=== PATIENT | male | born 1930 | race Caucasian/White ===

== ENCOUNTER 2016-08-13 11:28 | Inpatient (IN) | payer OTHER ==
[~2016-08-13] VITALS: Ht 177.8 cm; Wt 94.7 kg
[~2016-08-13 11:28] MED LIST: ALL300 PO; AMLO-114 PO; ASPEC81 PO; CIPR-255 PO; LEVO88TA3 PO
--- NOTE | 2016-08-13 12:55 | DIAGNOSTIC IMAGING REPORT ---
CHEST ONE VIEW PORTABLE CLINICAL HISTORY: sob COUGH COMPARISON STUDY: 10/04/2013 FINDINGS: The heart is mildly enlarged. Since the prior study, the patient has developed bilateral interstitial opacities with a lower lung zone predominance. [Likely diagnostic considerations include multifocal pneumonia versus interstitial edema.. Clinical and radiographic follow-up is recommended. Impression: Interval development of bilateral interstitial opacities with a lower lung zone predominance. Likely diagnostic considerations include multifocal pneumonia versus failure with interstitial edema. Clinical and radiographic follow-up is recommended Electronically signed by: Bony Wright M.D. 08/13/2016 12:53 PM Dictated Date/Time: 08/13/2016 12:50 PM
[2016-08-13 12:59] LABS: BASO % 0.3 %; BASO ABS # 0.03 K/uL (0-0.2); COMPLETE YES; EOS % 2.3 %; HEMATOCRIT 32.8 % (42-52); IG% 0.2 %; LYMPH % 7.2 %; LYMPH ABS # 0.63 K/uL (1.2-3.4); MEAN CELL VOLUME 94.5 fL (80-100); MEAN CORPUSCULAR HEMOGLOBIN 31.1 pg (25-34); MEAN CORPUSCULAR HGB CONC 32.9 g/dl (32-36); MEAN PLATELET VOLUME 9.3 fL (7.4-10.4); MONO % 8.4 %; NEUT % 81.6 %; PLATELET COUNT 176 K/uL (130-400); RED BLOOD COUNT 3.47 M/uL (4.7-6.1); WHITE BLOOD COUNT 8.79 K/uL (4.8-10.8)
[2016-08-13] MEDS ORDERED: NTRGSL/4 UT (13:05)
[2016-08-13] MEDS ORDERED: PRLSR20 PO (13:05)
[2016-08-13] MEDS ORDERED: CLOP1TAB15 PO (13:05)
[2016-08-13] MEDS ORDERED: ATOR-24 PO (13:05)
[2016-08-13] MEDS ORDERED: AMOX500C3 PO (13:05)
[2016-08-13 13:10] LABS: INR 1.1 (0.9-1.1); PARTIAL THROMBOPLASTIN RATIO 1.2; PROTHROMBIN TIME (PATIENT) 11.3 SECONDS (9.0-12.0)
[2016-08-13 13:22] LABS: BUN/CREATININE RATIO 15.8 (10-20); CALCIUM 8.4 mg/dl (8.5-10.1); CREATININE 1.9 mg/dl (0.60-1.40); POTASSIUM 4.3 mmol/L (3.5-5.1)
[2016-08-13 13:58] LABS: ALB/GLOB RATIO 0.7 (0.9-2); CKMB/CK RATIO 1.7 (0-3.0)
[2016-08-13] MEDS ORDERED: LEVAQUIN 500MG / 100ML D5W IV ONE (14:00)
--- NOTE | 2016-08-13 14:30 | EMERGENCY ROOM VISIT NOTE ---
History Report prepared by Laurel: Frankie Cash Under the Supervision of: Dr. Elroy Navarro D.O. First contact with patient: 11:42 Chief Complaint: SHORTNESS OF BREATH Stated Complaint: SOB, COUGH History of Present Illness The patient is an 86 year old male who presents to the Emergency Room with complaints of worsening shortness of breath that started 2 weeks ago after having an aortic valve replacement in [place]. He says that he had a stent put in. The patient states that 3 days ago, he was grocery shopping and he noticed that he could hardly breathe. He says that he has just been sitting down and watching television ever since. The patient notes that his breathing difficulties are worsened on exertion. He adds that he has had a terrible cough since the day after the surgery. He does not wear oxygen at home, and he had an oxygen saturation of 82% on room air on arrival. The patient denies any abdominal pain or new leg swelling. Source of History: patient Onset: 2 weeks ago Position: other (global - sob) Symptom Intensity: 82% on arrival on room air Timing: worsening Modifying Factors (Worsening): exertion Associated Symptoms: + cough, No abdominal pain Note: Associated symptoms: Denies new leg swelling. Review of Systems See HPI for pertinent positives & negatives. A total of 10 systems reviewed and were otherwise negative. Past Medical & Surgical Medical Problems: (1) Aortic Valve Disorder (2) Chronic Kidney Disease, Stage Iii (Moderate) (3) Esophageal Reflux (4) Hydronephrosis (5) Hypothyroidism Nos Family History Family history omitted secondary to patient's advanced age. Social History Smoking Status: Former Smoker Alcohol Use: none Drug Use: none Marital Status: Housing Status: lives with significant other Occupation Status: retired Current/Historical Medications Scheduled Amlodipine (Norvasc), 2.5 MG PO QAM Amoxicillin (Amoxil), 500 MG PO DIRECTED Aspirin Enteric Coated (Ecotrin Or Generic *), 81 MG PO DAILY Atorvastatin (Lipitor), 40 MG PO DAILY Clopidogrel (Plavix), 75 MG PO DAILY Levothyroxine Sodium (Levothyroxine Sodium), 88 MCG PO DAILY Nitroglycerin (Nitrostat), 0.4 MG UT PRN Omeprazole (Prilosec), 20 MG PO DAILY Scheduled PRN Allopurinol (Allopurinol), 300 MG PO DAILY PRN for gout Allergies Coded Allergies: No Known Allergies (Verified , 08/13/16) Physical Exam Vital Signs Date Time Temp Pulse Resp B/P Pulse Ox O2 Delivery O2 Flow Rate FiO2 08/13/16 13:57 68 18 124/56 95 Nasal Cannula 2.0 08/13/16 13:10 69 22 113/60 97 Nasal Cannula 3.0 08/13/16 12:06 74 08/13/16 11:48 94 Nasal Cannula 3.0 08/13/16 11:42 93 Nasal Cannula 3.0 08/13/16 11:30 37.3 92 24 108/59 82 Room Air Physical Exam CONSTITUTIONAL/VITAL SIGNS: Reviewed / noted above. GENERAL: Non-toxic in appearance. INTEGUMENTARY: Warm, dry, and [place]. HEAD: Normocephalic. EYES: without scleral icterus or trauma. ENT/OROPHARYNX: clear and moist. LYMPHADENOPATHY/NECK: Is supple without lymphadenopathy or meningismus. RESPIRATORY: Crackles in bilateral bases. CARDIOVASCULAR: Regular rate and rhythm. Systolic ejection murmur. GI/ABDOMEN: Soft and nontender. No organomegaly or pulsatile mass. No rebound or guarding. Normal bowel sounds. EXTREMITIES: Warm and well perfused. BACK: No CVA tenderness. NEUROLOGICAL: Intact without focal deficits. PSYCHIATRIC: normal affect. MUSCULOSKELETAL: Normally developed with good muscle tone. Medical Decision & Procedures ER Provider Diagnostic Interpretation: X ray results and stated below per my interpretation and radiology interpretation. CHEST ONE VIEW PORTABLE CLINICAL HISTORY: sob COUGH COMPARISON STUDY: 10/04/2013 FINDINGS: The heart is mildly enlarged. Since the prior study, the patient has developed bilateral interstitial opacities with a lower lung zone predominance. [Likely diagnostic considerations include multifocal pneumonia versus interstitial edema.. Clinical and radiographic follow-up is recommended. Impression: Interval development of bilateral interstitial opacities with a lower lung zone predominance. Likely diagnostic considerations include multifocal pneumonia versus failure with interstitial edema. Clinical and radiographic follow-up is recommended Electronically signed by: Bony Wright M.D. 08/13/2016 12:53 PM Dictated Date/Time: 08/13/2016 12:50 PM Laboratory Results 08/13/16 12:40 Red Blood Count 3.47, Mean Corpuscular Volume 94.5, Mean Corpuscular Hemoglobin 31.1, Mean Corpuscular Hemoglobin Concent 32.9, Mean Platelet Volume 9.3, Neutrophils (%) (Auto) 81.6, Lymphocytes (%) (Auto) 7.2, Monocytes (%) (Auto) 8.4, Eosinophils (%) (Auto) 2.3, Basophils (%) (Auto) 0.3, Neutrophils # (Auto) 7.17, Lymphocytes # (Auto) 0.63, Monocytes # (Auto) 0.74, Eosinophils # (Auto) 0.20, Basophils # (Auto) 0.03 08/13/16 12:40 Test 08/13/16 12:40 White Blood Count 8.79 K/uL (4.8-10.8) Red Blood Count 3.47 M/uL (4.7-6.1) Hemoglobin 10.8 g/dL (14.0-18.0) Hematocrit 32.8 % (42-52) Mean Corpuscular Volume 94.5 fL (80-100) Mean Corpuscular Hemoglobin 31.1 pg (25-34) Mean Corpuscular Hemoglobin Concent 32.9 g/dl (32-36) Platelet Count 176 K/uL (130-400) Mean Platelet Volume 9.3 fL (7.4-10.4) Neutrophils (%) (Auto) 81.6 % Lymphocytes (%) (Auto) 7.2 % Monocytes (%) (Auto) 8.4 % Eosinophils (%) (Auto) 2.3 % Basophils (%) (Auto) 0.3 % Neutrophils # (Auto) 7.17 K/uL (1.4-6.5) Lymphocytes # (Auto) 0.63 K/uL (1.2-3.4) Monocytes # (Auto) 0.74 K/uL (0.11-0.59) Eosinophils # (Auto) 0.20 K/uL (0-0.5) Basophils # (Auto) 0.03 K/uL (0-0.2) RDW Standard Deviation 51.3 fL (36.4-46.3) RDW Coefficient of Variation 15.0 % (11.5-14.5) Immature Granulocyte % (Auto) 0.2 % Immature Granulocyte # (Auto) 0.02 K/uL (0.00-0.02) Prothrombin Time 11.3 SECONDS (9.0-12.0) Prothromb Time International Ratio 1.1 (0.9-1.1) Activated Partial Thromboplast Time 31.7 SECONDS (21.0-31.0) Partial Thromboplastin Ratio 1.2 Anion Gap 8.0 mmol/L (3-11) Est Creatinine Clear Calc Drug Dose 31.7 ml/min Estimated GFR () 35.9 Estimated GFR (Non- 31.0 BUN/Creatinine Ratio 15.8 (10-20) Calcium Level 8.4 mg/dl (8.5-10.1) Total Bilirubin 1.0 mg/dl (0.2-1) Aspartate Amino Transf (AST/SGOT) 17 U/L (15-37) Alanine Aminotransferase (ALT/SGPT) 11 U/L (12-78) Alkaline Phosphatase 102 U/L (45-117) Total Creatine Kinase 104 U/L (39-308) Creatine Kinase MB 1.8 ng/ml (0.5-3.6) Creatine Kinase MB Ratio 1.7 (0-3.0) Troponin I 0.079 ng/ml (0-0.045) Pro-B-Type Natriuretic Peptide 1108 pg/ml (0-1800) Total Protein 7.1 gm/dl (6.4-8.2) Albumin 2.9 gm/dl (3.4-5.0) Globulin 4.2 gm/dl (2.5-4.0) Albumin/Globulin Ratio 0.7 (0.9-2) Laboratory results as stated above per my review. Medications Administered Medications (Trade) Dose Ordered Sig/Shakira Route Start Time Stop Time Status Last Admin Dose Admin Levofloxacin (Levaquin / D5W) 500 mg NOW ONCE IV 08/13/16 14:00 08/13/16 14:01 DC 08/13/16 14:20 500 MG ECG Indication: SOB/dyspnea Rate (beats per minute): 78 Rhythm: normal sinus Findings: no ectopy, other (bifascicular block, no acute injury) ED Course 1153: Previous medical records were reviewed. The patient was evaluated in room C8. A complete history and physical examination was performed. 1400: Ordered Levaquin / D5W 500 mg IV. 1414: I discussed the patient with Dr. Arturo Bhatti career representative - she will evaluate the patient for further treatment. 1418: On reevaluation, the patient is resting comfortably. I discussed the results and findings with him. He verbalized agreement of the treatment plan. The patient will be evaluated for further management and care. Medical Decision the differential was considered includes acute myocardial infarction, acute coronary syndrome, myocarditis, pericarditis, pericardial effusions /tamponade, esophageal perforation, pulmonary embolism, pneumonia, pneumothorax, cardiomyopathy, congestive heart, anemia , COPD/asthma exacerbation. This is an 86-year-old male who presents to the ED with a chief complaint of shortness of breath, cough and hypoxia. The patient had aortic valve replacement 2 weeks ago. He developed a cough shortly thereafter. The patient' s chest x-ray is suggestive of bilateral pneumonia. The BUN is 30 and creatinine is 1.9. Troponin slightly elevated. EKG shows a normal sinus rhythm with a bifascicular block. The patient was started on IV Levaquin. He was provided oxygen and his oxygen saturations. He was seen by the hospitalist for further inpatient evaluation and care. Medication Reconciliation: I attest that I have personally reviewed the patient' s current medication list. Consults Time Called: 1410 Consulting Physician: Dr. Arturo Bhatti career representative Returned Call: 1417 I discussed the patient with Dr. Arturo Bhatti career representative - she will evaluate the patient for further treatment. Impression Primary Impression: PNA (pneumonia) Additional Impressions: Hypoxia Elevated troponin Renal insufficiency Scribe Attestation The scribe's documentation has been prepared under my direction and personally reviewed by me in its entirety. I confirm that the note above accurately reflects all work, treatment, procedures, and medical decision making performed by me. Departure Information Dispostion Being Evaluated By Hospitalist Referrals Dylan Do D.O. (PCP) Patient Instructions My [facility] Problem Qualifiers
[2016-08-13] MEDS ORDERED: ACETAMINOPHEN 325 MG TAB PO PRN (15:00)
[2016-08-13] MEDS ORDERED: NITROGLYCERIN 0.4 MG SL PER TAB CHARGE SL PRN (15:00)
[2016-08-13] MEDS ORDERED: ONDANSETRON INJ 2 MG/ML 2 ML VIAL IV PRN (15:00)
[2016-08-13] MEDS ORDERED: LEVOFLOXACIN CONSULT ACTIVE SCH (15:16)
--- NOTE | 2016-08-13 16:23 | History and Physical ---
History & Physical Date & Time of Service: August 13, 2016 ~ 14:45 Chief Complaint: Shortness of Breath, Cough Primary Care Physician: Gurmeet Glez D.O. History of Present Illness Source: family 86 year old male who presents to the ER with shortness of breath and cough. Patient recently underwent TAVR on 07/19/16 for severe aortic stenosis at [facility]. Patient reports progressive shortness of breath since that time. He reports a dry non productive cough. He reports severe coughing spells at times. He reports chills but denies rigors and has not taken his temperature. He reports his lower extremity edema is much improved since the surgery. He reports occasional chest pain with severe coughing spells. He reports feeling generally fatigued since his surgery. No lightheadedness, dizziness, diaphoresis, or syncope. He has some nausea with severe coughing spells. Denies abdominal pain, vomiting, or diarrhea. He chronically self caths. Denies any changes in his urine. In the ER, patient was hypoxic on room air at 82%. This improved with oxygen 2L via NC. CXR is showing bibasilar pneumonia vs. CHF. Troponin is mildly elevated at .079. EKG does not show any acute ST changes. Remainder of his labs are unremarkable. He was given a dose of IV Levaquin. Past Medical/Surgical History Medical Problems: (1) AAA (abdominal aortic aneurysm) Permanent Comment: 4.6cm Status: Chronic (2) CAD (coronary artery disease) Permanent Comment: 06/2016 - FLORIN to LAD x 2 Status: Chronic (3) CKD (chronic kidney disease), stage III Status: Chronic (4) GERD (gastroesophageal reflux disease) Status: Chronic (5) Gout Status: Chronic (6) HTN (hypertension) Status: Chronic (7) Hypothyroidism Status: Chronic (8) Neurogenic bladder Status: Chronic Surgical Problems: (1) Hx of total knee arthroplasty Status: Chronic (2) S/P TAVR (transcatheter aortic valve replacement) Permanent Comment: 07/29/16 Status: Chronic (3) S/P TURP Status: Chronic Family History non contributory due to patient's advanced age Social History Smoking Status: Former Smoker Alcohol Use: none Marital Status: Housing status: lives alone Immunizations History of Influenza Vaccine: Yes Influenza Vaccine Date: Nov 28, 2015 History of Tetanus Vaccine?: Yes Tetanus Immunization Date: May 03, 1999 History of Pneumococcal: Yes Pneumococcal Date: Nov 28, 2015 Multi-Drug Resistant Organisms History of MDRO: No Allergies Coded Allergies: No Known Allergies (Verified , 08/13/16) Home Medications Scheduled Allopurinol (Allopurinol), 300 MG PO DAILY Amlodipine (Norvasc), 2.5 MG PO QAM Amoxicillin (Amoxil), 500 MG PO DIRECTED Aspirin Enteric Coated (Ecotrin Or Generic *), 81 MG PO DAILY Atorvastatin (Lipitor), 40 MG PO DAILY Clopidogrel (Plavix), 75 MG PO DAILY Levothyroxine Sodium (Levothyroxine Sodium), 88 MCG PO DAILY Nitroglycerin (Nitrostat), 0.4 MG UT PRN Omeprazole (Prilosec), 20 MG PO DAILY Review of Systems ROS per HPI, all other systems reviewed and negative Physical Exam Vital Signs Date Time Temp Pulse Resp B/P Pulse Ox O2 Delivery O2 Flow Rate FiO2 08/13/16 15:18 68 20 121/57 95 Nasal Cannula 2.0 08/13/16 13:57 68 18 124/56 95 Nasal Cannula 2.0 08/13/16 13:10 69 22 113/60 97 Nasal Cannula 3.0 08/13/16 12:06 74 08/13/16 11:48 94 Nasal Cannula 3.0 08/13/16 11:42 93 Nasal Cannula 3.0 08/13/16 11:30 37.3 92 24 108/59 82 Room Air General Appearance: no apparent distress Head: normocephalic Eyes: normal inspection ENT: hearing grossly normal Neck: supple, no JVD Respiratory/Chest: no respiratory distress, + rales (BL mid lung soliman to bases ) Cardiovascular: regular rate, rhythm, + pertinent finding (+2 edema BLLE) Abdomen/GI: normal bowel sounds, non tender, soft Extremities/Musculoskelatal: normal inspection, no calf tenderness Neurologic/Psych: no motor/sensory deficits, alert, normal mood/affect, oriented x 3 Skin: normal color, warm/dry Diagnostics Laboratory Results Results Past 24 Hours Test 08/13/16 12:40 Range/Units White Blood Count 8.79 4.8-10.8 K/uL Red Blood Count 3.47 4.7-6.1 M/uL Hemoglobin 10.8 14.0-18.0 g/dL Hematocrit 32.8 42-52 % Mean Corpuscular Volume 94.5 80-100 fL Mean Corpuscular Hemoglobin 31.1 25-34 pg Mean Corpuscular Hemoglobin Concent 32.9 32-36 g/dl Platelet Count 176 130-400 K/uL Mean Platelet Volume 9.3 7.4-10.4 fL Neutrophils (%) (Auto) 81.6 % Lymphocytes (%) (Auto) 7.2 % Monocytes (%) (Auto) 8.4 % Eosinophils (%) (Auto) 2.3 % Basophils (%) (Auto) 0.3 % Neutrophils # (Auto) 7.17 1.4-6.5 K/uL Lymphocytes # (Auto) 0.63 1.2-3.4 K/uL Monocytes # (Auto) 0.74 0.11-0.59 K/uL Eosinophils # (Auto) 0.20 0-0.5 K/uL Basophils # (Auto) 0.03 0-0.2 K/uL RDW Standard Deviation 51.3 36.4-46.3 fL RDW Coefficient of Variation 15.0 11.5-14.5 % Immature Granulocyte % (Auto) 0.2 % Immature Granulocyte # (Auto) 0.02 0.00-0.02 K/uL Prothrombin Time 11.3 9.0-12.0 SECONDS Prothromb Time International Ratio 1.1 0.9-1.1 Activated Partial Thromboplast Time 31.7 21.0-31.0 SECONDS Partial Thromboplastin Ratio 1.2 Sodium Level 144 136-145 mmol/L Potassium Level 4.3 3.5-5.1 mmol/L Chloride Level 112 98-107 mmol/L Carbon Dioxide Level 24 21-32 mmol/L Anion Gap 8.0 3-11 mmol/L Blood Urea Nitrogen 30 7-18 mg/dl Creatinine 1.90 0.60-1.40 mg/dl Est Creatinine Clear Calc Drug Dose 31.7 ml/min Estimated GFR () 35.9 Estimated GFR (Non- 31.0 BUN/Creatinine Ratio 15.8 10-20 Random Glucose 108 70-99 mg/dl Calcium Level 8.4 8.5-10.1 mg/dl Total Bilirubin 1.0 0.2-1 mg/dl Aspartate Amino Transf (AST/SGOT) 17 15-37 U/L Alanine Aminotransferase (ALT/SGPT) 11 12-78 U/L Alkaline Phosphatase 102 45-117 U/L Total Creatine Kinase 104 39-308 U/L Creatine Kinase MB 1.8 0.5-3.6 ng/ml Creatine Kinase MB Ratio 1.7 0-3.0 Troponin I 0.079 0-0.045 ng/ml Pro-B-Type Natriuretic Peptide 1108 0-1800 pg/ml Total Protein 7.1 6.4-8.2 gm/dl Albumin 2.9 3.4-5.0 gm/dl Globulin 4.2 2.5-4.0 gm/dl Albumin/Globulin Ratio 0.7 0.9-2 Microbiology Results 08/13/16 Blood Culture, Received Pending 08/13/16 Blood Culture, Received Pending Diagnostic Radiology CXR Impression: Interval development of bilateral interstitial opacities with a lower lung zone predominance. Likely diagnostic considerations include multifocal pneumonia versus failure with interstitial edema. Clinical and radiographic follow-up is recommended Impression Assessment and Plan ACUTE HYPOXIC RESPIRATORY FAILURE, LIKELY DUE TO HCAP - admit to tele - patient presenting with worsening shortness of breath and cough since TAVR on 07/29 - in the ER, patient was hypoxic on room air at 82%, this improved with oxygen 2L via NC - CXR showing bibasilar PNA vs. CHF - note normal proBNP and improving lower extremity edema; but also patient is afebrile, no leukocytosis - no signs of sepsis - s/p Levaquin in the ED; will continue with and check MRSA nasal swab, add Vanco if positive - blood and sputum cultures - nebs and flutter valve ordered to help mobilize secretions - may need 2-step O2 eval before discharge ELEVATED TROPONIN, HX CAD, RECENT TAVR - hx FLORIN x 2 to LAD 06/2016 - no reports of chest pain, EKG unchanged - likely due to hypoxia, acute illness, recent TAVR - continue ASA, Plavix, and statin - will check resting echo due to recent TAVR - cardio consult, input appreciated HTN - BP controlled, continue amlodipine CKD STAGE III - baseline creat runs in the high 1's - creat noted to be 1.9 today - continue to monitor, avoid nephrotoxic agents when able HYPOTHYROIDISM - continue levothyroxine NEUROGENIC BLADDER - will place [place] while hospitalized DVT PROPHYLAXIS - SQ Heparin CODE STATUS - Patient is a full code as per my discussion with him. DISPO - In my clinical judgment this beneficiary meets acute admission criteria, established by [facility], that includes being hospitalized through two midnights. ATTENDING NOTE : record reviewed pt interviewed and examined care co ordinated with Milagros GILES please see her documentation for detail pt history briefly 86 yo M with recent TVAR at [facility] , [place] , presented with SOB , hypoxia Cxray shows bilateral pneumonia P/E: GEN ; no sign of distress HEENT: sclera non icteric LUNGS: CTA ABDOMEN: soft, non tender EXT; no lower ext edema HYPOXIA /SOB /BILATERAL PNEUMONIA: Cxray shows bilateral pneumonia will be started empiric Abx ordered for blood culture /sputum culture VALVULAR HEART DISEASE : s/p recent TAVR at [place] pt does not appear to be vol overloaded monitor vol status Cardiology eval requested Please see Milagros GILES documentation for further discussion of other issues Lilliam Morris MD Level of Care Telemetry Resuscitation Status FULL RESUSCITATION VTE Prophylaxis VTE Risk Assessment Done? Y/N: Yes Risk Level: Moderate Given or contraindicated: Unfractionated heparin SQ Additional Copies To Dylan Do D.OGurmeet Fisher D.O.
[2016-08-13 16:55] VITALS: BP 121/57; PULSE 70; TEMP 37.3; O2SAT 95; Ht 177.8 cm; Wt 94.7 kg
[2016-08-13] MEDS ORDERED: ALBUT/IPRATROP 3MG/0.5MG NEB 3 ML VIAL INH PRN (18:30)
--- NOTE | 2016-08-13 19:00 | CARDIOLOGY CONSULTATION ---
DATE OF CONSULTATION: 08/13/2016 [facility] REASON FOR CONSULTATION: Shortness of breath. HISTORY OF PRESENT ILLNESS: This is an 86-year-old male patient who usually follows with Dr. Glez through our cardiology clinic. He has a history of coronary artery disease and aortic stenosis. In June of this year, he received drug-eluting stents within the LAD. He then went on to have in July a TAVR at [facility]. The patient states that at first he felt much improved, but over the past several days he has been having increased shortness of breath. He went to the supermarket and could barely walk around before coming winded. He has had a dry nonproductive cough. He states he just felt like he had bronchitis and decided to come in. His chest x-ray shows increased markings bilaterally in both lung soliman that may suggest pulmonary edema from congestive heart failure versus possible pneumonia. The patient has been started on antibiotics. Currently, he feels improved. ALLERGIES: No known medical allergies. PAST MEDICAL HISTORY: Per the history of chief complaint, the patient had recent drug-eluting stents placed in his LAD as well as TVAR. He also has a history of abdominal aortic aneurysm. No prior history of diabetes or strokes. SOCIAL HISTORY: He is a nonsmoker. FAMILY MEDICAL HISTORY: Noncontributory. REVIEW OF SYSTEMS: A 10-point review of systems is negative except for the history of chief complaint. PHYSICAL EXAMINATION: VITAL SIGNS: Blood pressure 120/60, pulse is regular at 70. GENERAL: He is afebrile. HEENT: Normocephalic. Pupils are equal and reactive to light. Extraocular muscles are intact bilaterally. NECK: The neck veins are flat. Carotids have good upstrokes bilaterally without bruits. Thyroid is nonpalpable. RESPIRATORY: Breath sounds equal bilaterally and clear to auscultation. There are no rales, rhonchi or wheezing. CARDIOVASCULAR: Heart has a regular rhythm. There are no cardiac murmurs. No S3 GASTROINTESTINAL: Abdomen is soft, nontender without organomegaly. EXTREMITIES: Free of edema, digit clubbing, or cyanosis. NEUROLOGIC: Grossly intact. SKIN: Warm to touch. LYMPH NODES: Negative to palpation. LABORATORY DATA: WBC count is 8.8, hemoglobin is 10.8, potassium is 4.3, creatinine is 1.9. IMPRESSION: 1. Shortness of breath and a nonproductive cough, possible congestive heart failure versus pneumonia. 2. Recent drug-eluting stents and a transcatheter aortic valve replacement. RECOMMENDATIONS: I agree with starting the patient on antibiotics. I am not certain as to whether he has got diuresis which may have occurred in the Emergency Department. Clinically, he does not appear to me to be in congestive heart failure. His pro-natriuretic peptide is 1100. In addition, he has no white blood cell count elevation and no evidence of fevers. Clinically, he is doing better and I would continue him on oxygen and Levaquin which was started. He has an echocardiogram pending, which we will review.
[2016-08-13 19:46] VITALS: BP 105/54; PULSE 66; TEMP 36.9; O2SAT 92
[2016-08-13] MEDS: HEPARIN SOD 5000 UNIT/0.5 ML CARP SQ SCH (20:04)
[2016-08-13] MEDS: ALBUT/IPRATROP 3MG/0.5MG NEB 3 ML VIAL INH SCH (20:18)
[2016-08-13 20:24] VITALS: PULSE 72; O2SAT 93
[2016-08-14] VITALS (17 sets, daily range): BP systolic 104–129; BP diastolic 54–71; PULSE 70–94; TEMP 36.7–37.1; O2SAT 84–97
[2016-08-14] MEDS: LEVOTHYROXINE 88 MCG TAB PO SCH (05:12)
[2016-08-14 07:27] LABS: HEMATOCRIT 30.6 % (42-52); MEAN CELL VOLUME 93.9 fL (80-100); MEAN CORPUSCULAR HEMOGLOBIN 30.4 pg (25-34); MEAN CORPUSCULAR HGB CONC 32.4 g/dl (32-36); MEAN PLATELET VOLUME 8.9 fL (7.4-10.4); PLATELET COUNT 148 K/uL (130-400); RED BLOOD COUNT 3.26 M/uL (4.7-6.1); WHITE BLOOD COUNT 9.57 K/uL (4.8-10.8)
[2016-08-14] MEDS: ALBUT/IPRATROP 3MG/0.5MG NEB 3 ML VIAL INH SCH ×4 (07:50→19:24)
[2016-08-14 07:53] LABS: CALCIUM 8.7 mg/dl (8.5-10.1)
[2016-08-14 07:54] LABS: BUN/CREATININE RATIO 15.4 (10-20); CREATININE 2.1 mg/dl (0.60-1.40); POTASSIUM 4.5 mmol/L (3.5-5.1)
[2016-08-14] MEDS: ALLOPURINOL 300 MG TAB PO SCH (08:44)
[2016-08-14] MEDS: HEPARIN SOD 5000 UNIT/0.5 ML CARP SQ SCH (08:44)
[2016-08-14] MEDS: PANTOprazole SOD 40 MG TAB PO SCH (08:45)
[2016-08-14] MEDS: ATORVASTATIN 40 MG TAB PO SCH (08:45)
[2016-08-14] MEDS: AMLODIPINE BESYLATE 5 MG TAB PO SCH (08:45)
[2016-08-14] MEDS ORDERED: ASPIRIN 81 MG ECTAB PO SCH (09:00)
[2016-08-14] MEDS ORDERED: CLOPIDOGREL BISULFATE 75 MG TAB PO SCH (09:00)
--- NOTE | 2016-08-14 09:20 | Cardiology Follow-Up ---
Subjective General Date of Service: August 14, 2016. Chief Complaint: follow-up shortness of breath Pt evaluation today including: conversation w/ patient, physical exam History of Present Illness The patient is a 86 year old male seen in cardiology consultation with initial consultation having been performed yesterday 08/13/[address] Bardales. The patient is well known to the undersigned as having followed him as an outpatient for the last several years for progressive calcific aortic valve stenosis and he had recently undergone a technically complex pertains coronary intervention of the mid LAD with drug-eluting stents placed on 06/20/2016 and then return to [facility] for transcatheter aortic valve replacement which was performed on 07/29/16. He tolerated the procedure well. He has a baseline history of conduction system disease with a long first degree AV block and right bundle branch block, but his heart rate remained stable post procedure. He been discharged and was seen by the undersigned in follow-up last week at which time he reported feeling well with the exception of just having low energy. In the meantime, he notes progressive worsening shortness of breath. He also notes a cough that is worse at night that is been present since he was discharged from the transcatheter aortic valve procedure. He typically has difficulty voiding and uses a self urinary catheterization technique at least 2 times per day to void. He is not on a daily diuretic and he has a history of stage III chronic kidney disease with recent creatinine levels in the 1.7-2 range as an outpatient. He notes that the tipping point was when he went to the grocery store and realized he could not ambulate to get his grocery shopping perform sufficiently and he subsequently presented to the emergency department. He is since received a dose of Levaquin for possible underlying pneumonia. Chest x-ray reveals bilateral interstitial edema. His BNP level is mildly elevated. Allergies Coded Allergies: No Known Allergies (Verified , 08/13/16) Social History Smoking Status: Former Smoker Hx Tobacco Use In Past Year?: No Hx Alcohol Use - Type And Amou: Yes (beer - 1 bottle per week) Hx Substance Use - Type And Am: No Physical Exam Vital Signs Last Vital Signs Documentation Date Time Temp Pulse Resp B/P Pulse Ox O2 Delivery O2 Flow Rate FiO2 08/14/16 08:07 36.7 94 20 105/60 92 Nasal Cannula 2.0 Physical Exam Constitutional: Level of Distress: NAD Neck: trachea midline Lungs: Auscultation: no wheezing, pertinent finding (decreased breath sounds at the bases bilaterally) Cardiovascular: Heart Auscultation: RRR, I/ LORI Extremities: no edema Neurologic: Gait & Station: pertinent finding (No focal neurologic deficits) Assessment and Plan Assessment and Plan Impression: 86-year-old male 1. Shortness of breath, diastolic congestive heart failure decompensation versus hospital associated pneumonia 2. Mild troponin elevation, more consistent with heart failure decompensation with an acute coronary syndrome. EKG reveals unchanged chronic right bundle branch block without acute repolarization abnormalities 3. Acute kidney injury on chronic CKD 4. History of urinary outflow obstruction for which she performs urinary self- catheterization at baseline Plan: A Crowder catheter as already and placed which I think is a good idea to help monitor his intake and output. He denies any fevers or chills but does note a cough. He is not on an ACEI/ ARB. Even though his creatinine is a little bit above baseline, I recommend proceeding with a cautious dose of furosemide 20 mg by mouth times one dose. Agree with empiric Levaquin at present. We need to limit IV fluid intake with antibiotics , so even though pt is at risk for having healthcare associated pneumonia with his recent hospital stays I think monotherapy with Levaquin sounds reasonable at present. Pharmacy has been counseled to adjust this for his kidney function. Regarding his shortness of breath I'm also concerned that he could have occult DVT/pulmonary embolism. He has had recent stasis with being in bed for hospital stays, and had femoral artery and femoral vein access bilaterally and therefore given the mechanical nature of his procedure he is at risk for lower extremity venous thrombosis embolism. I'm going to request a lower extremity venous Doppler. His renal function precludes the use of CT with contrast. Also given his chest x-ray findings which are abnormal baseline I'm not sure that a ventilation perfusion scan would help at present so will start with a lower extremity venous duplex as an alternative cause of him having increasing shortness of breath. Will updated TTecho. The LVEF and valve indices were stable on recent echo prior to DC from [facility] post TAVR. Consuelo Glez DO Laboratory Results Last 24 Hours Test 08/13/16 12:40 08/13/16 18:00 08/13/16 18:05 08/14/16 00:00 White Blood Count 8.79 K/uL Red Blood Count 3.47 M/uL Hemoglobin 10.8 g/dL Hematocrit 32.8 % Mean Corpuscular Volume 94.5 fL Mean Corpuscular Hemoglobin 31.1 pg Mean Corpuscular Hemoglobin Concent 32.9 g/dl Platelet Count 176 K/uL Mean Platelet Volume 9.3 fL Neutrophils (%) (Auto) 81.6 % Lymphocytes (%) (Auto) 7.2 % Monocytes (%) (Auto) 8.4 % Eosinophils (%) (Auto) 2.3 % Basophils (%) (Auto) 0.3 % Neutrophils # (Auto) 7.17 K/uL Lymphocytes # (Auto) 0.63 K/uL Monocytes # (Auto) 0.74 K/uL Eosinophils # (Auto) 0.20 K/uL Basophils # (Auto) 0.03 K/uL RDW Standard Deviation 51.3 fL RDW Coefficient of Variation 15.0 % Immature Granulocyte % (Auto) 0.2 % Immature Granulocyte # (Auto) 0.02 K/uL Prothrombin Time 11.3 SECONDS Prothromb Time International Ratio 1.1 Activated Partial Thromboplast Time 31.7 SECONDS Partial Thromboplastin Ratio 1.2 Sodium Level 144 mmol/L Potassium Level 4.3 mmol/L Chloride Level 112 mmol/L Carbon Dioxide Level 24 mmol/L Anion Gap 8.0 mmol/L Blood Urea Nitrogen 30 mg/dl Creatinine 1.90 mg/dl Est Creatinine Clear Calc Drug Dose 31.7 ml/min Estimated GFR () 35.9 Estimated GFR (Non- 31.0 BUN/Creatinine Ratio 15.8 Random Glucose 108 mg/dl Calcium Level 8.4 mg/dl Total Bilirubin 1.0 mg/dl Aspartate Amino Transf (AST/SGOT) 17 U/L Alanine Aminotransferase (ALT/SGPT) 11 U/L Alkaline Phosphatase 102 U/L Total Creatine Kinase 104 U/L Creatine Kinase MB 1.8 ng/ml 1.3 ng/ml Creatine Kinase MB Ratio 1.7 Troponin I 0.079 ng/ml 0.075 ng/ml Pro-B-Type Natriuretic Peptide 1108 pg/ml Total Protein 7.1 gm/dl Albumin 2.9 gm/dl Globulin 4.2 gm/dl Albumin/Globulin Ratio 0.7 Test 08/14/16 00:24 08/14/16 07:06 Creatine Kinase MB 1.8 ng/ml Troponin I 0.073 ng/ml White Blood Count 9.57 K/uL Red Blood Count 3.26 M/uL Hemoglobin 9.9 g/dL Hematocrit 30.6 % Mean Corpuscular Volume 93.9 fL Mean Corpuscular Hemoglobin 30.4 pg Mean Corpuscular Hemoglobin Concent 32.4 g/dl RDW Standard Deviation 50.8 fL RDW Coefficient of Variation 14.9 % Platelet Count 148 K/uL Mean Platelet Volume 8.9 fL Sodium Level 142 mmol/L Potassium Level 4.5 mmol/L Chloride Level 110 mmol/L Carbon Dioxide Level 22 mmol/L Anion Gap 10.0 mmol/L Blood Urea Nitrogen 32 mg/dl Creatinine 2.10 mg/dl Est Creatinine Clear Calc Drug Dose 28.5 ml/min Estimated GFR () 31.8 Estimated GFR (Non- 27.5 BUN/Creatinine Ratio 15.4 Random Glucose 116 mg/dl Calcium Level 8.7 mg/dl
[2016-08-14] MEDS ORDERED: FUROSEMIDE INJ 20 MG in SYRINGE 0 ML IV SCH (09:45)
--- NOTE | 2016-08-14 10:10 | DIAGNOSTIC IMAGING REPORT ---
BILATERAL LOWER EXTREMITY VENOUS DOPPLER CLINICAL HISTORY: Shortness of breath. Evaluate for deep venous thrombus. COMPARISON STUDY: Left lower extremity venous Doppler October 19, 2007 and right lower extremity venous Doppler May 19, 2007. TECHNIQUE: Sonography of the deep venous system of the bilateral lower extremities was performed. Compression and augmentation were evaluated. FINDINGS: The bilateral common femoral, superficial femoral and popliteal veins were compressible. Augmentation was normal. Flow was shown within the deep calf vessels. IMPRESSION: No evidence of deep venous thrombus within the bilateral lower extremities. Electronically signed by: El Miguel M.D. 08/14/2016 10:09 AM Dictated Date/Time: 08/14/2016 10:06 AM
[2016-08-14] MEDS ORDERED: LEVOFLOXACIN 250MG / D5W IV SCH (14:00)
--- NOTE | 2016-08-14 15:41 | DIAGNOSTIC IMAGING REPORT ---
CT OF THE ABDOMEN AND PELVIS WITHOUT CONTRAST, STONE PROTOCOL CLINICAL HISTORY: Gross hematuria. COMPARISON STUDY: Renal ultrasound August 09, 2015. TECHNIQUE: Helical axial images of the abdomen and pelvis were obtained without IV or oral contrast according to renal stone protocol. FINDINGS: Visualized portions of the lower chest demonstrate a prosthetic aortic valve. There is a small right pleural effusion which may be loculated. A trace left pleural effusion is noted. Lung bases are difficult to assess due to respiratory motion but there is suggestion of groundglass opacities with subpleural reticulation and possible traction bronchiectasis. No pneumatosis, free air or portal venous gas is present. No renal, ureteral or bladder calculi are present. There is a Crowder balloon within the bladder which is collapsed. This accentuates bladder wall thickening. Prostate is moderately enlarged. A 7.8 cm lesion within the midpole of the right kidney was shown to represent a cyst on prior ultrasound. There is also a suspected 3.1 cm cyst within the upper pole of the left kidney. There is marked bilateral renal atrophy. There is no hydronephrosis. Evaluation of the abdomen and pelvis is suboptimal on this unenhanced exam. The liver, spleen, adrenal glands and pancreas are unremarkable. There are gallstones within the gallbladder. There is colonic diverticulosis without evidence for acute diverticulitis. A fat containing right inguinal hernia is noted. A small portion of the bladder slightly extends into the defect. A 4.6 cm fluid collection overlying the fascia the lateral right thigh is noted. This is nonspecific. No suspicious osseous lesions are present. There is no evidence for a bowel obstruction. There is no lymphadenopathy. Note is made of an 4.5 x 3.6 cm infrarenal abdominal aortic aneurysm. 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 There is mild aneurysmal dilatation of the right internal iliac and left common iliac arteries. IMPRESSION: 1. No urinary calculi or hydronephrosis. Marked bilateral renal atrophy with suspected bilateral renal cysts which are suboptimally assessed on this unenhanced exam. 2. Moderate enlargement of the prostate. Crowder balloon within the bladder which is collapsed making evaluation of the bladder difficult. Apparent bladder wall thickening is accentuated by collapse. 3. Right inguinal hernia. Slight protrusion of the right aspect of the bladder dome into the hernia. 4. 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 No rupture. 5. Cholelithiasis. 6. Trace bilateral pleural effusions. 7. Nonspecific 4.6 cm fluid collection overlying the fascia the lateral right thigh. Electronically signed by: lE Miguel M.D. 08/14/2016 3:40 PM Dictated Date/Time: 08/14/2016 3:29 PM
[2016-08-14] MEDS ORDERED: ASPIRIN 81 MG ECTAB PO STA (16:13)
[2016-08-14] MEDS ORDERED: CLOPIDOGREL BISULFATE 75 MG TAB PO ONE (16:15)
--- NOTE | 2016-08-14 16:15 | Cardiology Progress Note ---
Cardiology Progress Note Date of Service August 14, 2016. Cardiology Progress Note CT of the A / P noted. Patient has a recently placed drug eluting stent to the LAD as well as recent transcatheter aortic valve replacement. In the absence of a hemorrhage emergency, recommend that his aspirin and clopidogrel are not held. I have therefore reorder them. I spoke to his nurse on the telephone and asked for them to be administered. Consuelo Glez, DO
--- NOTE | 2016-08-14 17:01 | ECHOCARDIOGRAM REPORT ---
*NOTICE TO RECEIVING DEMOCRAT AGENCY This information is strictly Confidential and protected under [place] law. [place] law prohibits you from making any further disclosure of this information unless further disclosure is expressly permitted by the written consent of the person to whom it pertains or is authorized by law. A general authorization for the release of medical or other information is not sufficient for this purpose. Hospital accepts no responsibility if the information is made available to any other person, INCLUDING THE PATIENT. Interpretation Summary * Name: NETTE MOLINA Study Date: 08/14/2016 01:59 PM BP: 129/71 mmHg * Patient Location: C.2T\S\S241\S\2 HR: 70 * : 1930 (M/d/yyyy) Gender: Male Height: 70 in * Age: 86 yrs Ethnicity: CA Weight: 208 lb * Ordering Physician: Milagros Madrid * Performed By: Chaya Marie * * Reason For Study: RECENT TAVR, SOB * BSA: 2.1 m2 * -- Conclusions -- * S/P TAVR * There is no significant aortic regurgitation. * The prosthetic aortic valve appears to open well. * There is moderate concentric left ventricular hypertrophy. * Ejection Fraction = 65-70%. * The right ventricle is normal size. * The right ventricular systolic function is normal. Procedure Details * A complete two-dimensional transthoracic echocardiogram was performed (2D, M-mode, Doppler and color flow Doppler). * A contrast injection of Definity was performed to improve assessment of LV function. * Contrast was injected into an intravenous site in the left arm. * One vial of Definity ultrasound contrast was diluted in normal saline to a total volume of 10 ml. A total of '3' ml of solution was administered during imaging. * Lot # [id number] of Definity utilized for procedure. * Expiration date 09/01. * The attending nurse who injected the contrast agent was ANA LUISA PETERS RN. Left Ventricle * The left ventricle is normal in size. * There is moderate concentric left ventricular hypertrophy. * Ejection Fraction = 65-70%. Right Ventricle * The right ventricle is normal size. * The right ventricular systolic function is normal. Atria * The left atrium is not well visualized. * Right atrium not well visualized. Mitral Valve * There is moderate mitral annular calcification. * There is no mitral valve stenosis. * Significant mitral regurgitation is absent. Tricuspid Valve * The tricuspid valve is not well visualized. * Significant tricuspid regurgitation is absent. Aortic Valve * S/P TAVR * There is no significant aortic regurgitation. * The prosthetic aortic valve appears to open well. Pulmonic Valve * The pulmonic valve is not well visualized. Pericardium/Pleural * There is no pericardial effusion. MMode 2D Measurements and Calculations IVSd 1.5 cm IVSs 2.2 cm LVIDd 5.8 cm LVIDs 3.6 cm LVPWd 1.1 cm LVPWs 2.0 cm IVS/LVPW 1.3 FS 37.5 % EDV(Teich) 165.2 ml ESV(Teich) 54.9 ml EF(Teich) 66.8 % EDV(cubed) 193.1 ml ESV(cubed) 47.2 ml EF(cubed) 75.6 % % IVS thick 49.6 % % LVPW thick 75.5 % LV mass(C)d 334.4 grams LV mass(C)dI 157.6 grams/m\S\2 LV mass(C)s 362.3 grams LV mass(C)sI 170.7 grams/m\S\2 SV(Teich) 110.3 ml SI(Teich) 52.0 ml/m\S\2 SV(cubed) 145.9 ml SI(cubed) 68.7 ml/m\S\2 asc Aorta Diam 3.0 cm LVOT diam 1.9 cm LVOT area 2.7 cm\S\2 LVAd ap4 45.8 cm\S\2 LVLd ap4 9.9 cm EDV(MOD-sp4) 174.2 ml EDV(sp4-el) 179.8 ml LVAs ap4 24.0 cm\S\2 LVLs ap4 8.8 cm ESV(MOD-sp4) 59.4 ml ESV(sp4-el) 55.8 ml EF(MOD-sp4) 65.9 % EF(sp4-el) 69.0 % LVAd ap2 39.0 cm\S\2 LVLd ap2 9.3 cm EDV(MOD-sp2) 132.6 ml EDV(sp2-el) 139.1 ml LVAs ap2 20.6 cm\S\2 LVLs ap2 7.8 cm ESV(MOD-sp2) 45.5 ml ESV(sp2-el) 46.6 ml EF(MOD-sp2) 65.7 % EF(sp2-el) 66.5 % LVLd %diff -70 % EDV(MOD-bp) 150.6 ml LVLs %diff -13.20 % ESV(MOD-bp) 53.6 ml EF(MOD-bp) 64.4 % SV(MOD-sp4) 114.8 ml SI(MOD-sp4) 54.1 ml/m\S\2 SV(MOD-sp2) 87.0 ml SI(MOD-sp2) 41.0 ml/m\S\2 SV(MOD-bp) 97.0 ml SI(MOD-bp) 45.7 ml/m\S\2 SV(sp4-el) 124.0 ml SI(sp4-el) 58.4 ml/m\S\2 SV(sp2-el) 92.5 ml SI(sp2-el) 43.6 ml/m\S\2 Doppler Measurements and Calculations MV E max asha 111.1 cm/sec MV A max asha 123.3 cm/sec MV E/A 0.90 MV dec time 0.32 sec Ao V2 max 245.9 cm/sec Ao max PG 24.2 mmHg Ao max PG (full) 16.4 mmHg PERI(V,A) 1.5 cm\S\2 PERI(V,D) 1.5 cm\S\2 LV V1 max PG 7.8 mmHg LV V1 max 139.6 cm/sec MR max asha 449.5 cm/sec MR max PG 80.9 mmHg PA V2 max 101.4 cm/sec PA max PG 4.1 mmHg TR max asha 271.8 cm/sec
--- NOTE | 2016-08-14 22:26 | Progress Note ---
Internal Med Progress Note Date of Service: August 14, 2016. Provider Documentation: SUBJECTIVE: still having cough , markedly Dyspneic on exertion developed gross hematuria earlier , Crowder draining barksdale coloured urine no fever or chills OBJECTIVE: Vital Signs-as noted below Exam: General-elderly male , appears to be tired and weak Eyes-sclera non icteric ENT-NAD Lungs-diminished, + rales at base Heart-regular S1/S2 Abdomen-soft, non tender , trace bilateral lower ext edema Extremities-no rash or deformity Neuro-AAO x3, no focal deficit Lab data as noted below. ASSESSMENT & PLAN: ACUTE HYPOXIC RESPIRATORY FAILURE, LIKELY DUE TO HCAP - patient presenting with worsening shortness of breath and cough since TAVR on 07/29 - was hypoxic on room air at 82%, this improved with oxygen 2L via NC - CXR showing bibasilar PNA vs. CHF - no signs of sepsis - pt is continued with Levaquin - blood and sputum cultures -not on Home 02 , requiring supplemental 02 in patient -will continue to optimize respiratory status -2 step pulse oximetry prior to discharge ELEVATED TROPONIN, HX CAD, RECENT TAVR - hx FLORIN x 2 to LAD 06/2016 - no reports of chest pain, EKG unchanged - likely due to hypoxia, acute illness, recent TAVR - continue ASA, Plavix, and statin - ordered for ECHO -ordered for low dose Lasix for concern for pulmonary congestion - appreciate Cardiology eval HEMATURIA: developed gross hematuria this AM sub Q heparin /aspirin /Plavix ordered to be on hold urology consulted pt follows with Dr Worley HTN - BP controlled, continue amlodipine CKD STAGE III - baseline creat runs in the high 1's - creat noted to be 1.9 today - continue to monitor PRP while getting Lasix HYPOTHYROIDISM - continue levothyroxine NEUROGENIC BLADDER - hx of BPH with chronic urinary retention -does self cath twice daily at home -Crowder placed -developed gross hematuria DVT PROPHYLAXIS - SCD /TEds Subq heparin on hold for hematuria DISPOSITION Lives at home /alone ,was independent in his ADL's needs PT/OT eval prior to discharge Social service consulted for discharge planning Medicine follow up with Dr Do Vital Signs: Date Time Temp Pulse Resp B/P (MAP) Pulse Ox O2 Delivery O2 Flow Rate FiO2 08/15/16 08:09 36.4 86 18 123/76 (92) 96 2.0 08/15/16 08:00 96 Nasal Cannula 2.0 08/15/16 07:29 73 18 94 Nasal Cannula 4.0 08/15/16 04:14 37.0 85 20 105/54 (71) 92 Nasal Cannula 3.0 08/15/16 04:00 Nasal Cannula 2.0 08/14/16 23:59 Nasal Cannula 2.0 08/14/16 23:25 36.8 84 18 122/63 (82) 91 Nasal Cannula 2.0 08/14/16 20:00 93 Nasal Cannula 2.0 08/14/16 19:51 37.0 92 22 113/61 (78) 93 Nasal Cannula 2.0 08/14/16 19:24 86 18 85 Room Air 08/14/16 16:00 90 Room Air 08/14/16 15:47 36.7 90 20 118/65 (82) 90 Room Air 08/14/16 15:21 82 94 08/14/16 15:08 72 18 93 Room Air 08/14/16 12:00 96 Nasal Cannula 2.0 08/14/16 11:31 36.8 83 20 104/54 (71) 90 Room Air 08/14/16 11:18 77 18 97 Room Air Lab Results: Results Past 24 Hours Test 08/15/16 06:58 Range/Units White Blood Count 7.23 4.8-10.8 K/uL Red Blood Count 3.13 4.7-6.1 M/uL Hemoglobin 9.6 14.0-18.0 g/dL Hematocrit 29.4 42-52 % Mean Corpuscular Volume 93.9 80-100 fL Mean Corpuscular Hemoglobin 30.7 25-34 pg Mean Corpuscular Hemoglobin Concent 32.7 32-36 g/dl RDW Standard Deviation 51.1 36.4-46.3 fL RDW Coefficient of Variation 15.2 11.5-14.5 % Platelet Count 155 130-400 K/uL Mean Platelet Volume 9.2 7.4-10.4 fL Sodium Level 143 136-145 mmol/L Potassium Level 4.1 3.5-5.1 mmol/L Chloride Level 110 98-107 mmol/L Carbon Dioxide Level 25 21-32 mmol/L Anion Gap 8.0 3-11 mmol/L Blood Urea Nitrogen 30 7-18 mg/dl Creatinine 1.90 0.60-1.40 mg/dl Est Creatinine Clear Calc Drug Dose 31.3 ml/min Estimated GFR () 35.9 Estimated GFR (Non- 31.0 BUN/Creatinine Ratio 15.8 10-20 Random Glucose 119 70-99 mg/dl Calcium Level 8.3 8.5-10.1 mg/dl Microbiology Results 08/15/16 Blood Culture, Deacon Batch Pending 08/15/16 Blood Culture, Deacon Batch Pending 08/14/16 Urine Culture, Received Pending
[2016-08-15] VITALS (12 sets, daily range): BP systolic 97–133; BP diastolic 54–76; PULSE 72–95; TEMP 36.4–37; O2SAT 92–96
[2016-08-15] MEDS ORDERED: VANCOMYCIN INJ 0 MG in SODIUM CHLORIDE 0.9% 250ML 250 ML IV STA (01:03)
[2016-08-15] MEDS ORDERED: VANCOMYCIN CONSULT ACTIVE PRN (01:15)
[2016-08-15] MEDS ORDERED: VANCOMYCIN INJ 1,900 MG in SODIUM CHLORIDE 0.9% 500ML 500 ML IV SCH (01:30)
[2016-08-15] MEDS: LEVOTHYROXINE 88 MCG TAB PO SCH (05:48)
[2016-08-15 07:22] LABS: HEMATOCRIT 29.4 % (42-52); MEAN CELL VOLUME 93.9 fL (80-100); MEAN CORPUSCULAR HEMOGLOBIN 30.7 pg (25-34); MEAN CORPUSCULAR HGB CONC 32.7 g/dl (32-36); MEAN PLATELET VOLUME 9.2 fL (7.4-10.4); PLATELET COUNT 155 K/uL (130-400); RED BLOOD COUNT 3.13 M/uL (4.7-6.1); WHITE BLOOD COUNT 7.23 K/uL (4.8-10.8)
[2016-08-15] MEDS: ALBUT/IPRATROP 3MG/0.5MG NEB 3 ML VIAL INH SCH ×4 (07:29→19:44)
[2016-08-15 07:56] LABS: BUN/CREATININE RATIO 15.8 (10-20); CALCIUM 8.3 mg/dl (8.5-10.1); CREATININE 1.9 mg/dl (0.60-1.40); POTASSIUM 4.1 mmol/L (3.5-5.1)
[2016-08-15] MEDS: ASPIRIN 81 MG ECTAB PO SCH (07:57)
[2016-08-15] MEDS: ATORVASTATIN 40 MG TAB PO SCH (07:57)
[2016-08-15] MEDS: AMLODIPINE BESYLATE 5 MG TAB PO SCH (07:57)
[2016-08-15] MEDS: CLOPIDOGREL BISULFATE 75 MG TAB PO SCH (07:57)
[2016-08-15] MEDS: ALLOPURINOL 300 MG TAB PO SCH (07:58)
--- NOTE | 2016-08-15 08:16 | Clinical Documentation Query ---
CLINICAL DOCUMENTATION QUERY Query #1/3 86 year old male who presents to the Emergency Room with complaints of worsening shortness of breath. HCAP is states as as culprit. Unfortunately HCAP only indexes to simple pneumonia unless likely type of pneumonia is specified that the antibiotics are aimed at treating. In your clinical opinion is this patient being managed for: ( ) Suspected Staphylococcal or Gram negative pneumonia in setting of HCAP treated with IV Vancomycin & Levofloxacin. ( ) Other explanation of clinical findings (Please Explain) ( ) Unable to determine (Please Define) ( ) Need to Discuss (x ) Not Agree The medical record reflects the following clinical findings, treatment, and risk factors. Clinical Indicators: CXR showed bilateral interstitial opacities of lower lungs. Hypoxia 82%. Treatment: IV Vancomycin, IV Levofloxacin Risk Factors: Age & Recent healthcare facility stays ([facility] on 07/29/16). Query #2/3 Cardiology consult states, "Shortness of breath, diastolic congestive heart failure decompensation versus hospital associated pneumonia. Mild troponin elevation, more consistent with heart failure decompensation with an acute coronary syndrome." Acute coronary syndrome despite the intentions of many physicians will not capture the diagnosis of an Acute OH. In coding language, "ACS" is considered an acute but unspecified form of ischemic heart disease and likely does not capture the SOI or ROM intended by the physician. In your clinical opinion is this patient being managed for: (x ) Type II OH (NSTEMI) in setting of hypoxia associated with pneumonia and CHF. ( ) Other explanation of clinical findings (Please Explain) ( ) Unable to determine (Please Define) ( ) Need to Discuss ( ) Not Agree The medical record reflects the following clinical findings, treatment, and risk factors. Clinical Indicators: +Troponin's (0.079, 0.075, 0.073, ) Hypoxia 82%. CHF and pneumonia. Treatment: Cardiology consult, ASA, Plavix, Heparin SQ Risk Factors: Age & CAD Myocardial Infarction: Type 1, 2, 3, 4, or 5? Type 1: spontaneous OH related to ischemia d/t a primary coronary event (plaque erosion, dissection) Type 2: OH related to ischemia associated with increased O2 demand or decreased supply Type 3: sudden unexpected cardiac Type 4: associated with PCI/Stents Type 4a: OH d/t PCI Type 4b: OH d/t stent thrombosis Type 5: OH associated with CABG Reference: Khoa K, Deborah JS, Elvi VILLEGAS (December 2006). "[place] definition of myocardial infarction". Eur. Heart J. 28 20): 2525-38. doi:10.1093/eurheartj/jay660. PMID [id number]. http://eurheartj.oxfordjournals.org/content/.full Query #3/3 CHF is stated as diagnosis by cardiology without specificity. The medical record documentation is now expected to include definitive and explicit description of the patient's heart failure; vague terms such as "heart failure," ventricular dysfunction," and "CHF" may not fully capture the physician's intended level of severity. In your clinical opinion is this patient being managed for: ( ) Acute preserved EF/diastolic heart failure ( ) Other explanation of clinical findings (Please Explain) ( ) Unable to determine (Please Define) ( ) Need to Discuss ( ) Not Agree The medical record reflects the following clinical findings, treatment, and risk factors. Clinical Indicators: Crackles by lung exam. CHF per cardiology. Echo showing EF 65-70%, normal biventricular systolic function, moderate left ventricular hypertrophy, and no significant aortic regurgitation. >2L UO after lasix. Neg 2L I/O. Treatment: IV Lasix, Cardiology consult, Echo, I/O's, daily weights. Risk Factors: Age, CAD, CKD Please clarify and document your clinical opinion in the progress notes and discharge summary. Terms such as "probable", "suspected", "likely", "questionable", "possible", or "still to be ruled out" are acceptable. IF IN AGREEMENT, YOU MUST DOCUMENT ABOVE DIAGNOSTIC STATEMENT IN DAILY PROGRESS NOTES AND DISCHARGE SUMMARY. This document is not part of the patient's record. Thank You, Eran Esquivel, ARABELLA [phone]
--- NOTE | 2016-08-15 08:20 | Clinical Documentation Query ---
CLINICAL DOCUMENTATION QUERY Query #1/2 CHF is stated as diagnosis by cardiology without specificity. The medical record documentation is now expected to include definitive and explicit description of the patient's heart failure; vague terms such as "heart failure," ventricular dysfunction," and "CHF" may not fully capture the physician's intended level of severity. In your clinical opinion is this patient being managed for: ( ) Acute preserved EF/diastolic heart failure ( ) Other explanation of clinical findings (Please Explain) ( x ) Unable to determine (Please Define) ( ) Need to Discuss ( ) Not Agree The medical record reflects the following clinical findings, treatment, and risk factors. Clinical Indicators: Crackles by lung exam. CHF per cardiology. Echo showing EF 65-70%, normal biventricular systolic function, moderate left ventricular hypertrophy, and no significant aortic regurgitation. >2L UO after lasix. Neg 2L I/O. Treatment: IV Lasix, Cardiology consult, Echo, I/O's, daily weights. Risk Factors: Age, CAD, CKD Query #2/2 Cardiology consult states, "Shortness of breath, diastolic congestive heart failure decompensation versus hospital associated pneumonia. Mild troponin elevation, more consistent with heart failure decompensation with an acute coronary syndrome." Acute coronary syndrome despite the intentions of many physicians will not capture the diagnosis of an Acute PA. In coding language, "ACS" is considered an acute but unspecified form of ischemic heart disease and likely does not capture the SOI or ROM intended by the physician. In your clinical opinion is this patient being managed for: ( ) Type II PA (NSTEMI) in setting of hypoxia associated with pneumonia and CHF. ( ) Other explanation of clinical findings (Please Explain) ( ) Unable to determine (Please Define) ( ) Need to Discuss ( ) Not Agree The medical record reflects the following clinical findings, treatment, and risk factors. Clinical Indicators: +Troponin's (0.079, 0.075, 0.073, ) Hypoxia 82%. CHF and pneumonia. Treatment: Cardiology consult, ASA, Plavix, Heparin SQ Risk Factors: Age & CAD Please clarify and document your clinical opinion in the progress notes and discharge summary. Terms such as "probable", "suspected", "likely", "questionable", "possible", or "still to be ruled out" are acceptable. IF IN AGREEMENT, YOU MUST DOCUMENT ABOVE DIAGNOSTIC STATEMENT IN DAILY PROGRESS NOTES AND DISCHARGE SUMMARY. This document is not part of the patient's record. Myocardial Infarction: Type 1, 2, 3, 4, or 5? Type 1: spontaneous PA related to ischemia d/t a primary coronary event (plaque erosion, dissection) Type 2: PA related to ischemia associated with increased O2 demand or decreased supply Type 3: sudden unexpected cardiac Type 4: associated with PCI/Stents Type 4a: PA d/t PCI Type 4b: PA d/t stent thrombosis Type 5: PA associated with CABG Reference: Khoa K, Deborah JS, Elvi VILLEGAS (December 2006). "[place] definition of myocardial infarction". Eur. Heart J. 28 (20): 2525-38. doi:10.1093/eurheartj/zxh799. PMID [id number]. http://eurheartj.oxfordjournals.org/content/.full Thank You, Eran Esquivel RN [phone]
--- NOTE | 2016-08-15 08:27 | Urology Consultation ---
History General Date of Service: Aug 15, 2016. Chief Complaint: gross hematuria Primary Care Physician: Gurmeet Glez D.O. Pt seen a urologist before?: Yes (Dr. Worley ) If yes, why?: BPH and incomplete bladder emptying History of Present Illness 86 yo male admitted for respiratory failure. consulted for gross hematuria after briseno placement. The pt has a hx of BPH with incomplete bladder emptying for which he sees Dr. Worley. Previously doing CIC BID prior to admission. Was to see Dr. Worley in the office yesterday for regular f/u prior to admission. The pt denies any dysuria or hematuria prior to admission. Briseno currently in place draining clear, yellow urine. Anticoagulation has been held. Blood culture preliminarily growing gram positive cocci. UC&S and cytology pending. Non-contrast CT from yesterday was negative for stones and hydro. Bilateral renal atrophy and cysts noted. Non-contrast CT performed d/t Cr of 2.1 yesterday. Slightly improved to 1.9 this morning. H&H this morning of 9.6 and 29.4 noted. Imaging Imaging: CT Laboratory Last 24 Hours Test 08/15/16 06:58 White Blood Count 7.23 K/uL Red Blood Count 3.13 M/uL Hemoglobin 9.6 g/dL Hematocrit 29.4 % Mean Corpuscular Volume 93.9 fL Mean Corpuscular Hemoglobin 30.7 pg Mean Corpuscular Hemoglobin Concent 32.7 g/dl RDW Standard Deviation 51.1 fL RDW Coefficient of Variation 15.2 % Platelet Count 155 K/uL Mean Platelet Volume 9.2 fL Sodium Level 143 mmol/L Potassium Level 4.1 mmol/L Chloride Level 110 mmol/L Carbon Dioxide Level 25 mmol/L Anion Gap 8.0 mmol/L Blood Urea Nitrogen 30 mg/dl Creatinine 1.90 mg/dl Est Creatinine Clear Calc Drug Dose 31.3 ml/min Estimated GFR () 35.9 Estimated GFR (Non- 31.0 BUN/Creatinine Ratio 15.8 Random Glucose 119 mg/dl Calcium Level 8.3 mg/dl Past History BPH (with incomplete bladder emptying), coronary artery disease, GERD, gout, hypertension, hypothyroidism, other (AAA, CKD stage III) Past Surgical History: TKR, other (TURP, transcatheter aortic valve replacement ) Family History non-contributory d/t pt's advanced age Social History Hx Tobacco Use In Past Year?: No Smoking: other (former smoker) Alcohol: never Marital status: Housing status: lives alone Occupation status: retired Immunizations History of Influenza Vaccine: Yes Influenza Vaccine Date: Nov 28, 2015 History of Tetanus Vaccine?: Yes Tetanus Immunization Date: May 03, 1999 History of Pneumococcal: Yes Pneumococcal Date: Nov 28, 2015 History of MDRO No Allergies Coded Allergies: No Known Allergies (Verified , 08/13/16) Medications Home Medications: Home Meds and Scripts Medications Dose Route/Sig Max Daily Dose Days Date Category Dose Instructions Prilosec (Omeprazole) 20 Mg Capcr 20 Mg PO DAILY 08/13/16 Reported Nitrostat (Nitroglycerin) 0.4 Mg Tab 0.4 Mg UT PRN 08/13/16 Reported Plavix (Clopidogrel Bisulfate) 75 Mg Tab 75 Mg PO DAILY 08/13/16 Reported Lipitor (Atorvastatin Calcium) 40 Mg Tab 40 Mg PO DAILY 08/13/16 Reported Amoxil (Amoxicillin) 500 Mg Cap 500 Mg PO DIRECTED 08/13/16 Reported TAKES PRIOR TO DENTAL WORK Levothyroxine Sodium 88 Mcg Tab 88 Mcg PO DAILY 02/04/14 Reported Allopurinol 300 Mg Tab 300 Mg PO DAILY 02/04/14 Reported Norvasc (Amlodipine Besylate) 10 Mg Tab 2.5 Mg PO QAM 30 10/10/10 Rx Ecotrin Or Generic * (Aspirin) 81 Mg Ectab 81 Mg PO DAILY 11/22/07 Reported Inpatient Medications: Current Inpatient Medications Medications (Trade) Dose Ordered Sig/Shakira Route Start Time Stop Time Status Last Admin Dose Admin Heparin Sodium (Porcine) (Heparin Sq 5000 Unit/0.5ml) 5,000 unit Q12 SQ 08/13/16 21:00 09/12/16 20:59 Future Hold 08/13/16 20:04 5,000 UNIT Acetaminophen (Tylenol Tab) 650 mg Q4H PRN PO 08/13/16 15:00 09/12/16 14:59 Nitroglycerin (Nitrostat Tab) 0.4 mg UD PRN SL 08/13/16 15:00 09/12/16 14:59 Levofloxacin (Consult) 1 ea UD N/A 08/13/16 15:16 09/12/16 15:15 Allopurinol (Zyloprim Tab) 300 mg DAILY PO 08/14/16 09:00 09/13/16 08:59 08/15/16 07:58 300 MG Amlodipine Besylate (Norvasc Tab) 2.5 mg QAM PO 08/14/16 09:00 09/13/16 08:59 08/15/16 07:57 2.5 MG Atorvastatin Calcium (Lipitor Tab) 40 mg DAILY PO 08/14/16 09:00 09/13/16 08:59 08/15/16 07:57 40 MG Levothyroxine Sodium (Synthroid Tab) 88 mcg DAILYBB PO 08/14/16 06:00 09/13/16 05:59 08/15/16 05:48 88 MCG Pantoprazole Sodium (Protonix Tab) 40 mg DAILY PO 08/14/16 09:00 09/13/16 08:59 08/14/16 08:45 40 MG Albuterol/ Ipratropium (Duoneb) 3 ml QIDR INH 08/13/16 20:00 09/12/16 19:59 08/15/16 07:29 3 ML Albuterol/ Ipratropium (Duoneb) 3 ml Q2R PRN INH 08/13/16 18:30 09/12/16 18:29 Levofloxacin 750 mg/Prmx 150 ml @ 100 mls/hr Q48H IV 08/15/16 14:00 08/19/16 23:59 Aspirin (Ecotrin Tab) 81 mg QAM PO 08/15/16 09:00 09/14/16 08:59 08/15/16 07:57 81 MG Clopidogrel Bisulfate (plAVix TAB) 75 mg QAM PO 08/15/16 09:00 09/14/16 08:59 08/15/16 07:57 75 MG Vancomycin HCl (Consult) 1 ea UD PRN N/A 08/15/16 01:15 09/14/16 01:14 Vancomycin HCl 1900 mg/Sodium Chloride 538 ml @ 200 mls/hr TODAY@0130 IV 08/15/16 01:30 08/29/16 01:29 08/15/16 02:15 200 MLS/HR Review of Systems Review of Systems Constitutional: No fever, No chills Eyes: No double vision Neurological: No dizzy Endocrine: No excessive thirst Gastrointestinal: No abdominal pain, No nausea, No vomiting Cardiovascular: No chest pain Respiratory: No shortness of breath Skin: No rash Musculoskeletal: + arthritis Male : No blood in urine Physical Exam Vital Signs: Vital Signs Past 12 Hours Date Time Temp Pulse Resp B/P (MAP) Pulse Ox O2 Delivery O2 Flow Rate FiO2 08/15/16 08:09 36.4 86 18 123/76 (92) 96 2.0 08/15/16 07:29 73 18 94 Nasal Cannula 4.0 08/15/16 04:14 37.0 85 20 105/54 (71) 92 Nasal Cannula 3.0 08/15/16 04:00 Nasal Cannula 2.0 08/14/16 23:59 Nasal Cannula 2.0 08/14/16 23:25 36.8 84 18 122/63 (82) 91 Nasal Cannula 2.0 Physical Exam: General Appearance: no apparent distress Eyes: bilateral eyes normal inspection ENT: hearing grossly normal Neck: no JVD Respiratory/Chest: no respiratory distress, no accessory muscle use Cardiovascular: no JVD Extremities: normal inspection Neurologic/Psychiatric: alert, normal mood/affect, oriented x 3 Skin: normal color Assessment & Plan Assessment & Plan A/P: BPH, incomplete bladder emptying, gross hematuria AFVSS. Hematuria improved. Remain off anticoagulation at least another day to ensure hematuria does not return. Continue to monitor H&H. Resume CIC BID prior to discharge home. UC&S pending. Blood culture preliminarily positive. Tx based on sensitivity. Will reschedule pt for f/u with Dr. Worley. Recommend outpatient cysto at that time d/t gross hematuria. Thanks for the consult. Will continue to follow along with primary service at this time.
[2016-08-15] MEDS: PANTOprazole SOD 40 MG TAB PO SCH (09:11)
--- NOTE | 2016-08-15 09:58 | Cardiology Follow-Up ---
Subjective General Date of Service: Aug 15, 2016. Chief Complaint: follow up shortness of breath Pt evaluation today including: conversation w/ patient, physical exam History of Present Illness The patient is a 86 year old male seen in follow up. Patient perhaps feels marginally better than yesterday but still SOB and has non productive cough. Had 2.1 L of urine output yesterday with furosemide 20 mg IV. Briseno catheter with clear yellow urine at present. ASA and clopidogrel resume yesterday, 08/14. LE venous duplex was negative for DVT. Allergies Coded Allergies: No Known Allergies (Verified , 08/13/16) Social History Smoking Status: Former Smoker Hx Tobacco Use In Past Year?: No Hx Alcohol Use - Type And Amou: Yes (beer - 1 bottle per week) Hx Substance Use - Type And Am: No Physical Exam Vital Signs Last Vital Signs Documentation Date Time Temp Pulse Resp B/P (MAP) Pulse Ox O2 Delivery O2 Flow Rate FiO2 08/15/16 08:09 36.4 86 18 123/76 (92) 96 2.0 08/15/16 08:00 Nasal Cannula Physical Exam Constitutional: Level of Distress: NAD Neck: trachea midline Lungs: Auscultation: no wheezing, pertinent finding (decreased breath sounds at the bases bilaterally) Cardiovascular: Heart Auscultation: RRR, I/ LORI Extremities: no edema Neurologic: Gait & Station: pertinent finding (No focal neurologic deficits) Assessment and Plan Assessment and Plan Impression: 86-year-old male 1. Shortness of breath, diastolic congestive heart failure decompensation versus hospital associated pneumonia 2. Mild troponin elevation, more consistent with heart failure decompensation with an acute coronary syndrome. EKG reveals unchanged chronic right bundle branch block without acute repolarization abnormalities 3. Acute kidney injury on chronic CKD 4. History of urinary outflow obstruction for which she performs urinary self- catheterization at baseline 5. Gross hematuria, perhaps form traumatic briseno , improved Plan: Echo 08/14 was stable with normal LVEF and normal prosthetic valve surgery. Creatinine improved after furosemide 20 mg x 1 on 08/14/16. Will increase dose to 40 mg IV x 1 today and reassess tomorrow. Continue ASA and clopidogrel due to recent FLORIN to [facility] and [facility]. Add back SQ heparin for DVT prophylaxis -very high risk. Consuelo Glez DO Laboratory Results Last 24 Hours Test 08/15/16 06:58 White Blood Count 7.23 K/uL Red Blood Count 3.13 M/uL Hemoglobin 9.6 g/dL Hematocrit 29.4 % Mean Corpuscular Volume 93.9 fL Mean Corpuscular Hemoglobin 30.7 pg Mean Corpuscular Hemoglobin Concent 32.7 g/dl RDW Standard Deviation 51.1 fL RDW Coefficient of Variation 15.2 % Platelet Count 155 K/uL Mean Platelet Volume 9.2 fL Sodium Level 143 mmol/L Potassium Level 4.1 mmol/L Chloride Level 110 mmol/L Carbon Dioxide Level 25 mmol/L Anion Gap 8.0 mmol/L Blood Urea Nitrogen 30 mg/dl Creatinine 1.90 mg/dl Est Creatinine Clear Calc Drug Dose 31.3 ml/min Estimated GFR () 35.9 Estimated GFR (Non- 31.0 BUN/Creatinine Ratio 15.8 Random Glucose 119 mg/dl Calcium Level 8.3 mg/dl
[2016-08-15] MEDS ORDERED: HEPARIN SOD 5000 UNIT/0.5 ML CARP SQ ONE (10:00)
--- NOTE | 2016-08-15 10:13 | Pharmacy Progress Note ---
Pharmacy Abx Initial Consult Date of Service Aug 15, 2016. Pharmacy Dosing Scope Date of Consult: 08/15/16 Consultation requested by: Dr. Overton Pharmacy is consulted to initiate vancomycin IV dosing therapy, order appropriate labs and adjust drug dose/frequency. Pharmacy has already been consulted on Levaquin for HAP. Subjective The patient is a 86 year old male admitted on August 13, 2016 at 15:02 for HAP, now with one of two positive blood cultures. Objective Height (Feet): 5 Height (Inches): 10.00 Weight (Kilograms): 92.600 Vital Signs (Past 12Hrs) Vital Signs Past 12 Hours Date Time Temp Pulse Resp B/P (MAP) Pulse Ox O2 Delivery O2 Flow Rate FiO2 08/15/16 08:09 36.4 86 18 123/76 (92) 96 2.0 08/15/16 08:00 96 Nasal Cannula 2.0 08/15/16 07:29 73 18 94 Nasal Cannula 4.0 08/15/16 04:14 37.0 85 20 105/54 (71) 92 Nasal Cannula 3.0 08/15/16 04:00 Nasal Cannula 2.0 08/14/16 23:59 Nasal Cannula 2.0 08/14/16 23:25 36.8 84 18 122/63 (82) 91 Nasal Cannula 2.0 Lab Results (24Hrs) Test 08/15/16 06:58 White Blood Count 7.23 K/uL (4.8-10.8) Red Blood Count 3.13 M/uL (4.7-6.1) Hemoglobin 9.6 g/dL (14.0-18.0) Hematocrit 29.4 % (42-52) Mean Corpuscular Volume 93.9 fL (80-100) Mean Corpuscular Hemoglobin 30.7 pg (25-34) Mean Corpuscular Hemoglobin Concent 32.7 g/dl (32-36) RDW Standard Deviation 51.1 fL (36.4-46.3) RDW Coefficient of Variation 15.2 % (11.5-14.5) Platelet Count 155 K/uL (130-400) Mean Platelet Volume 9.2 fL (7.4-10.4) Sodium Level 143 mmol/L (136-145) Potassium Level 4.1 mmol/L (3.5-5.1) Chloride Level 110 mmol/L (98-107) Carbon Dioxide Level 25 mmol/L (21-32) Anion Gap 8.0 mmol/L (3-11) Blood Urea Nitrogen 30 mg/dl (7-18) Creatinine 1.90 mg/dl (0.60-1.40) Est Creatinine Clear Calc Drug Dose 31.3 ml/min Estimated GFR () 35.9 Estimated GFR (Non- 31.0 BUN/Creatinine Ratio 15.8 (10-20) Random Glucose 119 mg/dl (70-99) Calcium Level 8.3 mg/dl (8.5-10.1) Micro Results Date/Time Source Procedure Growth Status 08/13/16 12:40 Blood Blood Culture - Preliminary Gram Positive Cocci Resulted 08/13/16 12:15 Blood Blood Culture - Preliminary NO GROWTH TO DATE. Resulted 08/13/16 16:50 Nasal MRSA DNA Surveillance Screen - Final Specimen Negative for MRSA by DNA Probe Complete 08/14/16 13:15 Urine,Catheterized Urine Culture Pending Received Risk Factors for Resistance * Hospitalization for 48 hours or more within the past 90 days Assessment & Plan Assessment 86 year old male with HAP and now 1 of 2 blood cultures w/ GPC. SCr elevated but is back at baseline so okay to start maintenance dose of vancomycin Will plan to follow and recommend discontinuation of vanc if positive blood culture is a contaminant Plan Vancomycin IV * Loading dose: 1900 mg (20 mg/kg) was given overnight * Maintenance dose: 1400 mg IV (15 mg/kg) every 30 hours - will start 24 hours after loading dose as this was not a full load * Goal trough level for bacteremia : 15 to 20 mcg/mL * Trough level ordered for 08/17/16 prior to the 0800 dose * Note: this will NOT be at steady state but need to get a level early w/ q30h dosing to determine if we are getting to goal trough Levaquin IV * Continue 750 mg q48h for HAP and CrCl between 20-49 Pharmacy will continue to follow and will adjust dose/frequency as necessary. Thank you.
[2016-08-15] MEDS ORDERED: FUROSEMIDE INJ 40 MG in SYRINGE 0 ML IV ONE (10:15)
--- NOTE | 2016-08-15 10:41 | Progress Note ---
Internal Med Progress Note Date of Service: Aug 15, 2016. Provider Documentation: SUBJECTIVE: still remains markedly dyspneic, SOB with minimum activity has non productive cough no fever Hematuria has resolved Crowder draining clear urine OBJECTIVE: Vital Signs-as noted below Exam: General-elderly male , appears to be tired and weak Eyes-sclera non icteric ENT-NAD Lungs-diminished, + rales at base Heart-regular S1/S2 Abdomen-soft, non tender , trace bilateral lower ext edema Extremities-no rash or deformity Neuro-AAO x3, no focal deficit Lab data as noted below. ASSESSMENT & PLAN: ACUTE HYPOXIC RESPIRATORY FAILURE, LIKELY DUE TO HCAP - patient presenting with worsening shortness of breath and cough since TAVR on 07/29 - was hypoxic on room air at 82%, this improved with oxygen 2L via NC - CXR showing bibasilar PNA vs. CHF given 20 mg IV Lasix yesterday by cardiology , with adequate diuresis ordered for 40 mg IV Lasix X1 dose today - no signs of sepsis - pt is continued with Levaquin -Lower ext Doppler negative for DVT -CTA of chest could not be done due to ZENA on CKD stage 3 -not on Home 02 , requiring supplemental 02 in patient -will continue to optimize respiratory status -2 step pulse oximetry prior to discharge GRAM POSITIVE BACTEREMIA : 03/18 blood culture + staph aureus -possible contamination started on IV Vancomycin repeat Blood culture ordered ECHO showed normal function of bioprosthetic AVR ID eval requested Cardiology updated may need MICHELLE if repeat blood cultures continues to grow staph species ELEVATED TROPONIN, HX CAD, RECENT TAVR - hx FLORIN x 2 to LAD 06/2016 - no reports of chest pain, EKG unchanged - likely due to hypoxia, acute illness, recent TAVR - ASA, Plavix, resumed as pt had recent FLORIN and TVAR - ECHO : Echo 08/14 was stable with normal LVEF and normal prosthetic valve surgery. -ordered for low dose Lasix for concern for pulmonary congestion - appreciate Cardiology eval HEMATURIA: resolved has chronic Crowder for hx of BPH , incomplete evacuation of urine at home dose self cath twice daily urology consulted -appreciate input CT Abdomen /pelvis -shows no obvious pathology Aspirin /Plavix resumed pt follows with Dr Worley will need out pt Cystoscopy in clinic HTN - BP controlled, continue amlodipine ZENA on CKD STAGE III - baseline creat runs in the high 1's - creat elevated due diuresis with Lasix - continue to monitor PRP while getting Lasix HYPOTHYROIDISM - continue levothyroxine DVT PROPHYLAXIS -high risk for DVT Subq heparin resumed DISPOSITION Lives at home /alone ,was independent in his ADL's needs PT/OT eval prior to discharge Social service consulted for discharge planning Medicine follow up with Dr Do Vital Signs: Date Time Temp Pulse Resp B/P (MAP) Pulse Ox O2 Delivery O2 Flow Rate FiO2 08/15/16 08:09 36.4 86 18 123/76 (92) 96 2.0 08/15/16 08:00 96 Nasal Cannula 2.0 08/15/16 07:29 73 18 94 Nasal Cannula 4.0 08/15/16 04:14 37.0 85 20 105/54 (71) 92 Nasal Cannula 3.0 08/15/16 04:00 Nasal Cannula 2.0 08/14/16 23:59 Nasal Cannula 2.0 08/14/16 23:25 36.8 84 18 122/63 (82) 91 Nasal Cannula 2.0 08/14/16 20:00 93 Nasal Cannula 2.0 08/14/16 19:51 37.0 92 22 113/61 (78) 93 Nasal Cannula 2.0 08/14/16 19:24 86 18 85 Room Air 08/14/16 16:00 90 Room Air 08/14/16 15:47 36.7 90 20 118/65 (82) 90 Room Air 08/14/16 15:21 82 94 08/14/16 15:08 72 18 93 Room Air 08/14/16 12:00 96 Nasal Cannula 2.0 08/14/16 11:31 36.8 83 20 104/54 (71) 90 Room Air 08/14/16 11:18 77 18 97 Room Air Lab Results: Results Past 24 Hours Test 08/15/16 06:58 Range/Units White Blood Count 7.23 4.8-10.8 K/uL Red Blood Count 3.13 4.7-6.1 M/uL Hemoglobin 9.6 14.0-18.0 g/dL Hematocrit 29.4 42-52 % Mean Corpuscular Volume 93.9 80-100 fL Mean Corpuscular Hemoglobin 30.7 25-34 pg Mean Corpuscular Hemoglobin Concent 32.7 32-36 g/dl RDW Standard Deviation 51.1 36.4-46.3 fL RDW Coefficient of Variation 15.2 11.5-14.5 % Platelet Count 155 130-400 K/uL Mean Platelet Volume 9.2 7.4-10.4 fL Sodium Level 143 136-145 mmol/L Potassium Level 4.1 3.5-5.1 mmol/L Chloride Level 110 98-107 mmol/L Carbon Dioxide Level 25 21-32 mmol/L Anion Gap 8.0 3-11 mmol/L Blood Urea Nitrogen 30 7-18 mg/dl Creatinine 1.90 0.60-1.40 mg/dl Est Creatinine Clear Calc Drug Dose 31.3 ml/min Estimated GFR () 35.9 Estimated GFR (Non- 31.0 BUN/Creatinine Ratio 15.8 10-20 Random Glucose 119 70-99 mg/dl Calcium Level 8.3 8.5-10.1 mg/dl Microbiology Results 08/15/16 Blood Culture, Deacon Batch Pending 08/15/16 Blood Culture, Deacon Batch Pending 08/14/16 Urine Culture, Received Pending
[2016-08-15] MEDS ORDERED: LEVOFLOXACIN 750MG / D5W IV SCH (14:00)
--- NOTE | 2016-08-15 15:37 | Progress Note ---
Progress Note Date of Service Aug 15, 2016. Progress Note ID Consult Dictated #[id number] A/P: 1. Positive blood culture - ignition expert 03/20 bottles 2. PNA -would continue levaquin 5 days total -Follow repeat bloodcultures, suspect ignition expert is contaminant but with recent TAVR will continue vanco pending additional blood cultures -Echo negative -Will follow, thank you
--- NOTE | 2016-08-15 15:48 | INFECT. DISEASE CONSULTATION ---
DATE OF CONSULTATION: 08/15/2016 REQUESTING PHYSICIAN: Dr. Morris. HISTORY OF PRESENT ILLNESS: This is an 86-year-old gentleman who was admitted from home after he had an episode of shortness of breath. He recently underwent aortic valve replacement on July 29 at [facility]. He states he tolerated the procedure well and was discharged to home after a brief hospital stay. He was doing well at home and decided to go to the grocery store over the weekend. He states he had acute onset shortness of breath and returned home. Over the next 1-2 days, he had worsening of respiratory distress and a dry cough. For this reason, he was admitted to the hospital. Chest x-ray in the Emergency Room showed pneumonia versus edema. He was started on broad spectrum antibiotics. He is currently on vancomycin and Levaquin. He has been afebrile since being admitted to the hospital. His white blood cell count has been within normal limits. He did have blood cultures obtained as part of his initial workup in 1 bottle is growing gram positive cocci. Final identification is pending. Repeat blood cultures were obtained today and are pending. He did not have a urinalysis; however, urine culture is negative. He did have an echocardiogram done on the 14 of August and this was negative for vegetation. Currently, he states he is feeling mildly better. He has fatigue and persists with a nonproductive cough, although he feels this has improved. He denies any chest pain or shortness of breath associated with this. He does admit to poor p.o. intake; however, he denies any nausea, vomiting, diarrhea or abdominal pain. He does have a Crowder catheter in place but previously had no urinary complaints. He currently denies any chest pain with deep inspirations. He is tolerating the antibiotics well. All remaining review of systems is negative. PAST MEDICAL HISTORY: Significant for abdominal aortic aneurysm, coronary artery disease, kidney disease, GERD, gout, hypertension, hypothyroidism, and neurogenic bladder. PAST SURGICAL HISTORY: He has bilateral knee replacements over 22 years ago, recent transcatheter aortic valve replacement in July and history of TURP. FAMILY HISTORY: Noncontributory. SOCIAL HISTORY: Significant for history of tobacco use. He has no alcohol or drug use. ALLERGIES: He has no known drug allergies. CURRENT MEDICATIONS: Include Protonix, vancomycin, subQ heparin, Levaquin, aspirin, Plavix, allopurinol, Lipitor, Synthroid, DuoNebs, and Tylenol. PHYSICAL EXAMINATION: VITAL SIGNS: He is afebrile and has been since admission, pulse 79, respiratory rate is 16, blood pressure 133/62, oxygen saturation is 94-96% on 2 liters nasal cannula. GENERAL: He is awake, alert and oriented on my exam, he is in no acute distress. HEENT: Mucous membranes are moist. HEART: Regular. LUNGS: Clear with decreased breath sounds at the bases bilaterally. ABDOMEN: Soft, nontender, nondistended. There is no edema. SKIN: Without rash. Crowder catheter is in place. LABORATORY STUDIES: CBC today reveals a white blood cell count of 7.2, hemoglobin 9.6, platelets are 155. Chemistry panel reveals a sodium of 143, potassium 4.1, chloride 110, bicarbonate 25, BUN 30, creatinine 1.9, glucose 119. Again, initial blood cultures from the are growing coagulase negative staph in 1 bottle and repeat blood cultures from today are pending. Urine culture is negative. IMAGING DATA: CT of the abdomen and pelvis was done on the and shows aneurysms as well as Crowder catheter and renal atrophy. There were trace bilateral effusions. ASSESSMENT AND PLAN: 1. Pneumonia. 2. Positive blood culture, suspect contaminant. At this time, I would continue him on empiric antibiotics, especially with his recent aortic valve replacement to ensure that the coagulase negative staph was contaminant. His blood cultures from today are pending. He can complete a 5-day course of high dose Levaquin for suspected pneumonia. We will follow along with you. Thank you for this consultation.
[2016-08-15] MEDS: HEPARIN SOD 5000 UNIT/0.5 ML CARP SQ SCH (20:27)
[2016-08-16] VITALS (11 sets, daily range): BP systolic 107–126; BP diastolic 58–68; PULSE 71–90; TEMP 36.6–36.8; O2SAT 89–99
[2016-08-16] MEDS: VANCOMYCIN INJ 1,400 MG in SODIUM CHLORIDE 0.9% 500ML 500 ML IV SCH (02:21)
--- NOTE | 2016-08-16 05:28 | Clinical Documentation Query ---
CLINICAL DOCUMENTATION QUERY CHF is stated as diagnosis by cardiology without specificity. The medical record documentation is now expected to include definitive and explicit description of the patient's heart failure; vague terms such as "heart failure," ventricular dysfunction," and "CHF" may not fully capture the physician's intended level of severity. In your clinical opinion is this patient being managed for: ( x) Acute preserved EF/diastolic heart failure ( ) Other explanation of clinical findings (Please Explain) ( ) Unable to determine (Please Define) ( ) Need to Discuss ( ) Not Agree The medical record reflects the following clinical findings, treatment, and risk factors. Clinical Indicators: Crackles by lung exam. CHF per cardiology. Echo showing EF 65-70%, normal biventricular systolic function, moderate left ventricular hypertrophy, and no significant aortic regurgitation. >2L UO after lasix. Neg 2L I/O. Treatment: IV Lasix, Cardiology consult, Echo, I/O's, daily weights. Risk Factors: Age, CAD, CKD Please clarify and document your clinical opinion in the progress notes and discharge summary. Terms such as "probable", "suspected", "likely", "questionable", "possible", or "still to be ruled out" are acceptable. IF IN AGREEMENT, YOU MUST DOCUMENT ABOVE DIAGNOSTIC STATEMENT IN DAILY PROGRESS NOTES AND DISCHARGE SUMMARY. This document is not part of the patient's record. Thank You, Eran Esquivel, RN [phone]
[2016-08-16] MEDS: LEVOTHYROXINE 88 MCG TAB PO SCH (06:21)
[2016-08-16 07:34] LABS: HEMATOCRIT 31.7 % (42-52); MEAN CELL VOLUME 94.1 fL (80-100); MEAN CORPUSCULAR HEMOGLOBIN 29.7 pg (25-34); MEAN CORPUSCULAR HGB CONC 31.5 g/dl (32-36); MEAN PLATELET VOLUME 9.2 fL (7.4-10.4); PLATELET COUNT 172 K/uL (130-400); RED BLOOD COUNT 3.37 M/uL (4.7-6.1); WHITE BLOOD COUNT 7.08 K/uL (4.8-10.8)
[2016-08-16] MEDS: ASPIRIN 81 MG ECTAB PO SCH (07:53)
[2016-08-16] MEDS: CLOPIDOGREL BISULFATE 75 MG TAB PO SCH (07:53)
[2016-08-16] MEDS: ATORVASTATIN 40 MG TAB PO SCH (07:54)
[2016-08-16] MEDS: PANTOprazole SOD 40 MG TAB PO SCH (07:54)
[2016-08-16] MEDS: ALLOPURINOL 300 MG TAB PO SCH (07:55)
[2016-08-16] MEDS: HEPARIN SOD 5000 UNIT/0.5 ML CARP SQ SCH ×2 (07:56→20:37)
[2016-08-16 08:02] LABS: CALCIUM 8.4 mg/dl (8.5-10.1); CREATININE 2.2 mg/dl (0.60-1.40); POTASSIUM 4.3 mmol/L (3.5-5.1)
[2016-08-16] MEDS: ALBUT/IPRATROP 3MG/0.5MG NEB 3 ML VIAL INH SCH ×4 (08:03→19:02)
--- NOTE | 2016-08-16 09:05 | Cardiology Follow-Up ---
Subjective General Date of Service: Aug 16, 2016. Chief Complaint: follow up shortness of breath Pt evaluation today including: conversation w/ patient, conversation w/ family , physical exam History of Present Illness The patient is a 86 year old male seen in follow up. Patient still with fatigue and shortness of breath. Remains afebrile. Notes continued cough. I/O summary reveals negative fluid balance of -2 L on 08/14/16 with 20 mg IV furosemide, and -1 L on 08/15 with 40 mg IV furosemide, creatinine has increased to 2.2 mg/dL today, 08/16. 12 blood cultures positive for coag neg staph, perhaps contaminant. ID input noted an appreciated. Allergies Coded Allergies: No Known Allergies (Verified , 08/13/16) Social History Smoking Status: Former Smoker Hx Tobacco Use In Past Year?: No Hx Alcohol Use - Type And Amou: Yes (beer - 1 bottle per week) Hx Substance Use - Type And Am: No Physical Exam Vital Signs Last Vital Signs Documentation Date Time Temp Pulse Resp B/P (MAP) Pulse Ox O2 Delivery O2 Flow Rate FiO2 08/16/16 08:00 Nasal Cannula 2.0 08/16/16 07:41 36.7 85 19 126/63 (84) 91 Physical Exam Constitutional: Level of Distress: NAD Neck: trachea midline Lungs: Auscultation: no wheezing, pertinent finding (decreased breath sounds at the bases bilaterally) Cardiovascular: Heart Auscultation: RRR, I/ LORI Extremities: no edema Neurologic: Gait & Station: pertinent finding (No focal neurologic deficits) Assessment and Plan Assessment and Plan Impression: 86-year-old male 1. Shortness of breath, diastolic congestive heart failure decompensation plus hospital associated pneumonia 2. Mild troponin elevation, more consistent with heart failure decompensation with an acute coronary syndrome. EKG reveals unchanged chronic right bundle branch block without acute repolarization abnormalities 3. Acute kidney injury on chronic CKD 4. History of urinary outflow obstruction for which she performs urinary self- catheterization at baseline 5. Gross hematuria, perhaps form traumatic Crowder , improved Plan: Continue ASA and clopidogrel due to recent FLORIN to LAD and TAVR. Add back SQ heparin for DVT prophylaxis -very high risk. Holding furosemide today, 08/16. Continue antibiotics and supplemental O2. Plan for repeat CXR am 08/17. Will ask pharmacy if we can transition levofloxacin dose to PO, to save on IVF input. Consuelo Glez, Laboratory Results Last 24 Hours Test 08/16/16 06:55 White Blood Count 7.08 K/uL Red Blood Count 3.37 M/uL Hemoglobin 10.0 g/dL Hematocrit 31.7 % Mean Corpuscular Volume 94.1 fL Mean Corpuscular Hemoglobin 29.7 pg Mean Corpuscular Hemoglobin Concent 31.5 g/dl RDW Standard Deviation 51.3 fL RDW Coefficient of Variation 15.0 % Platelet Count 172 K/uL Mean Platelet Volume 9.2 fL Sodium Level 144 mmol/L Potassium Level 4.3 mmol/L Chloride Level 111 mmol/L Carbon Dioxide Level 25 mmol/L Anion Gap 8.0 mmol/L Blood Urea Nitrogen 31 mg/dl Creatinine 2.20 mg/dl Est Creatinine Clear Calc Drug Dose 26.9 ml/min Estimated GFR () 30.1 Estimated GFR (Non- 26.0 BUN/Creatinine Ratio 14.0 Random Glucose 120 mg/dl Calcium Level 8.4 mg/dl
--- NOTE | 2016-08-16 09:21 | Progress Note ---
Subjective Date of Service: Aug 16, 2016. Subjective Pt evaluation today including: conversation w/ patient, conversation w/ family , chart review, lab review Voiding: briseno catheter in place No further hematuria while off oral anticoagulants. Received sq heparin yesterday. AFVSS. Hgb and Hct have improved. Creatinine has increased some 1.9 to 2.2 On IV antibx for previous positive blood culture. Current blood cultures are pending. Urine culture showed no growth. Review of Systems Constitutional: No fever, No chills Respiratory: No cough, No shortness of breath Abdomen: No pain, No nausea, No vomiting Male : + see HPI Heme: No abnormal bleeding/bruising Objective Vital Signs Date Time Temp Pulse Resp B/P (MAP) Pulse Ox O2 Delivery O2 Flow Rate FiO2 08/16/16 08:00 Nasal Cannula 2.0 08/16/16 07:41 36.7 85 19 126/63 (84) 91 Nasal Cannula 3.0 08/16/16 07:13 74 16 89 Room Air 08/16/16 04:28 36.8 71 18 115/66 (82) 91 Nasal Cannula 3.0 08/16/16 04:00 Nasal Cannula 2.0 08/16/16 00:02 36.8 83 18 112/63 (79) 91 Nasal Cannula 08/16/16 00:00 Nasal Cannula 2.0 08/15/16 20:00 Nasal Cannula 2.0 08/15/16 19:44 89 16 92 Nasal Cannula 2.0 08/15/16 19:43 36.5 95 18 107/58 (74) 93 Nasal Cannula 2.0 08/15/16 16:00 94 Nasal Cannula 08/15/16 15:42 37.0 89 20 97/59 (72) 94 Nasal Cannula 2.0 08/15/16 15:21 79 16 95 Nasal Cannula 2.0 08/15/16 12:00 95 Nasal Cannula 2.0 08/15/16 11:58 36.6 72 18 133/62 (85) 95 08/15/16 11:18 74 16 94 Nasal Cannula 2.0 Physical Exam General Appearance: WD/WN, no apparent distress ENT: hearing grossly normal Respiratory/Chest: no respiratory distress, no accessory muscle use Neurologic/Psychiatric: alert, normal mood/affect, oriented x 3 Skin: normal color, warm/dry Laboratory Results Last 24 Hours Test 08/16/16 06:55 White Blood Count 7.08 K/uL Red Blood Count 3.37 M/uL Hemoglobin 10.0 g/dL Hematocrit 31.7 % Mean Corpuscular Volume 94.1 fL Mean Corpuscular Hemoglobin 29.7 pg Mean Corpuscular Hemoglobin Concent 31.5 g/dl RDW Standard Deviation 51.3 fL RDW Coefficient of Variation 15.0 % Platelet Count 172 K/uL Mean Platelet Volume 9.2 fL Sodium Level 144 mmol/L Potassium Level 4.3 mmol/L Chloride Level 111 mmol/L Carbon Dioxide Level 25 mmol/L Anion Gap 8.0 mmol/L Blood Urea Nitrogen 31 mg/dl Creatinine 2.20 mg/dl Est Creatinine Clear Calc Drug Dose 26.9 ml/min Estimated GFR () 30.1 Estimated GFR (Non- 26.0 BUN/Creatinine Ratio 14.0 Random Glucose 120 mg/dl Calcium Level 8.4 mg/dl Assessment and Plan Gross Hematuria No further blood in urine for 2 days. Received heparin sq today. Hemodynamically stable. Creatinine elevated. Urine culture showed no growth. Resume CIC BID prior to discharge home. Will reschedule pt for f/u with Dr. Worley. Recommend outpatient cysto at that time d/t gross hematuria.
--- NOTE | 2016-08-16 12:34 | Progress Note ---
Subjective Date of Service: Aug 16, 2016. Subjective pt oob to chair, receiving breathing treatment, tolerating abx. day 3 levaquin. repeat blood cultures pending, echo negative, wbc nml, afebrile. Objective Vital Signs Date Time Temp Pulse Resp B/P (MAP) Pulse Ox O2 Delivery O2 Flow Rate FiO2 08/16/16 12:00 Nasal Cannula 2.0 08/16/16 11:48 36.7 90 18 118/65 (82) 99 Nasal Cannula 2.0 08/16/16 11:23 74 16 96 Nasal Cannula 2.0 08/16/16 08:00 Nasal Cannula 2.0 08/16/16 07:41 36.7 85 19 126/63 (84) 91 Nasal Cannula 3.0 08/16/16 07:13 74 16 89 Room Air 08/16/16 04:28 36.8 71 18 115/66 (82) 91 Nasal Cannula 3.0 08/16/16 04:00 Nasal Cannula 2.0 08/16/16 00:02 36.8 83 18 112/63 (79) 91 Nasal Cannula 08/16/16 00:00 Nasal Cannula 2.0 08/15/16 20:00 Nasal Cannula 2.0 08/15/16 19:44 89 16 92 Nasal Cannula 2.0 08/15/16 19:43 36.5 95 18 107/58 (74) 93 Nasal Cannula 2.0 08/15/16 16:00 94 Nasal Cannula 08/15/16 15:42 37.0 89 20 97/59 (72) 94 Nasal Cannula 2.0 08/15/16 15:21 79 16 95 Nasal Cannula 2.0 Physical Exam General Appearance: WD/WN, no apparent distress Respiratory/Chest: no respiratory distress Neurologic/Psychiatric: alert Skin: normal color Laboratory Results Item Value Date Time Blood Culture - Preliminary Resulted 08/13/16 1240 Blood Coag Neg Staph Not Lugdunensis Blood Culture - Preliminary Resulted 08/13/16 1215 Blood NO GROWTH TO DATE. Last 24 Hours Test 08/16/16 06:55 White Blood Count 7.08 K/uL Red Blood Count 3.37 M/uL Hemoglobin 10.0 g/dL Hematocrit 31.7 % Mean Corpuscular Volume 94.1 fL Mean Corpuscular Hemoglobin 29.7 pg Mean Corpuscular Hemoglobin Concent 31.5 g/dl RDW Standard Deviation 51.3 fL RDW Coefficient of Variation 15.0 % Platelet Count 172 K/uL Mean Platelet Volume 9.2 fL Sodium Level 144 mmol/L Potassium Level 4.3 mmol/L Chloride Level 111 mmol/L Carbon Dioxide Level 25 mmol/L Anion Gap 8.0 mmol/L Blood Urea Nitrogen 31 mg/dl Creatinine 2.20 mg/dl Est Creatinine Clear Calc Drug Dose 26.9 ml/min Estimated GFR () 30.1 Estimated GFR (Non- 26.0 BUN/Creatinine Ratio 14.0 Random Glucose 120 mg/dl Calcium Level 8.4 mg/dl Assessment and Plan (1) Positive blood culture Assessment & Plan: suspect pick up driver in initial blood culture is contaminant, repeats are pending. If negative, would give 7 days total vanco with recent TAVR. If repeats + for pick up driver as well will need longer course and likely batsheva, follow results (2) PNA (pneumonia) Assessment & Plan: reg 05/19 jag
[2016-08-17] VITALS (11 sets, daily range): BP systolic 104–133; BP diastolic 57–65; PULSE 69–104; TEMP 36.5–37.2; O2SAT 87–95
--- NOTE | 2016-08-17 00:29 | Progress Note ---
Internal Med Progress Note Date of Service: Aug LATE ENTRY PT SEEN APPROX 11 AM . Provider Documentation: SUBJECTIVE: feels better today SOB has improved some , less dyspneic minimum cough no fever or chills OBJECTIVE: Vital Signs-as noted below Exam: General-elderly male , appears to be tired and weak Eyes-sclera non icteric ENT-NAD Lungs-diminished, + rales at base Heart-regular S1/S2 Abdomen-soft, non tender , trace bilateral lower ext edema Extremities-no rash or deformity Neuro-AAO x3, no focal deficit Lab data as noted below. ASSESSMENT & PLAN: ACUTE HYPOXIC RESPIRATORY FAILURE, LIKELY DUE TO HCAP - patient presenting with worsening shortness of breath and cough since TAVR on 07/29 - was hypoxic on room air at 82%, this improved with oxygen 2L via NC - CXR showing bibasilar PNA vs. CHF given IV Lasix by cardiology , with adequate diuresis no Lasix ordered today , vol status remains stable - no signs of sepsis - pt is continued with Levaquin 3/5 days of tx -Lower ext Doppler negative for DVT -CTA of chest could not be done due to ZENA on CKD stage 3 -not on Home 02 , requiring supplemental 02 in patient -will continue to optimize respiratory status -2 step pulse oximetry prior to discharge GRAM POSITIVE BACTEREMIA : 03/18 blood culture + staph aureus -possible contamination started on IV Vancomycin repeat Blood culture ordered ECHO showed normal function of bioprosthetic AVR ID eval requested -appreciate input given new prosthetic valve recommend at least 7 days of IV Vancomycin ELEVATED TROPONIN, HX CAD, RECENT TAVR no evidence of acute AK - hx FLORIN x 2 to LAD 06/2016 - no reports of chest pain, EKG unchanged - likely due to hypoxia, acute illness, recent TAVR - ASA, Plavix, resumed as pt had recent FLORIN and TVAR - ECHO : Echo 08/14 was stable with normal LVEF and normal prosthetic valve surgery. -ordered for low dose Lasix for concern for pulmonary congestion - appreciate Cardiology eval HEMATURIA: resolved has chronic Crowder for hx of BPH , incomplete evacuation of urine at home dose self cath twice daily urology consulted -appreciate input CT Abdomen /pelvis -shows no obvious pathology Aspirin /Plavix resumed pt follows with Dr Worley will need out pt Cystoscopy in clinic HTN - BP controlled, continue amlodipine ZENA on CKD STAGE III - baseline creat runs in the high 1's - creat elevated due diuresis with Lasix - continue to monitor PRP while getting Lasix HYPOTHYROIDISM - continue levothyroxine DVT PROPHYLAXIS -high risk for DVT Subq heparin resumed DISPOSITION Lives at home /alone ,was independent in his ADL's needs PT/OT eval prior to discharge Social service consulted for discharge planning Medicine follow up with Dr Do Vital Signs: Date Time Temp Pulse Resp B/P (MAP) Pulse Ox O2 Delivery O2 Flow Rate FiO2 08/16/16 23:24 36.6 79 18 115/68 (84) 93 Nasal Cannula 2.0 08/16/16 19:28 36.7 80 18 116/58 (77) 92 Nasal Cannula 2.0 08/16/16 19:03 74 16 92 Nasal Cannula 2.0 08/16/16 16:00 Nasal Cannula 2.0 08/16/16 15:42 36.8 88 19 107/58 (74) 92 Nasal Cannula 2.0 08/16/16 15:25 74 16 96 Nasal Cannula 2.0 08/16/16 12:00 Nasal Cannula 2.0 08/16/16 11:48 36.7 90 18 118/65 (82) 99 Nasal Cannula 2.0 08/16/16 11:23 74 16 96 Nasal Cannula 2.0 08/16/16 08:00 Nasal Cannula 2.0 08/16/16 07:41 36.7 85 19 126/63 (84) 91 Nasal Cannula 3.0 08/16/16 07:13 74 16 89 Room Air 08/16/16 04:28 36.8 71 18 115/66 (82) 91 Nasal Cannula 3.0 08/16/16 04:00 Nasal Cannula 2.0 Lab Results: Results Past 24 Hours Test 08/16/16 06:55 Range/Units White Blood Count 7.08 4.8-10.8 K/uL Red Blood Count 3.37 4.7-6.1 M/uL Hemoglobin 10.0 14.0-18.0 g/dL Hematocrit 31.7 42-52 % Mean Corpuscular Volume 94.1 80-100 fL Mean Corpuscular Hemoglobin 29.7 25-34 pg Mean Corpuscular Hemoglobin Concent 31.5 32-36 g/dl RDW Standard Deviation 51.3 36.4-46.3 fL RDW Coefficient of Variation 15.0 11.5-14.5 % Platelet Count 172 130-400 K/uL Mean Platelet Volume 9.2 7.4-10.4 fL Sodium Level 144 136-145 mmol/L Potassium Level 4.3 3.5-5.1 mmol/L Chloride Level 111 98-107 mmol/L Carbon Dioxide Level 25 21-32 mmol/L Anion Gap 8.0 3-11 mmol/L Blood Urea Nitrogen 31 7-18 mg/dl Creatinine 2.20 0.60-1.40 mg/dl Est Creatinine Clear Calc Drug Dose 26.9 ml/min Estimated GFR () 30.1 Estimated GFR (Non- 26.0 BUN/Creatinine Ratio 14.0 10-20 Random Glucose 120 70-99 mg/dl Calcium Level 8.4 8.5-10.1 mg/dl
[2016-08-17] MEDS: LEVOTHYROXINE 88 MCG TAB PO SCH (06:48)
[2016-08-17] MEDS: ALBUT/IPRATROP 3MG/0.5MG NEB 3 ML VIAL INH SCH ×4 (07:04→18:53)
[2016-08-17] MEDS ORDERED: VANCOMYCIN TROUGH ONE (07:30)
[2016-08-17 07:51] LABS: HEMATOCRIT 31.6 % (42-52); MEAN CELL VOLUME 93.8 fL (80-100); MEAN CORPUSCULAR HEMOGLOBIN 30.3 pg (25-34); MEAN CORPUSCULAR HGB CONC 32.3 g/dl (32-36); MEAN PLATELET VOLUME 8.7 fL (7.4-10.4); PLATELET COUNT 162 K/uL (130-400); RED BLOOD COUNT 3.37 M/uL (4.7-6.1); WHITE BLOOD COUNT 7.73 K/uL (4.8-10.8)
[2016-08-17] MEDS: VANCOMYCIN INJ 1,400 MG in SODIUM CHLORIDE 0.9% 500ML 500 ML IV SCH (08:00)
[2016-08-17 08:49] LABS: CREATININE 1.9 mg/dl (0.60-1.40)
[2016-08-17 08:50] LABS: BUN/CREATININE RATIO 14.9 (10-20); CALCIUM 8.6 mg/dl (8.5-10.1); POTASSIUM 4.1 mmol/L (3.5-5.1)
[2016-08-17] MEDS: ALLOPURINOL 300 MG TAB PO SCH (09:00)
[2016-08-17] MEDS: ASPIRIN 81 MG ECTAB PO SCH (09:00)
[2016-08-17] MEDS: CLOPIDOGREL BISULFATE 75 MG TAB PO SCH (09:00)
[2016-08-17] MEDS: PANTOprazole SOD 40 MG TAB PO SCH (09:00)
--- NOTE | 2016-08-17 09:29 | DIAGNOSTIC IMAGING REPORT ---
CHEST 2 VIEWS ROUTINE HISTORY: Short of breath. COMPARISON: Chest 08/13/2016. FINDINGS: The heart remains top normal in size. No pneumothorax. Diffuse interstitial thickening and small bilateral pleural fusions persist. Patchy bilateral airspace opacities also remain unchanged. IMPRESSION: No change in the interstitial thickening, patchy airspace opacities, small bilateral pleural effusions. This favors pulmonary edema. However, an atypical pneumonitis could also have a similar appearance. Electronically signed by: Cristóbal Sam M.D. 08/17/2016 9:28 AM Dictated Date/Time: 08/17/2016 9:27 AM
[2016-08-17] MEDS: ATORVASTATIN 40 MG TAB PO SCH (09:45)
--- NOTE | 2016-08-17 10:12 | Progress Note ---
Progress Note Date of Service Aug 17, 2016. Progress Note Cont to struggle with SOB/dyspnea - on NC O2 at present - reports he had some hematuria overnight, but no issues with catheter drainage NAD AAOx3 NC O2 with mild, visible SOB abd soft urine pink A/P: Hematuria - after catheter placement (difficult placement per patient). - normally caths (CIC) BiD - indwelling catheter now - resp status seems to be most pressing issue - consider cath d/c prior to d/c home - f/u with Meir after d/c
--- NOTE | 2016-08-17 11:02 | Cardiology Follow-Up ---
Subjective General Date of Service: Aug 17, 2016. Chief Complaint: follow up shortness of breath Pt evaluation today including: conversation w/ patient, conversation w/ family , physical exam, conversation w/ executive search consultant History of Present Illness The patient is a 86 year old male seen in cardiology follow-up. Patient notes no interval improvement. He had a dry cough that kept him up all night last night and he looks tired and washed out. Telemetry reveals stable sinus rhythm at 86 bpm. Allergies Coded Allergies: No Known Allergies (Verified , 08/13/16) Social History Smoking Status: Former Smoker Hx Tobacco Use In Past Year?: No Hx Alcohol Use - Type And Amou: Yes (beer - 1 bottle per week) Hx Substance Use - Type And Am: No Physical Exam Vital Signs Last Vital Signs Documentation Date Time Temp Pulse Resp B/P (MAP) Pulse Ox O2 Delivery O2 Flow Rate FiO2 08/17/16 08:04 37.2 98 20 111/60 (77) 92 Room Air 5.0 Physical Exam Constitutional: Level of Distress: NAD Neck: trachea midline Lungs: Auscultation: no wheezing, pertinent finding (decreased breath sounds at the bases bilaterally) Cardiovascular: Heart Auscultation: RRR, I/ LORI Extremities: no edema Neurologic: Gait & Station: pertinent finding (No focal neurologic deficits) Assessment and Plan Assessment and Plan Impression: 86-year-old male 1. Shortness of breath, diastolic congestive heart failure decompensation with suspected superimposed pneumonia hospital associated pneumonia 2. Mild troponin elevation, more consistent with heart failure decompensation with an acute coronary syndrome. EKG reveals unchanged chronic right bundle branch block without acute repolarization abnormalities 3. Acute kidney injury on chronic CKD 4. History of urinary outflow obstruction for which she performs urinary self- catheterization at baseline 5. Gross hematuria, perhaps form traumatic Crowder , improved Plan: Continue ASA and clopidogrel due to recent FLORIN to LAD and TAVR. Add back SQ heparin for DVT prophylaxis -very high risk. Furosemide held 08/16/16 08/17/16. Continue antibiotics and supplemental O2. Repeat chest x-ray 08/17/16 suggestive of pulmonary edema or atypical pneumonitis. I'm concerned the patient has underlying pneumonitis picture as there was no subjective improvement in his shortness of breath, cough with diuretic therapy and his fluid balance was down 3 L after 2 doses. There is been no significant interval improvement in his chest x-ray per my impression today. I'm going to hold off on diuretic therapy today and ask pulmonary to see the patient for further input. Extremities venous duplex was negative earlier this admission. Consuelo Glez DO Laboratory Results Last 24 Hours Test 08/17/16 07:42 08/17/16 10:30 08/17/16 10:52 White Blood Count 7.73 K/uL Red Blood Count 3.37 M/uL Hemoglobin 10.2 g/dL Hematocrit 31.6 % Mean Corpuscular Volume 93.8 fL Mean Corpuscular Hemoglobin 30.3 pg Mean Corpuscular Hemoglobin Concent 32.3 g/dl RDW Standard Deviation 51.3 fL RDW Coefficient of Variation 15.0 % Platelet Count 162 K/uL Mean Platelet Volume 8.7 fL Sodium Level 144 mmol/L Potassium Level 4.1 mmol/L Chloride Level 111 mmol/L Carbon Dioxide Level 23 mmol/L Anion Gap 10.0 mmol/L Blood Urea Nitrogen 28 mg/dl Creatinine 1.90 mg/dl Est Creatinine Clear Calc Drug Dose 31.4 ml/min Estimated GFR () 35.9 Estimated GFR (Non- 31.0 BUN/Creatinine Ratio 14.9 Random Glucose 136 mg/dl Calcium Level 8.6 mg/dl Vancomycin Level Trough 14.2 mcg/ml
--- NOTE | 2016-08-17 11:17 | Pulmonary Consultation ---
History General Date of Service: Aug 17, 2016. Stated Complaint: Shortness Of Breath HPI The patient is a 86 year old male who presents to [facility] with complaints of Shortness Of Breath. The patient's primary care provider is Gurmeet Glez D.O.. He has a history of coronary artery disease and aortic stenosis. In June of this year, he received drug-eluting stents within the LAD. He then went on to have in July a TAVR at [facility]. The patient states that at first he felt much improved, but over the past several days he has been having increased shortness of breath. He went to the supermarket and could barely walk around before coming winded. He has had a dry nonproductive cough. He states he just felt like he had bronchitis and decided to come in. Historian: patient Review of Systems Constitutional: reports: fever, malaise Eyes: denies: no symptoms, as stated in HPI, eye pain, tearing, itching, redness, discharge, double vision, visual changes, blurred vision, photophobia, other ENT: denies: no symptoms, as stated in HPI, ear pain, ear discharge, loss of hearing, tinnitus, nasal pain, nasal congestion, rhinorrhea, epistaxis, sore throat, stridor, throat swelling, mouth pain, mouth swelling, dental pain, gum swelling, other Cardiovascular: denies: no symptoms, as stated in HPI, chest pain, chest pressure, chest tightness, diaphoresis, edema, intermittent claudication, orthopnea, palpitations, syncope, other Respiratory: reports: cough, shortness of breath, LYNN Gastrointestinal: denies: no symptoms, as stated in HPI, abdominal pain, constipation, diarrhea, nausea, vomiting, hematemesis, hematochezia, hemorrhoids , anorexia, appetite changes, stool changes, flatulence, belching, food intolerance, jaundice, other Genitourinary - Male: denies: no symptoms, as stated in HPI, dysuria, hematuria , hesitancy, impotence, itching, penile discharge, rash, urinary frequency, urinary incontinence, urinary retention, urinary urgency, other Musculoskeletal: denies: no symptoms, as stated in HPI, arthralgias, neck pain , back pain, joint pain, joint swelling, deformity, myalgias, muscle spasms, other Integumentary: denies: no symptoms, as stated in HPI, rash, redness, warmth, itching, dryness, lesions, lumps, change in color, change in hair/nails, other Neurologic: denies: no symptoms, as stated in HPI, headache, dizziness, general weakness, focal weakness, numbness, tingling, paresthesia, pre-existing deficit, tremors, tics, vertigo, seizure, lethargy, memory loss, other Psychiatric: denies: no symptoms, as stated in HPI, anxiety, depression, suicidal ideation, homicidal ideation, visual hallucinations, auditory hallucinations, mood changes, alcohol abuse, drug abuse, other Endocrine: denies: no symptoms, as stated in HPI, cold intolerance, heat intolerance, hair changes, goiter, polydipsia, polyuria, skin changes, other Hematologic / Lymphatic: denies: no symptoms, as stated in HPI, abnormal clotting, adenopathy, anemia, easy bleeding, easy bruising, gums bleeding, petechiae, other Allergic / Immunologic: denies: no symptoms, as stated in HPI, eczema, environmental allergies, frequent infections, hives, multiple food allergies, seasonal allergies, pet sensitivities, poor healing, prolonged convalescence, other All Other Symptoms All Other Systems: Reviewed and Negative Past Medical History Past Medical History: BPH (with incomplete bladder emptying), coronary artery disease, GERD, gout, hypertension, hypothyroidism, other (AAA, CKD stage III) Past Surgical History: TKR, other (TURP, transcatheter aortic valve replacement ) Social History Hx Tobacco Use In Past Year?: No Smoking Status: Former Smoker Alcohol: never Marital status: Housing status: lives alone Occupational Status: retired Immunizations History of Influenza Vaccine: Yes Influenza Vaccine Date: Nov 28, 2015 History of Tetanus Vaccine?: Yes Tetanus Immunization Date: May 03, 1999 History of Pneumococcal: Yes Pneumococcal Date: Nov 28, 2015 History of MDRO History of MDRO: No Allergies Coded Allergies: No Known Allergies (Verified , 08/13/16) Current Medications Reported Home Medications Medications Dose Route/Sig Max Daily Dose Days Date Category Dose Instructions Prilosec (Omeprazole) 20 Mg Capcr 20 Mg PO DAILY 08/13/16 Reported Nitrostat (Nitroglycerin) 0.4 Mg Tab 0.4 Mg UT PRN 08/13/16 Reported Plavix (Clopidogrel Bisulfate) 75 Mg Tab 75 Mg PO DAILY 08/13/16 Reported Lipitor (Atorvastatin Calcium) 40 Mg Tab 40 Mg PO DAILY 08/13/16 Reported Amoxil (Amoxicillin) 500 Mg Cap 500 Mg PO DIRECTED 08/13/16 Reported TAKES PRIOR TO DENTAL WORK Levothyroxine Sodium 88 Mcg Tab 88 Mcg PO DAILY 02/04/14 Reported Allopurinol 300 Mg Tab 300 Mg PO DAILY 02/04/14 Reported Norvasc (Amlodipine Besylate) 10 Mg Tab 2.5 Mg PO QAM 30 10/10/10 Rx Ecotrin Or Generic * (Aspirin) 81 Mg Ectab 81 Mg PO DAILY 11/22/07 Reported Physical Physical Exam Vital Signs: Date Time Temp Pulse Resp B/P (MAP) Pulse Ox O2 Delivery O2 Flow Rate FiO2 08/17/16 08:04 37.2 98 20 111/60 (77) 92 Room Air 5.0 08/17/16 08:00 Nasal Cannula 5.0 08/17/16 07:04 74 16 93 Nasal Cannula 4.0 08/17/16 04:12 92 Nasal Cannula 4.0 08/17/16 04:07 36.5 79 18 133/65 (87) 87 Nasal Cannula 2.0 08/17/16 04:07 Nasal Cannula 4.0 08/17/16 00:00 Nasal Cannula 2.0 08/16/16 23:24 36.6 79 18 115/68 (84) 93 Nasal Cannula 2.0 08/16/16 19:28 36.7 80 18 116/58 (77) 92 Nasal Cannula 2.0 08/16/16 19:03 74 16 92 Nasal Cannula 2.0 08/16/16 16:00 Nasal Cannula 2.0 08/16/16 15:42 36.8 88 19 107/58 (74) 92 Nasal Cannula 2.0 08/16/16 15:25 74 16 96 Nasal Cannula 2.0 08/16/16 12:00 Nasal Cannula 2.0 08/16/16 11:48 36.7 90 18 118/65 (82) 99 Nasal Cannula 2.0 08/16/16 11:23 74 16 96 Nasal Cannula 2.0 thin built Head: NORMOCEPHALIC, ATRAUMATIC Eyes: PERRLA, NO DISCHARGE ENT: NORMAL EAR EXAM, NORMAL NASAL EXAM, NORMAL MOUTH EXAM, NORMAL THROAT EXAM , NORMAL DENTAL EXAM, NORMAL SINUS EXAM Neck: NORMAL RANGE OF MOTION, NO TENDERNESS, TRACHEA MIDLINE, NO STRIDOR Respiratory: BREATH SOUNDS NORMAL, CLEAR TO AUSCULTATION Cardiovasular: REGULAR RATE/RHYTHM, NORMAL S1S2, NO M/G/R, NO MURMUR, NO GALLOP , NO RUB, NO JVD Abdomen: NON TENDER, NORMAL BOWEL SOUNDS, NO REBOUND, NO MASSES, NO GUARDING, NO ORGANOMEGALY Back: NORMAL INSPECTION Upper Extremities: NO EDEMA, NO DEFORMITY, NORMAL ROM Lower Extremities: NO EDEMA, NO DEFORMITY Neuro: ALERT, ORIENTED x 3, NORMAL MOTOR EXAM, NORMAL SENSATION Diagnostics Labs Results Past 24 Hours Test 08/17/16 07:42 08/17/16 10:30 08/17/16 10:52 Range/Units White Blood Count 7.73 4.8-10.8 K/uL Red Blood Count 3.37 4.7-6.1 M/uL Hemoglobin 10.2 14.0-18.0 g/dL Hematocrit 31.6 42-52 % Mean Corpuscular Volume 93.8 80-100 fL Mean Corpuscular Hemoglobin 30.3 25-34 pg Mean Corpuscular Hemoglobin Concent 32.3 32-36 g/dl RDW Standard Deviation 51.3 36.4-46.3 fL RDW Coefficient of Variation 15.0 11.5-14.5 % Platelet Count 162 130-400 K/uL Mean Platelet Volume 8.7 7.4-10.4 fL Sodium Level 144 136-145 mmol/L Potassium Level 4.1 3.5-5.1 mmol/L Chloride Level 111 98-107 mmol/L Carbon Dioxide Level 23 21-32 mmol/L Anion Gap 10.0 3-11 mmol/L Blood Urea Nitrogen 28 7-18 mg/dl Creatinine 1.90 0.60-1.40 mg/dl Est Creatinine Clear Calc Drug Dose 31.4 ml/min Estimated GFR () 35.9 Estimated GFR (Non- 31.0 BUN/Creatinine Ratio 14.9 10-20 Random Glucose 136 70-99 mg/dl Calcium Level 8.6 8.5-10.1 mg/dl Vancomycin Level Trough 14.2 SEE COMMENT mcg/ml Impression Assessment and Plan (1) Hypoxemia requiring supplemental oxygen reviewed cxr : appears that he has some chronic interstitial changes could have had some interstitial fibrosis with superadded infection? causing the significant hypoxemia 2) abnormal CXR ? BOOP : cough with increasing shortness of breath continue present abx obtain ct chest w/o contrast to look at the lung parenchyma for chronic changes start empiric steroids for cough/boop No invasive procedures at this time with recent valve surgery
[2016-08-17] MEDS: LEVOFLOXACIN 750 MG TAB PO SCH (11:19)
--- NOTE | 2016-08-17 12:05 | DIAGNOSTIC IMAGING REPORT ---
CHEST CT WITHOUT CONTRAST CT DOSE: 854.22 mGy.cm HISTORY: interstitial lung disease? TECHNIQUE: Multiaxial CT images of the chest were performed without contrast. COMPARISON: Chest 08/17/2016. FINDINGS: Central airways are patent. Mild diffuse traction bronchiectasis. No pneumothorax. Small bilateral pleural effusions. Aortic valve stent is noted. The heart is normal in size. No pericardial effusion. Normal caliber thoracic aorta. A few punctate calcifications within the liver and spleen. Normal adrenal glands. Subcentimeter mediastinal lymph nodes do not meet CT criteria for pathologic involvement. Near diffuse interstitial thickening most pronounced within the periphery and lung bases. Scattered small patchy areas of consolidation seen within the right upper lobe posteriorly and the bilateral lower lobes, right greater than left. Scattered patchy groundglass airspace opacities within the bilateral upper lobes, left greater than right. There may be mild honeycombing at the periphery of the lung bases. Calcified granuloma within the left lung base. IMPRESSION: Diffuse interstitial thickening demonstrating a peripheral and basilar predominance with mild honeycombing at the lung bases and mild traction bronchiectasis. This favors pulmonary fibrosis. There are also scattered patchy airspace opacities seen within the lungs most pronounced within the lower lobes as described above. Some of this could be related to the suspected chronic interstitial lung disease. However, a superimposed pneumonia could also have a similar appearance. One month chest CT follow up is recommended to ensure stability/resolution. Electronically signed by: Cristóbal Sam M.D. 08/17/2016 12:04 PM Dictated Date/Time: 08/17/2016 11:58 AM
[2016-08-17] MEDS: METHYLPREDNISOLONE IV 50 MG in SYRINGE 0 ML IV SCH ×2 (12:16→23:30)
--- NOTE | 2016-08-17 12:49 | Progress Note ---
Internal Med Progress Note Date of Service: Aug 17, 2016. Provider Documentation: SUBJECTIVE: pt found sitting on chair , more tired today mentions of ongoing SOB requiring 6 L 02 via nasal canula CXray today shows bilateral patchy infiltrate OBJECTIVE: Vital Signs-as noted below Exam: General-elderly male , appears to be tired and weak Eyes-sclera non icteric ENT-NAD Lungs-diminished, + rales at base Heart-regular S1/S2 Abdomen-soft, non tender , trace bilateral lower ext edema Extremities-no rash or deformity Neuro-AAO x3, no focal deficit Lab data as noted below. ASSESSMENT & PLAN: ACUTE HYPOXIC RESPIRATORY FAILURE -due to interstitial lung disease ? CT chest ordered by pulmonology : Diffuse interstitial thickening demonstrating a peripheral and basilar predominance with mild honeycombing at the lung bases and mild traction bronchiectasis. This favors pulmonary fibrosis - patient presented with worsening shortness of breath and cough since TAVR on 07/29 persistent hypoxia - requiring 6 L 02 ( was not not home 02 ) -appreciate input from Pulmonology -started on empiric IV steroid, -monitor in Tele to assess improvement of respiratory status - on Levaquin 4 /5 days of tx for pneumonia -Lower ext Doppler negative for DVT -2 step pulse oximetry prior to discharge GRAM POSITIVE BACTEREMIA : 03/18 blood culture + staph aureus -possible contamination started on IV Vancomycin repeat Blood culture ordered ECHO showed normal function of bioprosthetic AVR ID eval requested -appreciate input given new prosthetic valve recommend at least 7 days of IV Vancomycin ELEVATED TROPONIN, HX CAD, RECENT TAVR no evidence of acute ND - hx FLORIN x 2 to LAD 06/2016 - no reports of chest pain, EKG unchanged - likely due to hypoxia, acute illness, recent TAVR - ASA, Plavix, resumed as pt had recent FLORIN and TVAR - ECHO : Echo 08/14 was stable with normal LVEF and normal prosthetic valve surgery. -ordered for low dose Lasix for concern for pulmonary congestion - appreciate Cardiology eval HEMATURIA: resolved has chronic Crowder for hx of BPH , incomplete evacuation of urine at home dose self cath twice daily urology consulted -appreciate input CT Abdomen /pelvis -shows no obvious pathology Aspirin /Plavix resumed pt follows with Dr Worley will need out pt Cystoscopy in clinic HTN - BP controlled, continue amlodipine ZENA on CKD STAGE III - baseline creat runs in the high 1's - creat elevated due diuresis with Lasix - continue to monitor PRP while getting Lasix HYPOTHYROIDISM - continue levothyroxine DVT PROPHYLAXIS -high risk for DVT Subq heparin resumed DISPOSITION Lives at home /alone ,was independent in his ADL's needs PT/OT eval prior to discharge Social service consulted for discharge planning Medicine follow up with Dr Do Vital Signs: Date Time Temp Pulse Resp B/P (MAP) Pulse Ox O2 Delivery O2 Flow Rate FiO2 08/17/16 12:00 Nasal Cannula 6.0 08/17/16 11:17 69 16 90 Nasal Cannula 6.0 08/17/16 11:13 37.0 87 20 106/60 (75) 90 Nasal Cannula 6.0 08/17/16 08:04 37.2 98 20 111/60 (77) 92 Room Air 5.0 08/17/16 08:00 Nasal Cannula 5.0 08/17/16 07:04 74 16 93 Nasal Cannula 4.0 08/17/16 04:12 92 Nasal Cannula 4.0 08/17/16 04:07 36.5 79 18 133/65 (87) 87 Nasal Cannula 2.0 08/17/16 04:07 Nasal Cannula 4.0 08/17/16 00:00 Nasal Cannula 2.0 08/16/16 23:24 36.6 79 18 115/68 (84) 93 Nasal Cannula 2.0 08/16/16 19:28 36.7 80 18 116/58 (77) 92 Nasal Cannula 2.0 08/16/16 19:03 74 16 92 Nasal Cannula 2.0 08/16/16 16:00 Nasal Cannula 2.0 08/16/16 15:42 36.8 88 19 107/58 (74) 92 Nasal Cannula 2.0 08/16/16 15:25 74 16 96 Nasal Cannula 2.0 Lab Results: Results Past 24 Hours Test 08/17/16 07:42 08/17/16 10:30 08/17/16 10:52 Range/Units White Blood Count 7.73 4.8-10.8 K/uL Red Blood Count 3.37 4.7-6.1 M/uL Hemoglobin 10.2 14.0-18.0 g/dL Hematocrit 31.6 42-52 % Mean Corpuscular Volume 93.8 80-100 fL Mean Corpuscular Hemoglobin 30.3 25-34 pg Mean Corpuscular Hemoglobin Concent 32.3 32-36 g/dl RDW Standard Deviation 51.3 36.4-46.3 fL RDW Coefficient of Variation 15.0 11.5-14.5 % Platelet Count 162 130-400 K/uL Mean Platelet Volume 8.7 7.4-10.4 fL Sodium Level 144 136-145 mmol/L Potassium Level 4.1 3.5-5.1 mmol/L Chloride Level 111 98-107 mmol/L Carbon Dioxide Level 23 21-32 mmol/L Anion Gap 10.0 3-11 mmol/L Blood Urea Nitrogen 28 7-18 mg/dl Creatinine 1.90 0.60-1.40 mg/dl Est Creatinine Clear Calc Drug Dose 31.4 ml/min Estimated GFR () 35.9 Estimated GFR (Non- 31.0 BUN/Creatinine Ratio 14.9 10-20 Random Glucose 136 70-99 mg/dl Calcium Level 8.6 8.5-10.1 mg/dl Vancomycin Level Trough 14.2 SEE COMMENT mcg/ml Procalcitonin 0.18 0-0.5 ng/ml
--- NOTE | 2016-08-17 15:35 | Pharmacy Progress Note ---
Pharmacy Abx Dose Progress Nt Date of Service Aug 17, 2016. Pharmacy Dosing Scope The patient is currently receiving the following antimicrobial agents per Pharmacy consult: Vancomycin 1,400 mg IV every 30 hours Objective Height (Feet): 5 Height (Inches): 10.00 Weight (Kilograms): 92.800 Vital Signs (Past 12Hrs) Vital Signs Past 12 Hours Date Time Temp Pulse Resp B/P (MAP) Pulse Ox O2 Delivery O2 Flow Rate FiO2 08/17/16 15:05 83 16 94 Nasal Cannula 6.0 08/17/16 12:00 Nasal Cannula 6.0 08/17/16 11:17 69 16 90 Nasal Cannula 6.0 08/17/16 11:13 37.0 87 20 106/60 (75) 90 Nasal Cannula 6.0 08/17/16 08:04 37.2 98 20 111/60 (77) 92 Room Air 5.0 08/17/16 08:00 Nasal Cannula 5.0 08/17/16 07:04 74 16 93 Nasal Cannula 4.0 08/17/16 04:12 92 Nasal Cannula 4.0 08/17/16 04:07 36.5 79 18 133/65 (87) 87 Nasal Cannula 2.0 08/17/16 04:07 Nasal Cannula 4.0 Lab Results (24Hrs) Test 08/17/16 07:42 08/17/16 10:30 08/17/16 12:40 White Blood Count 7.73 K/uL (4.8-10.8) Red Blood Count 3.37 M/uL (4.7-6.1) Hemoglobin 10.2 g/dL (14.0-18.0) Hematocrit 31.6 % (42-52) Mean Corpuscular Volume 93.8 fL (80-100) Mean Corpuscular Hemoglobin 30.3 pg (25-34) Mean Corpuscular Hemoglobin Concent 32.3 g/dl (32-36) RDW Standard Deviation 51.3 fL (36.4-46.3) RDW Coefficient of Variation 15.0 % (11.5-14.5) Platelet Count 162 K/uL (130-400) Mean Platelet Volume 8.7 fL (7.4-10.4) Sodium Level 144 mmol/L (136-145) Potassium Level 4.1 mmol/L (3.5-5.1) Chloride Level 111 mmol/L (98-107) Carbon Dioxide Level 23 mmol/L (21-32) Anion Gap 10.0 mmol/L (3-11) Blood Urea Nitrogen 28 mg/dl (7-18) Creatinine 1.90 mg/dl (0.60-1.40) Est Creatinine Clear Calc Drug Dose 31.4 ml/min Estimated GFR () 35.9 Estimated GFR (Non- 31.0 BUN/Creatinine Ratio 14.9 (10-20) Random Glucose 136 mg/dl (70-99) Calcium Level 8.6 mg/dl (8.5-10.1) Vancomycin Level Trough 14.2 mcg/ml (SEE COMMENT) Procalcitonin 0.18 ng/ml (0-0.5) Erythrocyte Sedimentation Rate 63 mm/hr (0-14) Micro Results Date/Time Source Procedure Growth Status 08/15/16 10:40 Blood Blood Culture - Preliminary NO GROWTH TO DATE. Resulted 08/15/16 10:30 Blood Blood Culture - Preliminary NO GROWTH TO DATE. Resulted 08/13/16 12:40 Blood Blood Culture - Preliminary Coag Neg Staph Not Lugdunensis Resulted 08/13/16 12:15 Blood Blood Culture - Preliminary NO GROWTH TO DATE. Resulted 08/13/16 16:50 Nasal MRSA DNA Surveillance Screen - Final Specimen Negative for MRSA by DNA Probe Complete 08/14/16 13:15 Urine,Catheterized Urine Culture - Final NO GROWTH - LESS THAN 1,000 COLONIES/ML Complete Risk Factors for Resistance * Hospitalization for 48 hours or more within the past 90 days * Current hospitalization > 5 days Assessment & Plan Assessment 86 year old male receiving Vancomycin for treatment of HAP Day # 5/7 of antimicrobial therapy Plan Vancomycin IV * Trough level of 14.2 mcg/mL is near-therapeutic. Level likely to accumulate secondary to advanced age, renal impairment, and BMI. * Continue dose of Vancomycin 1,400 mg IV every 30 hours * Goal trough level for HAP : 15 to 20 mcg/mL * No further levels ordered as vanco will d/c after 7 days of therapy. Per ID, pt will only need 7 days of vanco as repeat blood cultures on 08/15/16 were negative. Pharmacy will continue to follow and will adjust dose/frequency as necessary. Thank you.
[2016-08-17] MEDS: HEPARIN SOD 5000 UNIT/0.5 ML CARP SQ SCH (20:52)
[2016-08-18] VITALS (11 sets, daily range): BP systolic 109–130; BP diastolic 51–67; PULSE 69–93; TEMP 36.4–36.6; O2SAT 86–98
[2016-08-18] MEDS: LEVOTHYROXINE 88 MCG TAB PO SCH (05:55)
[2016-08-18] MEDS: ALBUT/IPRATROP 3MG/0.5MG NEB 3 ML VIAL INH SCH ×4 (07:00→19:18)
[2016-08-18 07:31] LABS: HEMATOCRIT 30.2 % (42-52); MEAN CELL VOLUME 94.4 fL (80-100); MEAN CORPUSCULAR HEMOGLOBIN 30.6 pg (25-34); MEAN CORPUSCULAR HGB CONC 32.5 g/dl (32-36); MEAN PLATELET VOLUME 9.5 fL (7.4-10.4); PLATELET COUNT 187 K/uL (130-400); WHITE BLOOD COUNT 6.47 K/uL (4.8-10.8)
[2016-08-18] MEDS: ASPIRIN 81 MG ECTAB PO SCH (08:01)
[2016-08-18] MEDS: ALLOPURINOL 300 MG TAB PO SCH (08:01)
[2016-08-18] MEDS: HEPARIN SOD 5000 UNIT/0.5 ML CARP SQ SCH ×2 (08:02→21:11)
[2016-08-18] MEDS: ATORVASTATIN 40 MG TAB PO SCH (08:02)
[2016-08-18] MEDS: CLOPIDOGREL BISULFATE 75 MG TAB PO SCH (08:02)
[2016-08-18] MEDS: PANTOprazole SOD 40 MG TAB PO SCH (08:02)
[2016-08-18 08:06] LABS: BUN/CREATININE RATIO 16.3 (10-20); CALCIUM 8.7 mg/dl (8.5-10.1); CREATININE 2.1 mg/dl (0.60-1.40); POTASSIUM 4.8 mmol/L (3.5-5.1)
--- NOTE | 2016-08-18 09:37 | Progress Note ---
Progress Note Date of Service Aug 18, 2016. Progress Note Clear urine overnight resp status slightly improved NAD NC O2 in place briseno in place with clear urine A/P: Hematuria after cath placement+/- UTI on arrival - urine now clear - d/c briseno prior to d/c home (patient performs home CIC BiD) - f/u as outpt
--- NOTE | 2016-08-18 12:00 | Pulmonology Progress Note ---
Pulmonary Progress Note Date of Service Aug 18, 2016. Attending Subjective sitting up in chair appears comfortable denies any cough Objective thin built HEENT: normal Heart: s1,s2 Lungs: clear abd: soft ext: no edema SKILLED NURSING CASE MANAGER : AAOX4 no focal deficit Assessment & Plan (1) Pulmonary fibrosis Assessment & Plan: reviewed ct chest no evidence of ground glassing, no evidence suggestive for BOOP d/c steroids abx as per ID Pulmonary fibrosis due to chronic acid reflux? vs due to UIP ( Patient vehemently denies acid reflux) (2) Hypoxemia requiring supplemental oxygen assess for home o2 requirement prior to d/c might benefit from outpatient pulmonary rehab Data Medications: Current Inpatient Medications Medications (Trade) Dose Ordered Sig/Shakira Route Start Time Stop Time Status Last Admin Dose Admin Acetaminophen (Tylenol Tab) 650 mg Q4H PRN PO 08/13/16 15:00 09/12/16 14:59 Nitroglycerin (Nitrostat Tab) 0.4 mg UD PRN SL 08/13/16 15:00 09/12/16 14:59 Levofloxacin (Consult) 1 ea UD N/A 08/13/16 15:16 09/12/16 15:15 Allopurinol (Zyloprim Tab) 300 mg DAILY PO 08/14/16 09:00 09/13/16 08:59 08/18/16 08:01 300 MG Atorvastatin Calcium (Lipitor Tab) 40 mg DAILY PO 08/14/16 09:00 09/13/16 08:59 08/18/16 08:02 40 MG Levothyroxine Sodium (Synthroid Tab) 88 mcg DAILYBB PO 08/14/16 06:00 09/13/16 05:59 08/18/16 05:55 88 MCG Albuterol/ Ipratropium (Duoneb) 3 ml QIDR INH 08/13/16 20:00 09/12/16 19:59 08/18/16 11:23 3 ML Albuterol/ Ipratropium (Duoneb) 3 ml Q2R PRN INH 08/13/16 18:30 09/12/16 18:29 Aspirin (Ecotrin Tab) 81 mg QAM PO 08/15/16 09:00 09/14/16 08:59 08/18/16 08:01 81 MG Clopidogrel Bisulfate (plAVix TAB) 75 mg QAM PO 08/15/16 09:00 09/14/16 08:59 08/18/16 08:02 75 MG Vancomycin HCl (Consult) 1 ea UD PRN N/A 08/15/16 01:15 08/19/16 23:59 Heparin Sodium (Porcine) (Heparin Sq 5000 Unit/0.5ml) 5,000 unit Q12 SQ 08/15/16 21:00 09/14/16 20:59 08/18/16 08:02 5,000 UNIT Pantoprazole Sodium (Protonix Tab) 40 mg DAILY PO 08/16/16 09:00 09/15/16 08:59 08/18/16 08:02 40 MG Vancomycin HCl 1400 mg/Sodium Chloride 528 ml @ 200 mls/hr Q30H IV 08/16/16 02:00 08/19/16 23:59 08/17/16 08:00 200 MLS/HR Levofloxacin (Levaquin Tab) 750 mg Q2D@1100 PO 08/17/16 11:00 08/19/16 23:59 08/17/16 11:19 750 MG Methylprednisolone Sodium Succinate 50 mg/Syringe 0.8 ml @ 1.5 mls/min Q12H IV 08/17/16 12:00 09/16/16 11:59 08/17/16 23:30 1.5 MLS/MIN Vital Signs: Date Time Temp Pulse Resp B/P (MAP) Pulse Ox O2 Delivery O2 Flow Rate FiO2 08/18/16 11:23 69 16 96 Nasal Cannula 6.0 08/18/16 08:00 Nasal Cannula 6.0 08/18/16 07:20 69 16 90 Nasal Cannula 6.0 08/18/16 07:15 36.4 77 24 118/51 (73) 90 Nasal Cannula 6.0 08/18/16 06:55 86 Nasal Cannula 4.5 08/18/16 04:00 Nasal Cannula 4.5 08/18/16 02:39 36.6 80 23 114/54 (74) 98 Nasal Cannula 5.0 08/17/16 23:18 36.6 83 20 104/57 (73) 95 Nasal Cannula 5.0 Humidified Air 08/17/16 20:02 Nasal Cannula 4.5 08/17/16 19:31 36.8 104 23 109/60 (76) 92 Nasal Cannula 5.0 08/17/16 18:53 83 16 93 Nasal Cannula 4.5 08/17/16 16:00 Nasal Cannula 6.0 08/17/16 15:25 36.9 91 20 107/62 (77) 93 Nasal Cannula 5.0 08/17/16 15:05 83 16 94 Nasal Cannula 6.0 08/17/16 12:00 Nasal Cannula 6.0 Laboratory Results: Last 24 Hours Test 08/17/16 12:40 08/18/16 06:22 Erythrocyte Sedimentation Rate 63 mm/hr White Blood Count 6.47 K/uL Red Blood Count 3.20 M/uL Hemoglobin 9.8 g/dL Hematocrit 30.2 % Mean Corpuscular Volume 94.4 fL Mean Corpuscular Hemoglobin 30.6 pg Mean Corpuscular Hemoglobin Concent 32.5 g/dl RDW Standard Deviation 51.2 fL RDW Coefficient of Variation 14.9 % Platelet Count 187 K/uL Mean Platelet Volume 9.5 fL Sodium Level 143 mmol/L Potassium Level 4.8 mmol/L Chloride Level 111 mmol/L Carbon Dioxide Level 23 mmol/L Anion Gap 9.0 mmol/L Blood Urea Nitrogen 34 mg/dl Creatinine 2.10 mg/dl Est Creatinine Clear Calc Drug Dose 28.4 ml/min Estimated GFR () 31.8 Estimated GFR (Non- 27.5 BUN/Creatinine Ratio 16.3 Random Glucose 164 mg/dl Calcium Level 8.7 mg/dl
[2016-08-18] MEDS: VANCOMYCIN INJ 1,400 MG in SODIUM CHLORIDE 0.9% 500ML 500 ML IV SCH (13:25)
--- NOTE | 2016-08-18 14:29 | Cardiology Follow-Up ---
Subjective General Date of Service: Aug 18, 2016. Chief Complaint: follow up shortness of breath Pt evaluation today including: conversation w/ patient, conversation w/ family , physical exam History of Present Illness The patient is a 86 year old male seen in follow-up. He feels marginally improved today although his cough is still present. Allergies Coded Allergies: No Known Allergies (Verified , 08/13/16) Social History Smoking Status: Former Smoker Hx Tobacco Use In Past Year?: No Hx Alcohol Use - Type And Amou: Yes (beer - 1 bottle per week) Hx Substance Use - Type And Am: No Physical Exam Vital Signs Last Vital Signs Documentation Date Time Temp Pulse Resp B/P (MAP) Pulse Ox O2 Delivery O2 Flow Rate FiO2 08/18/16 12:10 36.5 79 20 113/64 (80) 97 08/18/16 12:00 Nasal Cannula 6.0 Physical Exam Constitutional: Level of Distress: NAD Neck: trachea midline Lungs: Auscultation: no wheezing, pertinent finding (decreased breath sounds at the bases bilaterally) Cardiovascular: Heart Auscultation: RRR, I/ LORI Extremities: no edema Neurologic: Gait & Station: pertinent finding (No focal neurologic deficits) Assessment and Plan Assessment and Plan Impression: 86-year-old male 1. Shortness of breath, minimal improvement with treatment for diastolic heart failure, CT now shows pulmonary fibrosis which would explain his chest x-ray findings. 2. Mild troponin elevation, more consistent with heart failure decompensation with an acute coronary syndrome. EKG reveals unchanged chronic right bundle branch block without acute repolarization abnormalities 3. Acute kidney injury on chronic CKD 4. History of urinary outflow obstruction for which she performs urinary self- catheterization at baseline 5. Gross hematuria, perhaps form traumatic Crowder , improved Plan: Continue ASA and clopidogrel due to recent FLORIN to LAD and TAVR. Add back SQ heparin for DVT prophylaxis -very high risk. Furosemide held 08/16/16 08/17/16, 08/18/16. Consuelo Glez DO Laboratory Results Last 24 Hours Test 08/18/16 06:22 White Blood Count 6.47 K/uL Red Blood Count 3.20 M/uL Hemoglobin 9.8 g/dL Hematocrit 30.2 % Mean Corpuscular Volume 94.4 fL Mean Corpuscular Hemoglobin 30.6 pg Mean Corpuscular Hemoglobin Concent 32.5 g/dl RDW Standard Deviation 51.2 fL RDW Coefficient of Variation 14.9 % Platelet Count 187 K/uL Mean Platelet Volume 9.5 fL Sodium Level 143 mmol/L Potassium Level 4.8 mmol/L Chloride Level 111 mmol/L Carbon Dioxide Level 23 mmol/L Anion Gap 9.0 mmol/L Blood Urea Nitrogen 34 mg/dl Creatinine 2.10 mg/dl Est Creatinine Clear Calc Drug Dose 28.4 ml/min Estimated GFR () 31.8 Estimated GFR (Non- 27.5 BUN/Creatinine Ratio 16.3 Random Glucose 164 mg/dl Calcium Level 8.7 mg/dl
--- NOTE | 2016-08-18 20:25 | Progress Note ---
Internal Med Progress Note Date of Service: Aug 18, 2016. Provider Documentation: SUBJECTIVE: feels a bit better today been up on the chair most part of the day getting SOB with minimum exertion has non productive cough no episode of hematuria OBJECTIVE: Vital Signs-as noted below Exam: General-elderly male , appears to be tired and weak Eyes-sclera non icteric ENT-NAD Lungs-diminished, + rales at base Heart-regular S1/S2 Abdomen-soft, non tender , trace bilateral lower ext edema Extremities-no rash or deformity Neuro-AAO x3, no focal deficit Lab data as noted below. ASSESSMENT & PLAN: ACUTE HYPOXIC RESPIRATORY FAILURE -possible due to interstitial lung disease ? CT chest ordered by pulmonology : Diffuse interstitial thickening demonstrating a peripheral and basilar predominance with mild honeycombing at the lung bases and mild traction bronchiectasis. This favors pulmonary fibrosis - patient presented with worsening shortness of breath and cough since TAVR on 07/29 persistent hypoxia - requiring 6 L 02 ( was not not home 02 ) -appreciate input from Pulmonology cont on empiric IV steroid, -monitor in Tele to assess improvement of respiratory status - on Levaquin days of tx for pneumonia will D/c Abx after completion of course -Lower ext Doppler negative for DVT -2 step pulse oximetry prior to discharge GRAM POSITIVE BACTEREMIA : 03/18 blood culture + staph aureus -possible contamination started on IV Vancomycin repeat Blood culture ordered ECHO showed normal function of bioprosthetic AVR ID eval requested -appreciate input given new prosthetic valve recommend at least 7 days of IV Vancomycin ELEVATED TROPONIN, HX CAD, RECENT TAVR no evidence of acute RI - hx FLORIN x 2 to LAD 06/2016 - no reports of chest pain, EKG unchanged - likely due to hypoxia, acute illness, recent TAVR - ASA, Plavix, resumed as pt had recent FLORIN and TVAR - ECHO : Echo 08/14 was stable with normal LVEF and normal prosthetic valve surgery. Lasix has been on hold -concern for intravascular vol depletion - appreciate Cardiology eval HEMATURIA: resolved has chronic Crowder for hx of BPH , incomplete evacuation of urine at home dose self cath twice daily urology consulted -appreciate input CT Abdomen /pelvis -shows no obvious pathology Aspirin /Plavix resumed pt follows with Dr Worley will need out pt Cystoscopy in clinic HTN - BP controlled, continue amlodipine ZENA on CKD STAGE III - baseline creat runs in the high 1's - creat elevated due diuresis with Lasix - continue to monitor PRP while getting Lasix HYPOTHYROIDISM - continue levothyroxine DVT PROPHYLAXIS -high risk for DVT Subq heparin resumed DISPOSITION Lives at home /alone ,was independent in his ADL's will need 2 step 02 , pt is highly likely to go home with high requirement of 02 ( 4-6 L via NC ) PT/OT eval prior to discharge Social service consulted for discharge planning Medicine follow up with Dr Do Vital Signs: Date Time Temp Pulse Resp B/P (MAP) Pulse Ox O2 Delivery O2 Flow Rate FiO2 08/18/16 19:18 78 16 93 Nasal Cannula 4.0 08/18/16 19:12 36.6 82 18 130/67 (88) 95 Nasal Cannula 4.0 08/18/16 16:00 Nasal Cannula 6.0 08/18/16 15:35 36.5 93 20 124/64 (84) 94 Nasal Cannula 5.0 08/18/16 15:10 90 16 95 Nasal Cannula 5.0 08/18/16 12:10 36.5 79 20 113/64 (80) 97 08/18/16 12:00 Nasal Cannula 6.0 08/18/16 11:23 69 16 96 Nasal Cannula 6.0 08/18/16 08:00 Nasal Cannula 6.0 08/18/16 07:20 69 16 90 Nasal Cannula 6.0 08/18/16 07:15 36.4 77 24 118/51 (73) 90 Nasal Cannula 6.0 08/18/16 06:55 86 Nasal Cannula 4.5 08/18/16 04:00 Nasal Cannula 4.5 08/18/16 02:39 36.6 80 23 114/54 (74) 98 Nasal Cannula 5.0 08/17/16 23:18 36.6 83 20 104/57 (73) 95 Nasal Cannula 5.0 Humidified Air Lab Results: Results Past 24 Hours Test 08/18/16 06:22 Range/Units White Blood Count 6.47 4.8-10.8 K/uL Red Blood Count 3.20 4.7-6.1 M/uL Hemoglobin 9.8 14.0-18.0 g/dL Hematocrit 30.2 42-52 % Mean Corpuscular Volume 94.4 80-100 fL Mean Corpuscular Hemoglobin 30.6 25-34 pg Mean Corpuscular Hemoglobin Concent 32.5 32-36 g/dl RDW Standard Deviation 51.2 36.4-46.3 fL RDW Coefficient of Variation 14.9 11.5-14.5 % Platelet Count 187 130-400 K/uL Mean Platelet Volume 9.5 7.4-10.4 fL Sodium Level 143 136-145 mmol/L Potassium Level 4.8 3.5-5.1 mmol/L Chloride Level 111 98-107 mmol/L Carbon Dioxide Level 23 21-32 mmol/L Anion Gap 9.0 3-11 mmol/L Blood Urea Nitrogen 34 7-18 mg/dl Creatinine 2.10 0.60-1.40 mg/dl Est Creatinine Clear Calc Drug Dose 28.4 ml/min Estimated GFR () 31.8 Estimated GFR (Non- 27.5 BUN/Creatinine Ratio 16.3 10-20 Random Glucose 164 70-99 mg/dl Calcium Level 8.7 8.5-10.1 mg/dl
[2016-08-19] VITALS (14 sets, daily range): BP systolic 98–113; BP diastolic 51–64; PULSE 74–101; TEMP 36.4–36.7; O2SAT 75–95
[2016-08-19] MEDS: LEVOTHYROXINE 88 MCG TAB PO SCH (06:00)
[2016-08-19] MEDS: ALBUT/IPRATROP 3MG/0.5MG NEB 3 ML VIAL INH SCH ×4 (07:20→19:35)
[2016-08-19] MEDS: ASPIRIN 81 MG ECTAB PO SCH (07:53)
[2016-08-19] MEDS: CLOPIDOGREL BISULFATE 75 MG TAB PO SCH (07:53)
[2016-08-19] MEDS: ALLOPURINOL 300 MG TAB PO SCH (07:53)
[2016-08-19] MEDS: ATORVASTATIN 40 MG TAB PO SCH (07:53)
[2016-08-19] MEDS: PANTOprazole SOD 40 MG TAB PO SCH (07:53)
[2016-08-19] MEDS: HEPARIN SOD 5000 UNIT/0.5 ML CARP SQ SCH ×2 (07:55→20:29)
--- NOTE | 2016-08-19 10:52 | Progress Note ---
Subjective Date of Service: Aug 19, 2016. Subjective pt not in room, repeat blood cultures remain negative. no fevers. no events. remains on abx. ct chest with pulm fibrosis, pulm following. wbc nml. Objective Vital Signs Date Time Temp Pulse Resp B/P (MAP) Pulse Ox O2 Delivery O2 Flow Rate FiO2 08/19/16 08:00 Nasal Cannula 4.0 08/19/16 07:46 91 Nasal Cannula 4.0 08/19/16 07:23 36.5 74 20 110/64 (79) 87 4.0 08/19/16 07:20 87 16 89 Nasal Cannula 4.0 08/19/16 04:00 Nasal Cannula 4.0 08/19/16 02:34 36.4 74 22 113/58 (76) 94 Nasal Cannula 4.0 08/19/16 00:00 Nasal Cannula 4.0 08/18/16 23:01 36.5 87 20 109/65 (80) 91 Nasal Cannula 4.0 Humidified Oxygen 08/18/16 20:00 Nasal Cannula 4.0 08/18/16 19:18 78 16 93 Nasal Cannula 4.0 08/18/16 19:12 36.6 82 18 130/67 (88) 95 Nasal Cannula 4.0 08/18/16 16:00 Nasal Cannula 6.0 08/18/16 15:35 36.5 93 20 124/64 (84) 94 Nasal Cannula 5.0 08/18/16 15:10 90 16 95 Nasal Cannula 5.0 08/18/16 12:10 36.5 79 20 113/64 (80) 97 08/18/16 12:00 Nasal Cannula 6.0 08/18/16 11:23 69 16 96 Nasal Cannula 6.0 Laboratory Results Item Value Date Time Blood Culture - Preliminary Resulted 08/15/16 1040 Blood NO GROWTH TO DATE. Blood Culture - Preliminary Resulted 08/15/16 1030 Blood NO GROWTH TO DATE. Blood Culture - Final Complete 08/13/16 1240 Blood Coag Neg Staph Not Lugdunensis Assessment and Plan (1) Positive blood culture Assessment & Plan: suspect contaminant in one bottle. has been on vanco. repeat cultures negative, echo negative. would stop (2) PNA (pneumonia) Assessment & Plan: complete 5 days levaquin, then stop. no new ID recs at this time.
[2016-08-19] MEDS: LEVOFLOXACIN 750 MG TAB PO SCH (11:06)
--- NOTE | 2016-08-19 13:34 | Cardiology Follow-Up ---
Subjective General Date of Service: Aug 19, 2016. Chief Complaint: follow up shortness of breath Pt evaluation today including: conversation w/ patient, conversation w/ family , physical exam History of Present Illness The patient is a 86 year old male seen in follow-up. Patient is frustrated. He walked a minimal distance with the assistance of physical therapy today and despite supplemental oxygen his pulse oximetry decline to 75%. Allergies Coded Allergies: No Known Allergies (Verified , 08/13/16) Social History Smoking Status: Former Smoker Hx Tobacco Use In Past Year?: No Hx Alcohol Use - Type And Amou: Yes (beer - 1 bottle per week) Hx Substance Use - Type And Am: No Physical Exam Vital Signs Last Vital Signs Documentation Date Time Temp Pulse Resp B/P (MAP) Pulse Ox O2 Delivery O2 Flow Rate FiO2 08/19/16 12:00 Nasal Cannula 4.0 08/19/16 11:32 36.7 83 20 98/51 (67) 95 Physical Exam Constitutional: Level of Distress: NAD Neck: trachea midline Lungs: Auscultation: no wheezing, pertinent finding (decreased breath sounds at the bases bilaterally) Cardiovascular: Heart Auscultation: RRR, I/ LORI Extremities: no edema Neurologic: Gait & Station: pertinent finding (No focal neurologic deficits) Assessment and Plan Assessment and Plan Impression: 86-year-old male 1. Shortness of breath, minimal improvement with treatment for diastolic heart failure, CT now shows pulmonary fibrosis which would explain his chest x-ray findings. 2. Mild troponin elevation, more consistent with heart failure decompensation with an acute coronary syndrome. EKG reveals unchanged chronic right bundle branch block without acute repolarization abnormalities 3. Acute kidney injury on chronic CKD 4. History of urinary outflow obstruction for which she performs urinary self- catheterization at baseline 5. Gross hematuria, perhaps form traumatic Crowder , improved Plan: Continue ASA and clopidogrel due to recent FLORIN to LAD and TAVR. Add back SQ heparin for DVT prophylaxis -very high risk. Continue to hold diuretic therapy. Consuelo Glez DO
[2016-08-19] MEDS ORDERED: VANCOMYCIN TROUGH ONE (19:30)
--- NOTE | 2016-08-19 21:38 | Progress Note ---
Internal Med Progress Note Date of Service: Aug 19, 2016. Provider Documentation: SUBJECTIVE: remain SOB /hypoxic requiring 6 L 02 via nasal canula OBJECTIVE: Vital Signs-as noted below Exam: General-elderly male , appears to be tired and weak Eyes-sclera non icteric ENT-NAD Lungs-diminished, + rales at base Heart-regular S1/S2 Abdomen-soft, non tender , trace bilateral lower ext edema Extremities-no rash or deformity Neuro-AAO x3, no focal deficit Lab data as noted below. ASSESSMENT & PLAN: ACUTE HYPOXIC RESPIRATORY FAILURE -possible due to interstitial lung disease ? CT chest ordered by pulmonology : Diffuse interstitial thickening demonstrating a peripheral and basilar predominance with mild honeycombing at the lung bases and mild traction bronchiectasis. This favors pulmonary fibrosis - patient presented with worsening shortness of breath and cough since TAVR on 07/29 persistent hypoxia - requiring 6 L 02 ( was not not home 02 ) -appreciate input from Pulmonology cont on empiric IV steroid, -monitor in Tele to assess improvement of respiratory status - on Levaquin days of tx for pneumonia will D/c Abx after completion of course -Lower ext Doppler negative for DVT -2 step pulse oximetry prior to discharge GRAM POSITIVE BACTEREMIA : 03/18 blood culture + staph aureus -possible contamination started on IV Vancomycin repeat Blood culture ordered ECHO showed normal function of bioprosthetic AVR ID eval requested -appreciate input given new prosthetic valve recommend at least 7 days of IV Vancomycin ELEVATED TROPONIN, HX CAD, RECENT TAVR no evidence of acute AR - hx FLORIN x 2 to LAD 06/2016 - no reports of chest pain, EKG unchanged - likely due to hypoxia, acute illness, recent TAVR - ASA, Plavix, resumed as pt had recent FLORIN and TVAR - ECHO : Echo 08/14 was stable with normal LVEF and normal prosthetic valve surgery. Lasix has been on hold -concern for intravascular vol depletion - appreciate Cardiology eval HEMATURIA: resolved has chronic Crowder for hx of BPH , incomplete evacuation of urine at home dose self cath twice daily urology consulted -appreciate input CT Abdomen /pelvis -shows no obvious pathology Aspirin /Plavix resumed pt follows with Dr Worley will need out pt Cystoscopy in clinic HTN - BP controlled, continue amlodipine ZENA on CKD STAGE III - baseline creat runs in the high 1's - creat elevated due diuresis with Lasix - continue to monitor PRP while getting Lasix HYPOTHYROIDISM - continue levothyroxine DVT PROPHYLAXIS -high risk for DVT Subq heparin resumed DISPOSITION Lives at home /alone ,was independent in his ADL's will need 2 step 02 , pt is highly likely to go home with high requirement of 02 ( 4-6 L via NC ) PT/OT eval prior to discharge Social service consulted for discharge planning Medicine follow up with Dr Do Vital Signs: Date Time Temp Pulse Resp B/P (MAP) Pulse Ox O2 Delivery O2 Flow Rate FiO2 08/20/16 20:00 Nasal Cannula 3.0 08/20/16 19:40 36.5 83 18 110/55 (73) 92 Nasal Cannula 3.0 08/20/16 19:31 81 20 94 Nasal Cannula 4.0 08/20/16 16:00 Nasal Cannula 6.0 08/20/16 15:17 36.8 89 20 101/60 (74) 97 4.0 08/20/16 14:24 80 20 94 Nasal Cannula 4.0 08/20/16 12:00 Nasal Cannula 6.0 08/20/16 11:32 36.6 87 18 101/56 (71) 98 4.0 08/20/16 11:10 76 20 91 Nasal Cannula 4.0 08/20/16 10:00 103 76 08/20/16 08:00 Nasal Cannula 6.0 08/20/16 07:24 36.5 82 18 107/66 (80) 90 6.0 08/20/16 07:00 80 22 82 Nasal Cannula 4.0 08/20/16 04:33 36.5 81 18 107/59 (75) 97 Nasal Cannula 08/20/16 04:00 94 Nasal Cannula 4.0 08/19/16 23:59 94 Nasal Cannula 4.0 08/19/16 23:46 36.7 85 18 112/63 (79) 93 Nasal Cannula
[2016-08-20] VITALS (12 sets, daily range): BP systolic 101–111; BP diastolic 55–66; PULSE 76–103; TEMP 36.5–36.8; O2SAT 76–98
[2016-08-20] MEDS: LEVOTHYROXINE 88 MCG TAB PO SCH (05:24)
[2016-08-20] MEDS: ALBUT/IPRATROP 3MG/0.5MG NEB 3 ML VIAL INH SCH ×4 (07:01→19:31)
[2016-08-20] MEDS: ALLOPURINOL 300 MG TAB PO SCH (07:57)
[2016-08-20] MEDS: ASPIRIN 81 MG ECTAB PO SCH (07:57)
[2016-08-20] MEDS: ATORVASTATIN 40 MG TAB PO SCH (07:57)
[2016-08-20] MEDS: PANTOprazole SOD 40 MG TAB PO SCH (07:57)
[2016-08-20] MEDS: CLOPIDOGREL BISULFATE 75 MG TAB PO SCH (07:57)
[2016-08-20] MEDS: HEPARIN SOD 5000 UNIT/0.5 ML CARP SQ SCH ×2 (07:59→20:18)
--- NOTE | 2016-08-20 18:33 | Cardiology Follow-Up ---
Subjective General Date of Service: Aug 20, 2016. Chief Complaint: follow up shortness of breath Pt evaluation today including: conversation w/ patient, conversation w/ family , physical exam History of Present Illness The patient is a 86 year old male seen in follow-up. Still with markedly hypoxia, exertional shortness of breath with minimal exertion. Telemetry reveals stable sinus rhythm. His oxygen requirement is now 6 L. Allergies Coded Allergies: No Known Allergies (Verified , 08/13/16) Social History Smoking Status: Former Smoker Hx Tobacco Use In Past Year?: No Hx Alcohol Use - Type And Amou: Yes (beer - 1 bottle per week) Hx Substance Use - Type And Am: No Physical Exam Vital Signs Last Vital Signs Documentation Date Time Temp Pulse Resp B/P (MAP) Pulse Ox O2 Delivery O2 Flow Rate FiO2 08/20/16 16:00 Nasal Cannula 6.0 08/20/16 15:17 36.8 89 20 101/60 (74) 97 Physical Exam Constitutional: Level of Distress: NAD Neck: trachea midline Lungs: Auscultation: no wheezing, pertinent finding (decreased breath sounds at the bases bilaterally) Cardiovascular: Heart Auscultation: RRR, I/ LORI Extremities: no edema Neurologic: Gait & Station: pertinent finding (No focal neurologic deficits) Assessment and Plan Assessment and Plan Impression: 86-year-old male 1. Shortness of breath, minimal improvement with treatment for diastolic heart failure, CT now shows pulmonary fibrosis which would explain his chest x-ray findings. 2. Mild troponin elevation, more consistent with heart failure decompensation with an acute coronary syndrome. EKG reveals unchanged chronic right bundle branch block without acute repolarization abnormalities 3. Acute kidney injury on chronic CKD Plan: Think still do not seem to had up that the patient's respiratory status is markedly worse than it was before his recent LAD intervention and transcatheter aortic valve replacement. Images from his transthoracic echocardiogram performed 08/14/16 were reviewed independently today. The left ventricular systolic function was hyperdynamic. The Doppler evaluation for perivalvular leak around the aortic valve prosthesis was somewhat suboptimal, and therefore recommend repeating another transthoracic echocardiogram study tomorrow with special attention to assessment for aortic regurgitation/aortic stenosis If the transthoracic echocardiogram is insufficient, will consider proceeding with high risk transesophageal echocardiogram with anesthesia support given his hypoxia to definitively evaluate the valve. Even if he has baseline pulmonary fibrosis, and does not explain why he has had such a dramatic decline since undergoing transcatheter aortic valve replacement as he seemed to be much better compensated overall terms of his exercise capacity back then. Consuelo Glez, DO
--- NOTE | 2016-08-20 22:38 | Progress Note ---
Internal Med Progress Note Date of Service: Aug 20, 2016. Provider Documentation: SUBJECTIVE: remains hypoxic with 6L 02 at rest ( was not on home 02 prior this Admission ) desaturates with minimum exertion very frustrated with his current illness believes all his problem started after having Aortic valve replacement felt fine before that OBJECTIVE: Vital Signs-as noted below Exam: General-elderly male , appears to be tired and weak m on 6 L 02 Eyes-sclera non icteric ENT-NAD Lungs-diminished, + rales at base Heart-regular S1/S2 Abdomen-soft, non tender , trace bilateral lower ext edema Extremities-no rash or deformity Neuro-AAO x3, no focal deficit Lab data as noted below. ASSESSMENT & PLAN: ACUTE HYPOXIC RESPIRATORY FAILURE not sure of the etiology developed acute deconditioning of respiratory status , no improvement with empiric tx of Pneumonia /diuresis for possible CHF Neb tx due to interstitial lung disease ? -no prior DX CT chest with out contrast : Diffuse interstitial thickening demonstrating a peripheral and basilar predominance with mild honeycombing at the lung bases and mild traction bronchiectasis. This favors pulmonary fibrosis - patient presented with worsening shortness of breath and cough since TAVR on 07/29 persistent hypoxia - requiring 6 L 02 ( was not not home 02 ) Pulmonology consulted - completed Levaquin days of tx for pneumonia will D/c Abx after completion of course -Lower ext Doppler negative for DVT D/w Cardiology -repeat ECHO will be done tomorrow to assess any possible leak around aortic valve causing CHF any evidence of valve malfunction or with worsening of respiratory status pt should be transferred to [place] for further care GRAM POSITIVE BACTEREMIA : 03/18 blood culture + staph aureus -possible contamination started on IV Vancomycin repeat Blood culture ordered ECHO showed normal function of bioprosthetic AVR ID eval requested -appreciate input given new prosthetic valve recommend at least 7 days of IV Vancomycin ELEVATED TROPONIN, HX CAD, RECENT TAVR no evidence of acute [place] - hx FLORIN x 2 to LAD 06/2016 - no reports of chest pain, EKG unchanged - likely due to hypoxia, acute illness, recent TAVR - ASA, Plavix, resumed as pt had recent FLORIN and TVAR - ECHO : Echo 08/14 was stable with normal LVEF and normal prosthetic valve surgery. Lasix has been on hold -concern for intravascular vol depletion - appreciate Cardiology eval HEMATURIA: resolved has chronic Crowder for hx of BPH , incomplete evacuation of urine at home dose self cath twice daily urology consulted -appreciate input CT Abdomen /pelvis -shows no obvious pathology Aspirin /Plavix resumed pt follows with Dr Worley will need out pt Cystoscopy in clinic HTN - BP controlled, continue amlodipine ZENA on CKD STAGE III - baseline creat runs in the high 1's - creat elevated due diuresis with Lasix - continue to monitor PRP while getting Lasix HYPOTHYROIDISM - continue levothyroxine DVT PROPHYLAXIS -high risk for DVT Subq heparin resumed DISPOSITION to be determined pt has been having concerning symptom of ongoing respiratory failure cont to monitor in Tele Low threshold to transfer to [place] for further care will follow with Cardiology recommendation Vital Signs: Date Time Temp Pulse Resp B/P (MAP) Pulse Ox O2 Delivery O2 Flow Rate FiO2 08/20/16 20:00 Nasal Cannula 3.0 08/20/16 19:40 36.5 83 18 110/55 (73) 92 Nasal Cannula 3.0 08/20/16 19:31 81 20 94 Nasal Cannula 4.0 08/20/16 16:00 Nasal Cannula 6.0 08/20/16 15:17 36.8 89 20 101/60 (74) 97 4.0 08/20/16 14:24 80 20 94 Nasal Cannula 4.0 08/20/16 12:00 Nasal Cannula 6.0 08/20/16 11:32 36.6 87 18 101/56 (71) 98 4.0 08/20/16 11:10 76 20 91 Nasal Cannula 4.0 08/20/16 10:00 103 76 08/20/16 08:00 Nasal Cannula 6.0 08/20/16 07:24 36.5 82 18 107/66 (80) 90 6.0 08/20/16 07:00 80 22 82 Nasal Cannula 4.0 08/20/16 04:33 36.5 81 18 107/59 (75) 97 Nasal Cannula 08/20/16 04:00 94 Nasal Cannula 4.0 08/19/16 23:59 94 Nasal Cannula 4.0 08/19/16 23:46 36.7 85 18 112/63 (79) 93 Nasal Cannula
[2016-08-21] VITALS (8 sets, daily range): BP systolic 99–145; BP diastolic 37–87; PULSE 74–85; TEMP 36.4–36.9; O2SAT 91–94
[2016-08-21] MEDS: LEVOTHYROXINE 88 MCG TAB PO SCH (05:09)
[2016-08-21 06:35] LABS: HEMATOCRIT 28.2 % (42-52); MEAN CELL VOLUME 93.1 fL (80-100); MEAN CORPUSCULAR HGB CONC 33.3 g/dl (32-36); MEAN PLATELET VOLUME 9.7 fL (7.4-10.4); PLATELET COUNT 197 K/uL (130-400); RED BLOOD COUNT 3.03 M/uL (4.7-6.1); WHITE BLOOD COUNT 8.52 K/uL (4.8-10.8)
[2016-08-21 07:08] LABS: BUN/CREATININE RATIO 24.4 (10-20); CALCIUM 8.2 mg/dl (8.5-10.1); POTASSIUM 4.6 mmol/L (3.5-5.1)
[2016-08-21 07:14] LABS: ALB/GLOB RATIO 0.5 (0.9-2)
[2016-08-21] MEDS: ALBUT/IPRATROP 3MG/0.5MG NEB 3 ML VIAL INH SCH ×2 (07:17→11:08)
--- NOTE | 2016-08-21 07:29 | DIAGNOSTIC IMAGING REPORT ---
CHEST ONE VIEW PORTABLE CLINICAL HISTORY: Shortness breath COMPARISON STUDY: 08/17/2016 FINDINGS: The cardiac and mediastinal contours remain stable. There are bilateral interstitial opacities, similar to the prior study given the differences in technique. There is blunting of the lateral costophrenic angles. There is no conventional radiographic evidence of pathologic adenopathy.[ IMPRESSION: Small bilateral pleural effusions and bilateral interstitial pulmonary opacities, similar to the preceding study. Electronically signed by: Bony Wright M.D. 08/21/2016 7:28 AM Dictated Date/Time: 08/21/2016 7:26 AM
[2016-08-21] MEDS ORDERED: FUROSEMIDE INJ 20 MG in SYRINGE 0 ML IV SCH ×2 (07:30→12:15)
[2016-08-21] MEDS ORDERED: FUROSEMIDE 40 MG/4 ML VIAL ONE (11:56)
[2016-08-21] MEDS: CLOPIDOGREL BISULFATE 75 MG TAB PO SCH (11:58)
[2016-08-21] MEDS: ALLOPURINOL 300 MG TAB PO SCH (11:58)
[2016-08-21] MEDS: ATORVASTATIN 40 MG TAB PO SCH (11:58)
[2016-08-21] MEDS: PANTOprazole SOD 40 MG TAB PO SCH (11:58)
[2016-08-21] MEDS: ASPIRIN 81 MG ECTAB PO SCH (11:58)
--- NOTE | 2016-08-21 12:19 | Progress Note ---
Medicine Progress Note Date & Time of Visit: Aug 21, 2016 at 12:03. Subjective seen resting in bed appears comfortable on 5 liters O2 via nasal cannula states breathing is about the same still has dry cough denies chest pain, palpitations, dizziness no other symptoms Objective Last 8 Hrs Date Time Temp Pulse Resp B/P (MAP) Pulse Ox O2 Delivery O2 Flow Rate FiO2 08/21/16 11:08 74 18 91 Nasal Cannula 5.0 08/21/16 08:00 Nasal Cannula 6.0 08/21/16 07:59 36.6 76 18 115/58 (77) 94 Nasal Cannula 3.0 08/21/16 07:15 76 18 94 Nasal Cannula 3.0 08/21/16 06:05 Nasal Cannula 08/21/16 05:05 92 Nasal Cannula 6.0 Physical Exam: General- oriented x 3, not in distress, speaks in sentences with no effort Head- atraumatic Eyes- EOMI, anicteric ENT- oropharynx clear Neck- supple, mild JVD Lungs- diminished breath sounds bilaterally, no rales/wheezes Heart- regular rhythm; no murmur, normal rate Abdomen- normal bowel sounds, soft, nontender Extremities- mild pretibial edema, no calf tenderness; peripheral pulses intact Neuro- alert, oriented x 3; no gross focal deficits Skin- warm & dry Laboratory Results: Last 24 Hours Test 08/21/16 06:12 White Blood Count 8.52 K/uL Red Blood Count 3.03 M/uL Hemoglobin 9.4 g/dL Hematocrit 28.2 % Mean Corpuscular Volume 93.1 fL Mean Corpuscular Hemoglobin 31.0 pg Mean Corpuscular Hemoglobin Concent 33.3 g/dl RDW Standard Deviation 51.1 fL RDW Coefficient of Variation 15.0 % Platelet Count 197 K/uL Mean Platelet Volume 9.7 fL Sodium Level 145 mmol/L Potassium Level 4.6 mmol/L Chloride Level 113 mmol/L Carbon Dioxide Level 23 mmol/L Anion Gap 9.0 mmol/L Blood Urea Nitrogen 49 mg/dl Creatinine 2.00 mg/dl Est Creatinine Clear Calc Drug Dose 30.1 ml/min Estimated GFR () 33.8 Estimated GFR (Non- 29.1 BUN/Creatinine Ratio 24.4 Random Glucose 122 mg/dl Calcium Level 8.2 mg/dl Total Bilirubin 0.6 mg/dl Aspartate Amino Transf (AST/SGOT) 18 U/L Alanine Aminotransferase (ALT/SGPT) 19 U/L Alkaline Phosphatase 96 U/L Pro-B-Type Natriuretic Peptide 1324 pg/ml Total Protein 6.3 gm/dl Albumin 2.2 gm/dl Globulin 4.1 gm/dl Albumin/Globulin Ratio 0.5 Assessment & Plan 86 year old male with history of CAD, recent TAVR, Hypertension, presenting with shortness of breath. ACUTE HYPOXIC RESPIRATORY FAILURE -CT chest with out contrast : Diffuse interstitial thickening demonstrating a peripheral and basilar predominance with mild honeycombing at the lung bases and mild traction bronchiectasis. This favors pulmonary fibrosis - possible Pneumonia has received 5 days of levaquin and 6 days of Vancomycin - possible Underlying Interstitial Lung Disease started on Prednisone 40mg po 08/20/16 evaluated by Pulmonary - possible component of Volume Overload Echo 08/14/16: -- Conclusions -- * S/P TAVR * There is no significant aortic regurgitation. * The prosthetic aortic valve appears to open well. * There is moderate concentric left ventricular hypertrophy. * Ejection Fraction = 65-70%. * The right ventricle is normal size. * The right ventricular systolic function is normal. has been given intermittent Lasix IV today, Lasix 20mg IV ordered - not much improvement since admission remains on 5 liter via NC - discussed with Dr. Glez- Fryer Operator recommend transfer to [facility] GRAM POSITIVE BACTEREMIA- COAG NEG STAPH NOT LUGDUNENSIS 08/13/16 blood cultures: 1 out of 2 positive for above 08/15/16 repeat blood cultures: negative -- evaluated by ID received 6 days of IV Vanco given recent TAVR antibiotics discontinued - ECHO showed normal function of bioprosthetic AVR ELEVATED TROPONIN, HISTORY OF CAD, RECENT TAVR - no evidence of acute [place] - hx FLORIN x 2 to LAD 06/2016 - no reports of chest pain, EKG unchanged - likely due to hypoxia, acute illness, recent TAVR - ASA, Plavix, resumed as pt had recent FLORIN and TVAR - ECHO : Echo 08/14 was stable with normal LVEF and normal prosthetic valve surgery. HEMATURIA: resolved has chronic Crowder for hx of BPH , incomplete evacuation of urine at home dose self cath twice daily urology consulted CT Abdomen /pelvis -shows no obvious pathology Aspirin /Plavix resumed pt follows with Dr Worley for Urology will need out pt Cystoscopy in clinic HTN - BP stable - off Amlodipine ACUTE RENAL FAILURE on CKD STAGE III - baseline creat runs in the high 1's - creat elevated due diuresis with Lasix - continue to monitor PRP while getting Lasix - crea 1.9-2.0 HYPOTHYROIDISM - continue levothyroxine DVT PROPHYLAXIS -high risk for DVT Subq heparin q12h DISPOSITION possible transfer to [facility] today Current Inpatient Medications: Current Inpatient Medications Medications (Trade) Dose Ordered Sig/Shakira Route Start Time Stop Time Status Last Admin Dose Admin Acetaminophen (Tylenol Tab) 650 mg Q4H PRN PO 08/13/16 15:00 09/12/16 14:59 Nitroglycerin (Nitrostat Tab) 0.4 mg UD PRN SL 08/13/16 15:00 09/12/16 14:59 Allopurinol (Zyloprim Tab) 300 mg DAILY PO 08/14/16 09:00 09/13/16 08:59 08/21/16 11:58 300 MG Atorvastatin Calcium (Lipitor Tab) 40 mg DAILY PO 08/14/16 09:00 09/13/16 08:59 08/21/16 11:58 40 MG Levothyroxine Sodium (Synthroid Tab) 88 mcg DAILYBB PO 08/14/16 06:00 09/13/16 05:59 08/21/16 05:09 88 MCG Albuterol/ Ipratropium (Duoneb) 3 ml QIDR INH 08/13/16 20:00 09/12/16 19:59 08/21/16 11:08 3 ML Albuterol/ Ipratropium (Duoneb) 3 ml Q2R PRN INH 08/13/16 18:30 09/12/16 18:29 Aspirin (Ecotrin Tab) 81 mg QAM PO 08/15/16 09:00 09/14/16 08:59 08/21/16 11:58 81 MG Clopidogrel Bisulfate (plAVix TAB) 75 mg QAM PO 08/15/16 09:00 09/14/16 08:59 08/21/16 11:58 75 MG Heparin Sodium (Porcine) (Heparin Sq 5000 Unit/0.5ml) 5,000 unit Q12 SQ 08/15/16 21:00 09/14/16 20:59 08/20/16 20:18 5,000 UNIT Pantoprazole Sodium (Protonix Tab) 40 mg DAILY PO 08/16/16 09:00 09/15/16 08:59 08/21/16 11:58 40 MG Prednisone (PredniSONE TAB) 40 mg DAILY PO 08/20/16 09:00 09/19/16 08:59 08/21/16 11:58 40 MG Furosemide 20 mg/ Syringe 2 ml @ 4 mls/min ONE IV 08/21/16 12:15 09/20/16 12:14 UNV
--- NOTE | 2016-08-21 12:32 | Cardiology Follow-Up ---
Subjective General Date of Service: Aug 21, 2016. Chief Complaint: follow up shortness of breath Pt evaluation today including: conversation w/ patient, physical exam History of Present Illness The patient is a 86 year old male seen in follow up. Patient still hypoxic and required 6 L of supplemental oxygen. Allergies Coded Allergies: No Known Allergies (Verified , 08/13/16) Social History Smoking Status: Former Smoker Hx Tobacco Use In Past Year?: No Hx Alcohol Use - Type And Amou: Yes (beer - 1 bottle per week) Hx Substance Use - Type And Am: No Physical Exam Vital Signs Last Vital Signs Documentation Date Time Temp Pulse Resp B/P (MAP) Pulse Ox O2 Delivery O2 Flow Rate FiO2 08/21/16 11:08 74 18 91 Nasal Cannula 5.0 08/21/16 07:59 36.6 115/58 (77) Physical Exam Constitutional: Level of Distress: NAD Neck: trachea midline Lungs: Auscultation: no wheezing, pertinent finding (decreased breath sounds at the bases bilaterally) Cardiovascular: Heart Auscultation: RRR, I/ LORI Extremities: no edema Neurologic: Gait & Station: pertinent finding (No focal neurologic deficits) Assessment and Plan Assessment and Plan Repeat TTecho : Normal biventricular systolic function. No pulm HTN. Intact interatrial septum without R to L shunt with agitated saline. TAVR CoreValve without or significant AR. Mild MR. CXR 08/21: bilateral interstitial edema with small pleural effusions Last Resulted 08/21/16 06:12 Last Resulted 08/21/16 06:12 Impression: 86-year-old male who presented to the ED on 08/13 with progressive dysnea with exertion 15 days post TAVR, marked shortness of breath with minimal exertion. Although had initial vigorous urine output with Crowder catheter and a dose of 20 mg and then 40 mg of IV furosemide on 08/14 and again on 08/16/16 with urine output of 2.5 L each of those states he did not have significant clinical improvement in his BUN to creatinine ratio had increased, sodium remained elevated, clinically, he appeared intravascularly depleted despite being hypoxic , and having additional edema on chest x-ray. Lower extremity venous duplex was negative for DVT on 08/14/16. Patient has had echocardiogram 2 this admission on 08/14 and again today 08/21/16 with summary as noted above. 1. Shortness of breath, minimal improvement with treatment for diastolic heart failure, CT suggestive of pulmonary Fibrosis. 2. Mild troponin elevation, more consistent with heart failure decompensation with an acute coronary syndrome. EKG reveals unchanged chronic right bundle branch block without acute repolarization abnormalities 3. Acute kidney injury on chronic CKD Plan: I reviewed prior progress notes. It is noted that leading up to his transcatheter aortic valve replacement the patient did not have any previous daily diuretic requirement. He notes a markedly decrease in his activity tolerance since the transcatheter aortic valve procedure. He was treated empirically for pneumonia this admission and finished a course of levofloxacin dose adjusted per his renal insufficiency. There is percussive tone and level has been negative. The BNP has been only minimally elevated at 1300 per mL which is very low given his age and significant changes on his chest x-ray. Even if he has baseline pulmonary fibrosis was not previously appreciated on the radiographic studies leading up to his recent invasive cardiac procedures, this does not explain why he has had such a dramatic decline since undergoing transcatheter aortic valve replacement as he seemed to be much better compensated overall terms of his exercise capacity back then. At present, I'm going to order a dose of IV furosemide 20 mg. I discussed options with the patient including consideration toward transferring him to [facility] where he can be assessed by the interventional cardiology team who had performed his transcatheter aortic valve replacement and consider invasive right heart catheterization and goal-directed diuretic therapy depending upon hemodynamic findings. Concerns of the chest x-ray are either cardiac or noncardiac pulmonary edema, and I think that definitive invasive hemodynamics would be helpful in determining this for this patient and to guide therapy. Patient was agreeable. I have made a telephone call to the transfer center and will await a call back. Case was discussed with Dr. Alicia Glez, DO Laboratory Results Last 24 Hours Test 08/21/16 06:12 White Blood Count 8.52 K/uL Red Blood Count 3.03 M/uL Hemoglobin 9.4 g/dL Hematocrit 28.2 % Mean Corpuscular Volume 93.1 fL Mean Corpuscular Hemoglobin 31.0 pg Mean Corpuscular Hemoglobin Concent 33.3 g/dl RDW Standard Deviation 51.1 fL RDW Coefficient of Variation 15.0 % Platelet Count 197 K/uL Mean Platelet Volume 9.7 fL Sodium Level 145 mmol/L Potassium Level 4.6 mmol/L Chloride Level 113 mmol/L Carbon Dioxide Level 23 mmol/L Anion Gap 9.0 mmol/L Blood Urea Nitrogen 49 mg/dl Creatinine 2.00 mg/dl Est Creatinine Clear Calc Drug Dose 30.1 ml/min Estimated GFR () 33.8 Estimated GFR (Non- 29.1 BUN/Creatinine Ratio 24.4 Random Glucose 122 mg/dl Calcium Level 8.2 mg/dl Total Bilirubin 0.6 mg/dl Aspartate Amino Transf (AST/SGOT) 18 U/L Alanine Aminotransferase (ALT/SGPT) 19 U/L Alkaline Phosphatase 96 U/L Pro-B-Type Natriuretic Peptide 1324 pg/ml Total Protein 6.3 gm/dl Albumin 2.2 gm/dl Globulin 4.1 gm/dl Albumin/Globulin Ratio 0.5
--- NOTE | 2016-08-21 12:37 | Discharge Instructions ---
Discharge Instructions Date of Service Aug 21, 2016. Admission Reason for Admission: Shortness Of Breath Discharge Discharge Diagnosis / Problem: ACUTE HYPOXIC RESPIRATORY FAILURE Discharge Goals Goal(s): Diagnostic testing, Therapeutic intervention Activity Recommendations Activity Level: Assistance Required Therapies: Physical Therapy, Occupational Therapy . Additional Information Patient informed of condition: Yes Advance Directives: No (UNKNOWN) DNR: No (PATIENT IS FULL CODE) Level of Care: Other ([facility]) Communicable Disease: No Prognosis: Other (GUARDED) Oxygen at (LPM): 4-5 LITERS VIA NASAL CANNULA Crowder Catheter: Yes Instructions / Follow-Up Instructions / Follow-Up PLEASE REFER TO SEPARATE MEDICAL RECONCILIATION SHEET FOR UPDATED INPATIENT MEDICATION LIST. REFER TO ACCOMPANYING DISCHARGE SUMMARY FOR FURTHER DETAILS. Current Hospital Diet Patient's current hospital diet: AHA Diet (Heart Healthy), Low Sodium Diet (2gm Na) Discharge Diet Recommended Diet: AHA Diet (Heart Healthy) Fluid Restriction: 1500 ml (6 cups) Pending Studies Studies pending at discharge: yes List of pending studies: PLEASE REFER TO HOSPITAL DISCHARGE SUMMARY Physician Orders On Transfer Special Precautions: PLEASE REFER TO SEPARATE MEDICAL RECONCILIATION SHEET FOR UPDATED INPATIENT MEDICATION LIST. REFER TO ACCOMPANYING DISCHARGE SUMMARY FOR FURTHER DETAILS. Medical Emergencies . Who to Call and When: Medical Emergencies: If at any time you feel your situation is an emergency, please call 911 immediately. . Non-Emergent Contact Non-Emergency issues call your: Primary Care Provider . Past History Medical & Surgical History: (1) Positive blood culture (2) PNA (pneumonia) (3) Hypoxemia requiring supplemental oxygen (4) Pulmonary fibrosis (5) GERD (gastroesophageal reflux disease) (6) CKD (chronic kidney disease), stage III (7) Neurogenic bladder (8) Gout (9) Hypothyroidism (10) HTN (hypertension) (11) CAD (coronary artery disease) (12) AAA (abdominal aortic aneurysm) (13) S/P TURP (14) S/P TAVR (transcatheter aortic valve replacement) (15) Hx of total knee arthroplasty . "Provider Documentation" section prepared by Shaji Vargas. . Core Measure Problem Core Measures: None
[2016-08-21] MEDS: HEPARIN SOD 5000 UNIT/0.5 ML CARP SQ SCH (12:41)
--- NOTE | 2016-08-21 12:44 | Discharge Summary ---
Discharge Summary Date of Service Aug 21, 2016. Discharge Summary Admission Date: August 13, 2016 at 15:02 Discharge Date: Aug 21, 2016 Discharge Disposition: Acute care facility Principal Diagnosis: ACUTE HYPOXIC RESPIRATORY FAILURE Secondary Diagnoses/Problems: PLEASE REFER TO HOSPITAL COURSE BELOW. Procedures: CHEST CT WITHOUT CONTRAST CT DOSE: 854.22 mGy.cm HISTORY: interstitial lung disease? TECHNIQUE: Multiaxial CT images of the chest were performed without contrast. COMPARISON: Chest 08/17/2016. FINDINGS: Central airways are patent. Mild diffuse traction bronchiectasis. No pneumothorax. Small bilateral pleural effusions. Aortic valve stent is noted. The heart is normal in size. No pericardial effusion. Normal caliber thoracic aorta. A few punctate calcifications within the liver and spleen. Normal adrenal glands. Subcentimeter mediastinal lymph nodes do not meet CT criteria for pathologic involvement. Near diffuse interstitial thickening most pronounced within the periphery and lung bases. Scattered small patchy areas of consolidation seen within the right upper lobe posteriorly and the bilateral lower lobes, right greater than left. Scattered patchy groundglass airspace opacities within the bilateral upper lobes, left greater than right. There may be mild honeycombing at the periphery of the lung bases. Calcified granuloma within the left lung base. IMPRESSION: Diffuse interstitial thickening demonstrating a peripheral and basilar predominance with mild honeycombing at the lung bases and mild traction bronchiectasis. This favors pulmonary fibrosis. There are also scattered patchy airspace opacities seen within the lungs most pronounced within the lower lobes as described above. Some of this could be related to the suspected chronic interstitial lung disease. However, a superimposed pneumonia could also have a similar appearance. One month chest CT follow up is recommended to ensure stability/resolution. Electronically signed by: Cristóbal Sam M.D. 08/17/2016 12:04 PM 2D ECHO: * -- Conclusions -- * S/P TAVR * There is no significant aortic regurgitation. * The prosthetic aortic valve appears to open well. * There is moderate concentric left ventricular hypertrophy. * Ejection Fraction = 65-70%. * The right ventricle is normal size. * The right ventricular systolic function is normal. * CT OF THE ABDOMEN AND PELVIS WITHOUT CONTRAST, STONE PROTOCOL CLINICAL HISTORY: Gross hematuria. COMPARISON STUDY: Renal ultrasound August 09, 2015. TECHNIQUE: Helical axial images of the abdomen and pelvis were obtained without IV or oral contrast according to renal stone protocol. FINDINGS: Visualized portions of the lower chest demonstrate a prosthetic aortic valve. There is a small right pleural effusion which may be loculated. A trace left pleural effusion is noted. Lung bases are difficult to assess due to respiratory motion but there is suggestion of groundglass opacities with subpleural reticulation and possible traction bronchiectasis. No pneumatosis, free air or portal venous gas is present. No renal, ureteral or bladder calculi are present. There is a Crowder balloon within the bladder which is collapsed. This accentuates bladder wall thickening. Prostate is moderately enlarged. A 7.8 cm lesion within the midpole of the right kidney was shown to represent a cyst on prior ultrasound. There is also a suspected 3.1 cm cyst within the upper pole of the left kidney. There is marked bilateral renal atrophy. There is no hydronephrosis. Evaluation of the abdomen and pelvis is suboptimal on this unenhanced exam. The liver, spleen, adrenal glands and pancreas are unremarkable. There are gallstones within the gallbladder. There is colonic diverticulosis without evidence for acute diverticulitis. A fat containing right inguinal hernia is noted. A small portion of the bladder slightly extends into the defect. A 4.6 cm fluid collection overlying the fascia the lateral right thigh is noted. This is nonspecific. No suspicious osseous lesions are present. There is no evidence for a bowel obstruction. There is no lymphadenopathy. Note is made of an 4.5 x 3.6 cm infrarenal abdominal aortic aneurysm. 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 There is mild aneurysmal dilatation of the right internal iliac and left common iliac arteries. IMPRESSION: 1. No urinary calculi or hydronephrosis. Marked bilateral renal atrophy with suspected bilateral renal cysts which are suboptimally assessed on this unenhanced exam. 2. Moderate enlargement of the prostate. Crowder balloon within the bladder which is collapsed making evaluation of the bladder difficult. Apparent bladder wall thickening is accentuated by collapse. 3. Right inguinal hernia. Slight protrusion of the right aspect of the bladder dome into the hernia. 4. 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 No rupture. 5. Cholelithiasis. 6. Trace bilateral pleural effusions. 7. Nonspecific 4.6 cm fluid collection overlying the fascia the lateral right thigh. Electronically signed by: El Miguel M.D. 08/14/2016 3:40 PM BILATERAL LOWER EXTREMITY VENOUS DOPPLER CLINICAL HISTORY: Shortness of breath. Evaluate for deep venous thrombus. COMPARISON STUDY: Left lower extremity venous Doppler October 19, 2007 and right lower extremity venous Doppler May 19, 2007. TECHNIQUE: Sonography of the deep venous system of the bilateral lower extremities was performed. Compression and augmentation were evaluated. FINDINGS: The bilateral common femoral, superficial femoral and popliteal veins were compressible. Augmentation was normal. Flow was shown within the deep calf vessels. IMPRESSION: No evidence of deep venous thrombus within the bilateral lower extremities. Electronically signed by: El Miguel M.D. 08/14/2016 10:09 AM Consultations: CARDIOLOGY, PULMONARY, INFECTIOUS DISEASE Pending Studies/Follow-Up: PLEASE REFER TO SEPARATE MEDICAL RECONCILIATION SHEET FOR UPDATED MEDICATION LIST. PLEASE REFER TO HOSPITAL COURSE BELOW. Admission Information HPI (per Admitting provider): 86 year old male who presents to the ER with shortness of breath and cough. Patient recently underwent TAVR on 07/19/16 for severe aortic stenosis at [facility]. Patient reports progressive shortness of breath since that time. He reports a dry non productive cough. He reports severe coughing spells at times. He reports chills but denies rigors and has not taken his temperature. He reports his lower extremity edema is much improved since the surgery. He reports occasional chest pain with severe coughing spells. He reports feeling generally fatigued since his surgery. No lightheadedness, dizziness, diaphoresis, or syncope. He has some nausea with severe coughing spells. Denies abdominal pain, vomiting, or diarrhea. He chronically self caths. Denies any changes in his urine. In the ER, patient was hypoxic on room air at 82%. This improved with oxygen 2L via NC. CXR is showing bibasilar pneumonia vs. CHF. Troponin is mildly elevated at .079. EKG does not show any acute ST changes. Remainder of his labs are unremarkable. He was given a dose of IV Levaquin. Physical Exam (per Admitting): General Appearance: no apparent distress Head: normocephalic Eyes: normal inspection ENT: hearing grossly normal Neck: supple, no JVD Respiratory/Chest: no respiratory distress, + rales (BL mid lung soliman to bases ) Cardiovascular: regular rate, rhythm, + pertinent finding (+2 edema BLLE) Abdomen/GI: normal bowel sounds, non tender, soft Extremities/Musculoskelatal: normal inspection, no calf tenderness Neurologic/Psych: no motor/sensory deficits, alert, normal mood/affect, oriented x 3 Skin: normal color, warm/dry Hospital Course 86 year old male with history of CAD, recent TAVR, Hypertension, presenting with shortness of breath. ACUTE HYPOXIC RESPIRATORY FAILURE, LIKELY MULTIFACTORIAL -CT chest with out contrast : Diffuse interstitial thickening demonstrating a peripheral and basilar predominance with mild honeycombing at the lung bases and mild traction bronchiectasis. This favors pulmonary fibrosis - possible Pneumonia has received 5 days of levaquin and 6 days of Vancomycin - possible Underlying Interstitial Lung Disease started on Prednisone 40mg po 08/20/16 evaluated by Pulmonary - possible component of Volume Overload Echo 08/14/16: -- Conclusions -- * S/P TAVR * There is no significant aortic regurgitation. * The prosthetic aortic valve appears to open well. * There is moderate concentric left ventricular hypertrophy. * Ejection Fraction = 65-70%. * The right ventricle is normal size. * The right ventricular systolic function is normal. has been given intermittent Lasix IV today, Lasix 20mg IV ordered - not much improvement since admission remains on 5 liter via NC - discussed with Dr. Glez- Staff Development Nurse recommend transfer to [facility] for further evaluation and management discussed with patient and son, they are agreeable with transfer to [facility] GRAM POSITIVE BACTEREMIA- COAG NEG STAPH NOT LUGDUNENSIS 08/13/16 blood cultures: 1 out of 2 positive for above 08/15/16 repeat blood cultures: negative -- evaluated by ID received 6 days of IV Vanco given recent TAVR antibiotics discontinued - ECHO showed normal function of bioprosthetic AVR ELEVATED TROPONIN, HISTORY OF CAD, RECENT TAVR - no evidence of acute TN - hx FLORIN x 2 to LAD 06/2016 - no reports of chest pain, EKG unchanged - likely due to hypoxia, acute illness, recent TAVR - ASA, Plavix, resumed as pt had recent FLORIN and TVAR - ECHO : Echo 08/14 was stable with normal LVEF and normal prosthetic valve surgery. HEMATURIA: resolved has chronic Crowder for hx of BPH , incomplete evacuation of urine at home dose self cath twice daily urology consulted CT Abdomen /pelvis -shows no obvious pathology Aspirin /Plavix resumed pt follows with Dr Worley for Urology will need out pt Cystoscopy in clinic HTN - BP stable - off Amlodipine ACUTE RENAL FAILURE on CKD STAGE III - baseline creat runs in the high 1's - creat elevated due diuresis with Lasix - continue to monitor PRP while getting Lasix - crea 1.9-2.0 HYPOTHYROIDISM - continue levothyroxine ABDOMINAL AORTIC ANEURYSM, COMMON ILIAC ARTERY ANEURYSM - seen on CT abdomen/pelvis noted above monitor DVT PROPHYLAXIS -high risk for DVT Subq heparin q12h DISPOSITION transfer to [facility] today for tertiary level of care Total time spent on discharge = 45 minutes This includes examination of the patient, discharge planning, medication reconciliation, and communication with other providers. Discharge Instructions Discharge Instructions Date of Service Aug 21, 2016. Admission Reason for Admission: Shortness Of Breath Discharge Discharge Diagnosis / Problem: ACUTE HYPOXIC RESPIRATORY FAILURE Discharge Goals Goal(s): Diagnostic testing, Therapeutic intervention Activity Recommendations Activity Level: Assistance Required Therapies: Physical Therapy, Occupational Therapy . Additional Information Patient informed of condition: Yes Advance Directives: No (UNKNOWN) DNR: No (PATIENT IS FULL CODE) Level of Care: Other ([facility]) Communicable Disease: No Prognosis: Other (GUARDED) Oxygen at (LPM): 4-5 LITERS VIA NASAL CANNULA Crowder Catheter: Yes Instructions / Follow-Up Instructions / Follow-Up PLEASE REFER TO SEPARATE MEDICAL RECONCILIATION SHEET FOR UPDATED INPATIENT MEDICATION LIST. REFER TO ACCOMPANYING DISCHARGE SUMMARY FOR FURTHER DETAILS. Current Hospital Diet Patient's current hospital diet: AHA Diet (Heart Healthy), Low Sodium Diet (2gm Na) Discharge Diet Recommended Diet: AHA Diet (Heart Healthy) Fluid Restriction: 1500 ml (6 cups) Pending Studies Studies pending at discharge: yes List of pending studies: PLEASE REFER TO HOSPITAL DISCHARGE SUMMARY Physician Orders On Transfer Special Precautions: PLEASE REFER TO SEPARATE MEDICAL RECONCILIATION SHEET FOR UPDATED INPATIENT MEDICATION LIST. REFER TO ACCOMPANYING DISCHARGE SUMMARY FOR FURTHER DETAILS. Medical Emergencies . Who to Call and When: Medical Emergencies: If at any time you feel your situation is an emergency, please call 911 immediately. . Non-Emergent Contact Non-Emergency issues call your: Primary Care Provider . Past History Medical & Surgical History: (1) Positive blood culture (2) PNA (pneumonia) (3) Hypoxemia requiring supplemental oxygen (4) Pulmonary fibrosis (5) GERD (gastroesophageal reflux disease) (6) CKD (chronic kidney disease), stage III (7) Neurogenic bladder (8) Gout (9) Hypothyroidism (10) HTN (hypertension) (11) CAD (coronary artery disease) (12) AAA (abdominal aortic aneurysm) (13) S/P TURP (14) S/P TAVR (transcatheter aortic valve replacement) (15) Hx of total knee arthroplasty . "Provider Documentation" section prepared by Shaji Vargas. . Core Measure Problem Core Measures: None
--- NOTE | 2016-08-21 13:41 | Pulmonology Progress Note ---
Pulmonary Progress Note Date of Service Aug 21, 2016. Attending Dr. Mccann Subjective Patient continues to note intermittent dyspnea at rest but notable dyspnea with exertion. He also notes intermittent coughing/dry after deep inspirations but no pleurisy, fever, chills Objective 86y/o male admitted 08/13/2016 for progressive SOB. His recent medical history includes CAD with a drug-eluting stent placed in his LAD 06/2016 and a TAVR 2016 for sever . He did well s/p interventions but then experienced progressive SOB recently leading to his admission. The patient has been aggressively treated for heart failure with poor response. Dr. Boyle off the pulmonary department saw the patient over the weekend and evaluated the patient for possible ILD with the Ddx: of GAME AUTHOR/BOOP vs. chronic aspiration or possible UIP. She reviewed the CT thorax and felt GAME AUTHOR was not consistent with the patients current findings but chronic aspiration vs. UIP where possible consistent with the CT. Vital signs: SaO2 currently stable on 3-5 L nasal cannula at rest Cardiac: S1-S2 distant heart sounds but able to auscultate for systolic murmur best appreciated right upper senna boarder Respiratory: Inspiratory Velcro rales greatest appreciated the bases along the left hemithorax Abdomen: Positive bowel sounds soft nontender no rebound noted Edema: Minimal edema noted at the dependent regions Pulses: 1+ pedal pulses noted bilaterally, 2+ capillary refill Radiology: CXR (05/19/2007) possible bilateral lower lobe ILD changes CXR (11/22/2007) L>R lower lobe bronchiectatic change/scar CXR (10/08/2010) L>R lower lobe bronchiectatic change/scar CXR (02/04/2014) L>R lower lobe bronchiectatic change/scar CXR (08/13/2016) diffuse interstitial infiltrates with continued L>R lower lobe bronchiectatic change/scar CT ABD (08/14/2016) bilateral bronchiectasis with interstitial changes and LB10 13.6 calcified nodule with bilateral pleural thickening at the basis CXR (08/17/2016) diffuse interstitial infiltrates with continued L>R lower lobe bronchiectatic change/scar Hilar fullness with ricky-bronchial cuffing CT Thorax (08/17/2016) Bilateral bronchiectasis with interstitial changes greatest and the basis 13.6mm calcified LB10 with bilateral pleural thickening at the basis Similar to CT ABD from 07/27/16 Labs: WBC: 9K PLT: 197K H/H: 12/12 BUN/Cr: 49/2.00 ratio:24.5 ALB: 2.2 Procalcitonin: 0.18 Pending: HP work-up Ideas: 1) HP: possible 2) Asbestosis 3) Aspiration 4) Lower lobe fibrosis: asbestosis, NSIP, UIP, chronic aspiration Medications: 1) Prednisone 40mg OD 2) Pantoprazole 40mg QD Assessment & Plan (1) Pulmonary fibrosis (2) Hypoxemia requiring supplemental oxygen 86-year-old male with acute on chronic hypoxemia: #1 hypoxemia: Patient's dyspnea at rest hypoxemia most likely combination from recent cardiac issues decompensation and also associated chronic interstitial lung changes. Patient's radiographic images I was able the first review from 2007 show chronic interstitial changes that appear starting at the base. It is hard to tease out his clinical history as he is having associated cardiac dysfunction at the same time. His radiographic changes which suggest the most likely etiologies: As asbestosis, UIP, and the site peak, or chronic aspiration. It doesn't appear to be acute or subacute in onset ILD such as an AEP, GAME AUTHOR, NSIP, HP, ARDS, RBILD. These would take radiographic, serum studies and possible lung biopsy for definitive evaluation. As this is a more prolonged workup the patient requires more aggressive care at this time I suggest we hold off on his ILD workup at this time. I also suggest we hold on steroids is really not sure what his underlying ILD is and they can increase fluid retention. Once the patient is discharged I would like to see him in clinic for further evaluation of this ILD. I also suggest the patient is initiating rehabilitation as soon as possible. Data Medications: Current Inpatient Medications Medications (Trade) Dose Ordered Sig/Shakira Route Start Time Stop Time Status Last Admin Dose Admin Acetaminophen (Tylenol Tab) 650 mg Q4H PRN PO 08/13/16 15:00 09/12/16 14:59 Nitroglycerin (Nitrostat Tab) 0.4 mg UD PRN SL 08/13/16 15:00 09/12/16 14:59 Allopurinol (Zyloprim Tab) 300 mg DAILY PO 08/14/16 09:00 09/13/16 08:59 08/21/16 11:58 300 MG Atorvastatin Calcium (Lipitor Tab) 40 mg DAILY PO 08/14/16 09:00 09/13/16 08:59 08/21/16 11:58 40 MG Levothyroxine Sodium (Synthroid Tab) 88 mcg DAILYBB PO 08/14/16 06:00 09/13/16 05:59 08/21/16 05:09 88 MCG Albuterol/ Ipratropium (Duoneb) 3 ml QIDR INH 08/13/16 20:00 09/12/16 19:59 08/21/16 11:08 3 ML Albuterol/ Ipratropium (Duoneb) 3 ml Q2R PRN INH 08/13/16 18:30 09/12/16 18:29 Aspirin (Ecotrin Tab) 81 mg QAM PO 08/15/16 09:00 09/14/16 08:59 08/21/16 11:58 81 MG Clopidogrel Bisulfate (plAVix TAB) 75 mg QAM PO 08/15/16 09:00 09/14/16 08:59 08/21/16 11:58 75 MG Heparin Sodium (Porcine) (Heparin Sq 5000 Unit/0.5ml) 5,000 unit Q12 SQ 08/15/16 21:00 09/14/16 20:59 08/21/16 12:41 5,000 UNIT Pantoprazole Sodium (Protonix Tab) 40 mg DAILY PO 08/16/16 09:00 09/15/16 08:59 08/21/16 11:58 40 MG Prednisone (PredniSONE TAB) 40 mg DAILY PO 08/20/16 09:00 09/19/16 08:59 08/21/16 11:58 40 MG Vital Signs: Date Time Temp Pulse Resp B/P (MAP) Pulse Ox O2 Delivery O2 Flow Rate FiO2 08/21/16 12:31 36.4 75 16 131/67 (88) 94 Room Air 08/21/16 12:00 Nasal Cannula 4.0 08/21/16 11:08 74 18 91 Nasal Cannula 5.0 08/21/16 08:00 Nasal Cannula 4.0 08/21/16 07:59 36.6 76 18 115/58 (77) 94 Nasal Cannula 3.0 08/21/16 07:15 76 18 94 Nasal Cannula 3.0 08/21/16 06:05 Nasal Cannula 08/21/16 05:05 92 Nasal Cannula 6.0 08/21/16 04:00 Nasal Cannula 5.0 08/21/16 03:45 36.5 79 18 99/37 (57) 92 Nasal Cannula 5.0 08/21/16 00:01 Nasal Cannula 3.0 08/20/16 23:10 36.6 88 18 111/57 (75) 94 Nasal Cannula 3.0 08/20/16 20:00 Nasal Cannula 3.0 08/20/16 19:40 36.5 83 18 110/55 (73) 92 Nasal Cannula 3.0 08/20/16 19:31 81 20 94 Nasal Cannula 4.0 08/20/16 16:00 Nasal Cannula 6.0 08/20/16 15:17 36.8 89 20 101/60 (74) 97 4.0 08/20/16 14:24 80 20 94 Nasal Cannula 4.0 Laboratory Results: Last 24 Hours Test 08/21/16 06:12 White Blood Count 8.52 K/uL Red Blood Count 3.03 M/uL Hemoglobin 9.4 g/dL Hematocrit 28.2 % Mean Corpuscular Volume 93.1 fL Mean Corpuscular Hemoglobin 31.0 pg Mean Corpuscular Hemoglobin Concent 33.3 g/dl RDW Standard Deviation 51.1 fL RDW Coefficient of Variation 15.0 % Platelet Count 197 K/uL Mean Platelet Volume 9.7 fL Sodium Level 145 mmol/L Potassium Level 4.6 mmol/L Chloride Level 113 mmol/L Carbon Dioxide Level 23 mmol/L Anion Gap 9.0 mmol/L Blood Urea Nitrogen 49 mg/dl Creatinine 2.00 mg/dl Est Creatinine Clear Calc Drug Dose 30.1 ml/min Estimated GFR () 33.8 Estimated GFR (Non- 29.1 BUN/Creatinine Ratio 24.4 Random Glucose 122 mg/dl Calcium Level 8.2 mg/dl Total Bilirubin 0.6 mg/dl Aspartate Amino Transf (AST/SGOT) 18 U/L Alanine Aminotransferase (ALT/SGPT) 19 U/L Alkaline Phosphatase 96 U/L Pro-B-Type Natriuretic Peptide 1324 pg/ml Total Protein 6.3 gm/dl Albumin 2.2 gm/dl Globulin 4.1 gm/dl Albumin/Globulin Ratio 0.5
--- NOTE | 2016-08-21 14:11 | ECHOCARDIOGRAM REPORT ---
*NOTICE TO RECEIVING [facility] This information is strictly Confidential and protected under [place] law. [place] law prohibits you from making any further disclosure of this information unless further disclosure is expressly permitted by the written consent of the person to whom it pertains or is authorized by law. A general authorization for the release of medical or other information is not sufficient for this purpose. Hospital accepts no responsibility if the information is made available to any other person, INCLUDING THE PATIENT. Interpretation Summary * Name: NETTE MOLINA Study Date: 08/21/2016 08:53 AM BP: 115/58 mmHg * Patient Location: C.2T\S\S241\S\2 HR: 76 * : 1930 (M/d/yyyy) Gender: Male Height: 70 in * Age: 86 yrs Ethnicity: [place] Weight: 207 lb * Ordering Physician: Gurmeet Glez * Referring Physician: JUVENCIO * Performed By: Rea Lynn RDCS * * Reason For Study: SOB * BSA: 2.1 m2 * -- Conclusions -- * There is mild concentric left ventricular hypertrophy. * No regional wall motion abnormalities noted. * Ejection Fraction = 60-65%. * The right ventricle is normal in size and function. * The left atrium is moderately dilated. * The patient is status post transcatheter aortic valve replacement with CoreVAlve prosthetic valve. * There is no significant aortic regurgitation. * Aortic stenosis is absent. * There is mild mitral regurgitation. * There is mild tricuspid regurgitation. * Doppler findings do not suggest pulmonary hypertension. * Grade I diastolic dysfunction, (abnormal relaxation pattern). * The interatrial septum is intact with no evidence of a right to left interatrial shunt. Procedure Details * A complete two-dimensional transthoracic echocardiogram was performed (2D, M-mode, Doppler and color flow Doppler). * A saline contrast injection was performed to assess for cardiac shunting. * The injection was performed through an intravenous line in the left arm. * The attending nurse who injected the saline contrast was VASILE DICKINSON RN. * A total of 20 cc of agitated saline was given. Left Ventricle * The left ventricle is normal in size. * There is mild concentric left ventricular hypertrophy. * Ejection Fraction = 60-65%. * Left ventricular systolic function is normal. * The left ventricular wall motion is normal. * No regional wall motion abnormalities noted. Right Ventricle * The right ventricle is normal in size and function. * The right ventricular systolic function is normal as assessed by tricuspid annular plane systolic excursion (TAPSE) (normal >1.5 cm). Atria * The left atrium is moderately dilated. * Right atrial size is normal. * The interatrial septum is intact with no evidence for an atrial septal defect. Mitral Valve * The mitral valve is normal. * There is no mitral valve stenosis. * There is mild mitral regurgitation. Tricuspid Valve * The tricuspid valve is normal. * There is no tricuspid stenosis. * There is mild tricuspid regurgitation. * Doppler findings do not suggest pulmonary hypertension. Aortic Valve * Aortic stenosis is absent. * There is no significant aortic regurgitation. * The patient is status post transcatheter aortic valve replacement with CoreVAlve prosthetic valve. Pulmonic Valve * The pulmonary valve is inadequately visualized, but the Doppler data is adequate for interpretation. * There is no pulmonic valvular stenosis. * Mild pulmonic valvular regurgitation. Great Vessels * The aortic root and proximal ascending aorta are normal sized. Pericardium/Pleural * There is no pericardial effusion. Great Vessels * Normal inferior vena cava diameter and respiratory variation suggests normal central venous pressure. * Normal inferior vena cava size and collapsability with sniff indicates a normal right atrial pressure of 3 mmHg Left Ventricular Diastolic Function * Grade I diastolic dysfunction, (abnormal relaxation pattern). MMode 2D Measurements and Calculations IVSd 1.5 cm IVSs 2.1 cm LVIDd 4.8 cm LVIDs 2.9 cm LVPWd 1.4 cm LVPWs 1.6 cm IVS/LVPW 1.1 FS 39.0 % EDV(Teich) 108.0 ml ESV(Teich) 33.1 ml EF(Teich) 69.4 % EDV(cubed) 111.2 ml ESV(cubed) 25.2 ml EF(cubed) 77.3 % % IVS thick 37.7 % % LVPW thick 17.4 % LV mass(C)d 290.9 grams LV mass(C)dI 137.3 grams/m\S\2 LV mass(C)s 225.2 grams LV mass(C)sI 106.3 grams/m\S\2 SV(Teich) 74.9 ml SI(Teich) 35.4 ml/m\S\2 SV(cubed) 86.0 ml SI(cubed) 40.6 ml/m\S\2 LA dimension 4.6 cm LVAd ap4 42.5 cm\S\2 LVLd ap4 9.5 cm EDV(MOD-sp4) 155.3 ml EDV(sp4-el) 160.6 ml LVAs ap4 22.8 cm\S\2 LVLs ap4 7.2 cm ESV(MOD-sp4) 65.8 ml ESV(sp4-el) 61.0 ml EF(MOD-sp4) 57.6 % EF(sp4-el) 62.0 % LVAd ap2 40.4 cm\S\2 LVLd ap2 9.3 cm EDV(MOD-sp2) 148.5 ml EDV(sp2-el) 149.1 ml LVAs ap2 22.0 cm\S\2 LVLs ap2 7.3 cm ESV(MOD-sp2) 61.9 ml ESV(sp2-el) 56.2 ml EF(MOD-sp2) 58.3 % EF(sp2-el) 62.3 % LVLd %diff -2.63 % EDV(MOD-bp) 154.6 ml LVLs %diff 1.1 % ESV(MOD-bp) 63.8 ml EF(MOD-bp) 58.8 % SV(MOD-sp4) 89.5 ml SI(MOD-sp4) 42.3 ml/m\S\2 SV(MOD-sp2) 86.6 ml SI(MOD-sp2) 40.9 ml/m\S\2 SV(MOD-bp) 90.9 ml SI(MOD-bp) 42.9 ml/m\S\2 SV(sp4-el) 99.6 ml SI(sp4-el) 47.0 ml/m\S\2 SV(sp2-el) 92.8 ml SI(sp2-el) 43.8 ml/m\S\2 Doppler Measurements and Calculations MV E max asha 103.4 cm/sec MV A max asha 119.8 cm/sec MV E/A 0.86 MV dec time 0.26 sec Ao V2 max 226.7 cm/sec Ao max PG 20.6 mmHg Ao max PG (full) 16.5 mmHg Ao V2 mean 149.6 cm/sec Ao mean PG 10.2 mmHg Ao mean PG (full) 7.9 mmHg Ao V2 VTI 46.4 cm AI max asha 333.4 cm/sec AI max PG 44.5 mmHg AI dec slope 139.9 cm/sec\S\2 AI P1/2t 697.8 msec LV V1 max PG 4.1 mmHg LV V1 mean PG 2.2 mmHg LV V1 max 100.6 cm/sec LV V1 mean 70.6 cm/sec LV V1 VTI 22.4 cm TR max asha 253.2 cm/sec
[2016-08-23 18:43] LABS: ASPERGILLUS FUMIGATUS NEGATIVE (NEGATIVE); M. FAENI (S. RECTIVIRGULA) NEGATIVE (NEGATIVE); PIGEON SERUM NEGATIVE (NEGATIVE); SACCHAROMONOSPORA VIRIDIS AB NEGATIVE (NEGATIVE); THERMOACTINOMYCES CANDIDUS NEGATIVE (NEGATIVE); THERMOACTINOMYCES VULGARIS NEGATIVE (NEGATIVE)
[2016-10-06] MEDS ORDERED: PRD20 PO (12:31)
[2016-10-06] MEDS ORDERED: DEXTSYP27 PO (12:31)
== END 2016-08-21 17:45 | disposition short-term general hospital (02) | DRG 193 ==
LOC: ENRESERVDT → ENRESERVTM → C.EDB 11:28 → C.2T 15:02 → EDBEDREQ 15:07
PROVIDERS: ADMIT Hospitalist; ATTEND Internal Medicine
DX: J18.9 Pneumonia, unspecified organism (principal); I50.31 Acute diastolic (congestive) heart failure; J96.01 Acute respiratory failure with hypoxia; I13.0 Hypertensive heart and chronic kidney disease with heart failure and stage 1 through stage 4 chronic kidney disease, or unspecified chronic kidney disease; N17.9 Acute kidney failure, unspecified; R78.81 Bacteremia; B95.7 Other staphylococcus as the cause of diseases classified elsewhere; R31.0 Gross hematuria; N40.1 Benign prostatic hyperplasia with lower urinary tract symptoms; R39.14 Feeling of incomplete bladder emptying; J84.10 Pulmonary fibrosis, unspecified; I71.4 Abdominal aortic aneurysm, without rupture; I72.3 Aneurysm of iliac artery; I25.10 Atherosclerotic heart disease of native coronary artery without angina pectoris; I45.10 Unspecified right bundle-branch block; N31.9 Neuromuscular dysfunction of bladder, unspecified; N18.3 Chronic kidney disease, stage 3 (moderate); E03.9 Hypothyroidism, unspecified; K21.9 Gastro-esophageal reflux disease without esophagitis; Z51.81 Encounter for therapeutic drug level monitoring; Z79.899 Other long term (current) drug therapy; Z79.82 Long term (current) use of aspirin; Z79.02 Long term (current) use of antithrombotics/antiplatelets; Z87.891 Personal history of nicotine dependence; Z95.2 Presence of prosthetic heart valve; Z95.5 Presence of coronary angioplasty implant and graft

== ENCOUNTER 2016-10-01 10:57 | Inpatient (IN) | payer OTHER ==
[~2016-10-01] VITALS: Ht 177.8 cm; Wt 87.5 kg
[~2016-10-01 10:57] MED LIST changes: -AMLO-114 PO; +AMOX500C3 PO; +ATOR-24 PO; -CIPR-255 PO; +CLOP1TAB15 PO; +NTRGSL/4 UT; +PRLSR20 PO
[2016-10-01] MEDS ORDERED: ALBUT/IPRATROP 3MG/0.5MG NEB 3 ML VIAL INH STA (11:26)
[2016-10-01] MEDS ORDERED: ASPI81TA21 PO (11:40)
[2016-10-01] MEDS ORDERED: LEXAPRO PO (11:40)
[2016-10-01 11:56] LABS: VEN BLOOD GAS BASE EXCESS 0.9 mmol/L; VENOUS BLOOD GAS PCO2 50 mmHg (38.0-50.0); VENOUS BLOOD GAS PO2 21 mmHg
[2016-10-01 11:58] LABS: BASO % 0.2 %; BASO ABS # 0.02 K/uL (0-0.2); COMPLETE YES; EOS % 1.2 %; IG% 0.2 %; LYMPH % 7.3 %; LYMPH ABS # 0.63 K/uL (1.2-3.4); MEAN CORPUSCULAR HEMOGLOBIN 30.5 pg (25-34); MEAN CORPUSCULAR HGB CONC 32.8 g/dl (32-36); MEAN PLATELET VOLUME 8.9 fL (7.4-10.4); MONO % 6.9 %; NEUT % 84.2 %; PLATELET COUNT 137 K/uL (130-400); RED BLOOD COUNT 3.44 M/uL (4.7-6.1); VEN BLD GAS O2 SATURATION < 60.0 %
--- NOTE | 2016-10-01 11:58 | DIAGNOSTIC IMAGING REPORT ---
CHEST ONE VIEW PORTABLE CLINICAL HISTORY: CHEST PAIN dyspnea COMPARISON STUDY: 08/21/2016 FINDINGS: Prominent parenchymal markings bilaterally. This appears to represent a component of parenchymal fibrotic change. Diaphragms are smooth. Very slight blunting of the right lateral costophrenic angle. Mild stable cardia megaly. IMPRESSION: Diffuse chronic parenchymal fibrosis similar to the prior exam. Trace pleural fluid right base The above report was generated using voice recognition software. It may contain grammatical, syntax or spelling errors. Electronically signed by: Fabio Soto M.D. 10/01/2016 11:57 AM Dictated Date/Time: 10/01/2016 11:55 AM
[2016-10-01 12:08] LABS: POINT OF CARE TROPONIN I 0.04 ng/ml (0-0.045)
[2016-10-01 12:09] LABS: PROTHROMBIN TIME (PATIENT) 11.1 SECONDS (9.0-12.0)
[2016-10-01 12:21] LABS: CALCIUM 8.8 mg/dl (8.5-10.1); CREATININE 1.7 mg/dl (0.60-1.40); POTASSIUM 4.6 mmol/L (3.5-5.1)
[2016-10-01 12:29] LABS: CKMB/CK RATIO 7.5 (0-3.0)
--- NOTE | 2016-10-01 12:40 | EMERGENCY ROOM VISIT NOTE ---
History Report prepared by Laurel: Hank Ny Under the Supervision of: Dr. Michael Vaughn M.D. First contact with patient: 11:17 Chief Complaint: SHORTNESS OF BREATH Stated Complaint: SOB/SYNCOPE History of Present Illness The patient is a 86 year old male who presents to the Emergency Room with complaints of persistent shortness of breath beginning yesterday. He has a history of a cardiac stent placement and heart valve replacement occurring two months ago. He states that he has been struggling with shortness of breath ever since he had his surgery. The patient has been in and out of rehab for his breathing. He notes that he has been on 2 L of supplemental oxygen at home, but bumped it up to 5 L today. He also complains of chills and cough. The patient notes that he woke up in the middle of the night last night and felt "woozy". He states that just prior to arrival, he had a syncopal episode while getting into his car. He states that he was getting in the car to attend an appointment with his booking officer. The patient denies any fevers, abnormal leg swelling, or black or bloody stool. He denies any recent falls or trauma. He is on Plavix. The patient states that he has been hydrating well. Source of History: patient Onset: Yesterday Quality: other (shortness of breath) Timing: other (persistent) Associated Symptoms: + chills, + cough, No fevers, No melena, No hematochezia Note: The patient denies any abnormal leg swelling. Review of Systems See HPI for pertinent positives & negatives. A total of 10 systems reviewed and were otherwise negative. Past Medical & Surgical Medical Problems: (1) AAA (abdominal aortic aneurysm) (2) CAD (coronary artery disease) (3) CKD (chronic kidney disease), stage III (4) GERD (gastroesophageal reflux disease) (5) Gout (6) HTN (hypertension) (7) Hypothyroidism (8) Hypoxemia requiring supplemental oxygen (9) Neurogenic bladder (10) Pulmonary fibrosis Surgical Problems: (1) Hx of total knee arthroplasty (2) S/P TAVR (transcatheter aortic valve replacement) (3) S/P TURP Old medical records were reviewed. Nurse's notes were reviewed and I agree with. Family History No pertinent family history stated. Social History Smoking Status: Former Smoker Alcohol Use: none Marital Status: Housing Status: lives with significant other Occupation Status: retired Current/Historical Medications Scheduled Allopurinol (Allopurinol), 300 MG PO DAILY Aspirin Enteric Coated (Ecotrin Or Generic), 81 MG PO DAILY Atorvastatin (Lipitor), 40 MG PO DAILY Clopidogrel (Plavix), 75 MG PO DAILY Dextromethorphan-Guaifenesin (Guaifenesin Dm), 5 ML PO TID Escitalopram Oxalate (Lexapro), 10 MG PO DAILY Levothyroxine Sodium (Levothyroxine Sodium), 88 MCG PO DAILY Nitroglycerin (Nitrostat), 0.4 MG UT PRN Omeprazole (Prilosec), 20 MG PO DAILY Allergies Coded Allergies: No Known Allergies (Verified , 08/13/16) Physical Exam Vital Signs Date Time Temp Pulse Resp B/P (MAP) Pulse Ox O2 Delivery O2 Flow Rate FiO2 10/01/16 11:54 97 Nasal Cannula 5.0 10/01/16 11:16 83 10/01/16 11:09 Non-Rebreather 15.0 98 10/01/16 11:09 36.5 94 24 124/97 98 Non-Rebreather 15.0 10/01/16 11:09 98 Non-Rebreather 15.0 Physical Exam General: Chronically ill appearing older male who is resting comfortably with a face-mask of oxygen on. HEENT: Normal cephalic atraumatic. Pupils are equal round and reactive to light. Extraocular movements are intact. Oropharynx is pink with moist mucous membranes. No swelling of the mouth lips or tongue. Neck: Supple with a midline trachea. No meningeal signs or stiffness, no JVD or bruits. No Stridor. Chest: Faint crackles bilaterally. No wheezes or rhonchi. No increased work of breathing. Heart: regular rate and rhythm. Abdomen: Soft nontender, nondistended without rebound guarding or rigidity. Extremities: No cyanosis clubbing. No calf tenderness or assymetry. Trace pedal edema bilaterally. Spine/Back. Non tender to palpation. No CVA tenderness Skin: Good turgor without rashes. Neurologic exam: Cranial nerves two through 12 are intact. Motor and sensation are intact and symmetrical throughout. Medical Decision & Procedures ER Provider Diagnostic Interpretation: X-ray results as stated below per interpretation by me and the radiologist: CHEST ONE VIEW PORTABLE FINDINGS: Prominent parenchymal markings bilaterally. This appears to represent a component of parenchymal fibrotic change. Diaphragms are smooth. Very slight blunting of the right lateral costophrenic angle. Mild stable cardia megaly. IMPRESSION: Diffuse chronic parenchymal fibrosis similar to the prior exam. Trace pleural fluid right base The above report was generated using voice recognition software. It may contain grammatical, syntax or spelling errors. Electronically signed by: Fabio Soto M.D. Laboratory Results Test 10/01/16 11:39 10/01/16 11:49 Immature Granulocyte % (Auto) 0.2 % White Blood Count 8.60 K/uL (4.8-10.8) Red Blood Count 3.44 M/uL (4.7-6.1) Hemoglobin 10.5 g/dL (14.0-18.0) Hematocrit 32.0 % (42-52) Mean Corpuscular Volume 93.0 fL (80-100) Mean Corpuscular Hemoglobin 30.5 pg (25-34) Mean Corpuscular Hemoglobin Concent 32.8 g/dl (32-36) Platelet Count 137 K/uL (130-400) Mean Platelet Volume 8.9 fL (7.4-10.4) Neutrophils (%) (Auto) 84.2 % Lymphocytes (%) (Auto) 7.3 % Monocytes (%) (Auto) 6.9 % Eosinophils (%) (Auto) 1.2 % Basophils (%) (Auto) 0.2 % Neutrophils # (Auto) 7.24 K/uL (1.4-6.5) Lymphocytes # (Auto) 0.63 K/uL (1.2-3.4) Monocytes # (Auto) 0.59 K/uL (0.11-0.59) Eosinophils # (Auto) 0.10 K/uL (0-0.5) Basophils # (Auto) 0.02 K/uL (0-0.2) Immature Granulocyte # (Auto) 0.02 K/uL (0.00-0.02) Prothrombin Time 11.1 SECONDS (9.0-12.0) Prothromb Time International Ratio 1.0 (0.9-1.1) Activated Partial Thromboplast Time 27.2 SECONDS (21.0-31.0) Partial Thromboplastin Ratio 1.0 Venous Blood pH 7.35 (7.36-7.41) Venous Blood Partial Pressure CO2 50 mmHg (38.0-50.0) Venous Blood Partial Pressure O2 21 mmHg Venous Blood HCO3 27 mmol/L Venous Blood Oxygen Saturation < 60.0 % Venous Blood Base Excess 0.9 mmol/L Total Bilirubin 0.8 mg/dl (0.2-1) Direct Bilirubin 0.2 mg/dl (0-0.2) Aspartate Amino Transf (AST/SGOT) 15 U/L (15-37) Alanine Aminotransferase (ALT/SGPT) 12 U/L (12-78) Alkaline Phosphatase 91 U/L (45-117) Total Creatine Kinase 24 U/L (39-308) Creatine Kinase MB 1.8 ng/ml (0.5-3.6) Creatine Kinase MB Ratio 7.5 (0-3.0) Total Protein 6.2 gm/dl (6.4-8.2) Albumin 2.4 gm/dl (3.4-5.0) Lipase 184 U/L (73-393) Bedside Troponin I 0.040 ng/ml (0-0.045) BZ-[id number]-Type Natriuretic Peptide 1297 pg/ml (0-1800) Laboratory studies as stated above per my review. Medications Administered Medications (Trade) Dose Ordered Sig/Shakira Route Start Time Stop Time Status Last Admin Dose Admin Albuterol/ Ipratropium (Duoneb) 3 ml NOW STAT INH 10/01/16 11:26 10/01/16 11:29 DC 10/01/16 11:42 3 ML ECG Indication: SOB/dyspnea Rate (beats per minute): 88 Rhythm: normal sinus Findings: 1st degree AV block, LAFB, LBBB Comparison ECG Date: August 15, 2016 Change: no significant change ED Course 1118: Past medical records reviewed. The patient was evaluated in room B12B, and a complete history and physical examination were performed. 1126: Ordered DuoNeb 3 mL INH. 1225: Upon reevaluation, the patient is resting comfortably. I discussed the results and treatment plan with the patient. He verbalized agreement of the treatment plan. The patient will be evaluated for further management. Medical Decision Differentials include, but are not limited to; CHF, COPD, pulmonary interstitial disease, infection, syncope, arrhythmia, and acute coronary syndrome. Blood pressure Screening: Patient was found to have normal blood pressure on screening and does not require follow-up. Medication Reconciliation: I attest that I have personally reviewed the patient' s current medication list. This patient comes in as described above. He was placed in room B12. He's been having shortness of breath and weakness and general functional decline since he had heart valve surgery a couple months ago. He's been in rehabilitation. He was apparently on his way to see his doctors office today to see some sort of specialist and had a syncopal episode in the car. He feels better at present but has a baseline increasing weakness and shortness of breath. He looks well on exam. He's had no fever or chills. I did a chest x- ray and he has continuing interstitial lung disease but no acute pneumonia. EKG does not suggest acute coronary syndrome or acute arrhythmia. He has no acute electrode or metabolic abnormalities. I talked to the patient and his family at length. I do think he needs to be further worked up and observed in the hospital as he did have a syncopal episode. They're in agreement with the plan and I have consulted the hospitalist. Consults Time Called: 1225 Consulting Physician: Dr. Ofelia Tejada Returned Call: [phone] Discussed the patient's case. The patient will be evaluated for further management. Impression Primary Impression: Syncope Additional Impressions: SOB (shortness of breath) Weakness Scribe Attestation The scribe's documentation has been prepared under my direction and personally reviewed by me in its entirety. I confirm that the note above accurately reflects all work, treatment, procedures, and medical decision making performed by me. Departure Information Dispostion Being Evaluated By Hospitalist Referrals Gurmeet Glez D.O. (PCP) Patient Instructions [facility] Problem Qualifiers
[2016-10-01 13:00] VITALS: O2SAT 97; Ht 177.8 cm; Wt 87.5 kg
[2016-10-01] MEDS ORDERED: IV FLUIDS COMPLETED PRN (13:45)
[2016-10-01] MEDS ORDERED: ACETAMINOPHEN 325 MG TAB PO PRN (14:00)
[2016-10-01] MEDS ORDERED: ONDANSETRON INJ 2 MG/ML 2 ML VIAL IV PRN (14:00)
[2016-10-01] MEDS ORDERED: NITROGLYCERIN 0.4 MG SL PER TAB CHARGE UT SCH (14:15)
[2016-10-01] MEDS ORDERED: DEXTSYP27 PO (14:24)
[2016-10-01] MEDS ORDERED: ESCI1TAB9 PO (14:24)
[2016-10-01] MEDS ORDERED: METHYLPREDNISOLONE IV 40 MG in SYRINGE 0 ML IV STA (14:25)
[2016-10-01] MEDS ORDERED: FUROSEMIDE 40 MG/4 ML VIAL IV STA (14:25)
[2016-10-01 14:30] VITALS: BP 122/64; PULSE 81; TEMP 36.9; O2SAT 94
[2016-10-01] MEDS ORDERED: GUAIFENESIN/DEXTROM SYRUP 100MG/10MG 5ML UDC PO PRN (14:45)
[2016-10-01 15:00] VITALS: BP 110/64; PULSE 79; TEMP 36.7; O2SAT 95
[2016-10-01] MEDS ORDERED: FUROSEMIDE INJ 40 MG in SYRINGE 0 ML IV ONE (15:00)
[2016-10-01 16:00] VITALS: O2SAT 97
[2016-10-01] MEDS: METHYLPREDNISOLONE IV 40 MG in SYRINGE 0 ML IV SCH (16:00)
--- NOTE | 2016-10-01 16:23 | Cardiology Consultation ---
Cardiology Consultation Requesting Physician: Dr. Marie Attending Reverberatory Skimmer: Dr. Dominguez History of Present Illness Patient is a 86 year old male seen in consultation for evaluation of syncope. Patient ambulated to the car today with use of a walker. This is a change as of recent. Patient normally has been mobile with his wheelchair. Upon stepping down into the car he loss consciousness. This was witnessed by one of his children. The family members not present at the bedside. His other son is present at this time. The patient was apparently unconscious for 3 minutes. No CPR was performed. He did not turn blue or pale. Patient continued to breathe throughout the episode, however, he was unarousable. He is brought to the emergency department. Telemetry demonstrates sinus rhythm. Patient complains of exercise intolerance and significant dyspnea on exertion with minimal activity. This is been unchanged for more than 6 weeks. Complex cardiovascular history listed below including recent drug-eluting stent implantation to the left anterior descending artery and transcutaneous aortic valve replacement. Currently resting comfortably. No conversational dyspnea. Denies any recent lightheadedness, dizziness, syncope or near-syncope at rest. Denies palpitations. Past Medical/Surgical History Problem List: Medical Problems: (1) AAA (abdominal aortic aneurysm) (2) CAD (coronary artery disease) (3) CKD (chronic kidney disease), stage III (4) GERD (gastroesophageal reflux disease) (5) Gout (6) HTN (hypertension) (7) Hypothyroidism (8) Hypoxemia requiring supplemental oxygen (9) Neurogenic bladder (10) Pulmonary fibrosis Surgical Problems: (1) Hx of total knee arthroplasty (2) S/P TAVR (transcatheter aortic valve replacement) (3) S/P TURP Family History No premature CAD, or SCD. Noncontributory given patient's advanced age. Social History Smoking Status: Former Smoker Marital Status: Housing Status: lives alone Occupation: retired Review Of Systems General: The patient denies weight change, night sweats, fever, chills. Head: The patient denies headache and prior head trauma. Cardiovascular: The patient denies chest pain or chest discomfort, dyspnea on exertion, palpitations, PND, orthopnea, edema, spontaneous shortness of breath, syncope and near syncope. Pulmonary: The patient denies cough, wheeze, pleurisy, hemoptysis, sputum, and excessive snoring. Gastrointestinal: The patient denies nausea, vomiting, diarrhea, constipation, bloating, hematemesis, hematochezia, and abdominal pain. Skin: The patient denies diaphoresis and rash. Musculoskeletal: The patient denies joint pain, joint swelling, myalgia, back pain, neck pain and prior injuries. Neurological: The patient denies prior stroke and seizures Allergies Coded Allergies: No Known Allergies (Verified , 08/13/16) Medications Reported Home Medications Medications Dose Route/Sig Max Daily Dose Days Date Category Guaifenesin Dm (Dextromethorphan-Guaifenesin) 1 Syp Syp 5 Ml PO TID 10/01/16 Reported Lexapro (Escitalopram Oxalate) 10 Mg Tab 10 Mg PO DAILY 10/01/16 Reported Ecotrin Or Generic (Aspirin) 81 Mg Tab 81 Mg PO DAILY 10/01/16 Reported Prilosec (Omeprazole) 20 Mg Capcr 20 Mg PO DAILY 08/13/16 Reported Nitrostat (Nitroglycerin) 0.4 Mg Tab 0.4 Mg UT PRN 08/13/16 Reported Plavix (Clopidogrel Bisulfate) 75 Mg Tab 75 Mg PO DAILY 08/13/16 Reported Lipitor (Atorvastatin Calcium) 40 Mg Tab 40 Mg PO DAILY 08/13/16 Reported Levothyroxine Sodium 88 Mcg Tab 88 Mcg PO DAILY 02/04/14 Reported Allopurinol 300 Mg Tab 300 Mg PO DAILY 02/04/14 Reported Physical Exam Vital Signs (Last 8hrs): Last 8 Hrs Date Time Temp Pulse Resp B/P (MAP) Pulse Ox O2 Delivery O2 Flow Rate FiO2 10/01/16 15:00 36.7 79 20 110/64 (79) 95 Nasal Cannula 4.0 10/01/16 14:30 36.9 81 24 122/64 (83) 94 Nasal Cannula 4.0 10/01/16 14:17 76 18 114/50 100 10/01/16 13:20 85 18 102/56 95 Nasal Cannula 5.0 10/01/16 13:00 97 Nasal Cannula 5.0 10/01/16 11:54 97 Nasal Cannula 5.0 10/01/16 11:16 83 10/01/16 11:09 Non-Rebreather 15.0 98 10/01/16 11:09 36.5 94 24 124/97 98 Non-Rebreather 15.0 10/01/16 11:09 98 Non-Rebreather 15.0 General Appearance: Alert and Oriented x3. NAD. Chronically ill. Head: Normocephalic Atraumatic. Eyes: PERRLA, EOMI, conjunctiva and sclera clear Neck: Supple. No carotid bruits noted. No JVD. No HJD. Respiratory: B/L crackles in the mid and lower lung soliman. No w/r/r. Cardiovascular: Reg rate and rhythm. S1 and S2 noted. 1/6 systolic ejection murmur. PMI non displace. Abdomen: Normal bowel sounds, soft nontender. no abdominal bruits. Extremities: No edema, no clubbing or cyanosis. distal pulses 2/4 bilaterally. Neuro: No focal deficits. Psychiatric: Normal affect. Data Last 24 Hours Test 10/01/16 11:39 10/01/16 11:49 White Blood Count 8.60 K/uL Red Blood Count 3.44 M/uL Hemoglobin 10.5 g/dL Hematocrit 32.0 % Mean Corpuscular Volume 93.0 fL Mean Corpuscular Hemoglobin 30.5 pg Mean Corpuscular Hemoglobin Concent 32.8 g/dl Platelet Count 137 K/uL Mean Platelet Volume 8.9 fL Neutrophils (%) (Auto) 84.2 % Lymphocytes (%) (Auto) 7.3 % Monocytes (%) (Auto) 6.9 % Eosinophils (%) (Auto) 1.2 % Basophils (%) (Auto) 0.2 % Neutrophils # (Auto) 7.24 K/uL Lymphocytes # (Auto) 0.63 K/uL Monocytes # (Auto) 0.59 K/uL Eosinophils # (Auto) 0.10 K/uL Basophils # (Auto) 0.02 K/uL RDW Standard Deviation 54.7 fL RDW Coefficient of Variation 16.0 % Immature Granulocyte % (Auto) 0.2 % Immature Granulocyte # (Auto) 0.02 K/uL Prothrombin Time 11.1 SECONDS Prothromb Time International Ratio 1.0 Activated Partial Thromboplast Time 27.2 SECONDS Partial Thromboplastin Ratio 1.0 Venous Blood pH 7.35 Venous Blood Partial Pressure CO2 50 mmHg Venous Blood Partial Pressure O2 21 mmHg Venous Blood HCO3 27 mmol/L Venous Blood Oxygen Saturation < 60.0 % Venous Blood Base Excess 0.9 mmol/L Sodium Level 143 mmol/L Potassium Level 4.6 mmol/L Chloride Level 111 mmol/L Carbon Dioxide Level 28 mmol/L Anion Gap 4.0 mmol/L Blood Urea Nitrogen 29 mg/dl Creatinine 1.70 mg/dl Est Creatinine Clear Calc Drug Dose 34.5 ml/min Estimated GFR () 41.1 Estimated GFR (Non- 35.5 BUN/Creatinine Ratio 17.0 Random Glucose 124 mg/dl Calcium Level 8.8 mg/dl Total Bilirubin 0.8 mg/dl Direct Bilirubin 0.2 mg/dl Aspartate Amino Transf (AST/SGOT) 15 U/L Alanine Aminotransferase (ALT/SGPT) 12 U/L Alkaline Phosphatase 91 U/L Total Creatine Kinase 24 U/L Creatine Kinase MB 1.8 ng/ml Creatine Kinase MB Ratio 7.5 Total Protein 6.2 gm/dl Albumin 2.4 gm/dl Lipase 184 U/L Bedside Troponin I 0.040 ng/ml [id number] Natriuretic Peptide 1297 pg/ml Imaging: Bilateral parenchymal fibrosis, cannot exclude mild vascular congestion. EKG: Sinus rhythm with right bundle branch block, left anterior fascicular block Telemetry reviewed: Sinus rhythm and sinus bradycardia. Assessment & Plan Final impression: 1. Complex 86-year-old male presents with syncopal episode. 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 Recent TAVR 07/29/16 -Normal function per recent 2-D transthoracic echo -No significant murmur on physical exam 3. Chronic respiratory insufficiency secondary to pulmonary fibrosis and diastolic heart failure -Patient does not appear overtly volume overloaded on examination 4. Chronic cough 5. 4.6 cm AAA Plan/recommendations: Patient will receive one dose of intravenous Lasix today. Hold repeat dose of diuretics tomorrow pending clinical evaluation as well as review of lab studies. He'll remain on telemetry monitoring at this time. Patient will likely require an outpatient human resources representative to exclude the presence of paroxysmal sustained dysrhythmias or symptomatically bradycardia/heart block. Repeat resting 2-D transthoracic echo pending at this time. Consider pulmonary evaluation regarding chronic parenchymal fibrosis noted on chest x-ray. Further recommendations pending review of testing and clinical course. Thank you for allow me to take part in the care of your patient.
--- NOTE | 2016-10-01 16:32 | History and Physical ---
History & Physical Date & Time of Service: Oct 01, 2016 at 15:47 Chief Complaint: Syncope Primary Care Physician: Dylan Do D.O. 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 Patient reports a week of worsening "dizziness" upon waking in the morning that generally improves within an hour, associated with general feelings of malaise and a dry cough. This morning, around 11am, patient was still feeling lightheaded while ambulating to the car (by walker) when he experienced a syncopal episode. Patient fell into the car seat and did not sustain a head injury. Per family, pt was unconscious for "a few minutes" and then began to mumble incoherently. Denies any previous syncopal episodes and does not recall a prodrome of any kind. Pt admits that while he used to ambulate by walker frequently, he has mainly used a wheelchair since discharge from a 3 week hospital stay in late July/early August of this year that required transfer to [place] for acute hypoxemic respiratory failure. Endorses chills, fatigue, a mild headache and increased feelings of depression at time of admission but denies any cognitive deficits, recent trama, night sweats, seizures, visual changes, sore throat, dyspnea, productive cough, CP, arrhythmias, nausea, vomiting, MSK pain or weakness. Past Medical/Surgical History Medical Problems: (1) AAA (abdominal aortic aneurysm) Permanent Comment: 4.6cm Status: Chronic (2) CAD (coronary artery disease) Permanent Comment: 06/2016 - FLORIN to LAD x 2 Status: Chronic (3) CKD (chronic kidney disease), stage III Status: Chronic (4) GERD (gastroesophageal reflux disease) Status: Chronic (5) Gout Status: Chronic (6) HTN (hypertension) Status: Chronic (7) Hypothyroidism Status: Chronic (8) Hypoxemia requiring supplemental oxygen Status: Chronic (9) Neurogenic bladder Status: Chronic (10) Pulmonary fibrosis Status: Chronic Surgical Problems: (1) Hx of total knee arthroplasty Status: Chronic (2) S/P TAVR (transcatheter aortic valve replacement) Permanent Comment: 07/29/16 Status: Chronic (3) S/P TURP Status: Chronic Family History Abdominal aortic aneurysm (AAA) FATHER Social History Smoking Status: Former Smoker Marital Status: Housing status: lives alone, lives with family Occupational Status: retired Immunizations History of Influenza Vaccine: Yes Influenza Vaccine Date: Nov 28, 2015 History of Tetanus Vaccine?: Yes Tetanus Immunization Date: May 03, 1999 History of Pneumococcal: Yes Pneumococcal Date: Nov 28, 2015 Multi-Drug Resistant Organisms History of MDRO: No Allergies Coded Allergies: No Known Allergies (Verified , 08/13/16) Home Medications Scheduled Allopurinol (Allopurinol), 300 MG PO DAILY Aspirin Enteric Coated (Ecotrin Or Generic), 81 MG PO DAILY Atorvastatin (Lipitor), 40 MG PO DAILY Clopidogrel (Plavix), 75 MG PO DAILY Dextromethorphan-Guaifenesin (Guaifenesin Dm), 5 ML PO TID Escitalopram Oxalate (Lexapro), 10 MG PO DAILY Levothyroxine Sodium (Levothyroxine Sodium), 88 MCG PO DAILY Nitroglycerin (Nitrostat), 0.4 MG UT PRN Omeprazole (Prilosec), 20 MG PO DAILY Review of Systems Ten systems reviewed and negative except as noted in the HPI. Physical Exam Vital Signs Date Time Temp Pulse Resp B/P (MAP) Pulse Ox O2 Delivery O2 Flow Rate FiO2 10/01/16 15:00 36.7 79 20 110/64 (79) 95 Nasal Cannula 4.0 10/01/16 14:30 36.9 81 24 122/64 (83) 94 Nasal Cannula 4.0 10/01/16 14:17 76 18 114/50 100 10/01/16 13:20 85 18 102/56 95 Nasal Cannula 5.0 10/01/16 13:00 97 Nasal Cannula 5.0 10/01/16 11:54 97 Nasal Cannula 5.0 10/01/16 11:16 83 10/01/16 11:09 Non-Rebreather 15.0 98 10/01/16 11:09 36.5 94 24 124/97 98 Non-Rebreather 15.0 10/01/16 11:09 98 Non-Rebreather 15.0 General Appearance: + mild distress (exhibited conversational dyspnea. Chroninically ill appearing.) Head: normocephalic, atraumatic Eyes: normal inspection ENT: normal ENT inspection Neck: supple, no adenopathy, no JVD Respiratory/Chest: chest non-tender, no accessory muscle use, + crackles ( faint bibasilar crackles heard bilaterally. No wheezing.) Cardiovascular: regular rate, rhythm, + systolic murmur (Faint systolic ejection murmur auscultated over LUSB) Abdomen/GI: normal bowel sounds, non tender, soft Genitourinary - Male: + pertinent finding (Patient reports using straight cath PRN) Back: normal inspection Extremities/Musculoskelatal: normal inspection, non-tender, + swelling (Faint pedal edema noted bilaterally.) Neurologic/Psych: cokeman II-XII nml as tested, no motor/sensory deficits, alert, oriented x 3, + depressed affect Skin: normal color, warm/dry, no rash Diagnostics Laboratory Results Results Past 24 Hours Test 10/01/16 11:39 10/01/16 11:49 Range/Units White Blood Count 8.60 4.8-10.8 K/uL Red Blood Count 3.44 4.7-6.1 M/uL Hemoglobin 10.5 14.0-18.0 g/dL Hematocrit 32.0 42-52 % Mean Corpuscular Volume 93.0 80-100 fL Mean Corpuscular Hemoglobin 30.5 25-34 pg Mean Corpuscular Hemoglobin Concent 32.8 32-36 g/dl Platelet Count 137 130-400 K/uL Mean Platelet Volume 8.9 7.4-10.4 fL Neutrophils (%) (Auto) 84.2 % Lymphocytes (%) (Auto) 7.3 % Monocytes (%) (Auto) 6.9 % Eosinophils (%) (Auto) 1.2 % Basophils (%) (Auto) 0.2 % Neutrophils # (Auto) 7.24 1.4-6.5 K/uL Lymphocytes # (Auto) 0.63 1.2-3.4 K/uL Monocytes # (Auto) 0.59 0.11-0.59 K/uL Eosinophils # (Auto) 0.10 0-0.5 K/uL Basophils # (Auto) 0.02 0-0.2 K/uL RDW Standard Deviation 54.7 36.4-46.3 fL RDW Coefficient of Variation 16.0 11.5-14.5 % Immature Granulocyte % (Auto) 0.2 % Immature Granulocyte # (Auto) 0.02 0.00-0.02 K/uL Prothrombin Time 11.1 9.0-12.0 SECONDS Prothromb Time International Ratio 1.0 0.9-1.1 Activated Partial Thromboplast Time 27.2 21.0-31.0 SECONDS Partial Thromboplastin Ratio 1.0 Venous Blood pH 7.35 7.36-7.41 Venous Blood Partial Pressure CO2 50 38.0-50.0 mmHg Venous Blood Partial Pressure O2 21 mmHg Venous Blood HCO3 27 mmol/L Venous Blood Oxygen Saturation < 60.0 % Venous Blood Base Excess 0.9 mmol/L Sodium Level 143 136-145 mmol/L Potassium Level 4.6 3.5-5.1 mmol/L Chloride Level 111 98-107 mmol/L Carbon Dioxide Level 28 21-32 mmol/L Anion Gap 4.0 3-11 mmol/L Blood Urea Nitrogen 29 7-18 mg/dl Creatinine 1.70 0.60-1.40 mg/dl Est Creatinine Clear Calc Drug Dose 34.5 ml/min Estimated GFR () 41.1 Estimated GFR (Non- 35.5 BUN/Creatinine Ratio 17.0 10-20 Random Glucose 124 70-99 mg/dl Calcium Level 8.8 8.5-10.1 mg/dl Total Bilirubin 0.8 0.2-1 mg/dl Direct Bilirubin 0.2 0-0.2 mg/dl Aspartate Amino Transf (AST/SGOT) 15 15-37 U/L Alanine Aminotransferase (ALT/SGPT) 12 12-78 U/L Alkaline Phosphatase 91 45-117 U/L Total Creatine Kinase 24 39-308 U/L Creatine Kinase MB 1.8 0.5-3.6 ng/ml Creatine Kinase MB Ratio 7.5 0-3.0 Total Protein 6.2 6.4-8.2 gm/dl Albumin 2.4 3.4-5.0 gm/dl Lipase 184 73-393 U/L Bedside Troponin I 0.040 0-0.045 ng/ml [id number] Natriuretic Peptide 1297 0-1800 pg/ml Diagnostic Radiology CXR (10/01/16): Diffuse chronic parenchymal fibrosis similar to the prior exam. 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 S/p syncopal episode: -likely due to hypoxic state vs. orthostatic hypotension vs. cardiac function s/ p TAVR placement and stent placement for CAD earlier this year -no indication for a CT head since patient did not sustain any hear injury during fall -consulted pulm and cardio for further recs -ordered orthostatic vitals to be performed -will continue monitoring for arrhythmia but initial ECG showed a sinus rhythm with 1st degree AV block, RBBB and L anterior fascicular block -recheck CBC and BMP in AM Chronic hypoxemic respiratory failure 2/2 ILD: -satting ~high 70s and low 90s on 5L NC in the ED. -started on solumedrol 40mg BID and dosed with 40mg IV Lasix x 1 due to bilateral crackles -CXR shows "diffuse chronic parenchymal fibrosis similar to prior exam. Trace pleural fluid at R base" -per previous pulm notes, ILD has an unknown etiology with ddx including OLIVER FILTER OPERATOR, vs. chronic aspiration vs. possible UIP. A lung biopsy would be necessary definitive diagnosis -pulm consulted for further recs H/o aortic stenosis s/p TAVR in 07/2016: -per patient, felt well after TAVR procedure in July until hospitalization for acute respiratory failure -ordered repeat echo to assess function of valve -cardio consulted for further recs CAD s/p FLROIN x 2 in 06/2016: -continue baby aspirin, statin and plavix Depression: -recently started on SSRI by PCP (09/21/15) due to depressed affect and irritability -has undergone a major shift in quality of life for the worse since previous hospital admission -no SI; continue home meds HTN: stable -has recently stopped home meds and has remained normotensive CKD III: stable -experienced an ZENA during last admission (Cr >2.5) but is back at baseline currently (1.7) -continue monitoring BMP Neurogenic bladder: -s/p TURP procedure -patient to continue straight cathing during admission AAA: -determined on CT abd earlier this year -stable with close PCP follow-up VTE ppx: Heparin Code status: Full Dispo: Telemetry obs. PCP: Dr. Do Consulted for dispo since pt is 86 and lives alone. Agree with above h and p. Briefly 86m presents with syncope. patient was planning to see customer service correspondence clerk today and in the car he passed out for about 5 minutes. no seizure activity noted. no incontinence. No chest pain. patient says since his valve surgery he uis getting progressively sob. not able to walk much. He was in resp failure and was transferred to [place] last month. As per family patient was discharged to rehab from [place] where he did fine but after coming to home again getting progressively sob. Afebrile. Appetite not good. Requiring higher oxygen at home. p/e Ge not in distress Cvs s1 and s2 heard, no murmurs Rs cta b/l mild bibasilar crackles no wheezing Abd benign Animal Killer non focal a/p syncope from hypoxia? hx of TAVR f/u echo monitor in tele orthostatics cardiology consulted Acute on chronic hypoxic resp failure Interstial lung disease aspiration? per pulmonary started on iv steroids pulmonary on board speech evaluation Level of Care Telemetry Advanced Directives Existing Living Will: Yes Existing Power of Firer Marine: Yes Resuscitation Status FULL RESUSCITATION VTE Prophylaxis VTE Risk Assessment Done? Y/N: Yes Risk Level: Moderate Given or contraindicated: Unfractionated heparin SQ Social Service Consult >80 yr.& Lives Alone
--- NOTE | 2016-10-01 20:10 | Pulmonary Consultation ---
History General Date of Service: Oct 01, 2016. Stated Complaint: Syncope HPI The patient is a 86 year old male who presents to [facility] with complaints of Syncope. The patient's primary care provider is Dylan Do D.O.. Reason for consult: Pulmonary fibrosis. Mr. Flores is a 86-year-old male who presented to the ER today status post syncope. He states that he was about to go to a doctor's appointment when he got into the car and passed out. He states prior to the episode he felt kind of lightheaded and dizzy. His episode lasted for several minutes and he was brought to the emergency department for further evaluation. Per his family , there was no seizure-like activity, bowel incontinence or urinary incontinence noted. He maintained pulse and continues to breathe spontaneously. In the ER, his initial vital signs were 36.5C, pulse of 94 respiratory rate of 24 blood pressure 124/97 pulse ox of 98 on nonrebreather mask of 15 L. a venous blood gas was done pH was 7.35, PCO2 is 50, PO2 of 21 bicarbonate 27 and O2 saturation of less than 60%. Patient states that since his recent aortic valve replacement he has had progressive shortness of breath. He says he can only walk about 10-15 feet without feeling dyspneic on exertion without feeling dyspneic on exertion. He had a dry nonproductive cough. He denies any fevers or chills. He usually wears 3 L nasal cannula but was increased to 5 L due to increased dyspnea. Historian: patient Onset: just prior to arrival Review of Systems Constitutional: reports: chills, malaise, weakness Eyes: reports: no symptoms ENT: reports: no symptoms Cardiovascular: reports: edema, syncope, denies: chest pain, chest pressure, chest tightness, diaphoresis, orthopnea, palpitations Respiratory: reports: as stated in HPI, cough, shortness of breath, LYNN, denies : stridor, wheezing, sputum production, cyanosis, PND, hemoptysis Gastrointestinal: reports: no symptoms, anorexia, denies: constipation, diarrhea, nausea, vomiting Genitourinary - Male: reports: urinary retention, other (patient is urinary retention and straight cath twice a day) Musculoskeletal: reports: no symptoms Integumentary: reports: no symptoms Neurologic: reports: dizziness, general weakness Psychiatric: reports: no symptoms Endocrine: no symptoms Hematologic / Lymphatic: no symptoms Allergic / Immunologic: no symptoms All Other Symptoms All Other Systems: Reviewed and Negative Past Medical History Past Medical History: Pulmonary fibrosis Nocturnal hypoxemia on His supplemental oxygen Abdominal aortic aneurysm CAD Chronic kidney disease E stage III GERD Gout Hypertension Hypothyroidism Neurogenic bladder status post TURP Past Medical History: BPH, coronary artery disease, GERD, gout, hypertension, hypothyroidism, other Past Surgical History: Status post bilateral total knee arthroplasties Status post transcatheter aortic valve replacement Status post TURP Past Surgical History: TKR, other Family History Abdominal aortic aneurysm (AAA) FATHER Social History Patient had stopped for many years. He denies any occupational exposures. He is a former cigarettes smoker for about 5 years. Denies any alcohol or illicit drug use. Hx Tobacco Use In Past Year?: No Smoking Status: Former Smoker Alcohol: never Drug Use: none Marital status: Housing status: lives alone, lives with family Occupational Status: retired Immunizations History of Influenza Vaccine: Yes Influenza Vaccine Date: Nov 28, 2015 History of Tetanus Vaccine?: Yes Tetanus Immunization Date: May 03, 1999 History of Pneumococcal: Yes Pneumococcal Date: Nov 28, 2015 History of MDRO History of MDRO: No Allergies Coded Allergies: No Known Allergies (Verified , 08/13/16) Current Medications Reported Home Medications Medications Dose Route/Sig Max Daily Dose Days Date Category Guaifenesin Dm (Dextromethorphan-Guaifenesin) 1 Syp Syp 5 Ml PO TID 10/01/16 Reported Lexapro (Escitalopram Oxalate) 10 Mg Tab 10 Mg PO DAILY 10/01/16 Reported Ecotrin Or Generic (Aspirin) 81 Mg Tab 81 Mg PO DAILY 10/01/16 Reported Prilosec (Omeprazole) 20 Mg Capcr 20 Mg PO DAILY 08/13/16 Reported Nitrostat (Nitroglycerin) 0.4 Mg Tab 0.4 Mg UT PRN 08/13/16 Reported Plavix (Clopidogrel Bisulfate) 75 Mg Tab 75 Mg PO DAILY 08/13/16 Reported Lipitor (Atorvastatin Calcium) 40 Mg Tab 40 Mg PO DAILY 08/13/16 Reported Levothyroxine Sodium 88 Mcg Tab 88 Mcg PO DAILY 02/04/14 Reported Allopurinol 300 Mg Tab 300 Mg PO DAILY 02/04/14 Reported Physical Physical Exam Vital Signs: Date Time Temp Pulse Resp B/P (MAP) Pulse Ox O2 Delivery O2 Flow Rate FiO2 10/01/16 16:00 97 Nasal Cannula 4.0 10/01/16 15:00 36.7 79 20 110/64 (79) 95 Nasal Cannula 4.0 10/01/16 14:30 36.9 81 24 122/64 (83) 94 Nasal Cannula 4.0 10/01/16 14:17 76 18 114/50 100 10/01/16 13:20 85 18 102/56 95 Nasal Cannula 5.0 10/01/16 13:00 97 Nasal Cannula 5.0 10/01/16 11:54 97 Nasal Cannula 5.0 10/01/16 11:16 83 10/01/16 11:09 Non-Rebreather 15.0 98 10/01/16 11:09 36.5 94 24 124/97 98 Non-Rebreather 15.0 10/01/16 11:09 98 Non-Rebreather 15.0 General Appearance: uncomfortable Head: NORMOCEPHALIC, ATRAUMATIC Eyes: PERRLA, NO DISCHARGE, EOMI, SCLERAE NORMAL ENT: NORMAL MOUTH EXAM, NORMAL THROAT EXAM, other (Mallampati 3) Neck: NORMAL RANGE OF MOTION, NO TENDERNESS, TRACHEA MIDLINE, SUPPLE Respiratory: other (good air entry bilaterally until lung bases. Velcro-like crackles heard bilaterally.) Cardiovasular: REGULAR RATE/RHYTHM, NORMAL S1S2, NORMAL PERIPHERAL PULSES Abdomen: NON TENDER, NORMAL BOWEL SOUNDS Upper Extremities: NO EDEMA (no cyanosis, no clubbing) Lower Extremities: NO EDEMA Pulses: dorsalis pedis (R) (2+), dorsalis pedis (L) (2+) Neuro: ALERT, ORIENTED x 3 Psychiatric: NORMAL AFFECT, NO SUICIDAL IDEATION Diagnostics Labs Results Past 24 Hours Test 10/01/16 11:39 10/01/16 11:49 Range/Units White Blood Count 8.60 4.8-10.8 K/uL Red Blood Count 3.44 4.7-6.1 M/uL Hemoglobin 10.5 14.0-18.0 g/dL Hematocrit 32.0 42-52 % Mean Corpuscular Volume 93.0 80-100 fL Mean Corpuscular Hemoglobin 30.5 25-34 pg Mean Corpuscular Hemoglobin Concent 32.8 32-36 g/dl Platelet Count 137 130-400 K/uL Mean Platelet Volume 8.9 7.4-10.4 fL Neutrophils (%) (Auto) 84.2 % Lymphocytes (%) (Auto) 7.3 % Monocytes (%) (Auto) 6.9 % Eosinophils (%) (Auto) 1.2 % Basophils (%) (Auto) 0.2 % Neutrophils # (Auto) 7.24 1.4-6.5 K/uL Lymphocytes # (Auto) 0.63 1.2-3.4 K/uL Monocytes # (Auto) 0.59 0.11-0.59 K/uL Eosinophils # (Auto) 0.10 0-0.5 K/uL Basophils # (Auto) 0.02 0-0.2 K/uL RDW Standard Deviation 54.7 36.4-46.3 fL RDW Coefficient of Variation 16.0 11.5-14.5 % Immature Granulocyte % (Auto) 0.2 % Immature Granulocyte # (Auto) 0.02 0.00-0.02 K/uL Prothrombin Time 11.1 9.0-12.0 SECONDS Prothromb Time International Ratio 1.0 0.9-1.1 Activated Partial Thromboplast Time 27.2 21.0-31.0 SECONDS Partial Thromboplastin Ratio 1.0 Venous Blood pH 7.35 7.36-7.41 Venous Blood Partial Pressure CO2 50 38.0-50.0 mmHg Venous Blood Partial Pressure O2 21 mmHg Venous Blood HCO3 27 mmol/L Venous Blood Oxygen Saturation < 60.0 % Venous Blood Base Excess 0.9 mmol/L Sodium Level 143 136-145 mmol/L Potassium Level 4.6 3.5-5.1 mmol/L Chloride Level 111 98-107 mmol/L Carbon Dioxide Level 28 21-32 mmol/L Anion Gap 4.0 3-11 mmol/L Blood Urea Nitrogen 29 7-18 mg/dl Creatinine 1.70 0.60-1.40 mg/dl Est Creatinine Clear Calc Drug Dose 34.5 ml/min Estimated GFR () 41.1 Estimated GFR (Non- 35.5 BUN/Creatinine Ratio 17.0 10-20 Random Glucose 124 70-99 mg/dl Calcium Level 8.8 8.5-10.1 mg/dl Total Bilirubin 0.8 0.2-1 mg/dl Direct Bilirubin 0.2 0-0.2 mg/dl Aspartate Amino Transf (AST/SGOT) 15 15-37 U/L Alanine Aminotransferase (ALT/SGPT) 12 12-78 U/L Alkaline Phosphatase 91 45-117 U/L Total Creatine Kinase 24 39-308 U/L Creatine Kinase MB 1.8 0.5-3.6 ng/ml Creatine Kinase MB Ratio 7.5 0-3.0 Total Protein 6.2 6.4-8.2 gm/dl Albumin 2.4 3.4-5.0 gm/dl Lipase 184 73-393 U/L Bedside Troponin I 0.040 0-0.045 ng/ml [id number] Natriuretic Peptide 1297 0-1800 pg/ml Diagnostic Radiology Chest x-ray 10/01/2016 FINDINGS: Prominent parenchymal markings bilaterally. This appears to represent a component of parenchymal fibrotic change. Diaphragms are smooth. Very slight blunting of the right lateral costophrenic angle. Mild stable cardia megaly. IMPRESSION: Diffuse chronic parenchymal fibrosis similar to the prior exam. Trace pleural fluid right base (Radiology noted below taken from from Dr. Mccann's note on last admission in August 2016.) Radiology: CXR (05/19/2007) possible bilateral lower lobe ILD changes CXR (11/22/2007) L>R lower lobe bronchiectatic change/scar CXR (10/08/2010) L>R lower lobe bronchiectatic change/scar CXR (02/04/2014) L>R lower lobe bronchiectatic change/scar CXR (08/13/2016) diffuse interstitial infiltrates with continued L>R lower lobe bronchiectatic change/scar CT ABD (08/14/2016) bilateral bronchiectasis with interstitial changes and LB10 13.6 calcified nodule with bilateral pleural thickening at the basis CXR (08/17/2016) diffuse interstitial infiltrates with continued L>R lower lobe bronchiectatic change/scar Hilar fullness with ricky-bronchial cuffing CT Thorax (08/17/2016) Bilateral bronchiectasis with interstitial changes greatest and the basis 13.6mm calcified LB10 with bilateral pleural thickening at the basis Similar to CT ABD from 07/27/16 Impression Assessment and Plan Acute on chronic hypoxic respiratory failure Interstitial lung disease Due the chronicity of his respiratory symptoms his respiratory symptoms are unlikely to be from a pulmonary embolism. He he has had the beginnings of interstitial lung disease on review of previous imaging since 2007. Patient did not have any respiratory symptoms up until his cardiac surgery in July. It appears that his cardiac function has precipitated some of his symptoms. Although his symptoms appear to be subacute , his radiological findings appear to be chronic which is seen in chronic progressive UIP pattern or chronic aspiration pneumonia that results in a fibrotic pattern. A lung biopsy would be needed for definitive diagnosis. I also do recommend a speech and swallow evaluation and video swallow evaluation as patient may be aspirating silently. Corticosteroids may be warranted at this time as patient seems to be having worsening of his symptoms Continue with O2 supplementation to maintain SaO2> 92%. Patient has been afebrile with no leukocytosis. I do not think that this is a pneumonia and anttibiotics are not needed at this time. Upon discharge, he will need full PFTs. I appreciated the consult. Will continue to follow.
[2016-10-01 20:38] VITALS: BP 106/54; PULSE 59; TEMP 36.4; O2SAT 97
[2016-10-01] MEDS: HEPARIN SOD 5000 UNIT/0.5 ML CARP SQ SCH (21:00)
[2016-10-01 23:58] VITALS: BP 111/51; PULSE 67; TEMP 36.6; O2SAT 96
[2016-10-02] VITALS (12 sets, daily range): BP systolic 100–130; BP diastolic 52–72; PULSE 62–81; TEMP 36.4–37; O2SAT 90–99
[2016-10-02] MEDS: METHYLPREDNISOLONE IV 40 MG in SYRINGE 0 ML IV SCH ×2 (04:53→15:47)
[2016-10-02] MEDS: LEVOTHYROXINE 88 MCG TAB PO SCH (06:04)
[2016-10-02] MEDS: HEPARIN SOD 5000 UNIT/0.5 ML CARP SQ SCH ×3 (06:04→21:04)
[2016-10-02 07:15] LABS: HEMATOCRIT 30.4 % (42-52); MEAN CELL VOLUME 93.3 fL (80-100); MEAN CORPUSCULAR HEMOGLOBIN 30.1 pg (25-34); MEAN CORPUSCULAR HGB CONC 32.2 g/dl (32-36); MEAN PLATELET VOLUME 9.7 fL (7.4-10.4); PLATELET COUNT 158 K/uL (130-400); RED BLOOD COUNT 3.26 M/uL (4.7-6.1); WHITE BLOOD COUNT 5.64 K/uL (4.8-10.8)
[2016-10-02 07:36] LABS: BUN/CREATININE RATIO 17.8 (10-20); CALCIUM 8.8 mg/dl (8.5-10.1)
[2016-10-02] MEDS: ASPIRIN 81 MG ECTAB PO SCH (07:42)
[2016-10-02] MEDS: ATORVASTATIN 40 MG TAB PO SCH (07:43)
[2016-10-02] MEDS: PANTOprazole SOD 40 MG TAB PO SCH (07:43)
[2016-10-02] MEDS: CLOPIDOGREL BISULFATE 75 MG TAB PO SCH (07:43)
[2016-10-02] MEDS: ESCITALOPRAM OXALATE 10 MG TAB PO SCH (07:43)
[2016-10-02] MEDS: ALLOPURINOL 300 MG TAB PO SCH (07:43)
--- NOTE | 2016-10-02 10:27 | ECHOCARDIOGRAM REPORT ---
*NOTICE TO RECEIVING DEMOCRAT AGENCY This information is strictly Confidential and protected under [place] law. [place] law prohibits you from making any further disclosure of this information unless further disclosure is expressly permitted by the written consent of the person to whom it pertains or is authorized by law. A general authorization for the release of medical or other information is not sufficient for this purpose. Hospital accepts no responsibility if the information is made available to any other person, INCLUDING THE PATIENT. Interpretation Summary * Name: NETTE MOLINA Study Date: 10/02/2016 06:55 AM BP: 118/63 mmHg * Patient Location: C.2T\S\S238\S\2 HR: 79 * : 1930 (M/d/yyyy) Gender: Male Height: 70 in * Age: 86 yrs Ethnicity: CA Weight: 198 lb * Ordering Physician: Kelly Swanson * Referring Physician: Self, Referred * Performed By: Lor Cotto RCS * * Reason For Study: SYNCOPE * BSA: 2.1 m2 * The study was technically adequate. * Compared to prior study, changes are noted. * -- Conclusions -- * Ejection Fraction = 60-65%. * The patient is status post transcatheter aortic valve replacement with CoreVAlve prosthetic valve. * There is mild paravalvular aortic regurgitation. * There is mild mitral regurgitation. * There is mild tricuspid regurgitation. * The estimated systolic PAP is 44mmHg. Procedure Details * A complete two-dimensional transthoracic echocardiogram was performed (2D, M-mode, Doppler and color flow Doppler). Left Ventricle * The left ventricle is normal in size. * There is moderate concentric left ventricular hypertrophy. * Ejection Fraction = 60-65%. * Left ventricular systolic function is normal. * The left ventricular wall motion is normal. Right Ventricle * The right ventricle is normal size. * The right ventricular systolic function is normal as assessed by tricuspid annular plane systolic excursion (TAPSE) (normal >1.5 cm). Atria * The left atrium is moderately dilated. * Right atrial size is normal. * There is no evidence of atrial septal defect, but resolution does not allow assessment for a patent foramen ovale. Mitral Valve * There is mild mitral annular calcification. * There is no mitral valve stenosis. * There is mild mitral regurgitation. Tricuspid Valve * The tricuspid valve is normal. * There is no tricuspid stenosis. * There is mild tricuspid regurgitation. * The estimated systolic PAP is 44mmHg. Aortic Valve * The patient is status post transcatheter aortic valve replacement with CoreVAlve prosthetic valve. There is mild paravalvular aortic regurgitation. Pulmonic Valve * The pulmonary valve is inadequately visualized, but the Doppler data is adequate for interpretation. * There is no pulmonic valvular stenosis. * Trace pulmonic valvular regurgitation. Great Vessels * The aortic root is normal size. Pericardium/Pleural * There is no pericardial effusion. Great Vessels * Normal inferior vena cava diameter and respiratory variation suggests normal central venous pressure. Left Ventricular Diastolic Function * Diastolic dysfunction, Grade II (pseudonormalization pattern). MMode 2D Measurements and Calculations IVSd 1.5 cm IVSs 1.6 cm LVIDd 5.1 cm LVIDs 4.0 cm LVPWd 1.3 cm LVPWs 1.4 cm IVS/LVPW 1.2 FS 20.5 % EDV(Teich) 121.9 ml ESV(Teich) 71.1 ml EF(Teich) 41.7 % EDV(cubed) 130.0 ml ESV(cubed) 65.3 ml EF(cubed) 49.8 % % IVS thick 1.9 % % LVPW thick 9.4 % LV mass(C)d 295.5 grams LV mass(C)dI 142.2 grams/m\S\2 LV mass(C)s 227.0 grams LV mass(C)sI 109.2 grams/m\S\2 SV(Teich) 50.8 ml SI(Teich) 24.4 ml/m\S\2 SV(cubed) 64.8 ml SI(cubed) 31.2 ml/m\S\2 Ao root diam 3.4 cm Ao root area 9.1 cm\S\2 LA dimension 4.5 cm LA/Ao 1.3 LVOT diam 1.9 cm LVOT area 2.8 cm\S\2 LVAd ap4 40.0 cm\S\2 LVLd ap4 8.6 cm EDV(MOD-sp4) 152.2 ml EDV(sp4-el) 157.9 ml LVAs ap4 26.4 cm\S\2 LVLs ap4 7.3 cm ESV(MOD-sp4) 78.8 ml ESV(sp4-el) 81.8 ml EF(MOD-sp4) 48.2 % EF(sp4-el) 48.2 % LVAd ap2 42.9 cm\S\2 LVLd ap2 9.0 cm EDV(MOD-sp2) 167.6 ml EDV(sp2-el) 172.8 ml LVAs ap2 25.1 cm\S\2 LVLs ap2 6.9 cm ESV(MOD-sp2) 76.0 ml ESV(sp2-el) 77.6 ml EF(MOD-sp2) 54.6 % EF(sp2-el) 55.1 % LVLd %diff 5.1 % EDV(MOD-bp) 161.7 ml LVLs %diff -5.48 % ESV(MOD-bp) 79.1 ml EF(MOD-bp) 51.1 % SV(MOD-sp4) 73.4 ml SI(MOD-sp4) 35.3 ml/m\S\2 SV(MOD-sp2) 91.6 ml SI(MOD-sp2) 44.1 ml/m\S\2 SV(MOD-bp) 82.5 ml SI(MOD-bp) 39.7 ml/m\S\2 SV(sp4-el) 76.2 ml SI(sp4-el) 36.6 ml/m\S\2 SV(sp2-el) 95.3 ml SI(sp2-el) 45.8 ml/m\S\2 Doppler Measurements and Calculations MV E max asha 117.0 cm/sec MV A max asha 104.1 cm/sec MV E/A 1.1 MV P1/2t max asha 137.7 cm/sec MV P1/2t 85.5 msec MVA(P1/2t) 2.6 cm\S\2 MV dec slope 471.6 cm/sec\S\2 MV dec time 0.20 sec Ao V2 max 207.4 cm/sec Ao max PG 17.6 mmHg Ao max PG (full) 10.2 mmHg Ao V2 mean 122.0 cm/sec Ao mean PG 6.8 mmHg Ao mean PG (full) 3.0 mmHg Ao V2 VTI 39.6 cm PERI(I,A) 2.3 cm\S\2 PERI(I,D) 2.3 cm\S\2 PERI(V,A) 1.8 cm\S\2 PERI(V,D) 1.8 cm\S\2 AI max asha 458.4 cm/sec AI max PG 84.1 mmHg AI dec slope 197.3 cm/sec\S\2 AI P1/2t 680.5 msec LV V1 max PG 7.4 mmHg LV V1 mean PG 3.8 mmHg LV V1 max 135.7 cm/sec LV V1 mean 90.5 cm/sec LV V1 VTI 33.1 cm SV(Ao) 360.9 ml SI(Ao) 173.7 ml/m\S\2 SV(LVOT) 91.6 ml SI(LVOT) 44.1 ml/m\S\2 PA V2 max 114.2 cm/sec PA max PG 5.2 mmHg TR max asha 320.8 cm/sec
--- NOTE | 2016-10-02 11:18 | Progress Note ---
Internal Med Progress Note Date of Service: Oct 02, 2016. Provider Documentation: SUBJECTIVE: Patient has generalized weakness, SOB which has been progressively worsening since TAVR in 07/2016. No c/o dizziness, palpitations. C/o cough- dry Did feel SOB, exhausted after going to bathroom /straight cath No chest pain, fever, chills. Tele- no events OBJECTIVE: Vital Signs-as noted below Exam: General-AAOX3, no distress Neck-Supple Lungs-AEBE decreased, no wheezing, rales Heart-S1, S2 normal, no murmur Extremities-No edema Lab data as noted below. 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 SYNCOPE With recent hx of TAVR in July 2016, need to rule out arrhythmias. -Work up- Orthostats negative, CT head - not indicated- no head injury, not on anticoagulants; EKG- RBBB/Left anterior fascicular block, Trop x 1 negative, Tele so far negative, will need holter monitor to rule out arrhythmias, Echo- Ejection Fraction = 60-65%, S/P TAVR, Mild MR, TR, AR. -Appreciate cardiology inputs ACUTE ON CHRONIC HYPOXIC RESPIRATORY FAILURE Patient has no known chronic lung disease, but imaging in past (since 2007) and CXR here shows diffuse chronic parenchymal fibrosis-ILD. Has been on oxygen 2 L since TAVR in July 2016, so likely this precipitated the symptoms. -SOB has been worsening, which likely seems to be secondary to ILD - progressively worsening. Could be UIP vs Chronic aspiration per pulmonary. -Will continue with Steroid taper, Nebs. No indication for antibiotics as no active infection -Received a dose of lasix 40 mg on 10/01/16. -Speech evaluation ordered -Discussed with Pulmonary. Appreciate inputs. HX OF S/P TAVR IN 07/2016 -Per patient, felt well after TAVR procedure in July until hospitalization for acute respiratory failure -Repeat Echo- Ejection Fraction = 60-65%, S/P TAVR, Mild MR, TR, AR. -cardio consulted for further recs CAD s/p FLORIN x 2 in 06/2016: -continue with aspirin, statin and plavix DEPRESSION -recently started on SSRI by PCP (09/21/15) due to depressed affect and irritability -has undergone a major shift in quality of life for the worse since previous hospital admission -no SI; continue home meds HTN: stable -has recently stopped home meds and has remained normotensive CKD III: stable -experienced an ZENA during last admission (Cr >2.5) but is back at baseline currently (1.7) -continue monitoring BMP NEUROGENIC BLADDER -s/p TURP procedure -patient to continue straight cathing during admission AAA: -determined on CT abd earlier this year -stable with close PCP follow-up VTE ppx: Heparin Code status: Full Dispo: Observation PCP: Dr. Do Consulted SW for dispo since pt is 86 and lives alone. Updated son by bedside Vital Signs: Date Time Temp Pulse Resp B/P (MAP) Pulse Ox O2 Delivery O2 Flow Rate FiO2 10/02/16 08:00 Nasal Cannula 4.0 10/02/16 07:30 80 20 130/62 (84) 90 Nasal Cannula 4.0 10/02/16 04:00 97 Nasal Cannula 3.0 98 10/02/16 03:48 36.5 62 18 118/63 (81) 97 Nasal Cannula 4.0 10/02/16 00:00 97 Nasal Cannula 4.0 98 10/01/16 23:58 36.6 67 20 111/51 (71) 96 Nasal Cannula 4.0 10/01/16 20:38 36.4 59 21 106/54 (71) 97 Nasal Cannula 4.0 10/01/16 20:00 Nasal Cannula 4.0 10/01/16 20:00 Nasal Cannula 4.0 10/01/16 16:00 97 Nasal Cannula 4.0 10/01/16 15:00 36.7 79 20 110/64 (79) 95 Nasal Cannula 4.0 10/01/16 14:30 36.9 81 24 122/64 (83) 94 Nasal Cannula 4.0 10/01/16 14:17 76 18 114/50 100 10/01/16 13:20 85 18 102/56 95 Nasal Cannula 5.0 10/01/16 13:00 97 Nasal Cannula 5.0 10/01/16 11:54 97 Nasal Cannula 5.0 10/01/16 11:16 83 10/01/16 11:09 Non-Rebreather 15.0 98 10/01/16 11:09 36.5 94 24 124/97 98 Non-Rebreather 15.0 10/01/16 11:09 98 Non-Rebreather 15.0 Lab Results: Results Past 24 Hours Test 10/01/16 11:39 10/01/16 11:49 10/02/16 06:33 Range/Units White Blood Count 8.60 5.64 4.8-10.8 K/uL Red Blood Count 3.44 3.26 4.7-6.1 M/uL Hemoglobin 10.5 9.8 14.0-18.0 g/dL Hematocrit 32.0 30.4 42-52 % Mean Corpuscular Volume 93.0 93.3 80-100 fL Mean Corpuscular Hemoglobin 30.5 30.1 25-34 pg Mean Corpuscular Hemoglobin Concent 32.8 32.2 32-36 g/dl Platelet Count 137 158 130-400 K/uL Mean Platelet Volume 8.9 9.7 7.4-10.4 fL Neutrophils (%) (Auto) 84.2 % Lymphocytes (%) (Auto) 7.3 % Monocytes (%) (Auto) 6.9 % Eosinophils (%) (Auto) 1.2 % Basophils (%) (Auto) 0.2 % Neutrophils # (Auto) 7.24 1.4-6.5 K/uL Lymphocytes # (Auto) 0.63 1.2-3.4 K/uL Monocytes # (Auto) 0.59 0.11-0.59 K/uL Eosinophils # (Auto) 0.10 0-0.5 K/uL Basophils # (Auto) 0.02 0-0.2 K/uL RDW Standard Deviation 54.7 53.8 36.4-46.3 fL RDW Coefficient of Variation 16.0 15.8 11.5-14.5 % Immature Granulocyte % (Auto) 0.2 % Immature Granulocyte # (Auto) 0.02 0.00-0.02 K/uL Prothrombin Time 11.1 9.0-12.0 SECONDS Prothromb Time International Ratio 1.0 0.9-1.1 Activated Partial Thromboplast Time 27.2 21.0-31.0 SECONDS Partial Thromboplastin Ratio 1.0 Venous Blood pH 7.35 7.36-7.41 Venous Blood Partial Pressure CO2 50 38.0-50.0 mmHg Venous Blood Partial Pressure O2 21 mmHg Venous Blood HCO3 27 mmol/L Venous Blood Oxygen Saturation < 60.0 % Venous Blood Base Excess 0.9 mmol/L Sodium Level 143 141 136-145 mmol/L Potassium Level 4.6 5.0 3.5-5.1 mmol/L Chloride Level 111 108 98-107 mmol/L Carbon Dioxide Level 28 27 21-32 mmol/L Anion Gap 4.0 6.0 3-11 mmol/L Blood Urea Nitrogen 29 36 7-18 mg/dl Creatinine 1.70 2.00 0.60-1.40 mg/dl Est Creatinine Clear Calc Drug Dose 34.5 29.4 ml/min Estimated GFR () 41.1 33.8 Estimated GFR (Non- 35.5 29.1 BUN/Creatinine Ratio 17.0 17.8 10-20 Random Glucose 124 135 70-99 mg/dl Calcium Level 8.8 8.8 8.5-10.1 mg/dl Total Bilirubin 0.8 0.2-1 mg/dl Direct Bilirubin 0.2 0-0.2 mg/dl Aspartate Amino Transf (AST/SGOT) 15 15-37 U/L Alanine Aminotransferase (ALT/SGPT) 12 12-78 U/L Alkaline Phosphatase 91 45-117 U/L Total Creatine Kinase 24 39-308 U/L Creatine Kinase MB 1.8 0.5-3.6 ng/ml Creatine Kinase MB Ratio 7.5 0-3.0 Total Protein 6.2 6.4-8.2 gm/dl Albumin 2.4 3.4-5.0 gm/dl Lipase 184 73-393 U/L Bedside Troponin I 0.040 0-0.045 ng/ml GR-[id number]-T-Type Natriuretic Peptide 1297 0-1800 pg/ml
[2016-10-02] MEDS ORDERED: GUAIFENESIN SUGAR FREE 100 MG/5 ML UDC PO PRN (11:30)
--- NOTE | 2016-10-02 11:38 | Pulmonology Progress Note ---
Pulmonary Progress Note Date of Service Oct 02, 2016. Attending Dr. Crowder Subjective Patient seen and examined this morning. He currently denies any chest discomfort or pain, no shortness of breath, or dyspnea on exertion. Still has intermittent dry cough but says is somewhat decreased. He states that he had episode of presyncope and lightheadedness when he went to the bathroom this morning to straight cath. [place] better after returning to bed and lying down. Objective Afebrile at 36.5, blood pressure 130/62, pulse 80, respiratory rate between 18- 20, pulse 62-80, pulse oximetry ranging between 90-97% on 4 L nasal cannula. General Appearance: Sitting in bed, no acute distress. Head: NORMOCEPHALIC, ATRAUMATIC Eyes: PERRLA, NO DISCHARGE, EOMI, SCLERAE NORMAL ENT: NORMAL MOUTH EXAM, NORMAL THROAT EXAM, other (Mallampati 3) Neck: NORMAL RANGE OF MOTION, NO TENDERNESS, TRACHEA MIDLINE, SUPPLE Respiratory: other (good air entry bilaterally until lung bases. Velcro-like crackles heard bilaterally.) Cardiovasular: REGULAR RATE/RHYTHM, NORMAL S1S2, NORMAL PERIPHERAL PULSES Abdomen: NON TENDER, NORMAL BOWEL SOUNDS Upper Extremities: NO EDEMA (no cyanosis, no clubbing) Lower Extremities: Bilateral lower extremity edema, +2 Pulses: dorsalis pedis (R) (2+), dorsalis pedis (L) (2+) Neuro: ALERT, ORIENTED x 3 Psychiatric: NORMAL AFFECT, NO SUICIDAL IDEATION Medications, Laboratory data and imaging all reviewed. Respiratory medications includeRobitussin-DM 3 times a day when necessary for cough and Solu-Medrol 40 mg every 12 hours . Creatinine has increased from 1.7-2 today. Transthoracic echo from 10/02/2016 * Ejection Fraction = 60-65%. * The patient is status post transcatheter aortic valve replacement with CoreVAlve prosthetic valve. * There is mild paravalvular aortic regurgitation. * There is mild mitral regurgitation. * There is mild tricuspid regurgitation. * The estimated systolic PAP is 44mmHg. Assessment & Plan Acute on chronic hypoxic respiratory failure Interstitial lung disease Grade 2 diastolic dysfunction Elevated pulmonary artery pressure Todays echo shows that patient has grade 2 diastolic dysfunction with a mildly elevated pulmonary artery pressure. His EF is normal however. His elevated pulmonary artery pressure is most likely secondary to both cardiac and pulmonary etiologies. Both of these may be contributing to his respiratory insufficiency on top of the interstitial lung disease. Continue with corticosteroids. Follow-up follow evaluation and video swallow evaluation to rule out aspiration pneumonia Keep O2 saturation above 92% Patient now has worsening kidney function. Consider holding diuretics for now. He will ultimately need a lung biopsy for definitive diagnosis as well as a full PFT as an outpatient. Data Medications: Current Inpatient Medications Medications (Trade) Dose Ordered Sig/Shakira Route Start Time Stop Time Status Last Admin Dose Admin Miscellaneous (Iv Fluids Completed) 1 ea PRN PRN N/A 10/01/16 13:45 10/01/17 13:44 Heparin Sodium (Porcine) (Heparin Sq 5000 Unit/0.5ml) 5,000 unit Q8 SQ 10/01/16 22:00 10/31/16 21:59 10/02/16 06:04 5,000 UNIT Acetaminophen (Tylenol Tab) 650 mg Q4H PRN PO 10/01/16 14:00 10/31/16 13:59 Ondansetron HCl (Zofran Inj) 4 mg Q6H PRN IV 10/01/16 14:00 10/31/16 13:59 Allopurinol (Zyloprim Tab) 300 mg DAILY PO 10/02/16 09:00 11/01/16 08:59 10/02/16 07:43 300 MG Aspirin (Ecotrin Tab) 81 mg DAILY PO 10/02/16 09:00 11/01/16 08:59 10/02/16 07:42 81 MG Atorvastatin Calcium (Lipitor Tab) 40 mg DAILY PO 10/02/16 09:00 11/01/16 08:59 10/02/16 07:43 40 MG Clopidogrel Bisulfate (plAVix TAB) 75 mg DAILY PO 10/02/16 09:00 11/01/16 08:59 10/02/16 07:43 75 MG Escitalopram Oxalate (Lexapro Tab) 10 mg DAILY PO 10/02/16 09:00 11/01/16 08:59 10/02/16 07:43 10 MG Levothyroxine Sodium (Synthroid Tab) 88 mcg DAILYBB PO 10/02/16 06:00 11/01/16 05:59 10/02/16 06:04 88 MCG Nitroglycerin (Nitrostat Tab) 0.4 mg PRN UT 10/01/16 14:15 10/31/16 14:14 Guaifenesin/ Dextromethorphan (Robitussin-Dm Syrup) 5 ml TID PRN PO 10/01/16 14:45 10/31/16 14:44 Pantoprazole Sodium (Protonix Tab) 40 mg QAM PO 10/02/16 09:00 11/01/16 08:59 10/02/16 07:43 40 MG Methylprednisolone Sodium Succinate 40 mg/Syringe 0.64 ml @ 1.5 mls/min Q12H IV 10/01/16 16:00 10/31/16 15:59 10/02/16 04:53 1.5 MLS/MIN Guaifenesin (Robitussin Sugar Free Syrup) 100 mg Q6H PRN PO 10/02/16 11:30 11/01/16 11:29 UNV Albuterol Sulfate (Ventolin 0.5% 2.5MG/0.5ML Neb) 2.5 mg Q6R INH 10/02/16 15:00 11/01/16 14:59 UNV Vital Signs: Date Time Temp Pulse Resp B/P (MAP) Pulse Ox O2 Delivery O2 Flow Rate FiO2 10/02/16 11:18 36.4 73 18 108/62 (77) 94 Nasal Cannula 4.0 10/02/16 08:00 Nasal Cannula 4.0 10/02/16 07:30 80 20 130/62 (84) 90 Nasal Cannula 4.0 10/02/16 04:00 97 Nasal Cannula 3.0 98 10/02/16 03:48 36.5 62 18 118/63 (81) 97 Nasal Cannula 4.0 10/02/16 00:00 97 Nasal Cannula 4.0 98 10/01/16 23:58 36.6 67 20 111/51 (71) 96 Nasal Cannula 4.0 10/01/16 20:38 36.4 59 21 106/54 (71) 97 Nasal Cannula 4.0 10/01/16 20:00 Nasal Cannula 4.0 10/01/16 20:00 Nasal Cannula 4.0 10/01/16 16:00 97 Nasal Cannula 4.0 10/01/16 15:00 36.7 79 20 110/64 (79) 95 Nasal Cannula 4.0 10/01/16 14:30 36.9 81 24 122/64 (83) 94 Nasal Cannula 4.0 10/01/16 14:17 76 18 114/50 100 10/01/16 13:20 85 18 102/56 95 Nasal Cannula 5.0 10/01/16 13:00 97 Nasal Cannula 5.0 10/01/16 11:54 97 Nasal Cannula 5.0 Laboratory Results: Last 24 Hours Test 10/01/16 11:39 10/01/16 11:49 10/02/16 06:33 White Blood Count 8.60 K/uL 5.64 K/uL Red Blood Count 3.44 M/uL 3.26 M/uL Hemoglobin 10.5 g/dL 9.8 g/dL Hematocrit 32.0 % 30.4 % Mean Corpuscular Volume 93.0 fL 93.3 fL Mean Corpuscular Hemoglobin 30.5 pg 30.1 pg Mean Corpuscular Hemoglobin Concent 32.8 g/dl 32.2 g/dl Platelet Count 137 K/uL 158 K/uL Mean Platelet Volume 8.9 fL 9.7 fL Neutrophils (%) (Auto) 84.2 % Lymphocytes (%) (Auto) 7.3 % Monocytes (%) (Auto) 6.9 % Eosinophils (%) (Auto) 1.2 % Basophils (%) (Auto) 0.2 % Neutrophils # (Auto) 7.24 K/uL Lymphocytes # (Auto) 0.63 K/uL Monocytes # (Auto) 0.59 K/uL Eosinophils # (Auto) 0.10 K/uL Basophils # (Auto) 0.02 K/uL RDW Standard Deviation 54.7 fL 53.8 fL RDW Coefficient of Variation 16.0 % 15.8 % Immature Granulocyte % (Auto) 0.2 % Immature Granulocyte # (Auto) 0.02 K/uL Prothrombin Time 11.1 SECONDS Prothromb Time International Ratio 1.0 Activated Partial Thromboplast Time 27.2 SECONDS Partial Thromboplastin Ratio 1.0 Venous Blood pH 7.35 Venous Blood Partial Pressure CO2 50 mmHg Venous Blood Partial Pressure O2 21 mmHg Venous Blood HCO3 27 mmol/L Venous Blood Oxygen Saturation < 60.0 % Venous Blood Base Excess 0.9 mmol/L Sodium Level 143 mmol/L 141 mmol/L Potassium Level 4.6 mmol/L 5.0 mmol/L Chloride Level 111 mmol/L 108 mmol/L Carbon Dioxide Level 28 mmol/L 27 mmol/L Anion Gap 4.0 mmol/L 6.0 mmol/L Blood Urea Nitrogen 29 mg/dl 36 mg/dl Creatinine 1.70 mg/dl 2.00 mg/dl Est Creatinine Clear Calc Drug Dose 34.5 ml/min 29.4 ml/min Estimated GFR () 41.1 33.8 Estimated GFR (Non- 35.5 29.1 BUN/Creatinine Ratio 17.0 17.8 Random Glucose 124 mg/dl 135 mg/dl Calcium Level 8.8 mg/dl 8.8 mg/dl Total Bilirubin 0.8 mg/dl Direct Bilirubin 0.2 mg/dl Aspartate Amino Transf (AST/SGOT) 15 U/L Alanine Aminotransferase (ALT/SGPT) 12 U/L Alkaline Phosphatase 91 U/L Total Creatine Kinase 24 U/L Creatine Kinase MB 1.8 ng/ml Creatine Kinase MB Ratio 7.5 Total Protein 6.2 gm/dl Albumin 2.4 gm/dl Lipase 184 U/L Bedside Troponin I 0.040 ng/ml FQ-Sgb-U-Type Natriuretic Peptide 1297 pg/ml
--- NOTE | 2016-10-02 12:45 | DIAGNOSTIC IMAGING REPORT ---
VIDEO SWALLOW HISTORY: Dysphasia with questionable chronic aspiration and syncope. TECHNIQUE: Video fluoroscopic evaluation of swallowing was performed in the AP and lateral projections by the speech pathology staff. The patient is fed nectar-thick and thin liquid barium, a barium coated wafer, and barium pudding. FLUOROSCOPY TIME: 3.3 minutes. COMPARISON STUDY: None. FINDINGS: Silent aspiration was seen with thin liquids. There is penetration with silent aspiration noted with nectar thick liquids. Esophageal dysmotility noted with pudding consistency. Tertiary contractions of the esophagus are also noted. IMPRESSION: 1. Aspiration noted with both thin and nectar thick liquids. 2. Please see the speech pathologist report for detailed findings and recommendations. Electronically signed by: Robert Bearden M.D. 10/02/2016 12:44 PM Dictated Date/Time: 10/02/2016 12:41 PM
--- NOTE | 2016-10-02 14:11 | Cardiology Follow-Up ---
Subjective General Date of Service: Oct 02, 2016. Pt evaluation today including: conversation w/ patient, conversation w/ family , physical exam, chart review, lab review, conversation w/ weight loss sales consultant, review of inpatient medication list History of Present Illness The patient is a 86 year old male seen in follow-up. No recurrent lightheadedness or dizziness. No sustained dysrhythmias, bradycardia, heart block, or significant pauses on telemetry. 2-D transthoracic echo demonstrates preserved LV systolic function with mild bioprosthetic valve regurgitation. Patient tolerating diet medications. Shortness of breath and dyspnea on exertion unchanged. Offers no complaints at this time. Allergies Coded Allergies: No Known Allergies (Verified , 08/13/16) Social History Smoking Status: Former Smoker Hx Tobacco Use In Past Year?: No Hx Alcohol Use - Type And Amou: Yes (beer - 1 bottle per week) Hx Substance Use - Type And Am: No Problem List Medical Problems: (1) SOB (shortness of breath) Status: Acute (2) Syncope Status: Acute (3) Weakness Status: Acute Review of Systems Respiratory: + shortness of breath, No cough, No sputum, No wheezing, No dyspnea on exertion, No dyspnea at rest, No hemoptysis Cardiac: No chest pain, No orthopnea, No PND, No edema, No claudication, No palpitations Physical Exam Vital Signs Last Vital Signs Documentation Date Time Temp Pulse Resp B/P (MAP) Pulse Ox O2 Delivery O2 Flow Rate FiO2 10/02/16 12:00 Nasal Cannula 4.0 10/02/16 11:18 36.4 73 18 108/62 (77) 94 10/02/16 04:00 98 Physical Exam Constitutional: Level of Distress: NAD, chronically ill Lungs: Auscultation: no wheezing, no rhonchi, dry rales/crackles Cardiovascular: Heart Auscultation: RRR, normal S1, normal S2, I/ LORI Peripheral Pulses: Radial Pulse: normal on the right Abdomen: Bowel Sounds: normal Inspection & Palpation: soft, non-distended, no tenderness, guarding & rebound Extremities: no cyanosis, no edema, no clubbing, no ulcers Neurologic: Cranial Nerves: grossly intact Assessment and Plan Assessment and Plan Final impression: 1. Complex 86-year-old male presents with syncopal episode. -No significant abnormalities on telemetry since admission -Stable resting 2-D transthoracic echo -Chronic bifasicular block 2. Recent TAVR 07/29/16 -Normal function per recent 2-D transthoracic echo -No significant murmur on physical exam 3. Chronic respiratory insufficiency secondary to pulmonary fibrosis and diastolic heart failure -Patient does not appear overtly volume overloaded on examination 4. Chronic cough 5. 4.6 cm AAA Plan/recommendations: I had a long discussion with the patient regarding his syncopal episode. No significant abnormalities on initial cardiac testing. Recommend outpatient 14 day ZIO monitor to exclude symptomatic bradycardia dysrhythmias. I suspect his episode may be related to progressive respiratory insufficiency related to underlying pulmonary fibrosis. Patient received some IV diuretic therapy, however, he is not overtly volume overloaded. Recommend outpatient pulmonary consultation as well. I will make these arrangements through my office. Outpatient follow-up will be scheduled. No further inpatient cardiac testing at this time. Laboratory Results Last 24 Hours Test 10/02/16 06:33 White Blood Count 5.64 K/uL Red Blood Count 3.26 M/uL Hemoglobin 9.8 g/dL Hematocrit 30.4 % Mean Corpuscular Volume 93.3 fL Mean Corpuscular Hemoglobin 30.1 pg Mean Corpuscular Hemoglobin Concent 32.2 g/dl RDW Standard Deviation 53.8 fL RDW Coefficient of Variation 15.8 % Platelet Count 158 K/uL Mean Platelet Volume 9.7 fL Sodium Level 141 mmol/L Potassium Level 5.0 mmol/L Chloride Level 108 mmol/L Carbon Dioxide Level 27 mmol/L Anion Gap 6.0 mmol/L Blood Urea Nitrogen 36 mg/dl Creatinine 2.00 mg/dl Est Creatinine Clear Calc Drug Dose 29.4 ml/min Estimated GFR () 33.8 Estimated GFR (Non- 29.1 BUN/Creatinine Ratio 17.8 Random Glucose 135 mg/dl Calcium Level 8.8 mg/dl
[2016-10-02] MEDS ORDERED: ALBUTEROL 0.5% NEB SOLN 2.5 MG/0.5 ML VIAL INH SCH (15:00)
[2016-10-02] MEDS: ALBUTEROL 0.083% NEBU SOLN 3 ML VIAL INH SCH ×2 (15:27→19:00)
[2016-10-03] VITALS (9 sets, daily range): BP systolic 103–140; BP diastolic 52–84; PULSE 75–97; TEMP 36.5–36.7; O2SAT 93–98
[2016-10-03] MEDS: ALBUTEROL 0.083% NEBU SOLN 3 ML VIAL INH SCH ×4 (01:45→19:31)
[2016-10-03] MEDS: METHYLPREDNISOLONE IV 40 MG in SYRINGE 0 ML IV SCH (04:35)
[2016-10-03] MEDS: LEVOTHYROXINE 88 MCG TAB PO SCH (05:40)
[2016-10-03] MEDS: HEPARIN SOD 5000 UNIT/0.5 ML CARP SQ SCH ×3 (05:41→22:04)
[2016-10-03 06:35] LABS: HEMATOCRIT 28.4 % (42-52); MEAN CELL VOLUME 92.8 fL (80-100); MEAN CORPUSCULAR HEMOGLOBIN 30.7 pg (25-34); MEAN CORPUSCULAR HGB CONC 33.1 g/dl (32-36); MEAN PLATELET VOLUME 9.6 fL (7.4-10.4); PLATELET COUNT 148 K/uL (130-400); RED BLOOD COUNT 3.06 M/uL (4.7-6.1); WHITE BLOOD COUNT 7.71 K/uL (4.8-10.8)
[2016-10-03 07:11] LABS: BUN/CREATININE RATIO 25.1 (10-20); CALCIUM 8.9 mg/dl (8.5-10.1); CREATININE 1.8 mg/dl (0.60-1.40); POTASSIUM 4.4 mmol/L (3.5-5.1)
[2016-10-03] MEDS: ASPIRIN 81 MG ECTAB PO SCH (07:30)
[2016-10-03] MEDS: PANTOprazole SOD 40 MG TAB PO SCH (07:30)
[2016-10-03] MEDS: CLOPIDOGREL BISULFATE 75 MG TAB PO SCH (07:30)
[2016-10-03] MEDS: ALLOPURINOL 300 MG TAB PO SCH (07:30)
[2016-10-03] MEDS: ATORVASTATIN 40 MG TAB PO SCH (07:30)
[2016-10-03] MEDS: ESCITALOPRAM OXALATE 10 MG TAB PO SCH (07:31)
--- NOTE | 2016-10-03 08:04 | Clinical Documentation Query ---
MONICA Harrell : CLINICAL DOCUMENTATION QUERY Clinical documentation includes a diagnosis of: Acute Respiratory Failure. ER provider physical exam documentation: No increased work of breathing H&P provider physical exam documentation:"+ mild distress" and "no accessory muscle use". Due to stringent requirements by our coding department, multiple clinical indicators associated with this diagnosis must be present in order for this to be coded/captured within the medical record. If appropriate, please document 2 or more of the following clinical indicators in daily progress notes and the discharge summary. If you feel the diagnosis of acute respiratory failure was made in error, or do not agree with it, simply discontinue documentation thereof. Acute Respiratory Failure indicators include: * Respirations >28 * Air hunger * Use of accessory muscles of respiration * Inability to speak in full sentences * Cyanosis * Pulse ox <90% RA or <95% on O2 *pH <7.35 or >7.45 * pO2 < 60 mm Hg (or 10mm below COPD patient's baseline) * pCO2 >50mm Hg (or 10mm above COPD patient's baseline) * mechanical ventilation * Increased work of breathing * Tachypnea Thank You, Michael Fierro, RN [phone]
--- NOTE | 2016-10-03 11:46 | Progress Note ---
Internal Med Progress Note Date of Service: Oct 03, 2016. Provider Documentation: SUBJECTIVE: Patient has generalized weakness, SOB which has been progressively worsening since TAVR in 07/2016. No c/o dizziness, palpitations. C/o cough- dry Did feel SOB, exhausted after going to bathroom /straight cath No chest pain, fever, chills. Tele- no events OBJECTIVE: Vital Signs-as noted below Exam: General-AAOX3, no distress Neck-Supple Lungs-AEBE decreased, no wheezing, rales Heart-S1, S2 normal, no murmur Extremities-No edema Lab data as noted below. 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 SYNCOPE With recent hx of TAVR in July 2016, need to rule out arrhythmias. -Work up- Orthostats negative, CT head - not indicated- no head injury, not on anticoagulants; EKG- RBBB/Left anterior fascicular block, Trop x 1 negative, Tele so far negative, will need holter monitor to rule out arrhythmias, Echo- Ejection Fraction = 60-65%, S/P TAVR, Mild MR, TR, AR. -Appreciate cardiology inputs ACUTE ON CHRONIC HYPOXIC RESPIRATORY FAILURE Patient has no known chronic lung disease, but imaging in past (since 2007) and CXR here shows diffuse chronic parenchymal fibrosis-ILD. Has been on oxygen 2 L since TAVR in July 2016, so likely this precipitated the symptoms. -SOB has been worsening, which likely seems to be secondary to ILD - progressively worsening. Could be UIP vs Chronic aspiration per pulmonary. -Will continue with Steroid taper, Nebs. No indication for antibiotics as no active infection -Received a dose of lasix 40 mg on 10/01/16. -Speech evaluation ordered - 1. "SLIPPERY" dental soft diet with thin liquids 2. SMALL/SINGLE Swallows WITH CHIN TUCK - NO STRAWS, NO SEQUENTIAL drinks 3. Aspiration Precautions 4. GERD precautions upright for 20 min after all intake , no intake 20 min before bed, keep head of bed elevated at 40 degrees at all times even for sleep 4. [employer] will continue to follow 1x to provide pt. with written paperwork for chin tuck and safe swallow strategies. -Discussed with Pulmonary. Appreciate inputs. HX OF S/P TAVR IN 07/2016 -Per patient, felt well after TAVR procedure in July until hospitalization for acute respiratory failure -Repeat Echo- Ejection Fraction = 60-65%, S/P TAVR, Mild MR, TR, AR. -cardio consulted for further recs CAD s/p FLORIN x 2 in 06/2016: -continue with aspirin, statin and plavix DEPRESSION -recently started on SSRI by PCP (09/21/15) due to depressed affect and irritability -has undergone a major shift in quality of life for the worse since previous hospital admission -no SI; continue home meds HTN: stable -has recently stopped home meds and has remained normotensive CKD III: stable -experienced an ZENA during last admission (Cr >2.5) but is back at baseline currently (1.7) -continue monitoring BMP NEUROGENIC BLADDER -s/p TURP procedure -patient to continue straight cathing during admission AAA: -determined on CT abd earlier this year -stable with close PCP follow-up VTE ppx: Heparin Code status: Full Dispo: Observation PCP: Dr. Do Consulted SW for dispo since pt is 86 and lives alone. Updated son by bedside Vital Signs: Date Time Temp Pulse Resp B/P (MAP) Pulse Ox O2 Delivery O2 Flow Rate FiO2 10/03/16 08:00 Nasal Cannula 4.0 10/03/16 07:20 89 18 98 Nasal Cannula 3.0 10/03/16 07:20 36.5 89 19 123/68 (86) 95 Nasal Cannula 3.0 10/03/16 04:00 Nasal Cannula 4.0 10/03/16 03:46 36.7 84 18 112/60 (77) 95 Nasal Cannula 4.0 10/03/16 01:45 80 18 97 Nasal Cannula 3.0 10/03/16 00:00 Nasal Cannula 4.0 10/02/16 23:38 36.6 80 18 100/52 (68) 94 Nasal Cannula 4.0 10/02/16 20:00 98 Nasal Cannula 4.0 10/02/16 19:00 75 18 97 Nasal Cannula 3.0 10/02/16 18:46 37.0 76 22 118/72 (87) 99 Nasal Cannula 3.0 10/02/16 16:00 99 Nasal Cannula 4.0 10/02/16 15:51 36.9 81 22 120/70 (87) 99 Nasal Cannula 3.0 10/02/16 15:36 75 14 97 Nasal Cannula 4.0 10/02/16 12:00 Nasal Cannula 4.0 Lab Results: Results Past 24 Hours Test 10/03/16 06:05 Range/Units White Blood Count 7.71 4.8-10.8 K/uL Red Blood Count 3.06 4.7-6.1 M/uL Hemoglobin 9.4 14.0-18.0 g/dL Hematocrit 28.4 42-52 % Mean Corpuscular Volume 92.8 80-100 fL Mean Corpuscular Hemoglobin 30.7 25-34 pg Mean Corpuscular Hemoglobin Concent 33.1 32-36 g/dl RDW Standard Deviation 53.5 36.4-46.3 fL RDW Coefficient of Variation 15.8 11.5-14.5 % Platelet Count 148 130-400 K/uL Mean Platelet Volume 9.6 7.4-10.4 fL Nucleated RBC Absolute Count (auto) 0.00 0-0 K/uL Nucleated Red Blood Cells % 0.0 % Sodium Level 140 136-145 mmol/L Potassium Level 4.4 3.5-5.1 mmol/L Chloride Level 107 98-107 mmol/L Carbon Dioxide Level 26 21-32 mmol/L Anion Gap 7.0 3-11 mmol/L Blood Urea Nitrogen 45 7-18 mg/dl Creatinine 1.80 0.60-1.40 mg/dl Est Creatinine Clear Calc Drug Dose 32.6 ml/min Estimated GFR () 38.4 Estimated GFR (Non- 33.1 BUN/Creatinine Ratio 25.1 10-20 Random Glucose 172 70-99 mg/dl Calcium Level 8.9 8.5-10.1 mg/dl
--- NOTE | 2016-10-03 11:51 | Cardiology Follow-Up ---
Subjective General Date of Service: Oct 03, 2016. Pt evaluation today including: conversation w/ patient, conversation w/ family , physical exam, chart review, lab review, review of studies, conversation w/ portfolio consultant, review of inpatient medication list History of Present Illness The patient is a 86 year old male seen in follow-up. No dysrhythmia recorded on telemetry. No significant bradycardia, pauses, or heart block. Patient continues to report dyspnea with minimal exertion. Swallow evaluation demonstrated aspiration. Offers no new complaints at this time. Allergies Coded Allergies: No Known Allergies (Verified , 08/13/16) Social History Smoking Status: Former Smoker Hx Tobacco Use In Past Year?: No Hx Alcohol Use - Type And Amou: Yes (beer - 1 bottle per week) Hx Substance Use - Type And Am: No Problem List Medical Problems: (1) SOB (shortness of breath) Status: Acute (2) Syncope Status: Acute (3) Weakness Status: Acute Review of Systems Respiratory: + cough, + shortness of breath, + dyspnea on exertion, No sputum, No wheezing, No dyspnea at rest, No hemoptysis Cardiac: No chest pain, No orthopnea, No PND, No edema, No claudication, No palpitations Physical Exam Vital Signs Last Vital Signs Documentation Date Time Temp Pulse Resp B/P (MAP) Pulse Ox O2 Delivery O2 Flow Rate FiO2 10/03/16 08:00 Nasal Cannula 4.0 10/03/16 07:20 89 18 98 10/03/16 07:20 36.5 123/68 (86) 10/02/16 04:00 98 Physical Exam Constitutional: Level of Distress: NAD, chronically ill Lungs: Auscultation: no wheezing, no rhonchi, dry rales/crackles Cardiovascular: Heart Auscultation: RRR, normal S1, normal S2, I/ LORI Peripheral Pulses: Radial Pulse: normal on the right Abdomen: Bowel Sounds: normal Inspection & Palpation: soft, non-distended, no tenderness, guarding & rebound Extremities: no cyanosis, no edema, no clubbing, no ulcers Neurologic: Cranial Nerves: grossly intact Assessment and Plan Assessment and Plan Final impression: 1. Complex 86-year-old male presents with syncopal episode. -No significant abnormalities on telemetry since admission -Stable resting 2-D transthoracic echo -Chronic bifasicular block 2. Recent TAVR 07/29/16 -Normal function per recent 2-D transthoracic echo -No significant murmur on physical exam 3. Chronic respiratory insufficiency secondary to pulmonary fibrosis and silent aspiration -Patient does not appear overtly volume overloaded on examination -Thickened liquids recommended -Outpatient pulmonology evaluation scheduled for October 13. 4. Chronic cough 5. 4.6 cm AAA Plan/recommendations: I had a long discussion with the patient and his family member regarding his syncopal episode. No significant abnormalities on initial cardiac testing. Recommend outpatient 14 day ZIO monitor to exclude symptomatic bradycardia dysrhythmias. I suspect his episode may be related to progressive respiratory insufficiency related to underlying pulmonary fibrosis and silent aspiration. Outpatient pulmonary medicine consultation scheduled. No further inpatient cardiac testing at this time. I will sign off. Please call with questions. Thank you for allowing me to take part in the care of your patient. Laboratory Results Last 24 Hours Test 10/03/16 06:05 White Blood Count 7.71 K/uL Red Blood Count 3.06 M/uL Hemoglobin 9.4 g/dL Hematocrit 28.4 % Mean Corpuscular Volume 92.8 fL Mean Corpuscular Hemoglobin 30.7 pg Mean Corpuscular Hemoglobin Concent 33.1 g/dl RDW Standard Deviation 53.5 fL RDW Coefficient of Variation 15.8 % Platelet Count 148 K/uL Mean Platelet Volume 9.6 fL Nucleated RBC Absolute Count (auto) 0.00 K/uL Nucleated Red Blood Cells % 0.0 % Sodium Level 140 mmol/L Potassium Level 4.4 mmol/L Chloride Level 107 mmol/L Carbon Dioxide Level 26 mmol/L Anion Gap 7.0 mmol/L Blood Urea Nitrogen 45 mg/dl Creatinine 1.80 mg/dl Est Creatinine Clear Calc Drug Dose 32.6 ml/min Estimated GFR () 38.4 Estimated GFR (Non- 33.1 BUN/Creatinine Ratio 25.1 Random Glucose 172 mg/dl Calcium Level 8.9 mg/dl
--- NOTE | 2016-10-03 13:05 | Progress Note ---
Internal Med Progress Note Date of Service: Oct 03, 2016. Provider Documentation: SUBJECTIVE: Patient has generalized weakness, SOB which has been progressively worsening since TAVR in 07/2016. No c/o dizziness, palpitations. C/o cough- dry- worse today Does have SOB. No chest pain, fever, chills. Tele- no events OBJECTIVE: Vital Signs-as noted below Exam: General-AAOX3, no distress Neck-Supple Lungs-AEBE decreased, no wheezing, rales Heart-S1, S2 normal, no murmur Extremities-No edema Lab data as noted below. 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 SYNCOPE With recent hx of TAVR in July 2016, need to rule out arrhythmias. -Work up- Orthostats negative, CT head - not indicated- no head injury, not on anticoagulants; EKG- RBBB/Left anterior fascicular block, Trop x 1 negative, Tele so far negative, will need holter monitor to rule out arrhythmias, Echo- Ejection Fraction = 60-65%, S/P TAVR, Mild MR, TR, AR. -Appreciate cardiology inputs ACUTE ON CHRONIC HYPOXIC RESPIRATORY FAILURE Patient has no known chronic lung disease, but imaging in past (since 2007) and CXR here shows diffuse chronic parenchymal fibrosis-ILD. Has been on oxygen 2 L since TAVR in July 2016, so likely this precipitated the symptoms. SaO2 dropped to 70s while ambulating, requiring 4 L oxygen here (2 L at home) -SOB has been worsening, which likely seems to be secondary to ILD - progressively worsening. Chronic aspiration contributing. -Will continue with Steroid taper, Nebs. No indication for antibiotics as no active infection -Received a dose of lasix 40 mg on 10/01/16. Will avoid more -Speech evaluation ordered - aspiration + -Discussed with Pulmonary. Appreciate inputs. HX OF S/P TAVR IN 07/2016 -Per patient, felt well after TAVR procedure in July until hospitalization for acute respiratory failure -Repeat Echo- Ejection Fraction = 60-65%, S/P TAVR, Mild MR, TR, AR. -cardio consulted for further recs CAD s/p FLORIN x 2 in 06/2016: -continue with aspirin, statin and plavix DEPRESSION -recently started on SSRI by PCP (09/21/15) due to depressed affect and irritability -has undergone a major shift in quality of life for the worse since previous hospital admission -no SI; continue home meds HTN: stable -has recently stopped home meds and has remained normotensive CKD III: stable -experienced an ZEAN during last admission (Cr >2.5) but is back at baseline currently. -continue monitoring BMP NEUROGENIC BLADDER -s/p TURP procedure -patient to continue straight cathing during admission AAA: -determined on CT abd earlier this year -stable with close PCP follow-up CHRONIC ASPIRATION Speech evaluation ordered- 1. "SLIPPERY" dental soft diet with thin liquids 2. SMALL/SINGLE Swallows WITH CHIN TUCK - NO STRAWS, NO SEQUENTIAL drinks 3. Aspiration Precautions 4. GERD precautions upright for 20 min after all intake , no intake 20 min before bed, keep head of bed elevated at 40 degrees at all times even for sleep 4. [employer]NAGER [employer] will continue to follow 1x to provide pt. with written paperwork for chin tuck and safe swallow strategies. VTE ppx: Heparin Code status: Full DISPOSITION Observation--> Changed to admission due to persistent hypoxia PCP: Dr. Do Updated son by bedside PT/OT- recommends rehab. Agreeable for rehab Possible discharge in 2-3 days Vital Signs: Date Time Temp Pulse Resp B/P (MAP) Pulse Ox O2 Delivery O2 Flow Rate FiO2 10/03/16 11:53 36.7 97 20 103/56 (72) 93 Nasal Cannula 4.0 10/03/16 08:00 Nasal Cannula 4.0 10/03/16 07:20 89 18 98 Nasal Cannula 3.0 10/03/16 07:20 36.5 89 19 123/68 (86) 95 Nasal Cannula 3.0 10/03/16 04:00 Nasal Cannula 4.0 10/03/16 03:46 36.7 84 18 112/60 (77) 95 Nasal Cannula 4.0 10/03/16 01:45 80 18 97 Nasal Cannula 3.0 10/03/16 00:00 Nasal Cannula 4.0 10/02/16 23:38 36.6 80 18 100/52 (68) 94 Nasal Cannula 4.0 10/02/16 20:00 98 Nasal Cannula 4.0 10/02/16 19:00 75 18 97 Nasal Cannula 3.0 10/02/16 18:46 37.0 76 22 118/72 (87) 99 Nasal Cannula 3.0 10/02/16 16:00 99 Nasal Cannula 4.0 10/02/16 15:51 36.9 81 22 120/70 (87) 99 Nasal Cannula 3.0 10/02/16 15:36 75 14 97 Nasal Cannula 4.0 Lab Results: Results Past 24 Hours Test 10/03/16 06:05 Range/Units White Blood Count 7.71 4.8-10.8 K/uL Red Blood Count 3.06 4.7-6.1 M/uL Hemoglobin 9.4 14.0-18.0 g/dL Hematocrit 28.4 42-52 % Mean Corpuscular Volume 92.8 80-100 fL Mean Corpuscular Hemoglobin 30.7 25-34 pg Mean Corpuscular Hemoglobin Concent 33.1 32-36 g/dl RDW Standard Deviation 53.5 36.4-46.3 fL RDW Coefficient of Variation 15.8 11.5-14.5 % Platelet Count 148 130-400 K/uL Mean Platelet Volume 9.6 7.4-10.4 fL Nucleated RBC Absolute Count (auto) 0.00 0-0 K/uL Nucleated Red Blood Cells % 0.0 % Sodium Level 140 136-145 mmol/L Potassium Level 4.4 3.5-5.1 mmol/L Chloride Level 107 98-107 mmol/L Carbon Dioxide Level 26 21-32 mmol/L Anion Gap 7.0 3-11 mmol/L Blood Urea Nitrogen 45 7-18 mg/dl Creatinine 1.80 0.60-1.40 mg/dl Est Creatinine Clear Calc Drug Dose 32.6 ml/min Estimated GFR () 38.4 Estimated GFR (Non- 33.1 BUN/Creatinine Ratio 25.1 10-20 Random Glucose 172 70-99 mg/dl Calcium Level 8.9 8.5-10.1 mg/dl
--- NOTE | 2016-10-03 13:17 | Pulmonology Progress Note ---
Pulmonary Progress Note Date of Service Oct 03, 2016. Attending Dr. Crowder Subjective Patient seen and examined this morning. Son at bedside. Patient currently undergoing physical therapy with walker and one assist. He had an episode of lightheadedness when arising from bed to go to the bathroom. States that shortness of breath is improving somewhat. I informed him that the results of the video swallow exam showed that he is aspirating on his saliva and thin liquid. This is probably has been contributing to his worsening respiratory symptoms and fibrotic lung changes over time. Objective Vital signs reviewed General Appearance: Sitting in bed, no acute distress. Head: NORMOCEPHALIC, ATRAUMATIC Eyes: PERRLA, NO DISCHARGE, EOMI, SCLERAE NORMAL ENT: NORMAL MOUTH EXAM, NORMAL THROAT EXAM, other (Mallampati 3) Neck: NORMAL RANGE OF MOTION, NO TENDERNESS, TRACHEA MIDLINE, SUPPLE Respiratory: other (good air entry bilaterally until lung bases. Velcro-like crackles heard bilaterally.) Cardiovasular: REGULAR RATE/RHYTHM, NORMAL S1S2, NORMAL PERIPHERAL PULSES Abdomen: NON TENDER, NORMAL BOWEL SOUNDS Upper Extremities: NO EDEMA (no cyanosis, no clubbing) Lower Extremities: Bilateral lower extremity edema, +2 Pulses: dorsalis pedis (R) (2+), dorsalis pedis (L) (2+) Neuro: ALERT, ORIENTED x 3 Psychiatric: NORMAL AFFECT, NO SUICIDAL IDEATION Medications, Laboratory data and imaging all reviewed. Respiratory medications include Robitussin-DM 3 times a day when necessary for cough and Solu-Medrol 40 mg every 12 hours . Creatinine has increased from 1.7-2 today. Transthoracic echo from 10/02/2016 * Ejection Fraction = 60-65%. * The patient is status post transcatheter aortic valve replacement with CoreVAlve prosthetic valve. * There is mild paravalvular aortic regurgitation. * There is mild mitral regurgitation. * There is mild tricuspid regurgitation. * The estimated systolic PAP is 44mmHg. Assessment & Plan Acute on chronic hypoxic respiratory failure Interstitial lung disease Grade 2 diastolic dysfunction Elevated pulmonary artery pressure Aspiration Echo shows that patient has grade 2 diastolic dysfunction with a mildly elevated pulmonary artery pressure. His EF is normal however. His elevated pulmonary artery pressure is most likely secondary to both cardiac and pulmonary etiologies. Both of these may be contributing to his respiratory insufficiency on top of the interstitial lung disease. Video swallow has confirmed that patient is aspirating with his saliva and liquids. I assume that this has been a chronic process over time. Please follow-up speech and swallow recommendations. Continue with corticosteroids. Taper for about 5 days. Keep O2 saturation above 92% on NC. Currently on 4L. This may be his new baseline. He will ultimately need a lung biopsy for definitive diagnosis, however chronic aspiration is now first on the differential. Please have him have a full PFT as an outpatient. Will sign of case. Please reconsult me if you have any other questions or concerns. Data Medications: Current Inpatient Medications Medications (Trade) Dose Ordered Sig/Shakira Route Start Time Stop Time Status Last Admin Dose Admin Miscellaneous (Iv Fluids Completed) 1 ea PRN PRN N/A 10/01/16 13:45 10/01/17 13:44 Heparin Sodium (Porcine) (Heparin Sq 5000 Unit/0.5ml) 5,000 unit Q8 SQ 10/01/16 22:00 10/31/16 21:59 10/03/16 05:41 5,000 UNIT Acetaminophen (Tylenol Tab) 650 mg Q4H PRN PO 10/01/16 14:00 10/31/16 13:59 Ondansetron HCl (Zofran Inj) 4 mg Q6H PRN IV 10/01/16 14:00 10/31/16 13:59 Allopurinol (Zyloprim Tab) 300 mg DAILY PO 10/02/16 09:00 11/01/16 08:59 10/03/16 07:30 300 MG Aspirin (Ecotrin Tab) 81 mg DAILY PO 10/02/16 09:00 11/01/16 08:59 10/03/16 07:30 81 MG Atorvastatin Calcium (Lipitor Tab) 40 mg DAILY PO 10/02/16 09:00 11/01/16 08:59 10/03/16 07:30 40 MG Clopidogrel Bisulfate (plAVix TAB) 75 mg DAILY PO 10/02/16 09:00 11/01/16 08:59 10/03/16 07:30 75 MG Escitalopram Oxalate (Lexapro Tab) 10 mg DAILY PO 10/02/16 09:00 11/01/16 08:59 10/03/16 07:31 10 MG Levothyroxine Sodium (Synthroid Tab) 88 mcg DAILYBB PO 10/02/16 06:00 11/01/16 05:59 10/03/16 05:40 88 MCG Nitroglycerin (Nitrostat Tab) 0.4 mg PRN UT 10/01/16 14:15 10/31/16 14:14 Guaifenesin/ Dextromethorphan (Robitussin-Dm Syrup) 5 ml TID PRN PO 10/01/16 14:45 10/31/16 14:44 Pantoprazole Sodium (Protonix Tab) 40 mg QAM PO 10/02/16 09:00 11/01/16 08:59 10/03/16 07:30 40 MG Albuterol Sulfate (Ventolin 0.083% 2.5MG/3ML Neb) 2.5 mg Q6R INH 10/02/16 15:00 11/01/16 14:59 10/03/16 07:20 2.5 MG Prednisone (PredniSONE TAB) 40 mg DAILY PO 10/04/16 09:00 11/03/16 08:59 UNV Vital Signs: Date Time Temp Pulse Resp B/P (MAP) Pulse Ox O2 Delivery O2 Flow Rate FiO2 10/03/16 11:53 36.7 97 20 103/56 (72) 93 Nasal Cannula 4.0 10/03/16 08:00 Nasal Cannula 4.0 10/03/16 07:20 89 18 98 Nasal Cannula 3.0 10/03/16 07:20 36.5 89 19 123/68 (86) 95 Nasal Cannula 3.0 10/03/16 04:00 Nasal Cannula 4.0 10/03/16 03:46 36.7 84 18 112/60 (77) 95 Nasal Cannula 4.0 10/03/16 01:45 80 18 97 Nasal Cannula 3.0 10/03/16 00:00 Nasal Cannula 4.0 10/02/16 23:38 36.6 80 18 100/52 (68) 94 Nasal Cannula 4.0 10/02/16 20:00 98 Nasal Cannula 4.0 10/02/16 19:00 75 18 97 Nasal Cannula 3.0 10/02/16 18:46 37.0 76 22 118/72 (87) 99 Nasal Cannula 3.0 10/02/16 16:00 99 Nasal Cannula 4.0 10/02/16 15:51 36.9 81 22 120/70 (87) 99 Nasal Cannula 3.0 10/02/16 15:36 75 14 97 Nasal Cannula 4.0 Laboratory Results: Last 24 Hours Test 10/03/16 06:05 White Blood Count 7.71 K/uL Red Blood Count 3.06 M/uL Hemoglobin 9.4 g/dL Hematocrit 28.4 % Mean Corpuscular Volume 92.8 fL Mean Corpuscular Hemoglobin 30.7 pg Mean Corpuscular Hemoglobin Concent 33.1 g/dl RDW Standard Deviation 53.5 fL RDW Coefficient of Variation 15.8 % Platelet Count 148 K/uL Mean Platelet Volume 9.6 fL Nucleated RBC Absolute Count (auto) 0.00 K/uL Nucleated Red Blood Cells % 0.0 % Sodium Level 140 mmol/L Potassium Level 4.4 mmol/L Chloride Level 107 mmol/L Carbon Dioxide Level 26 mmol/L Anion Gap 7.0 mmol/L Blood Urea Nitrogen 45 mg/dl Creatinine 1.80 mg/dl Est Creatinine Clear Calc Drug Dose 32.6 ml/min Estimated GFR () 38.4 Estimated GFR (Non- 33.1 BUN/Creatinine Ratio 25.1 Random Glucose 172 mg/dl Calcium Level 8.9 mg/dl
[2016-10-04] VITALS (11 sets, daily range): BP systolic 91–129; BP diastolic 37–62; PULSE 64–89; TEMP 36.4–36.8; O2SAT 92–99
[2016-10-04] MEDS: ALBUTEROL 0.083% NEBU SOLN 3 ML VIAL INH SCH ×3 (03:20→19:10)
[2016-10-04] MEDS: LEVOTHYROXINE 88 MCG TAB PO SCH (06:24)
[2016-10-04] MEDS: HEPARIN SOD 5000 UNIT/0.5 ML CARP SQ SCH ×3 (06:25→21:19)
[2016-10-04 07:15] LABS: HEMATOCRIT 29.2 % (42-52); MEAN CELL VOLUME 95.1 fL (80-100); MEAN CORPUSCULAR HEMOGLOBIN 30.9 pg (25-34); MEAN CORPUSCULAR HGB CONC 32.5 g/dl (32-36); PLATELET COUNT 148 K/uL (130-400); RED BLOOD COUNT 3.07 M/uL (4.7-6.1); WHITE BLOOD COUNT 7.18 K/uL (4.8-10.8)
[2016-10-04] MEDS: ATORVASTATIN 40 MG TAB PO SCH (07:23)
[2016-10-04] MEDS: CLOPIDOGREL BISULFATE 75 MG TAB PO SCH (07:23)
[2016-10-04] MEDS: ALLOPURINOL 300 MG TAB PO SCH (07:23)
[2016-10-04] MEDS: ASPIRIN 81 MG ECTAB PO SCH (07:23)
[2016-10-04] MEDS: PANTOprazole SOD 40 MG TAB PO SCH (07:23)
[2016-10-04] MEDS: ESCITALOPRAM OXALATE 10 MG TAB PO SCH (07:24)
[2016-10-04 07:50] LABS: BUN/CREATININE RATIO 22.2 (10-20); CALCIUM 8.5 mg/dl (8.5-10.1); CREATININE 1.9 mg/dl (0.60-1.40); POTASSIUM 4.8 mmol/L (3.5-5.1)
--- NOTE | 2016-10-04 10:04 | Cardiology Follow-Up ---
Subjective General Date of Service: Oct 04, 2016. Pt evaluation today including: conversation w/ patient, physical exam, chart review, lab review, review of studies, review of inpatient medication list History of Present Illness The patient is a 86 year old male seen in follow-up. No changes overnight. No sustained dysrhythmias on telemetry. Dyspnea on exertion unchanged. Patient offers no new complaints at this time. Awaiting placement. Allergies Coded Allergies: No Known Allergies (Verified , 08/13/16) Social History Smoking Status: Former Smoker Hx Tobacco Use In Past Year?: No Hx Alcohol Use - Type And Amou: Yes (beer - 1 bottle per week) Hx Substance Use - Type And Am: No Problem List Medical Problems: (1) SOB (shortness of breath) Status: Acute (2) Syncope Status: Acute (3) Weakness Status: Acute Review of Systems Respiratory: + cough, + shortness of breath, + dyspnea on exertion, No sputum, No wheezing, No dyspnea at rest, No hemoptysis Cardiac: No chest pain, No orthopnea, No PND, No edema, No claudication, No palpitations Physical Exam Vital Signs Last Vital Signs Documentation Date Time Temp Pulse Resp B/P (MAP) Pulse Ox O2 Delivery O2 Flow Rate FiO2 10/04/16 07:39 36.4 89 19 119/56 (77) 92 Nasal Cannula 2.0 10/02/16 04:00 98 Physical Exam Constitutional: Level of Distress: NAD, chronically ill Lungs: Auscultation: no wheezing, no rhonchi, dry rales/crackles Cardiovascular: Heart Auscultation: RRR, normal S1, normal S2, I/ LORI Peripheral Pulses: Radial Pulse: normal on the right Abdomen: Bowel Sounds: normal Inspection & Palpation: soft, non-distended, no tenderness, guarding & rebound Extremities: no cyanosis, no edema, no clubbing, no ulcers Neurologic: Cranial Nerves: grossly intact Assessment and Plan Assessment and Plan Final impression: 1. Complex 86-year-old male presents with syncopal episode. -No significant abnormalities on telemetry since admission -Stable resting 2-D transthoracic echo -Chronic bifasicular block 2. Recent TAVR 07/29/16 -Mild regurgitation without stenosis on repeat echocardiogram -No significant murmur on physical exam 3. Chronic respiratory insufficiency secondary to pulmonary fibrosis and silent aspiration -Patient does not appear overtly volume overloaded on examination -Thickened liquids recommended -Outpatient pulmonology evaluation scheduled for October 13. 4. Chronic cough 5. 4.6 cm AAA Plan/recommendations: Outpatient 14 day ZIO monitor to exclude symptomatic bradycardia dysrhythmias. I suspect his episode may be related to progressive respiratory insufficiency related to underlying pulmonary fibrosis and silent aspiration. Outpatient pulmonary medicine consultation scheduled. No further inpatient cardiac testing at this time. I will sign off. Please call with questions. Thank you for allowing me to take part in the care of your patient. Laboratory Results Last 24 Hours Test 10/04/16 06:48 White Blood Count 7.18 K/uL Red Blood Count 3.07 M/uL Hemoglobin 9.5 g/dL Hematocrit 29.2 % Mean Corpuscular Volume 95.1 fL Mean Corpuscular Hemoglobin 30.9 pg Mean Corpuscular Hemoglobin Concent 32.5 g/dl RDW Standard Deviation 55.5 fL RDW Coefficient of Variation 16.1 % Platelet Count 148 K/uL Mean Platelet Volume 10.0 fL Sodium Level 145 mmol/L Potassium Level 4.8 mmol/L Chloride Level 113 mmol/L Carbon Dioxide Level 28 mmol/L Anion Gap 4.0 mmol/L Blood Urea Nitrogen 42 mg/dl Creatinine 1.90 mg/dl Est Creatinine Clear Calc Drug Dose 28.3 ml/min Estimated GFR () 35.9 Estimated GFR (Non- 31.0 BUN/Creatinine Ratio 22.2 Random Glucose 110 mg/dl Calcium Level 8.5 mg/dl
--- NOTE | 2016-10-04 12:59 | Progress Note ---
Internal Med Progress Note Date of Service: Oct 04, 2016. Provider Documentation: SUBJECTIVE: Patient has generalized weakness, SOB which has been progressively worsening since TAVR in 07/2016. No c/o dizziness, palpitations. C/o cough- dry- worse. Does have SOB which likely is his new baseline No chest pain, fever, chills. Tele- no events On 4 L oxygen OBJECTIVE: Vital Signs-as noted below Exam: General-AAOX3, no distress Neck-Supple Lungs-AEBE decreased, no wheezing, rales Heart-S1, S2 normal, no murmur Extremities-No edema Lab data as noted below. 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 SYNCOPE Probably related to worsening hypoxia/respiratory insufficiency With recent hx of TAVR in July 2016, need to rule out arrhythmias. Tele - no events. -Work up- Orthostats negative, CT head - not indicated- no head injury, not on anticoagulants; EKG- RBBB/Left anterior fascicular block, Trop x 1 negative, Tele so far negative, will need monitor (ZIO X 14 days) to rule out kirstie arrhythmias, Echo- Ejection Fraction = 60-65%, S/P TAVR, Mild MR, TR, AR. -Appreciate cardiology inputs ACUTE ON CHRONIC HYPOXIC RESPIRATORY FAILURE - Patient has no known chronic lung disease, but imaging in past (since 2007) and CXR here shows diffuse chronic parenchymal fibrosis - ILD. Has been on oxygen 2 L since TAVR in July 2016, so likely this precipitated the symptoms. SaO2 dropped to 70s while ambulating, requiring 4 L oxygen here which likely is his new baseline -SOB has been worsening, which likely seems to be secondary to ILD - progressively worsening and chronic aspiration contributing. -Will continue with Steroid taper q 5 days. No indication for antibiotics as no active infection. But if cough continues to worsen, develops sputum , low threshold for treating aspiration pneumonia due to chronic aspiration. -Received a dose of lasix 40 mg on 10/01/16. Will avoid more doses as no signs of fluid overload. -Speech evaluation ordered - aspiration + recommendations as below. -Discussed with Pulmonary. Appreciate inputs. Cleared for discharge. HX OF S/P TAVR IN 07/2016 -Per patient, felt well after TAVR procedure in July until hospitalization for acute respiratory failure -Repeat Echo- Ejection Fraction = 60-65%, S/P TAVR, Mild MR, TR, AR. -Cardiology on board. CAD s/p FLORIN x 2 in 06/2016: -continue with aspirin, statin and plavix DEPRESSION -recently started on SSRI by PCP (09/21/15) due to depressed affect and irritability -has undergone a major shift in quality of life for the worse since previous hospital admission -no SI; continue home meds HTN: stable -has recently stopped home meds and has remained normotensive CKD III: stable -experienced an ZENA during last admission (Cr >2.5) but is back at baseline currently. -continue monitoring BMP NEUROGENIC BLADDER -s/p TURP procedure -patient to continue straight cathing during admission AAA: -determined on CT abd earlier this year -stable with close PCP follow-up CHRONIC ASPIRATION Contributing to symptoms/respiratory insufficiency as above. Speech evaluation ordered- 1. "SLIPPERY" dental soft diet with thin liquids 2. SMALL/SINGLE Swallows WITH CHIN TUCK - NO STRAWS, NO SEQUENTIAL drinks 3. Aspiration Precautions 4. GERD precautions upright for 20 min after all intake , no intake 20 min before bed, keep head of bed elevated at 40 degrees at all times even for sleep 4. FISHER EEL SPEAR will continue to follow 1x to provide pt. with written paperwork for chin tuck and safe swallow strategies. VTE ppx: Heparin Code status: Full DISPOSITION Observation--> Changed to admission due to persistent hypoxia PCP: Dr. Do PT/OT- recommends rehab. Agreeable for rehab OK to discharge from medical point of view, awaiting placement and 2 step prior to discharge to evaluate oxygen needs. Vital Signs: Date Time Temp Pulse Resp B/P (MAP) Pulse Ox O2 Delivery O2 Flow Rate FiO2 10/04/16 11:33 36.5 81 20 127/48 (74) 97 Nasal Cannula 4.0 10/04/16 07:39 36.4 89 19 119/56 (77) 92 Nasal Cannula 2.0 10/04/16 07:27 69 18 96 Nasal Cannula 2.0 10/04/16 04:00 Nasal Cannula 2.0 10/04/16 03:35 36.6 83 19 91/37 (55) 94 Nasal Cannula 2.0 10/04/16 02:15 75 18 94 Nasal Cannula 2.0 10/04/16 00:00 Nasal Cannula 4.0 10/03/16 23:15 36.6 89 20 140/72 (94) 93 Nasal Cannula 2.0 10/03/16 20:00 Nasal Cannula 4.0 10/03/16 19:35 75 18 98 Nasal Cannula 3.0 10/03/16 18:50 36.7 83 22 123/84 (97) 96 Nasal Cannula 3.5 10/03/16 16:00 Nasal Cannula 4.0 10/03/16 15:06 36.5 81 24 109/52 (71) 98 Nasal Cannula 3.5 10/03/16 13:54 79 18 98 Nasal Cannula 3.0 Lab Results: Results Past 24 Hours Test 10/04/16 06:48 Range/Units White Blood Count 7.18 4.8-10.8 K/uL Red Blood Count 3.07 4.7-6.1 M/uL Hemoglobin 9.5 14.0-18.0 g/dL Hematocrit 29.2 42-52 % Mean Corpuscular Volume 95.1 80-100 fL Mean Corpuscular Hemoglobin 30.9 25-34 pg Mean Corpuscular Hemoglobin Concent 32.5 32-36 g/dl RDW Standard Deviation 55.5 36.4-46.3 fL RDW Coefficient of Variation 16.1 11.5-14.5 % Platelet Count 148 130-400 K/uL Mean Platelet Volume 10.0 7.4-10.4 fL Sodium Level 145 136-145 mmol/L Potassium Level 4.8 3.5-5.1 mmol/L Chloride Level 113 98-107 mmol/L Carbon Dioxide Level 28 21-32 mmol/L Anion Gap 4.0 3-11 mmol/L Blood Urea Nitrogen 42 7-18 mg/dl Creatinine 1.90 0.60-1.40 mg/dl Est Creatinine Clear Calc Drug Dose 28.3 ml/min Estimated GFR () 35.9 Estimated GFR (Non- 31.0 BUN/Creatinine Ratio 22.2 10-20 Random Glucose 110 70-99 mg/dl Calcium Level 8.5 8.5-10.1 mg/dl
[2016-10-05] VITALS (10 sets, daily range): BP systolic 99–134; BP diastolic 47–77; PULSE 62–90; TEMP 36.6–36.9; O2SAT 91–98
[2016-10-05] MEDS: ALBUTEROL 0.083% NEBU SOLN 3 ML VIAL INH SCH ×4 (02:17→21:00)
[2016-10-05] MEDS: LEVOTHYROXINE 88 MCG TAB PO SCH (05:52)
[2016-10-05] MEDS: HEPARIN SOD 5000 UNIT/0.5 ML CARP SQ SCH ×3 (05:53→20:45)
[2016-10-05] MEDS: ASPIRIN 81 MG ECTAB PO SCH (07:37)
[2016-10-05] MEDS: ALLOPURINOL 300 MG TAB PO SCH (07:37)
[2016-10-05] MEDS: ESCITALOPRAM OXALATE 10 MG TAB PO SCH (07:37)
[2016-10-05] MEDS: ATORVASTATIN 40 MG TAB PO SCH (07:37)
[2016-10-05] MEDS: CLOPIDOGREL BISULFATE 75 MG TAB PO SCH (07:37)
[2016-10-05] MEDS: PANTOprazole SOD 40 MG TAB PO SCH (07:40)
--- NOTE | 2016-10-05 08:56 | Progress Note ---
Internal Med Progress Note Date of Service: Oct 05, 2016. Provider Documentation: SUBJECTIVE: Patient has generalized weakness, SOB which has been progressively worsening since TAVR in 07/2016. No c/o dizziness, palpitations. C/o cough - dry. Does have SOB which likely is his new baseline. No chest pain, fever, chills. Tele- no events. On 2 L oxygen OBJECTIVE: Vital Signs-as noted below Exam: General-AAOX3, no distress Neck-Supple Lungs-AEBE decreased, no wheezing, few rales Heart-S1, S2 normal, no murmur Extremities-No edema Lab data as noted below. 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 SYNCOPE Probably related to worsening hypoxia/respiratory insufficiency With recent hx of TAVR in July 2016, need to rule out arrhythmias. Tele - no events. -Work up- Orthostats negative, CT head - not indicated- no head injury, not on anticoagulants; EKG- RBBB/Left anterior fascicular block, Trop x 1 negative, Tele so far negative, will need monitor (ZIO X 14 days) to rule out kirstie arrhythmias, Echo- Ejection Fraction = 60-65%, S/P TAVR, Mild MR, TR, AR. -Appreciate cardiology inputs ACUTE ON CHRONIC HYPOXIC RESPIRATORY FAILURE - Patient has no known chronic lung disease, but imaging in past (since 2007) and CXR here shows diffuse chronic parenchymal fibrosis - ILD. Has been on oxygen 2 L since TAVR in July 2016, so likely this precipitated the symptoms. Requiring 2 L oxygen at rest and 6 L on activity -SOB has been worsening, which likely seems to be secondary to ILD - progressively worsening and chronic aspiration contributing. -Will continue with Steroid taper q 5 days. No indication for antibiotics as no active infection. But if cough continues to worsen, develops sputum , low threshold for treating aspiration pneumonia due to chronic aspiration. -Received a dose of lasix 40 mg on 10/01/16. Will avoid more doses as no signs of fluid overload. -Speech evaluation ordered - aspiration + recommendations as below. -Discussed with Pulmonary. Appreciate inputs. Cleared for discharge. HX OF S/P TAVR IN 07/2016 -Per patient, felt well after TAVR procedure in July until hospitalization for acute respiratory failure -Repeat Echo- Ejection Fraction = 60-65%, S/P TAVR, Mild MR, TR, AR. -Cardiology on board. CAD s/p FLORIN x 2 in 06/2016: -Continue with aspirin, statin and plavix DEPRESSION -Recently started on SSRI by PCP (09/21/15) due to depressed affect and irritability -Has undergone a major shift in quality of life for the worse since previous hospital admission -No SI; continue home meds HTN: -stable -has recently stopped home meds and has remained normotensive CKD III: stable -Experienced an ZENA during last admission (Cr >2.5) but is back at baseline currently. -Continue monitoring BMP NEUROGENIC BLADDER -S/P TURP procedure -patient to continue straight cathing during admission AAA: -determined on CT abd earlier this year -stable with close PCP follow-up CHRONIC ASPIRATION Contributing to symptoms/respiratory insufficiency as above. Speech evaluation ordered- 1. "SLIPPERY" dental soft diet with thin liquids 2. SMALL/SINGLE Swallows WITH CHIN TUCK - NO STRAWS, NO SEQUENTIAL drinks 3. Aspiration Precautions 4. GERD precautions upright for 20 min after all intake , no intake 20 min before bed, keep head of bed elevated at 40 degrees at all times even for sleep 4. AIRCRAFT MAINTENANCE ENGINEER will continue to follow 1x to provide pt. with written paperwork for chin tuck and safe swallow strategies. VTE ppx: Heparin Code status: Full DISPOSITION Observation--> Changed to admission due to persistent hypoxia PCP: Dr. Do PT/OT- recommends rehab. Agreeable for rehab OK to discharge from medical point of view, awaiting placement. Vital Signs: Date Time Temp Pulse Resp B/P (MAP) Pulse Ox O2 Delivery O2 Flow Rate FiO2 10/05/16 07:32 36.8 66 18 131/63 (85) 97 10/05/16 06:59 76 16 93 Nasal Cannula 2.0 10/05/16 03:42 Nasal Cannula 10/05/16 03:10 36.6 84 22 116/77 (90) 95 Nasal Cannula 2.0 10/05/16 02:17 74 16 98 Nasal Cannula 2.0 10/04/16 23:49 36.4 71 21 124/62 (82) 95 Room Air 7/21/17 23:10 Nasal Cannula 10/04/16 20:04 36.8 74 18 129/61 (83) 96 10/04/16 20:00 97 Nasal Cannula 2.5 98 10/04/16 19:10 72 18 97 Nasal Cannula 2.5 10/04/16 16:00 96 Nasal Cannula 3.0 10/04/16 15:03 36.7 87 23 122/54 (76) 97 Nasal Cannula 3.0 10/04/16 12:00 Nasal Cannula 2.0 10/04/16 11:33 36.5 81 20 127/48 (74) 97 Nasal Cannula 4.0
[2016-10-05] MEDS: ALBUTEROL HFA 8 GM INHALER INH SCH ×2 (21:36→23:24)
[2016-10-06 04:00] VITALS: BP 127/41; PULSE 65; TEMP 36.5; O2SAT 94
[2016-10-06] MEDS: ALBUTEROL HFA 8 GM INHALER INH SCH ×2 (05:47→14:02)
[2016-10-06] MEDS: LEVOTHYROXINE 88 MCG TAB PO SCH (05:49)
[2016-10-06] MEDS: HEPARIN SOD 5000 UNIT/0.5 ML CARP SQ SCH ×2 (05:53→14:05)
[2016-10-06 07:29] VITALS: BP 144/64; PULSE 62; TEMP 36.5; O2SAT 96
[2016-10-06] MEDS: PANTOprazole SOD 40 MG TAB PO SCH (07:58)
[2016-10-06] MEDS: ASPIRIN 81 MG ECTAB PO SCH (07:59)
[2016-10-06] MEDS: ATORVASTATIN 40 MG TAB PO SCH (07:59)
[2016-10-06] MEDS: ESCITALOPRAM OXALATE 10 MG TAB PO SCH (07:59)
[2016-10-06] MEDS: CLOPIDOGREL BISULFATE 75 MG TAB PO SCH (07:59)
[2016-10-06] MEDS: ALLOPURINOL 300 MG TAB PO SCH (07:59)
--- NOTE | 2016-10-06 09:55 | Progress Note ---
Internal Med Progress Note Date of Service: Oct 06, 2016. Provider Documentation: SUBJECTIVE: Patient has generalized weakness, SOB which has been progressively worsening since TAVR in 07/2016. No c/o dizziness, palpitations. C/o cough - dry. Does have SOB which likely is his new baseline. No chest pain, fever, chills. Tele- no events. On 2 L oxygen on rest OBJECTIVE: Vital Signs-as noted below Exam: General-AAOX3, no distress Neck-Supple Lungs-AEBE decreased, no wheezing, few rales Heart-S1, S2 normal, no murmur Extremities-No edema Lab data as noted below. 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 SYNCOPE Probably related to worsening hypoxia/respiratory insufficiency With recent hx of TAVR in July 2016, need to rule out arrhythmias. Tele - no events. -Work up- Orthostats negative, CT head - not indicated- no head injury, not on anticoagulants; EKG- RBBB/Left anterior fascicular block, Trop x 1 negative, Tele so far negative, will need monitor (ZIO X 14 days) to rule out kirstie arrhythmias, Echo- Ejection Fraction = 60-65%, S/P TAVR, Mild MR, TR, AR. -Appreciate cardiology inputs ACUTE ON CHRONIC HYPOXIC RESPIRATORY FAILURE - Patient has no known chronic lung disease, but imaging in past (since 2007) and CXR here shows diffuse chronic parenchymal fibrosis - ILD. Has been on oxygen 2 L since TAVR in July 2016, so likely this precipitated the symptoms. Requiring 2 L oxygen at rest and 6 L on activity -SOB has been worsening, which likely seems to be secondary to ILD - progressively worsening and chronic aspiration contributing. -Will continue with Steroid taper q 5 days. No indication for antibiotics as no active infection. But if cough continues to worsen, develops sputum , low threshold for treating aspiration pneumonia due to chronic aspiration. -Received a dose of lasix 40 mg on 10/01/16. Will avoid more doses as no signs of fluid overload. -Speech evaluation ordered - aspiration + recommendations as below. -Discussed with Pulmonary. Appreciate inputs. Cleared for discharge. HX OF S/P TAVR IN 07/2016 -Per patient, felt well after TAVR procedure in July until hospitalization for acute respiratory failure -Repeat Echo- Ejection Fraction = 60-65%, S/P TAVR, Mild MR, TR, AR. -Cardiology on board. CAD s/p FLORIN x 2 in 06/2016: -Continue with aspirin, statin and plavix DEPRESSION -Recently started on SSRI by PCP (09/21/15) due to depressed affect and irritability -Has undergone a major shift in quality of life for the worse since previous hospital admission -No SI; continue home meds HTN: -stable -has recently stopped home meds and has remained normotensive CKD III: stable -Experienced ZENA during last admission (Cr >2.5) but is back at baseline currently. -Continue monitoring BMP NEUROGENIC BLADDER -S/P TURP procedure -patient to continue straight cathing during admission AAA: -determined on CT abd earlier this year -stable with close PCP follow-up CHRONIC ASPIRATION Contributing to symptoms/respiratory insufficiency as above. Speech evaluation ordered- 1. "SLIPPERY" dental soft diet with thin liquids 2. SMALL/SINGLE Swallows WITH CHIN TUCK - NO STRAWS, NO SEQUENTIAL drinks 3. Aspiration Precautions 4. GERD precautions upright for 20 min after all intake , no intake 20 min before bed, keep head of bed elevated at 40 degrees at all times even for sleep 4. HUMAN RESOURCES SUPPORT SPECIALIST will continue to follow 1x to provide pt. with written paperwork for chin tuck and safe swallow strategies. VTE ppx: Heparin Code status: Full DISPOSITION Observation--> Changed to admission due to persistent hypoxia PCP: Dr. Do PT/OT- recommends rehab. Agreeable for rehab OK to discharge from medical point of view, awaiting placement. Vital Signs: Date Time Temp Pulse Resp B/P (MAP) Pulse Ox O2 Delivery O2 Flow Rate FiO2 10/06/16 08:00 Nasal Cannula 2.0 10/06/16 07:29 36.5 62 19 144/64 (90) 96 Nasal Cannula 2.0 10/06/16 04:00 Nasal Cannula 2.0 10/06/16 04:00 36.5 65 20 127/41 (69) 94 Nasal Cannula 2.0 10/05/16 23:59 Nasal Cannula 2.0 10/05/16 23:59 36.9 62 18 99/47 (64) 92 Nasal Cannula 2.0 10/05/16 21:37 71 16 96 Nasal Cannula 2.0 10/05/16 20:00 Nasal Cannula 2.0 10/05/16 19:47 36.6 90 22 115/55 (75) 91 Room Air 10/05/16 16:00 Nasal Cannula 2.0 10/05/16 15:59 36.8 71 20 134/66 (88) 97 Nasal Cannula 2.0 10/05/16 14:13 68 16 97 Nasal Cannula 2.0 10/05/16 12:00 Nasal Cannula 2.0 10/05/16 11:44 36.6 70 18 129/66 (87) 95
[2016-10-06 11:50] VITALS: BP 132/69; PULSE 70; TEMP 36.4; O2SAT 97
[2016-10-06] MEDS ORDERED: PRD20 PO (12:31)
[2016-10-06] MEDS ORDERED: DEXTSYP27 PO (12:31)
--- NOTE | 2016-10-06 12:33 | Discharge Instructions ---
Discharge Instructions Date of Service Oct 06, 2016. Admission Reason for Admission: Syncope Discharge Discharge Diagnosis / Problem: 1. Syncope 2. Acute on chronc hypoxic resp failure 3. ILD Discharge Goals Goal(s): Decrease discomfort, Improve function, Prevent Disease Progression Activity Recommendations Activity Limitations: per Instructions/Follow-up section (as tolerated; PT/OT recommended) . Instructions / Follow-Up Instructions / Follow-Up MEDICATION CHANGES; 1. Prednisone 30 mg daily x 5 days followed by 20 mg daily x 5 days f/b 10 mg daily x 5 days and than discontinue OXYGEN 2 L at rest and 6 L on activity. Monitor SaO2 at rest and on activity to maintain saturation > 92 % DIET Chronic aspiration- instructions as follows 1. "SLIPPERY" dental soft diet with thin liquids 2. SMALL/SINGLE Swallows WITH CHIN TUCK - NO STRAWS, NO SEQUENTIAL drinks 3. Aspiration Precautions 4. GERD precautions upright for 20 min after all intake, no intake 20 min before bed, keep head of bed elevated at 40 degrees at all times even for sleep 5. MARKETING OFFICER will continue to follow 1x to provide pt. with written paperwork for chin tuck and safe swallow strategies. MONITOR Zio monitor x 14 days recommended as admitted with syncope. Cardiology will make arrangements for it. FOLLOW UP 1. Follow up with PCP in 1 week Current Hospital Diet Patient's current hospital diet: AHA Diet (Heart Healthy) Discharge Diet Recommended Diet: AHA Diet (Heart Healthy) Pending Studies Studies pending at discharge: no Medical Emergencies . Who to Call and When: Medical Emergencies: If at any time you feel your situation is an emergency, please call 911 immediately. . Non-Emergent Contact Non-Emergency issues call your: Primary Care Provider . . "Provider Documentation" section prepared by Yessi Ortiz. . VTE Core Measure Inpt VTE Proph given/why not?: Unfractionated heparin SQ
--- NOTE | 2016-10-06 12:36 | Discharge Summary ---
Discharge Summary Date of Service Oct 06, 2016. Discharge Summary Admission Date: Oct 02, 2016 at 13:16 Discharge Date: Oct 06, 2016 Discharge Disposition: Rehab ([facility]) Principal Diagnosis: 1. Syncope 2. Acute on chronic hypoxic respiratory failure, multifactorial 3. Pulmonary fibrosis/Interstitial Lung disease, progressively worsening 4. S/P TAVR 5. Chronic aspiration Secondary Diagnoses/Problems: 1. CAD WITH PCI 2. HTN 3. Depression 4. AAA 5. CKD III 6. Neurogenic bladder 7. Physical deconditioning Procedures: Tele monitoring CXR Barium swallow Steroids pt/ot Consultations: Cardiology Pulmonary Pending Studies/Follow-Up: Instructions / Follow-Up Instructions / Follow-Up MEDICATION CHANGES; 1. Prednisone 30 mg daily x 5 days followed by 20 mg daily x 5 days f/b 10 mg daily x 5 days and than discontinue OXYGEN 2 L at rest and 6 L on activity. Monitor SaO2 at rest and on activity to maintain saturation > 92 % FOLLOW UP 1. Follow up with PCP in 1 week Medication Reconciliation New Medications: Prednisone (Prednisone) 20 Mg Tab 40 MG PO UD for 30 Days, TAB Take 30 mg x 5 days f/b 20 mg daily x 5 days f/b 10 mg daily x 5 days and than discontinue Changed Medications: Dextromethorphan-Guaifenesin (Guaifenesin Dm) 1 Syp Syp 5 ML PO TID PRN for Cough for 10 Days (Medication details modified) Continued Medications: Allopurinol (Allopurinol) 300 Mg Tab 300 MG PO DAILY Aspirin Enteric Coated (Ecotrin Or Generic) 81 Mg Tab 81 MG PO DAILY, TAB Atorvastatin (Lipitor) 40 Mg Tab 40 MG PO DAILY, TAB Clopidogrel (Plavix) 75 Mg Tab 75 MG PO DAILY, TAB Escitalopram Oxalate (Lexapro) 10 Mg Tab 10 MG PO DAILY, TAB Levothyroxine Sodium (Levothyroxine Sodium) 88 Mcg Tab 88 MCG PO DAILY Nitroglycerin (Nitrostat) 0.4 Mg Tab 0.4 MG UT PRN, BTL Omeprazole (Prilosec) 20 Mg Capcr 20 MG PO DAILY, CAP Admission Information HPI (per Admitting provider): This is an 86 yo M with PMH of 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 Patient reports a week of worsening "dizziness" upon waking in the morning that generally improves within an hour, associated with general feelings of malaise and a dry cough. This morning, around 11am, patient was still feeling lightheaded while ambulating to the car (by walker) when he experienced a syncopal episode. Patient fell into the car seat and did not sustain a head injury. Per family, pt was unconscious for "a few minutes" and then began to mumble incoherently. Denies any previous syncopal episodes and does not recall a prodrome of any kind. Pt admits that while he used to ambulate by walker frequently, he has mainly used a wheelchair since discharge from a 3 week hospital stay in late July/early August of this year that required transfer to [place] for acute hypoxemic respiratory failure. Endorses chills, fatigue, a mild headache and increased feelings of depression at time of admission but denies any cognitive deficits, recent trama, night sweats, seizures, visual changes, sore throat, dyspnea, productive cough, CP, arrhythmias, nausea, vomiting, MSK pain or weakness. Physical Exam (per Admitting): General Appearance: + mild distress (exhibited conversational dyspnea. Chroninically ill appearing.) Head: normocephalic, atraumatic Eyes: normal inspection ENT: normal ENT inspection Neck: supple, no adenopathy, no JVD Respiratory/Chest: chest non-tender, no accessory muscle use, + crackles ( faint bibasilar crackles heard bilaterally. No wheezing.) Cardiovascular: regular rate, rhythm, + systolic murmur (Faint systolic ejection murmur auscultated over LUSB) Abdomen/GI: normal bowel sounds, non tender, soft Genitourinary - Male: + pertinent finding (Patient reports using straight cath PRN) Back: normal inspection Extremities/Musculoskelatal: normal inspection, non-tender, + swelling ( Faint pedal edema noted bilaterally.) Neurologic/Psych: rectangular tank cooper II-XII nml as tested, no motor/sensory deficits, alert , oriented x 3, + depressed affect Skin: normal color, warm/dry, no rash Hospital Course This is an 86 yo M with PMH of 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 SYNCOPE Probably related to worsening hypoxia/respiratory insufficiency With recent hx of TAVR in July 2016, need to rule out arrhythmias. Tele - no events. -Work up- Orthostats negative, CT head - not indicated- no head injury, not on anticoagulants; EKG- RBBB/Left anterior fascicular block, Trop x 1 negative, Tele so far negative, will need monitor (ZIO X 14 days) to rule out kirstie arrhythmias, Echo- Ejection Fraction = 60-65%, S/P TAVR, Mild MR, TR, AR. -Appreciate cardiology inputs ACUTE ON CHRONIC HYPOXIC RESPIRATORY FAILURE - Patient has no known chronic lung disease, but imaging in past (since 2007) and CXR here shows diffuse chronic parenchymal fibrosis - ILD. Has been on oxygen 2 L since TAVR in July 2016, so likely this precipitated the symptoms. Requiring 2 L oxygen at rest and 6 L on activity -SOB has been worsening, which likely seems to be secondary to ILD - progressively worsening and chronic aspiration contributing. -Will continue with Steroid taper q 5 days. No indication for antibiotics as no active infection. But if cough continues to worsen, develops sputum , low threshold for treating aspiration pneumonia due to chronic aspiration. -Received a dose of lasix 40 mg on 10/01/16. Will avoid more doses as no signs of fluid overload. -Speech evaluation ordered - aspiration + recommendations as below. -Discussed with Pulmonary. Appreciate inputs. Cleared for discharge. HX OF S/P TAVR IN 07/2016 -Per patient, felt well after TAVR procedure in July until hospitalization for acute respiratory failure -Repeat Echo- Ejection Fraction = 60-65%, S/P TAVR, Mild MR, TR, AR. -Cardiology on board. CAD s/p FLORIN x 2 in 06/2016: -Continue with aspirin, statin and plavix DEPRESSION -Recently started on SSRI by PCP (09/21/15) due to depressed affect and irritability -Has undergone a major shift in quality of life for the worse since previous hospital admission -No SI; continue home meds HTN: -stable -has recently stopped home meds and has remained normotensive CKD III: stable -Experienced ZENA during last admission (Cr >2.5) but is back at baseline currently. -Continue monitoring BMP NEUROGENIC BLADDER -S/P TURP procedure -patient to continue straight cathing during admission AAA: -determined on CT abd earlier this year -stable with close PCP follow-up CHRONIC ASPIRATION Contributing to symptoms/respiratory insufficiency as above. Speech evaluation ordered- 1. "SLIPPERY" dental soft diet with thin liquids 2. SMALL/SINGLE Swallows WITH CHIN TUCK - NO STRAWS, NO SEQUENTIAL drinks 3. Aspiration Precautions 4. GERD precautions upright for 20 min after all intake , no intake 20 min before bed, keep head of bed elevated at 40 degrees at all times even for sleep 4. REHAB AID will continue to follow 1x to provide pt. with written paperwork for chin tuck and safe swallow strategies. VTE ppx: Heparin Code status: Full DISPOSITION Observation--> Changed to admission due to persistent hypoxia PCP: Dr. Do PT/OT- recommends rehab. Agreeable for rehab [place] to discharge to [facility] Total time spent on discharge = 35 minutes This includes examination of the patient, discharge planning, medication reconciliation, and communication with other providers. Discharge Instructions Discharge Goals Goal(s): Decrease discomfort, Improve function, Prevent Disease Progression Activity Recommendations Activity Limitations: per Instructions/Follow-up section (as tolerated; PT/OT recommended) . Instructions / Follow-Up Instructions / Follow-Up MEDICATION CHANGES; 1. Prednisone 30 mg daily x 5 days followed by 20 mg daily x 5 days f/b 10 mg daily x 5 days and than discontinue OXYGEN 2 L at rest and 6 L on activity. Monitor SaO2 at rest and on activity to maintain saturation > 92 % FOLLOW UP 1. Follow up with PCP in 1 week Current Hospital Diet Patient's current hospital diet: AHA Diet (Heart Healthy) Discharge Diet Recommended Diet: AHA Diet (Heart Healthy) Pending Studies Studies pending at discharge: no Medical Emergencies . Who to Call and When: Medical Emergencies: If at any time you feel your situation is an emergency, please call 911 immediately. . Non-Emergent Contact Non-Emergency issues call your: Primary Care Provider . . "Provider Documentation" section prepared by Yessi Ortiz. . VTE Core Measure Inpt VTE Proph given/why not?: Unfractionated heparin SQ
[2016-10-06 14:44] VITALS: BP 132/69; PULSE 70; TEMP 36.4; O2SAT 97
== END 2016-10-06 15:50 | DRG 312 ==
LOC: EDBD 10:57 → C.EDB 11:01 → C.2T 12:56 → ENRESERV 13:43 → OBSVTOIN 10-02 13:16
PROVIDERS: ADMIT Internal Medicine; ATTEND Internal Medicine
DX: R55 Syncope and collapse (principal); J96.21 Acute and chronic respiratory failure with hypoxia; I45.2 Bifascicular block; J84.10 Pulmonary fibrosis, unspecified; I44.0 Atrioventricular block, first degree; I25.10 Atherosclerotic heart disease of native coronary artery without angina pectoris; I13.10 Hypertensive heart and chronic kidney disease without heart failure, with stage 1 through stage 4 chronic kidney disease, or unspecified chronic kidney disease; N18.3 Chronic kidney disease, stage 3 (moderate); T17.920A Food in respiratory tract, part unspecified causing asphyxiation, initial encounter; X58.XXXA Exposure to other specified factors, initial encounter; E03.9 Hypothyroidism, unspecified; K21.9 Gastro-esophageal reflux disease without esophagitis; N31.9 Neuromuscular dysfunction of bladder, unspecified; R53.81 Other malaise; I71.4 Abdominal aortic aneurysm, without rupture; M10.9 Gout, unspecified; F32.9 Major depressive disorder, single episode, unspecified; Z99.81 Dependence on supplemental oxygen; Z95.3 Presence of xenogenic heart valve; Z95.5 Presence of coronary angioplasty implant and graft; Z96.659 Presence of unspecified artificial knee joint; Z87.891 Personal history of nicotine dependence; Z91.81 History of falling; Z79.02 Long term (current) use of antithrombotics/antiplatelets; Z79.82 Long term (current) use of aspirin; Z79.899 Other long term (current) drug therapy

== ENCOUNTER → 2016-11-05 | Outpatient (CLI) | payer OTHER ==
[~2016-11-05] MED LIST changes: -AMOX500C3 PO; -ASPEC81 PO; +ASPI81TA21 PO; +DEXTSYP27 PO; +ESCI1TAB9 PO; +PRD20 PO
== END | disposition home or self-care (01) ==
LOC: C.LABWYN 12:49
PROVIDERS: ATTEND Internal Medicine
DX: K21.9 Gastro-esophageal reflux disease without esophagitis (principal); F32.9 Major depressive disorder, single episode, unspecified; M10.9 Gout, unspecified; E03.9 Hypothyroidism, unspecified; E78.00 Pure hypercholesterolemia, unspecified; R13.10 Dysphagia, unspecified; R53.1 Weakness; R33.9 Retention of urine, unspecified; Z95.2 Presence of prosthetic heart valve; J96.90 Respiratory failure, unspecified, unspecified whether with hypoxia or hypercapnia; J98.4 Other disorders of lung

== ENCOUNTER → 2016-12-03 | Outpatient (CLI) | payer OTHER ==
[2016-12-03 12:22] LABS: MEAN CELL VOLUME 96.6 fL (80-100); MEAN CORPUSCULAR HEMOGLOBIN 29.6 pg (25-34); MEAN CORPUSCULAR HGB CONC 30.6 g/dl (32-36); MEAN PLATELET VOLUME 10.4 fL (7.4-10.4); PLATELET COUNT 134 K/uL (130-400); RED BLOOD COUNT 3.21 M/uL (4.7-6.1); WHITE BLOOD COUNT 6.87 K/uL (4.8-10.8)
[2016-12-03 12:42] LABS: BLOOD UREA NITROGEN 26 mg/dl (7-18); BUN/CREATININE RATIO 17.2 (10-20); CALCIUM 8.8 mg/dl (8.5-10.1); CARBON DIOXIDE 30 mmol/L (21-32); CHLORIDE 110 mmol/L (98-107); CHOLESTEROL 90 mg/dl (0-200); GLUCOSE 84 mg/dl (70-99); POTASSIUM 4.4 mmol/L (3.5-5.1); SODIUM 144 mmol/L (136-145)
[2016-12-03 12:46] LABS: CHOLESTEROL/HDL RATIO 2.1; HDL CHOLESTEROL 43 mg/dl; LDL CHOLESTEROL CALCULATED 35 mg/dl; TRIGLYCERIDES 58 mg/dl (0-150); VERY LOW DENSITY LIPOPROT CALC 12 mg/dl
== END | disposition home or self-care (01) ==
LOC: C.LABWYN 15:45
PROVIDERS: ATTEND Nurse Practitioner Adult Health
DX: E78.5 Hyperlipidemia, unspecified (principal)

== ENCOUNTER → 2016-12-12 | Outpatient (CLI) | payer OTHER ==
[2016-12-12 12:38] LABS: BLOOD UREA NITROGEN 31 mg/dl (7-18); BUN/CREATININE RATIO 19.4 (10-20); CALCIUM 8.6 mg/dl (8.5-10.1); CARBON DIOXIDE 27 mmol/L (21-32); CHLORIDE 113 mmol/L (98-107); GLUCOSE 88 mg/dl (70-99); POTASSIUM 4.1 mmol/L (3.5-5.1); SODIUM 147 mmol/L (136-145)
== END | disposition home or self-care (01) ==
LOC: C.LABWYN 12:10
PROVIDERS: ATTEND Internal Medicine
DX: R79.89 Other specified abnormal findings of blood chemistry (principal)

== ENCOUNTER → 2017-01-30 | Outpatient (CLI) | payer OTHER ==
[2017-01-30 10:03] LABS: BLOOD UREA NITROGEN 30 mg/dl (7-18); BUN/CREATININE RATIO 16.6 (10-20); CALCIUM 9.4 mg/dl (8.5-10.1); CARBON DIOXIDE 31 mmol/L (21-32); CHLORIDE 108 mmol/L (98-107); CREATININE 1.78 mg/dl (0.60-1.40); GLUCOSE 88 mg/dl (70-99); POTASSIUM 4.2 mmol/L (3.5-5.1); SODIUM 144 mmol/L (136-145)
--- NOTE | 2017-02-05 10:47 | CODING QUERY NO DIAGNOSIS ---
TREATMENT RENDERED WITHOUT A DIAGNOSIS 29 To promote full compliance with coding requirements relating to patient care, physician participation is requested in all cases of hydroelectric machinery mechanic uncertainty. Please assist us with providing a diagnosis/symptom for the test(s) below: A diagnosis/symptom was not documented on your Order. A valid diagnosis/symptom is required to bill all insurances. Please remember that we are unable to code a diagnosis of rule out, probable, possible, questionable, or suspected. DOS 01/30/17 Tests that require a diagnosis: * PARTIAL RENAL PROFILE DIAGNOSIS: * BASIC METABOLIC DIAGNOSIS: Provider Signature: Date: Thank you Janna Lerner [employer] Once completed, please kindly fax back to [phone] For questions please call [phone]
== END | disposition home or self-care (01) ==
LOC: C.LABWYN 09:17
PROVIDERS: ATTEND Internal Medicine
DX: N18.9 Chronic kidney disease, unspecified (principal)

== ENCOUNTER → 2017-02-11 | Outpatient (CLI) | payer OTHER ==
[2017-02-11 12:57] LABS: BASO % 0.4 %; BASO ABS # 0.03 K/uL (0-0.2); EOS % 2.3 %; HEMATOCRIT 28.8 % (42-52); IG% 0.3 %; LYMPH ABS # 1.12 K/uL (1.2-3.4); MEAN CELL VOLUME 95.4 fL (80-100); MEAN CORPUSCULAR HEMOGLOBIN 29.1 pg (25-34); MEAN CORPUSCULAR HGB CONC 30.6 g/dl (32-36); MONO % 11.7 %; NEUT % 69.3 %; PLATELET COUNT 128 K/uL (130-400); RED BLOOD COUNT 3.02 M/uL (4.7-6.1); WHITE BLOOD COUNT 7.01 K/uL (4.8-10.8)
[2017-02-11 13:17] LABS: BLOOD UREA NITROGEN 31 mg/dl (7-18); BUN/CREATININE RATIO 17.6 (10-20); CALCIUM 8.8 mg/dl (8.5-10.1); CARBON DIOXIDE 28 mmol/L (21-32); CHLORIDE 108 mmol/L (98-107); CREATININE 1.79 mg/dl (0.60-1.40); GLUCOSE 101 mg/dl (70-99); POTASSIUM 4.3 mmol/L (3.5-5.1); SODIUM 141 mmol/L (136-145)
[2017-02-11 13:27] LABS: COMPLETE YES
== END | disposition home or self-care (01) ==
LOC: C.LABWYN 11:52
PROVIDERS: ATTEND Internal Medicine
DX: I10 Essential (primary) hypertension (principal)

== ENCOUNTER → 2017-02-21 | Outpatient (CLI) | payer OTHER ==
[2017-02-21 08:15] LABS: HEMATOCRIT 30.3 % (42-52); MEAN CELL VOLUME 94.1 fL (80-100); MEAN CORPUSCULAR HEMOGLOBIN 28.9 pg (25-34); MEAN CORPUSCULAR HGB CONC 30.7 g/dl (32-36); MEAN PLATELET VOLUME 9.7 fL (7.4-10.4); PLATELET COUNT 207 K/uL (130-400); RED BLOOD COUNT 3.22 M/uL (4.7-6.1); WHITE BLOOD COUNT 7.11 K/uL (4.8-10.8)
--- NOTE | 2017-02-27 11:33 | CODING QUERY NO DIAGNOSIS ---
TREATMENT RENDERED WITHOUT A DIAGNOSIS 29 To promote full compliance with coding requirements relating to patient care, physician participation is requested in all cases of dog barber uncertainty. Please assist us with providing a diagnosis/symptom for the test(s) below: A diagnosis/symptom was not documented on your Order. A valid diagnosis/symptom is required to bill all insurances. Please remember that we are unable to code a diagnosis of rule out, probable, possible, questionable, or suspected. DOS 02/21/17 Tests that require a diagnosis: * CBC W/O DIFF DIAGNOSIS: * RETIC COUNT DIAGNOSIS: Provider Signature: Date: Thank you Janna Lerner Health Information Management Once completed, please kindly fax back to [phone] For questions please call [phone]
== END | disposition home or self-care (01) ==
LOC: C.LABWYN 08:05
PROVIDERS: ATTEND Internal Medicine
DX: D64.9 Anemia, unspecified (principal)

== ENCOUNTER 2017-05-02 09:47 | Inpatient (IN) | payer OTHER ==
[~2017-05-02] VITALS: Ht 177.8 cm; Wt 91.5 kg
--- NOTE | 2017-05-02 10:01 | EMERGENCY ROOM VISIT NOTE ---
History Report prepared by Laurel: Sanju Simeon Under the Supervision of: Dr. Geoff Vázquez M.D. First contact with patient: 09:59 Chief Complaint: SHORTNESS OF BREATH Stated Complaint: BREATHING PROBLEM History of Present Illness The patient is a 87 year old male who presents to the Emergency Room with complaints of shortness of breath that began 10 months ago. The patient reports stent placement and heart valve replacement in June of 2016. He states that his shortness of breath worsens with movement. He reports leg swelling. He denies chest pain, back pain, and abdominal pain. The patient reports decreased urinary output. Source of History: patient Onset: 10 months ago Position: other (global) Timing: constant Modifying Factors (Worsening): movement Associated Symptoms: + SOB, + urinary symptoms (Patient reports decreased urine output.), No chest pain, No abdominal pain, No back pain Note: The patient reports leg swelling. Review of Systems See HPI for pertinent positives & negatives. A total of 10 systems reviewed and were otherwise negative. Past Medical & Surgical Medical Problems: (1) AAA (abdominal aortic aneurysm) (2) CAD (coronary artery disease) (3) CHF (congestive heart failure) (4) CKD (chronic kidney disease), stage III (5) GERD (gastroesophageal reflux disease) (6) Gout (7) HTN (hypertension) (8) Hypothyroidism (9) Hypoxemia requiring supplemental oxygen (10) Neurogenic bladder (11) Pulmonary fibrosis Surgical Problems: (1) Hx of total knee arthroplasty (2) S/P TAVR (transcatheter aortic valve replacement) (3) S/P TURP Family History Abdominal aortic aneurysm (AAA) FATHER Social History Smoking Status: Former Smoker Alcohol Use: none Marital Status: Housing Status: lives with significant other Occupation Status: retired Current/Historical Medications Scheduled Allopurinol (Zyloprim), 100 MG PO DAILY Aspirin Enteric Coated (Ecotrin Or Generic), 81 MG PO DAILY Atorvastatin (Lipitor), 40 MG PO QPM Clopidogrel (Plavix), 75 MG PO DAILY Escitalopram Oxalate (Lexapro), 10 MG PO DAILY Ferrous Sulfate (Kp Ferrous Sulfate), 325 MG PO BID Home O2 Therapy (Oxygen), 2 LITERS NA CONTINOUS Levothyroxine Sodium (Levothyroxine Sodium), 88 MCG PO DAILY Nitroglycerin (Nitrostat), 0.4 MG UT PRN Pantoprazole (Protonix), 40 MG PO DAILY Prednisone (Prednisone), 5 MG PO Q2D Scheduled PRN Acetaminophen (Tylenol), 650 MG PO Q4H PRN for Pain Ipratropium-Albuterol (Duoneb), 1 TREATMENT INH Q4H PRN for SOB/Wheezing Sennosides-Docusate Sodium (Doc-Q-Lax), 1 TAB PO DAILY PRN for Constipation Allergies Coded Allergies: No Known Allergies (Verified , 05/02/17) Physical Exam Vital Signs Date Time Temp Pulse Resp B/P (MAP) Pulse Ox O2 Delivery O2 Flow Rate FiO2 05/02/17 10:19 70 22 113/78 92 Nasal Cannula 3.0 05/02/17 10:18 77 05/02/17 10:15 92 Nasal Cannula 3.0 05/02/17 10:15 92 Nasal Cannula 3.0 05/02/17 09:54 36.7 86 20 141/76 88 Nasal Cannula 3.0 Physical Exam GENERAL: Patient is elderly appearing and in mild distress. HEENT: No acute trauma, normocephalic atraumatic, mucous membranes moist, no nasal congestion, no scleral icterus. NECK: No stridor, no adenopathy, no meningismus, trachea is midline. LUNGS: Mild dyspnea. Crackles bilateral bases. Clear to auscultation and equal bilaterally. No wheeze, no rhonchi. HEART: Regular rate and rhythm. No murmurs, rubs, gallops appreciated. ABDOMEN: Soft, nontender, bowel sounds positive, no masses appreciated, no peritonitis. BACK: No midline tenderness, no CVA tenderness EXTREMITIES: Normal motion all extremities, no cyanosis. 3+ edema left lower leg greater than right. NEUROLOGIC: Alert and oriented, no acute motor or sensory deficits, no focal weakness, cranial nerves grossly intact. SKIN: No rash, no jaundice, no diaphoresis. Medical Decision & Procedures ER Provider Diagnostic Interpretation: Radiology results and stated below per my review and radiologist interpretation: CHEST ONE VIEW PORTABLE CLINICAL HISTORY: SHOB dyspnea COMPARISON STUDY: 10/01/2016 FINDINGS: Moderate stable cardiomegaly. Diffuse bilateral parenchymal fibrosis similar to that of the prior exam. Diaphragms are smooth. IMPRESSION: Diffuse bilateral parenchymal fibrosis unchanged from the prior exam. No acute or superimposed infiltrative process. Moderate stable cardia megaly. The above report was generated using voice recognition software. It may contain grammatical, syntax or spelling errors. Electronically signed by: Fabio Soto M.D. 05/02/2017 10:32 AM Dictated Date/Time: 05/02/2017 10:30 AM VENOUS DOPPLER LWR EXT BILA HISTORY: Pain. Edema. edema COMPARISON STUDY: None. FINDINGS: There is normal compressibility, flow, and augmentation within the bilateral lower extremity deep venous systems. IMPRESSION: No DVT within the right or left lower extremity. The above report was generated using voice recognition software. It may contain grammatical, syntax or spelling errors. Electronically signed by: Fabio Soto M.D. 05/02/2017 2:11 PM Dictated Date/Time: 05/02/2017 2:11 PM Laboratory Results Test 05/02/17 10:17 Immature Granulocyte % (Auto) 0.2 % White Blood Count 6.14 K/uL (4.8-10.8) Red Blood Count 3.41 M/uL (4.7-6.1) Hemoglobin 10.3 g/dL (14.0-18.0) Hematocrit 32.8 % (42-52) Mean Corpuscular Volume 96.2 fL (80-100) Mean Corpuscular Hemoglobin 30.2 pg (25-34) Mean Corpuscular Hemoglobin Concent 31.4 g/dl (32-36) Platelet Count 154 K/uL (130-400) Mean Platelet Volume 9.5 fL (7.4-10.4) Neutrophils (%) (Auto) 74.4 % Lymphocytes (%) (Auto) 12.4 % Monocytes (%) (Auto) 8.3 % Eosinophils (%) (Auto) 4.2 % Basophils (%) (Auto) 0.5 % Neutrophils # (Auto) 4.57 K/uL (1.4-6.5) Lymphocytes # (Auto) 0.76 K/uL (1.2-3.4) Monocytes # (Auto) 0.51 K/uL (0.11-0.59) Eosinophils # (Auto) 0.26 K/uL (0-0.5) Basophils # (Auto) 0.03 K/uL (0-0.2) Immature Granulocyte # (Auto) 0.01 K/uL (0.00-0.02) Prothrombin Time 10.8 SECONDS (9.0-12.0) Prothromb Time International Ratio 1.0 (0.9-1.1) Activated Partial Thromboplast Time 28.5 SECONDS (21.0-31.0) Partial Thromboplastin Ratio 1.1 Pro-B-Type Natriuretic Peptide 8567 pg/ml (0-1800) Thyroid Stimulating Hormone (TSH) 3.140 uIu/ml (0.300-4.500) Laboratory results as reviewed by me. Medications Administered Medications (Trade) Dose Ordered Sig/Shakira Route Start Time Stop Time Status Last Admin Dose Admin Furosemide (Lasix Inj) 40 mg NOW STAT IV 05/02/17 11:01 05/02/17 11:02 DC 05/02/17 11:06 40 MG ECG Per My Interpretation Indication: SOB/dyspnea Rate (beats per minute): 76 Rhythm: normal sinus, other (Intraventricular block) Findings: no acute ischemic change, no ectopy Change: EKG: Electrocardiogram per my interpretation. ED Course 1000: The patient was evaluated in room B3B. A complete history and physical exam was performed. 1101: I checked on the patient and he notes that he feels better after an increase in Oxygen to 5. He does not feel comfortable with a discharge. He requests a briseno be placed. 1105: I discussed the patient's case with Doni Hernandez PA-C. The patient will be evaluated for further treatment and disposition. 1315: Upon reevaluation, the patient is doing well. Discussed results and treatment plan with the patient. He verbalized understanding and agreement with the treatment plan. The patient will be evaluated for further management. Medical Decision Differential: Infectious, Reactive Airway Disease, Pneumonia, Pneumothorax, COPD , CHF, ACS, Pulmonary Embolism, MSK, GI, Dissection, amongst other etiologies entertained. 87 yr old male arrives with shortness of breath on exertion and fatigue. Increasing fluid in left leg and requiring increased NC O2. CXR with congestive findings which are consistent with BNP as well as exam. Mild worsening of renal function as well which is a bit concerning given fluid overload. Clearly needs some diuresis by my exam thus lasix given. I did discuss the need to closely monitor him and he much prefers in hospital given inability to get in with PCP in next few days and his worsening symptoms. No evidence PE, COPD, ACS at this time. I do not feel he has dissection. Medication Reconcilliation Current Medication List: was personally reviewed by me Blood Pressure Screening Patient's blood pressure: Elevated blood pressure Blood pressure disposition: Elevated BP felt to be situational Consults Time Called: 1103 Consulting Physician: Mary Marion PA-C Returned Call: [phone] Discussed the patient's case. The patient will be evaluated for further treatment and disposition. Impression Primary Impression: Acute congestive heart failure Scribe Attestation The scribe's documentation has been prepared under my direction and personally reviewed by me in its entirety. I confirm that the note above accurately reflects all work, treatment, procedures, and medical decision making performed by me. Departure Information Dispostion Being Evaluated By Hospitalist Referrals No Doctor, Assigned (PCP) Patient Instructions My [facility]
--- NOTE | 2017-05-02 10:33 | DIAGNOSTIC IMAGING REPORT ---
CHEST ONE VIEW PORTABLE CLINICAL HISTORY: SHOB dyspnea COMPARISON STUDY: 10/01/2016 FINDINGS: Moderate stable cardiomegaly. Diffuse bilateral parenchymal fibrosis similar to that of the prior exam. Diaphragms are smooth. IMPRESSION: Diffuse bilateral parenchymal fibrosis unchanged from the prior exam. No acute or superimposed infiltrative process. Moderate stable cardia megaly. The above report was generated using voice recognition software. It may contain grammatical, syntax or spelling errors. Electronically signed by: Fabio Soto M.D. 05/02/2017 10:32 AM Dictated Date/Time: 05/02/2017 10:30 AM
[2017-05-02 10:42] LABS: BASO % 0.5 %; BASO ABS # 0.03 K/uL (0-0.2); EOS % 4.2 %; EOS ABS # 0.26 K/uL (0-0.5); HEMATOCRIT 32.8 % (42-52); HEMOGLOBIN 10.3 g/dL (14.0-18.0); IG# 0.01 K/uL (0.00-0.02); LYMPH % 12.4 %; LYMPH ABS # 0.76 K/uL (1.2-3.4); MEAN CELL VOLUME 96.2 fL (80-100); MEAN CORPUSCULAR HEMOGLOBIN 30.2 pg (25-34); MEAN CORPUSCULAR HGB CONC 31.4 g/dl (32-36); MEAN PLATELET VOLUME 9.5 fL (7.4-10.4); MONO % 8.3 %; MONO ABS # 0.51 K/uL (0.11-0.59); NEUT % 74.4 %; NEUT ABS # 4.57 K/uL (1.4-6.5); PLATELET COUNT 154 K/uL (130-400); RED CELL DISTRIBUTION WIDTH CV 16.5 % (11.5-14.5); RED CELL DISTRIBUTION WIDTH SD 57.7 fL (36.4-46.3); WHITE BLOOD COUNT 6.14 K/uL (4.8-10.8)
[2017-05-02 10:49] LABS: BLOOD UREA NITROGEN 21 mg/dl (7-18); CARBON DIOXIDE 27 mmol/L (21-32); CREATININE 1.88 mg/dl (0.60-1.40); GLUCOSE 97 mg/dl (70-99); POTASSIUM 4.3 mmol/L (3.5-5.1); SODIUM 143 mmol/L (136-145)
[2017-05-02] MEDS ORDERED: PANT40TA PO (10:50)
[2017-05-02] MEDS ORDERED: ALLO100T PO (10:50)
[2017-05-02] MEDS ORDERED: OXGN (10:50)
[2017-05-02] MEDS ORDERED: PRED-301 PO (10:50)
[2017-05-02] MEDS ORDERED: IPRASOL4 INH (10:50)
[2017-05-02] MEDS ORDERED: SENN8.6T96 PO (10:50)
[2017-05-02] MEDS ORDERED: FERR1TAB13 PO (10:50)
[2017-05-02] MEDS ORDERED: ACET-1311 PO (10:51)
[2017-05-02] MEDS ORDERED: FUROSEMIDE 40 MG/4 ML VIAL IV STA (11:01)
[2017-05-02] MEDS ORDERED: MAGNESIUM HYDROXIDE SUSP 30 ML UDC PO PRN (12:15)
[2017-05-02] MEDS ORDERED: ONDANSETRON INJ 2 MG/ML 2 ML VIAL IV PRN (12:15)
[2017-05-02] MEDS ORDERED: NITROGLYCERIN 0.4 MG SL PER TAB CHARGE SL PRN (12:15)
[2017-05-02] MEDS ORDERED: ACETAMINOPHEN 325 MG TAB PO PRN (12:15)
[2017-05-02] MEDS ORDERED: ALBUT/IPRATROP 3MG/0.5MG NEB 3 ML VIAL INH PRN (12:30)
[2017-05-02 12:39] LABS: PTT PATIENT 28.5 SECONDS (21.0-31.0)
--- NOTE | 2017-05-02 13:23 | History and Physical ---
History & Physical Date & Time of Service: May 02, 2017 at 12:33 Chief Complaint: Breathing Problem Primary Care Physician: Richardson Haji D.O. History of Present Illness Source: patient, family, clinic records, hospital records Pt is 87 y/o M with PMH chronic respiratory failure, pulmonary fibrosis on chronic O2, CAD s/p stent LAD 06/2016, TAVR AV in 07/2016, chronic bifascicular block, neurogenic bladder, hypothyroidism presented to ER with c/o increased SOB. Pt states past couple of months has noticed increased SOB with exertion. he follows with Dr Valdes -pulmonology. He is on Prednisone 5mg every other day currently. Pt reports using 3-4L O2 continuous. Can increase to 6L with exertion , however pt states doesn't ever increase it. Past couple of weeks has noticed LE edema which has increased over the past week. States orhtopnea this week and last night had 2 episodes of PND and this occurred two other times this week. States extremities tender when donna hose being placed, but then non-tender. Pt had u/s LLE yesterday at [facility] -obtained preliminary result no DVT. Unsure if any weight changes. Pt self caths 2-3 times a day. States for past couple months urine is darker coloration, denies any noted blood or odor. Hx Echo: 07/31: EF: 60-64%, inferior, posterior wall motion abnormality, s/p TAVR , mild paravalvular AV prosthesis regurgitation, mitral regurgitation. Hx cardiac cath: 07/01: stent x 2 to LAD, mild disease RCA, mild disease circumflex, mild disease L main. Past Medical/Surgical History Medical Problems: (1) AAA (abdominal aortic aneurysm) Permanent Comment: 4.6cm Status: Chronic (2) CAD (coronary artery disease) Permanent Comment: 06/2016 - FLORIN to LAD x 2 Status: Chronic (3) CKD (chronic kidney disease), stage III Status: Chronic (4) GERD (gastroesophageal reflux disease) Status: Chronic (5) Gout Status: Chronic (6) HTN (hypertension) Status: Chronic (7) Hypothyroidism Status: Chronic (8) Hypoxemia requiring supplemental oxygen Status: Chronic (9) Neurogenic bladder Status: Chronic (10) Pulmonary fibrosis Status: Chronic Surgical Problems: (1) Hx of total knee arthroplasty Status: Chronic (2) S/P TAVR (transcatheter aortic valve replacement) Permanent Comment: 07/29/16 Status: Chronic (3) S/P TURP Status: Chronic Family History Abdominal aortic aneurysm (AAA) FATHER Social History Smoking Status: Former Smoker (quit 1994, smoked cigars) Smokeless Tobacco Use: No Alcohol Use: occasionally Drug Use: none Marital Status: Housing status: other ([facility]) Occupational Status: retired Immunizations History of Influenza Vaccine: Yes Influenza Vaccine Date: Nov 28, 2015 History of Tetanus Vaccine?: Yes Tetanus Immunization Date: May 03, 1999 History of Pneumococcal: Yes Pneumococcal Date: Nov 28, 2015 Multi-Drug Resistant Organisms History of MDRO: No Allergies Coded Allergies: No Known Allergies (Verified , 05/02/17) Home Medications Scheduled Allopurinol (Zyloprim), 100 MG PO DAILY Aspirin Enteric Coated (Ecotrin Or Generic), 81 MG PO DAILY Atorvastatin (Lipitor), 40 MG PO QPM Cefuroxime Axetil (Ceftin), 250 MG PO BID Clopidogrel (Plavix), 75 MG PO DAILY Escitalopram Oxalate (Lexapro), 10 MG PO DAILY Ferrous Sulfate (Kp Ferrous Sulfate), 325 MG PO BID Furosemide (Furosemide), 20 MG PO QAM Home O2 Therapy (Oxygen), 2 LITERS NA CONTINOUS Hydralazine Hcl (Apresoline), 12.5 MG PO TID Isosorbide Dinitrate (Isosorbide Dinitrate), 10 MG PO BID@0700,1200 Levothyroxine Sodium (Levothyroxine Sodium), 88 MCG PO DAILY Metoprolol Succinate (Metoprolol Succinate ER), 12.5 MG PO QAM Nitroglycerin (Nitrostat), 0.4 MG UT PRN Pantoprazole (Protonix), 40 MG PO DAILY Prednisone (Prednisone), 5 MG PO Q2D Scheduled PRN Acetaminophen (Tylenol), 650 MG PO Q4H PRN for Pain Ipratropium-Albuterol (Duoneb), 1 TREATMENT INH Q4H PRN for SOB/Wheezing Sennosides-Docusate Sodium (Doc-Q-Lax), 1 TAB PO DAILY PRN for Constipation Review of Systems Constitutional: No fever, No chills, No sweats Eyes: No eye pain, No redness, No discharge, No diplopia ENT: + hearing loss, No unusual epistaxis, No nasal symptoms, No sore throat, No trouble swallowing Respiratory: + shortness of breath (see HPI), No cough, No sputum, No wheezing , No hemoptysis Cardiovascular: + problem reported (see HPI), No chest pain, No palpitations Abdomen: No pain, No nausea, No vomiting, No diarrhea, No constipation, No GI bleeding Musculoskeletal: No joint pain Endocrine: No excessive thirst Hematologic / Lymphatic: No abnormal bleeding/bruising, No clotting problems, No night sweats Integumentary: No rash, No itch Physical Exam Vital Signs Date Time Temp Pulse Resp B/P (MAP) Pulse Ox O2 Delivery O2 Flow Rate FiO2 05/02/17 10:19 70 22 113/78 92 Nasal Cannula 3.0 05/02/17 10:18 77 05/02/17 10:15 92 Nasal Cannula 3.0 05/02/17 10:15 92 Nasal Cannula 3.0 05/02/17 09:54 36.7 86 20 141/76 88 Nasal Cannula 3.0 General Appearance: WD/WN, no apparent distress Head: normocephalic, atraumatic Eyes: normal inspection, PERRL, EOMI, sclerae normal ENT: hearing grossly normal, pharynx normal, + pertinent finding (mucous membranes moist) Neck: supple, no JVD, trachea midline Respiratory/Chest: no respiratory distress, no accessory muscle use, + decreased breath sounds, + crackles (bases bilaterally) Cardiovascular: regular rate, rhythm, + systolic murmur Abdomen/GI: normal bowel sounds, non tender, soft Extremities/Musculoskelatal: no calf tenderness, normal capillary refill, + pedal edema (3+ LLE, 2+ RLE, ROM intact) Neurologic/Psych: alert, normal mood/affect, oriented x 3 Skin: normal color, warm/dry Diagnostics Laboratory Results Results Past 24 Hours Test 05/02/17 10:17 Range/Units White Blood Count 6.14 4.8-10.8 K/uL Red Blood Count 3.41 4.7-6.1 M/uL Hemoglobin 10.3 14.0-18.0 g/dL Hematocrit 32.8 42-52 % Mean Corpuscular Volume 96.2 80-100 fL Mean Corpuscular Hemoglobin 30.2 25-34 pg Mean Corpuscular Hemoglobin Concent 31.4 32-36 g/dl Platelet Count 154 130-400 K/uL Mean Platelet Volume 9.5 7.4-10.4 fL Neutrophils (%) (Auto) 74.4 % Lymphocytes (%) (Auto) 12.4 % Monocytes (%) (Auto) 8.3 % Eosinophils (%) (Auto) 4.2 % Basophils (%) (Auto) 0.5 % Neutrophils # (Auto) 4.57 1.4-6.5 K/uL Lymphocytes # (Auto) 0.76 1.2-3.4 K/uL Monocytes # (Auto) 0.51 0.11-0.59 K/uL Eosinophils # (Auto) 0.26 0-0.5 K/uL Basophils # (Auto) 0.03 0-0.2 K/uL RDW Standard Deviation 57.7 36.4-46.3 fL RDW Coefficient of Variation 16.5 11.5-14.5 % Immature Granulocyte % (Auto) 0.2 % Immature Granulocyte # (Auto) 0.01 0.00-0.02 K/uL Sodium Level 143 136-145 mmol/L Potassium Level 4.3 3.5-5.1 mmol/L Chloride Level 111 98-107 mmol/L Carbon Dioxide Level 27 21-32 mmol/L Anion Gap 5.0 3-11 mmol/L Blood Urea Nitrogen 21 7-18 mg/dl Creatinine 1.88 0.60-1.40 mg/dl Estimated GFR () 36.1 Estimated GFR (Non- 31.2 BUN/Creatinine Ratio 11.3 10-20 Random Glucose 97 70-99 mg/dl Calcium Level 9.0 8.5-10.1 mg/dl Magnesium Level 2.1 1.8-2.4 mg/dl Troponin I 0.057 0-0.045 ng/ml Pro-B-Type Natriuretic Peptide 8567 0-1800 pg/ml Diagnostic Radiology CXR: IMPRESSION: Diffuse bilateral parenchymal fibrosis unchanged from the prior exam. No acute or superimposed infiltrative process. Moderate stable cardiomegaly. EKG EKG: sinus rhythm, rate 76 with sinus arrhythmia, RBBB, L anterior fascicular block Impression Assessment and Plan ACUTE HEART FAILURE Pt with LE edema past couple of weeks, & orthopnea and PND past week. Increased SOB. Hx Aortic valve TAVR 07/2016, at that time EF: 60%. Today BNP: 8567. CXR: moderate stable cardiomegaly, bilateral fibrosis. Pt initially 88% on 3L O2 NC then increased to 92% on 3L. On chronic O2. -will order BLE U/S r/o DVT -lasix 40mg IV BID -briseno placed, monitor I&O's -Echo -Cardiology consult -monitor prp CHRONIC RESPIRATORY FAILURE/PULMONARY FIBROSIS Pt afebrile, no infiltrate noted on CXR, no leukocytosis. Pt initially 88% on 3L NC increased to 92% on 3L NC. No respiratory distress. -continue O2 -continue duoneb prn -continue prednisone 5mg every other day -monitor cbc ELEVATED TROPONIN/Hx CAD S/P STENT LAD, Hx TAVR AV Troponin: 0.057. Hx elevated troponin at 0.075 during admission in 07/2016. No CP , no acute ST elevation noted. suspect hypoxia, demand from HF -Will trend troponin -ECHO -Cardiology consult -continue plavix, ASA, statin -Nitro prn CP and repeat EKG for CP HTN stable. continue to monitor CKD III Cr: 1.8 which is baseline. -continue to monitor and avoid nephrotoxic agents when able NEUROGENIC BLADDER Pt self cath 2-3 times a day. Denies any urinary symptoms -Briseno placed while in hospital -U/A and urine culture added HYPOTHYROIDISM TSH added -continue levothyroxine GOUT -continue allopurinol GERD -continue Protonix DEPRESSION -continue Lexapro CHRONIC ANEMIA Hgb: 10.3. stable. no active bleeding -continue to monitor DVT Prophylaxis -heparin SQ Disposition admit tele DNR/DNI as per discussion with pt Follows with Dr Haji for routine care Pt was seen with Dr Morris. See addendum ATTENDING ADDENDUM ; 87 yo M with past medical hx of CAD , pulmonary fibrosis on home 02 presents with worsening of SOB , Hypoxia , increased lower ext swelling Acute on chronic hypoxemic respiratory failure : due to Acute decompensated CHF , has chronic hypoxemia due to Pulmonary fibrosis admit to Tele cont supplemental 02 Neb tx , respiratory support management of acute CHF as outlined below acute chf with systolic dysfunction ordered for IV Lasix 40 mg BID cont to monitor daily wt resting ECHO ordered Cardiology consulted for further eval please refer to further documentation by Mary Hogan PA-C for discussion of other chronic issues Level of Care Telemetry Resuscitation Status DO NOT RESUSCITATE VTE Prophylaxis VTE Risk Assessment Done? Y/N: Yes Risk Level: Moderate Given or contraindicated: Unfractionated heparin SQ Additional Copies To Richardson Haji D.O.
--- NOTE | 2017-05-02 14:13 | DIAGNOSTIC IMAGING REPORT ---
VENOUS DOPPLER LWR EXT BILA HISTORY: Pain. Edema. edema COMPARISON STUDY: None. FINDINGS: There is normal compressibility, flow, and augmentation within the bilateral lower extremity deep venous systems. IMPRESSION: No DVT within the right or left lower extremity. The above report was generated using voice recognition software. It may contain grammatical, syntax or spelling errors. Electronically signed by: Fabio Soto M.D. 05/02/2017 2:11 PM Dictated Date/Time: 05/02/2017 2:11 PM
[2017-05-02 14:17] VITALS: BP 167/93; PULSE 78; TEMP 36.5; O2SAT 99; Ht 177.8 cm; Wt 91.5 kg
[2017-05-02 16:00] VITALS: O2SAT 99
[2017-05-02] MEDS: FERROUS SULFATE 325 MG TAB PO SCH (16:02)
[2017-05-02 16:43] VITALS: BP 148/86; PULSE 83; TEMP 36.8
--- NOTE | 2017-05-02 16:45 | ECHOCARDIOGRAM REPORT ---
*NOTICE TO RECEIVING [employer] This information is strictly Confidential and protected under [place] law. [place] law prohibits you from making any further disclosure of this information unless further disclosure is expressly permitted by the written consent of the person to whom it pertains or is authorized by law. A general authorization for the release of medical or other information is not sufficient for this purpose. Hospital accepts no responsibility if the information is made available to any other person, INCLUDING THE PATIENT. Interpretation Summary * Name: NETTE MOLINA Study Date: 05/02/2017 03:18 PM BP: 164/78 mmHg * Patient Location: [facility] HR: 77 * : 1930 (M/d/yyyy) Gender: Male Height: 70 in * Age: 87 yrs Ethnicity: [place] Weight: 222 lb * Ordering Physician: Mary Stephen * Referring Physician: Self, Referred * Performed By: Adilene José RDCS * * Reason For Study: Congestive Heart Failure * BSA: 2.2 m2 * Compared to prior study, changes are noted. * -- Conclusions -- * The left ventricle is normal in size. * There is severe concentric left ventricular hypertrophy. * There is moderate global hypokinesis of the left ventricle. * Left ventricular systolic function is moderately reduced. * Ejection Fraction = 35-40%. * The patient is status post transcatheter aortic valve replacement with CoreVAlve prosthetic valve. * There is moderate paravalvular aortic regurgitation. * There is moderate to severe mitral regurgitation. * There is moderate tricuspid regurgitation. * Right ventricular systolic pressure is elevated at >60mmHg. Procedure Details * A complete two-dimensional transthoracic echocardiogram was performed (2D, M-mode, Doppler and color flow Doppler). Left Ventricle * The left ventricle is normal in size. * There is severe concentric left ventricular hypertrophy. * Ejection Fraction = 35-40%. * Left ventricular systolic function is moderately reduced. * There is moderate global hypokinesis of the left ventricle. Right Ventricle * The right ventricle is normal in size and function. * There is mild right ventricular hypertrophy. Atria * The left atrial size is normal. * Right atrial size is normal. * No ASD detected; PFO is not assessed. Mitral Valve * There is moderate mitral annular calcification. * There is no mitral valve stenosis. * There is moderate to severe mitral regurgitation. Tricuspid Valve * The tricuspid valve anatomy is normal. * There is no tricuspid stenosis. * There is moderate tricuspid regurgitation. * Right ventricular systolic pressure is elevated at >60mmHg. Aortic Valve * The patient is status post transcatheter aortic valve replacement with CoreVAlve prosthetic valve. There is moderate paravalvular aortic regurgitation. * The gradient is normal for this prosthetic aortic valve. Pulmonic Valve * The pulmonic valve is not well visualized. Great Vessels * The aortic root is normal size. Pericardium/Pleural * There is no pericardial effusion. * Moderate size left pleural effusion. Great Vessels * The inferior vena cava is mildly dilated. MMode 2D Measurements and Calculations IVSd 1.8 cm IVSs 1.9 cm LVIDd 5.3 cm LVIDs 4.1 cm LVPWd 1.4 cm LVPWs 1.8 cm IVS/LVPW 1.3 FS 22.5 % EDV(Teich) 133.7 ml ESV(Teich) 73.6 ml EF(Teich) 44.9 % EDV(cubed) 146.6 ml ESV(cubed) 68.2 ml EF(cubed) 53.4 % % IVS thick 5.7 % % LVPW thick 29.4 % LV mass(C)d 377.7 grams LV mass(C)dI 173.1 grams/m\S\2 LV mass(C)s 331.5 grams LV mass(C)sI 151.9 grams/m\S\2 SV(Teich) 60.1 ml SI(Teich) 27.5 ml/m\S\2 SV(cubed) 78.4 ml SI(cubed) 35.9 ml/m\S\2 EPSS 2.0 cm Ao root diam 3.3 cm Ao root area 8.5 cm\S\2 ACS 1.6 cm LA dimension 4.8 cm asc Aorta Diam 3.7 cm LA/Ao 1.5 LVAd ap4 43.1 cm\S\2 LVLd ap4 9.3 cm EDV(MOD-sp4) 165.6 ml EDV(sp4-el) 170.2 ml LVAs ap4 30.8 cm\S\2 LVLs ap4 8.6 cm ESV(MOD-sp4) 95.3 ml ESV(sp4-el) 94.1 ml EF(MOD-sp4) 42.4 % EF(sp4-el) 44.7 % LVAd ap2 52.4 cm\S\2 LVLd ap2 10.3 cm EDV(MOD-sp2) 216.3 ml EDV(sp2-el) 226.6 ml LVAs ap2 36.7 cm\S\2 LVLs ap2 9.3 cm ESV(MOD-sp2) 126.3 ml ESV(sp2-el) 123.4 ml EF(MOD-sp2) 41.6 % EF(sp2-el) 45.6 % LVLd %diff 9.8 % EDV(MOD-bp) 197.0 ml LVLs %diff 7.6 % ESV(MOD-bp) 113.3 ml EF(MOD-bp) 42.5 % SV(MOD-sp4) 70.2 ml SI(MOD-sp4) 32.2 ml/m\S\2 SV(MOD-sp2) 90.0 ml SI(MOD-sp2) 41.2 ml/m\S\2 SV(MOD-bp) 83.7 ml SI(MOD-bp) 38.3 ml/m\S\2 SV(sp4-el) 76.0 ml SI(sp4-el) 34.8 ml/m\S\2 SV(sp2-el) 103.3 ml SI(sp2-el) 47.3 ml/m\S\2 Doppler Measurements and Calculations MV E max asha 116.6 cm/sec MV A max asha 104.6 cm/sec MV E/A 1.1 MV dec time 0.25 sec Ao V2 max 198.6 cm/sec Ao max PG 15.9 mmHg Ao max PG (full) 10.2 mmHg LV V1 max PG 5.8 mmHg LV V1 max 119.9 cm/sec MR max asha 579.1 cm/sec MR max PG 135.3 mmHg MR mean asha 465.9 cm/sec MR mean PG 94.4 mmHg MR VTI 202.6 cm PA V2 max 146.1 cm/sec PA max PG 8.6 mmHg TR max asha 354.6 cm/sec
[2017-05-02 19:38] VITALS: BP 164/83; PULSE 76; TEMP 36.6
[2017-05-02 20:00] VITALS: O2SAT 99
[2017-05-02] MEDS: ATORVASTATIN 40 MG TAB PO SCH (20:12)
[2017-05-02] MEDS: FUROSEMIDE INJ 40 MG in SYRINGE 0 ML IV SCH (20:12)
[2017-05-02] MEDS: HEPARIN SOD 5000 UNIT/0.5 ML CARP SQ SCH (20:14)
[2017-05-02 23:59] VITALS: BP 143/71; PULSE 59; TEMP 36.6; O2SAT 95
[2017-05-03] VITALS (12 sets, daily range): BP systolic 110–151; BP diastolic 55–68; PULSE 61–69; TEMP 36.4–36.7; O2SAT 94–96
[2017-05-03 05:52] LABS: HEMATOCRIT 32.9 % (42-52); HEMOGLOBIN 10.3 g/dL (14.0-18.0); MEAN CELL VOLUME 95.6 fL (80-100); MEAN CORPUSCULAR HEMOGLOBIN 29.9 pg (25-34); MEAN CORPUSCULAR HGB CONC 31.3 g/dl (32-36); MEAN PLATELET VOLUME 9.6 fL (7.4-10.4); PLATELET COUNT 159 K/uL (130-400); RED CELL DISTRIBUTION WIDTH CV 16.5 % (11.5-14.5); RED CELL DISTRIBUTION WIDTH SD 57.4 fL (36.4-46.3); WHITE BLOOD COUNT 6.14 K/uL (4.8-10.8)
[2017-05-03] MEDS: LEVOTHYROXINE 88 MCG TAB PO SCH (06:03)
[2017-05-03 06:24] LABS: CALCIUM 9.1 mg/dl (8.5-10.1); CREATININE 2.01 mg/dl (0.60-1.40); POTASSIUM 4.5 mmol/L (3.5-5.1)
[2017-05-03] MEDS: ALLOPURINOL 100 MG TAB PO SCH (08:19)
[2017-05-03] MEDS: ASPIRIN 81 MG ECTAB PO SCH (08:19)
[2017-05-03] MEDS: ESCITALOPRAM OXALATE 10 MG TAB PO SCH (08:19)
[2017-05-03] MEDS: FERROUS SULFATE 325 MG TAB PO SCH ×2 (08:19→15:43)
[2017-05-03] MEDS: CLOPIDOGREL BISULFATE 75 MG TAB PO SCH (08:20)
[2017-05-03] MEDS: PANTOprazole SOD 40 MG TAB PO SCH (08:20)
[2017-05-03] MEDS: HEPARIN SOD 5000 UNIT/0.5 ML CARP SQ SCH ×2 (08:22→21:58)
[2017-05-03] MEDS: FUROSEMIDE INJ 40 MG in SYRINGE 0 ML IV SCH (08:25)
--- NOTE | 2017-05-03 08:28 | DIAGNOSTIC IMAGING REPORT ---
CHEST ONE VIEW PORTABLE HISTORY: Short of breath. COMPARISON: Chest 05/02/2017. FINDINGS: The heart remains mildly enlarged. No change in the chronic interstitial thickening. Trace bilateral pleural effusions persist. There is an aortic valve prosthesis. IMPRESSION: 1. No change in the chronic interstitial thickening. A mild superimposed pulmonary edema cannot be excluded. 2. Trace bilateral pleural effusions. Electronically signed by: Cristóbal Sam M.D. 05/03/2017 8:27 AM Dictated Date/Time: 05/03/2017 8:24 AM
[2017-05-03] MEDS ORDERED: ISOSORBIDE DINITRATE 10 MG TAB PO ONE (10:25)
[2017-05-03] MEDS ORDERED: METOPROLOL SUCC 25MG EXT REL TAB PO ONE (10:25)
--- NOTE | 2017-05-03 10:37 | CARDIOLOGY PROGRESS NOTE ---
DATE: 05/03/2017 The patient seen and examined. Chart, medications, telemetry reviewed. SUBJECTIVE: The patient feels substantially better, slept well last night after nearly 6 liter diuresis. Notes no chest pains. Notes no tachypalpitations. Notes no dizziness or lightheadedness. Telemetry reveals no arrhythmias. OBJECTIVE: VITAL SIGNS: Heart rate is 68, blood pressure is 151/67. HEENT: Normocephalic, atraumatic. Nares without discharge. Throat is clear. NECK: Supple without thyromegaly or lymphadenopathy. The patient is examined upright. Jugular venous distention is much improved. LUNGS: Reveal improved aeration to both bases. CARDIOVASCULAR: Regular, occasional ectopic beats. There is a grade 2/6 systolic murmur, diastolic murmur is not audible today. ABDOMEN: Soft, nontender. EXTREMITIES: Reveal resolved peripheral edema. LABORATORY DATA: White cell count 6.1, hemoglobin is 10.3. Sodium is 143, potassium is 4.5, chloride is 107, bicarbonate is 29, BUN is 28, creatinine is 2.0. Troponins are mildly elevated but flat. EKG this morning demonstrates sinus rhythm with bifascicular heart block, occasional atrial ectopic beats. No significant changes from prior studies. IMPRESSION: An 87-year-old male admitted with: 1. Acute on chronic decompensated congestive heart failure. 2. Newly observed decline in overall systolic function, likely multifactorial. Acute myocardial ischemia not suspected by echocardiogram. 3. 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 4. Chronic pulmonary fibrosis with pulmonary hypertension, O2 dependent. RECOMMENDATIONS: We will optimize medical therapy. As the patient is profoundly diuresed since admission, we will hold IV diuretics further. We will initiate low-dose beta jonathan with Toprol 12.5 mg daily, following heart rate on telemetry given underlying conduction abnormalities. Afterload reduction will be initiated with nitrates and hydralazine. The patient will be followed cautiously in hospital. Encourage prompt diuresis since admission.
--- NOTE | 2017-05-03 14:57 | Progress Note ---
Internal Med Progress Note Date of Service: May 03, 2017. Provider Documentation: SUBJECTIVE: Seen and examined at bedside Feels better today Less SOB, Chronic cough Denies dizziness, nausea, chest pain, dysuria No other complaints OBJECTIVE: Vital Signs-as noted below Physical Exam: General Appearance:Moderately built and nourished, no apparent distress Head: normocephalic, Atraumatic Eyes: normal inspection, EOMI, PERRL Neck: supple, Trachea midline Respiratory/Chest: Normal breath sounds, CTA Cardiovascular: S1, S2, +murmur Abdomen/GI:Soft, Non tender, Bowel sounds present Extremities/Musculoskelatal:normal inspection, B/L LE edema Neurologic/Psych:AAOX3, grossly no focal neurological deficits Skin: normal color, warm Lab data as noted below. ASSESSMENT & PLAN: Acute on Chronic Systolic Heart Failure: ? 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 ECHO as below EF:35-40%, moderate global hypokinesis of the left ventricle Venous Doppler: No DVT CXR:suggestive of possible pulmonary edema and trace b/l pleural effusions Troponin elevation could be from demand Ischemia Monitor daily weight, I/Os Diuretics on hold Continue Imdur, Hydralazine, Metoprolol Oxygen support Appreciate Cardiology Input Monitor electrolytes UTI: Urine culture:E.coli Start Ceftriaxone Chronic respiratory failure, Oxygen and chronic steroid dependency Pulmonary fibrosis continue Oxygen support DuoNeb PRN Continue prednisone 5mg every other day H/O CAD S/P LAD stent Continue ASA, Plavix, BB, statin Cardiology following HTN stable continue to monitor CKD III Cr: 1.8 >>>2.01 Cr slightly up secondary to diuretics monitor renal function Neurogenic Bladder Pt self cath 2-3 times a day Hypothyroidism: TSH normal continue levothyroxine Gout continue allopurinol GERD continue Protonix Depression continue Lexapro Anemia of chronic disease: monitor Hb No active bleeding monitor DVT Px SQ Heparin Code Status: DNR/DNI Disposition Monitor in Tele Follows with Dr Haji for routine care PROCEDURES: ECHO: * The left ventricle is normal in size. * There is severe concentric left ventricular hypertrophy. * There is moderate global hypokinesis of the left ventricle. * Left ventricular systolic function is moderately reduced. * Ejection Fraction = 35-40%. * The patient is status post transcatheter aortic valve replacement with CoreVAlve prosthetic valve. * There is moderate paravalvular aortic regurgitation. * There is moderate to severe mitral regurgitation. * There is moderate tricuspid regurgitation. * Right ventricular systolic pressure is elevated at >60mmHg. Vital Signs: Date Time Temp Pulse Resp B/P (MAP) Pulse Ox O2 Delivery O2 Flow Rate FiO2 05/03/17 14:00 64 23 05/03/17 13:00 63 21 05/03/17 12:21 36.7 66 24 124/56 (78) Nasal Cannula 3.0 Humidified Oxygen 05/03/17 12:00 69 19 05/03/17 11:30 Nasal Cannula 3.0 Humidified Oxygen 05/03/17 11:00 61 28 05/03/17 08:15 95 Nasal Cannula 3.0 Humidified Oxygen 05/03/17 08:12 36.6 68 17 151/67 (95) 96 Nasal Cannula 3.0 Humidified Oxygen 05/03/17 08:00 66 20 05/03/17 07:00 61 23 05/03/17 04:00 94 Nasal Cannula 3.0 Humidified Oxygen 05/03/17 04:00 36.4 65 22 131/68 (89) 94 Nasal Cannula 3.0 Humidified Oxygen 05/02/17 23:59 36.6 59 19 143/71 (95) 95 Nasal Cannula 3.0 Humidified Oxygen 05/02/17 23:59 95 Nasal Cannula 3.0 Humidified Oxygen 05/02/17 20:00 99 Nasal Cannula 3.0 05/02/17 19:38 36.6 76 22 164/83 (110) Nasal Cannula 3.0 05/02/17 16:43 36.8 83 23 148/86 (106) 05/02/17 16:00 99 Nasal Cannula 3.0 Lab Results: Results Past 24 Hours Test 05/02/17 15:54 05/02/17 22:01 05/03/17 04:59 Range/Units Troponin I 0.054 0.061 0.062 0-0.045 ng/ml White Blood Count 6.14 4.8-10.8 K/uL Red Blood Count 3.44 4.7-6.1 M/uL Hemoglobin 10.3 14.0-18.0 g/dL Hematocrit 32.9 42-52 % Mean Corpuscular Volume 95.6 80-100 fL Mean Corpuscular Hemoglobin 29.9 25-34 pg Mean Corpuscular Hemoglobin Concent 31.3 32-36 g/dl RDW Standard Deviation 57.4 36.4-46.3 fL RDW Coefficient of Variation 16.5 11.5-14.5 % Platelet Count 159 130-400 K/uL Mean Platelet Volume 9.6 7.4-10.4 fL Sodium Level 143 136-145 mmol/L Potassium Level 4.5 3.5-5.1 mmol/L Chloride Level 107 98-107 mmol/L Carbon Dioxide Level 29 21-32 mmol/L Anion Gap 7.0 3-11 mmol/L Blood Urea Nitrogen 28 7-18 mg/dl Creatinine 2.01 0.60-1.40 mg/dl Est Creatinine Clear Calc Drug Dose 28.7 ml/min Estimated GFR () 33.3 Estimated GFR (Non- 28.8 BUN/Creatinine Ratio 13.8 10-20 Random Glucose 94 70-99 mg/dl Calcium Level 9.1 8.5-10.1 mg/dl Magnesium Level 2.2 1.8-2.4 mg/dl
[2017-05-03] MEDS: CEFTRIAXONE SOD INJ 1 GM in DEXTROSE 5% ADD-VANTAGE 50ML 50 ML IV SCH (15:43)
[2017-05-03] MEDS: HydrALAZINE 10 MG TAB PO SCH (15:46)
[2017-05-03] MEDS: ISOSORBIDE DINITRATE 10 MG TAB PO SCH (18:21)
[2017-05-03] MEDS: ATORVASTATIN 40 MG TAB PO SCH (21:57)
[2017-05-04 04:17] VITALS: BP 145/69; PULSE 59; TEMP 36.4; O2SAT 97
[2017-05-04] MEDS: LEVOTHYROXINE 88 MCG TAB PO SCH (05:56)
[2017-05-04 07:30] LABS: HEMOGLOBIN 10.5 g/dL (14.0-18.0); MEAN CORPUSCULAR HEMOGLOBIN 29.9 pg (25-34); MEAN CORPUSCULAR HGB CONC 31.8 g/dl (32-36); MEAN PLATELET VOLUME 9.5 fL (7.4-10.4); PLATELET COUNT 171 K/uL (130-400); RED CELL DISTRIBUTION WIDTH CV 16.7 % (11.5-14.5); RED CELL DISTRIBUTION WIDTH SD 57.1 fL (36.4-46.3); WHITE BLOOD COUNT 6.76 K/uL (4.8-10.8)
[2017-05-04 08:00] VITALS: BP 145/65; PULSE 60; TEMP 36.6; O2SAT 97
[2017-05-04 08:04] LABS: CALCIUM 9.1 mg/dl (8.5-10.1); CREATININE 2.16 mg/dl (0.60-1.40)
[2017-05-04] MEDS: ISOSORBIDE DINITRATE 10 MG TAB PO SCH ×2 (08:14→12:10)
[2017-05-04] MEDS: FERROUS SULFATE 325 MG TAB PO SCH ×2 (08:14→16:52)
[2017-05-04] MEDS: HydrALAZINE 10 MG TAB PO SCH ×3 (08:15→21:07)
[2017-05-04] MEDS: ASPIRIN 81 MG ECTAB PO SCH (08:15)
[2017-05-04] MEDS: ESCITALOPRAM OXALATE 10 MG TAB PO SCH (08:15)
[2017-05-04] MEDS: CLOPIDOGREL BISULFATE 75 MG TAB PO SCH (08:15)
[2017-05-04] MEDS: PANTOprazole SOD 40 MG TAB PO SCH (08:15)
[2017-05-04] MEDS: ALLOPURINOL 100 MG TAB PO SCH (08:16)
[2017-05-04] MEDS: METOPROLOL SUCC 25MG EXT REL TAB PO SCH (08:16)
[2017-05-04] MEDS: HEPARIN SOD 5000 UNIT/0.5 ML CARP SQ SCH ×2 (08:17→21:08)
--- NOTE | 2017-05-04 08:33 | Progress Note ---
Internal Med Progress Note Date of Service: May 04, 2017. Provider Documentation: SUBJECTIVE: Seen and examined at bedside Diuresing well Doing well Less SOB Minimal cough Denies dizziness, nausea, chest pain No other complaints OBJECTIVE: Vital Signs-as noted below Physical Exam: General Appearance:Moderately built and nourished, no apparent distress Head: normocephalic, Atraumatic Eyes: normal inspection, EOMI, PERRL Neck: supple, Trachea midline Respiratory/Chest: Normal breath sounds, CTA Cardiovascular: S1, S2, +murmur Abdomen/GI:Soft, Non tender, Bowel sounds present Extremities/Musculoskelatal:normal inspection, B/L LE edema Neurologic/Psych:AAOX3, grossly no focal neurological deficits Skin: normal color, warm Lab data as noted below. ASSESSMENT & PLAN: Acute on Chronic Systolic Heart Failure: ? 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 ECHO as below EF:35-40%, moderate global hypokinesis of the left ventricle Venous Doppler: No DVT CXR:suggestive of possible pulmonary edema and trace b/l pleural effusions Troponin elevation could be from demand Ischemia Monitor daily weight, I/Os Weight down by about 10kg, diuresed well Diuretics per cardiology Continue Imdur, Hydralazine, Metoprolol Oxygen support Appreciate Cardiology Input Monitor electrolytes UTI: Admits to using unsterile catheter at home as ran out of supplies Urine culture:E.coli Continue Ceftriaxone Day # 2 Chronic respiratory failure, Oxygen and chronic steroid dependency Pulmonary fibrosis continue Oxygen support DuoNeb PRN Continue prednisone 5mg every other day H/O CAD S/P LAD stent Continue ASA, Plavix, BB, statin Cardiology following HTN stable continue to monitor CKD III Cr: 1.8 >>>2.01>>>2.16 Cr slightly up secondary to diuretics monitor renal function Neurogenic Bladder: Secondary to prostatic surgery per patient Pt self cath 2-3 times a day Hypothyroidism: TSH normal continue levothyroxine Gout continue allopurinol GERD continue Protonix Depression continue Lexapro Anemia of chronic disease: monitor Hb No active bleeding monitor DVT Px SQ Heparin Code Status: DNR/DNI Disposition Monitor in Tele Follows with Dr Haji for routine care PROCEDURES: ECHO: * The left ventricle is normal in size. * There is severe concentric left ventricular hypertrophy. * There is moderate global hypokinesis of the left ventricle. * Left ventricular systolic function is moderately reduced. * Ejection Fraction = 35-40%. * The patient is status post transcatheter aortic valve replacement with CoreVAlve prosthetic valve. * There is moderate paravalvular aortic regurgitation. * There is moderate to severe mitral regurgitation. * There is moderate tricuspid regurgitation. * Right ventricular systolic pressure is elevated at >60mmHg. Vital Signs: Date Time Temp Pulse Resp B/P (MAP) Pulse Ox O2 Delivery O2 Flow Rate FiO2 05/04/17 04:17 36.4 59 18 145/69 (94) 97 Nasal Cannula 3.0 Humidified Oxygen 05/04/17 04:00 Nasal Cannula 3.0 05/04/17 00:00 Nasal Cannula 3.0 05/03/17 23:30 36.6 61 18 111/55 (73) 95 Nasal Cannula 3.0 Humidified Oxygen 05/03/17 20:00 Nasal Cannula 3.0 05/03/17 19:30 36.5 61 18 110/61 (77) 96 Nasal Cannula 3.0 05/03/17 15:32 Nasal Cannula 3.0 Humidified Oxygen 05/03/17 14:00 64 23 05/03/17 13:00 63 21 05/03/17 12:21 36.7 66 24 124/56 (78) Nasal Cannula 3.0 Humidified Oxygen 05/03/17 12:00 69 19 05/03/17 11:30 Nasal Cannula 3.0 Humidified Oxygen 05/03/17 11:00 61 28 Lab Results: Results Past 24 Hours Test 05/04/17 06:21 Range/Units White Blood Count 6.76 4.8-10.8 K/uL Red Blood Count 3.51 4.7-6.1 M/uL Hemoglobin 10.5 14.0-18.0 g/dL Hematocrit 33.0 42-52 % Mean Corpuscular Volume 94.0 80-100 fL Mean Corpuscular Hemoglobin 29.9 25-34 pg Mean Corpuscular Hemoglobin Concent 31.8 32-36 g/dl RDW Standard Deviation 57.1 36.4-46.3 fL RDW Coefficient of Variation 16.7 11.5-14.5 % Platelet Count 171 130-400 K/uL Mean Platelet Volume 9.5 7.4-10.4 fL Sodium Level 142 136-145 mmol/L Potassium Level 4.0 3.5-5.1 mmol/L Chloride Level 102 98-107 mmol/L Carbon Dioxide Level 32 21-32 mmol/L Anion Gap 8.0 3-11 mmol/L Blood Urea Nitrogen 37 7-18 mg/dl Creatinine 2.16 0.60-1.40 mg/dl Est Creatinine Clear Calc Drug Dose 26.6 ml/min Estimated GFR () 30.6 Estimated GFR (Non- 26.4 BUN/Creatinine Ratio 17.2 10-20 Random Glucose 84 70-99 mg/dl Calcium Level 9.1 8.5-10.1 mg/dl Magnesium Level 2.1 1.8-2.4 mg/dl
[2017-05-04 11:59] VITALS: BP 116/62; PULSE 60; TEMP 36.6; O2SAT 99
[2017-05-04] MEDS: CEFTRIAXONE SOD INJ 1 GM in DEXTROSE 5% ADD-VANTAGE 50ML 50 ML IV SCH (14:33)
[2017-05-04 16:09] VITALS: BP 116/57; PULSE 67; O2SAT 100
[2017-05-04 19:09] VITALS: BP 124/66; PULSE 71; TEMP 36.1; O2SAT 92
[2017-05-04] MEDS: ATORVASTATIN 40 MG TAB PO SCH (21:06)
[2017-05-04 23:18] VITALS: BP 136/69; PULSE 69; TEMP 36.8; O2SAT 96
[2017-05-05 04:23] VITALS: BP 148/69; PULSE 68; TEMP 36; O2SAT 96
[2017-05-05 05:57] LABS: CALCIUM 8.8 mg/dl (8.5-10.1); CREATININE 2.09 mg/dl (0.60-1.40); POTASSIUM 3.7 mmol/L (3.5-5.1)
[2017-05-05] MEDS: LEVOTHYROXINE 88 MCG TAB PO SCH (06:19)
[2017-05-05] MEDS: ISOSORBIDE DINITRATE 10 MG TAB PO SCH (06:20)
--- NOTE | 2017-05-05 07:56 | CARDIOLOGY CONSULTATION ---
DATE OF CONSULTATION: 05/02/2017 REFERRING PHYSICIAN: Dr. Hendricks. INDICATIONS: Worsening dyspnea, orthopnea, elevated troponin, complex cardiac history. HISTORY OF PRESENT ILLNESS: The patient is a complex 87-year-old male whose past medical history is notable for ischemic heart disease, status post drug-eluting stent to the left anterior descending in June 2016, prior transcutaneous aortic valve replacement in July 2016 for severe aortic stenosis. Cardiac catheterization demonstrated single vessel disease with excellent clinical result. Aortic valve transcutaneous implantation resulted in successful valve structure implantation though with residual at least mild perivalvular aortic insufficiency. The patient's underlying medical problems include chronic pulmonary fibrosis, O2 dependent; hypothyroidism; abdominal aortic aneurysm; gastroesophageal reflux disease; hypertension. The patient presents this admission noting approximately a 3-day history of worsening orthopnea, awakening from sleep at night having to sit at bedside to aid in breathing, increasing lower abdominal edema and abdominal bloating. He is uncertain as to the degree of weight gain. Notes no fevers, chills or productive cough. Notes no chest pains. Notes no tachypalpitations. Notes no syncope or near syncope. Notes stools are chronically dark due to medications he has been taking. Notes no overt bleeding. Notes no dysuria or hematuria. He has been taking medications and wearing oxygen as prescribed. ALLERGIES: None. MEDICATIONS PRIOR TO HOSPITALIZATION: Allopurinol 100 mg p.o. q. day, aspirin 81 mg p.o. q. day, atorvastatin 40 mg p.o. q. day, clopidogrel 75 mg p.o. q. day, Lexapro 10 mg p.o. q. day, ferrous sulfate 325 b.i.d., oxygen 2 liters nasal cannula, levothyroxine 88 mcg per day, nitroglycerin p.r.n., Protonix 40 mg p.o. q. day, prednisone 5 mg every other day, DuoNeb nebulizers p.r.n. PAST SURGICAL HISTORY: As described. Prior coronary intervention in June 2014, transcutaneous aortic valve implantation in July 2014 with core valve structure, past total knee replacement, prostatectomy. FAMILY HISTORY: Positive for peripheral vascular disease. SOCIAL HISTORY: The patient is a resident of an extended care facility. He is a nonsmoker, nondrinker. Currently denying any acute distress. PHYSICAL EXAMINATION: GENERAL: The patient is an age appropriate male, in no acute distress. VITAL SIGNS: Heart rate 83, blood pressure 148/86, O2 saturation is 99% on 3 liters nasal cannula. HEENT: Normocephalic and atraumatic. Nares without discharge. Throat was clear. NECK: Thick. There is mild jugular venous distention at 30 degrees. LUNGS: Reveal scattered crackles basilar. CARDIOVASCULAR: Regular with a grade 2/6 systolic murmur. There is no diastolic murmur audible, heart sounds are distant. There is no S3 gallop. ABDOMEN: Obese, soft, nontender. EXTREMITIES: Reveal 2+ to 3+ lower extremity edema, left slightly greater than right. NEUROLOGIC: The patient is answering questions appropriately. DIAGNOSTIC DATA: EKG reveals sinus rhythm with bifascicular heart block, right bundle branch, left anterior fascicular block. Echocardiogram demonstrates severe left ventricular hypertrophy with global hypokinesis of the ventricle, EF for 35% to 40%. There is an aortic valve prosthesis in place with moderate perivalvular aortic insufficiency. There is mvmcjauq-[id number]-yqyklo mitral insufficiency and moderate tricuspid insufficiency with a significant elevation in right heart pressures greater than 50 mmHg. LABORATORY DATA: White cell count 6.1, hemoglobin is 10.3, sodium is 143, potassium is 4.3, chloride is 111, bicarbonate is 27, BUN is 21, creatinine is 1.88. Troponins are elevated but flat on 2 serial testing. BNP is elevated at. TSH is 3.1. IMPRESSION: Complex 87-year-old male with prior history of single vessel coronary artery disease, status post prior coronary intervention in June 2016, prior transcutaneous aortic valve implantation for severe aortic stenosis. The patient presents now with signs and symptoms of acute on chronic decompensated congestive heart failure, signs and symptoms of orthopnea or worsening peripheral edema of several days' duration. PLAN: The patient has already received IV furosemide in the Emergency Room and will be continued. Usual medications will be continued otherwise including aspirin, clopidogrel. We will avoid beta blockers given the bifascicular heart block, relatively well controlled heart rate. Consideration may be made for afterload reduction depending on clinical course. Oxygen supplementation will be continued. LV systolic function appears diffuse and despite mildly elevated troponins does not suggest acute coronary syndrome cause, especially given known history of single vessel coronary disease and prior post-procedure normal LV systolic function in September 2016. We will follow closely in the hospital.
[2017-05-05 07:57] VITALS: BP 109/44; PULSE 57; PULSE 68; TEMP 36.4; O2SAT 97
--- NOTE | 2017-05-05 08:04 | PROGRESS NOTE ---
DATE: 05/04/2017 The patient seen and examined. Chart, medications, telemetry reviewed. SUBJECTIVE: The patient notes breathing is easier, slept well last night. Notes no productive cough. OBJECTIVE: VITAL SIGNS: Heart rate is 60, blood pressure is 145/65 this morning, 116/62 late this morning. HEENT: Normocephalic and atraumatic. NECK: Thin. There is no jugular venous distention. LUNGS: Notable for fine crackles at the bases with diffusely diminished breath sounds. CARDIOVASCULAR: Regular with a grade 2/6 systolic murmur heard best at the lateral apex. There is no diastolic murmur audible. ABDOMEN: Soft. EXTREMITIES: Without cyanosis or clubbing. There is diminished peripheral edema. DATA: EKG reveals sinus rhythm with bifascicular heart block, rate 64. White cell count 6.7, hemoglobin is 10.5. Sodium is 142, potassium is 4.0, chloride is 102, bicarbonate is 32, BUN is 37, creatinine is 2.1. IMPRESSION: Complex 87-year-old male presented with acutely decompensated systolic and diastolic heart failure with diffuse left ventricular dysfunction also observed. The patient has responded to diuretics. Underlying medical problems include valvular heart disease, status post aortic valve transcutaneous implantation, mitral insufficiency, underlying lung disease, O2 dependent, with chronic interstitial fibrosis. RECOMMENDATIONS: We will continue afterload reduction with increased dose of hydralazine and oral nitrates. Furosemide has been initiated, oral dosing. In a.m., after renal function to be reassessed, all the therapies to be continued, urinary tract infection under treatment. We will follow the patient in the hospital. Gradually increase activities.
[2017-05-05] MEDS: ASPIRIN 81 MG ECTAB PO SCH (08:07)
[2017-05-05] MEDS: ESCITALOPRAM OXALATE 10 MG TAB PO SCH (08:07)
[2017-05-05] MEDS: PANTOprazole SOD 40 MG TAB PO SCH (08:07)
[2017-05-05] MEDS: ALLOPURINOL 100 MG TAB PO SCH (08:07)
[2017-05-05] MEDS: FERROUS SULFATE 325 MG TAB PO SCH (08:07)
[2017-05-05] MEDS: CLOPIDOGREL BISULFATE 75 MG TAB PO SCH (08:07)
[2017-05-05] MEDS: HydrALAZINE 10 MG TAB PO SCH (08:08)
[2017-05-05] MEDS: METOPROLOL SUCC 25MG EXT REL TAB PO SCH (08:08)
[2017-05-05] MEDS: HEPARIN SOD 5000 UNIT/0.5 ML CARP SQ SCH (08:09)
--- NOTE | 2017-05-05 09:11 | Clinical Documentation Query ---
Dr. MAYFIELD, [facility] : CLINICAL DOCUMENTATION QUERY Patient is an 87 year old male admitted for treatment of acute on chronic systolic CHF. Documentation includes the following: "UTI: Admits to using unsterile catheter at home as ran out of supplies Urine culture:E.coli Continue Ceftriaxone Day # 2". As appropriate, consider documentation as suggested below in order to explicitly link poor self catheterization technique and the UTI, which is a complication of care, and results in more accurate DRG assignment. Thank you. In your clinical opinion is this patient being managed for: (X ) UTI due to poor self-urethral catheterization technique ( ) Not Agree ( ) Other explanation of clinical findings (Please Explain) ( ) Unable to determine (Please Define) ( ) Need to Discuss The medical record reflects the following clinical findings, treatment, and risk factors. Clinical Indicators: As above Treatment: IV Rocephin Risk Factors: Self catheterization, running out of supplies. Please clarify and document your clinical opinion in the progress notes and discharge summary. Terms such as "probable", "suspected", "likely", "questionable", "possible", or "still to be ruled out" are acceptable. IF IN AGREEMENT, YOU MUST DOCUMENT ABOVE DIAGNOSTIC STATEMENT IN DAILY PROGRESS NOTES AND DISCHARGE SUMMARY. This document is not part of the patient's record. Thank You, Michael Fierro, ARABELLA [phone]
--- NOTE | 2017-05-05 09:14 | Progress Note ---
Internal Med Progress Note Date of Service: May 05, 2017. Provider Documentation: SUBJECTIVE: Seen and examined at bedside Doing well No complaints Denies SOB, dizziness, nausea, chest pain OBJECTIVE: Vital Signs-as noted below Physical Exam: General Appearance:Moderately built and nourished, no apparent distress Head: normocephalic, Atraumatic Eyes: normal inspection, EOMI, PERRL Neck: supple, Trachea midline Respiratory/Chest: Normal breath sounds, CTA Cardiovascular: S1, S2, +murmur Abdomen/GI:Soft, Non tender, Bowel sounds present Extremities/Musculoskelatal:normal inspection, B/L LE edema Neurologic/Psych:AAOX3, grossly no focal neurological deficits Skin: normal color, warm Lab data as noted below. 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 ECHO as below EF:35-40%, moderate global hypokinesis of the left ventricle Venous Doppler: No DVT CXR:suggestive of possible pulmonary edema and trace b/l pleural effusions Troponin elevation could be from demand Ischemia Monitor daily weight, I/Os Weight down by about 10kg, diuresed well Diuretics per cardiology Continue Imdur, Hydralazine, Metoprolol Oxygen support Appreciate Cardiology Input Monitor electrolytes UTI: Admits to using unsterile catheter at home as ran out of supplies Urine culture:E.coli Continue Ceftriaxone Day # 3 Chronic respiratory failure, Oxygen and chronic steroid dependency Pulmonary fibrosis continue Oxygen support DuoNeb PRN Continue prednisone 5mg every other day H/O CAD S/P LAD stent Continue ASA, Plavix, BB, statin Cardiology following HTN stable continue to monitor CKD III Cr: 1.8 >>>2.01>>>2.16>>2.09 Cr stable monitor renal function Neurogenic Bladder: Secondary to prostatic surgery per patient Pt self cath 2-3 times a day Hypothyroidism: TSH normal continue levothyroxine Gout continue allopurinol GERD continue Protonix Depression continue Lexapro Anemia of chronic disease: monitor Hb No active bleeding monitor DVT Px SQ Heparin Code Status: DNR/DNI Disposition: Plan to discharge back to [facility] today Follows with Dr Haji for routine care in 1 weeks Follow up with your [facility] on ,2017 at 11:15AM (Office may call with earlier appointment) Complete the antibiotic course as prescribed Seek immediate medical attention if your symptoms reoccur or worsen PROCEDURES: ECHO: * The left ventricle is normal in size. * There is severe concentric left ventricular hypertrophy. * There is moderate global hypokinesis of the left ventricle. * Left ventricular systolic function is moderately reduced. * Ejection Fraction = 35-40%. * The patient is status post transcatheter aortic valve replacement with CoreVAlve prosthetic valve. * There is moderate paravalvular aortic regurgitation. * There is moderate to severe mitral regurgitation. * There is moderate tricuspid regurgitation. * Right ventricular systolic pressure is elevated at >60mmHg. Vital Signs: Date Time Temp Pulse Resp B/P (MAP) Pulse Ox O2 Delivery O2 Flow Rate FiO2 05/05/17 08:00 Humidified Oxygen 3.0 05/05/17 07:57 36.4 68 18 109/44 (65) 97 05/05/17 04:23 36.0 68 18 148/69 (95) 96 Nasal Cannula 2.5 Humidified Oxygen 05/05/17 04:00 Humidified Oxygen 3.0 05/05/17 00:02 Humidified Oxygen 3.0 05/04/17 23:18 36.8 69 18 136/69 (91) 96 Nasal Cannula 2.5 Humidified Oxygen 05/04/17 20:00 Humidified Oxygen 3.0 05/04/17 19:09 36.1 71 18 124/66 (85) 92 Nasal Cannula 2.5 Humidified Oxygen 05/04/17 16:09 67 16 116/57 (76) 100 Nasal Cannula 2.5 Humidified Oxygen 05/04/17 16:00 Nasal Cannula 3.0 Humidified Oxygen 05/04/17 12:00 Nasal Cannula 3.0 Humidified Oxygen 05/04/17 11:59 36.6 60 18 116/62 (80) 99 Nasal Cannula Lab Results: Results Past 24 Hours Test 05/05/17 05:13 Range/Units Sodium Level 141 136-145 mmol/L Potassium Level 3.7 3.5-5.1 mmol/L Chloride Level 104 98-107 mmol/L Carbon Dioxide Level 29 21-32 mmol/L Anion Gap 8.0 3-11 mmol/L Blood Urea Nitrogen 38 7-18 mg/dl Creatinine 2.09 0.60-1.40 mg/dl Est Creatinine Clear Calc Drug Dose 27.5 ml/min Estimated GFR () 31.8 Estimated GFR (Non- 27.4 BUN/Creatinine Ratio 18.1 10-20 Random Glucose 114 70-99 mg/dl Calcium Level 8.8 8.5-10.1 mg/dl Magnesium Level 2.1 1.8-2.4 mg/dl
[2017-05-05] MEDS ORDERED: LSX20 PO (09:34)
[2017-05-05] MEDS ORDERED: TPRSR25 PO (09:34)
[2017-05-05] MEDS ORDERED: ISR10 PO (09:34)
[2017-05-05] MEDS ORDERED: APR25 PO (09:34)
[2017-05-05] MEDS ORDERED: CEFU250T15 PO (09:36)
--- NOTE | 2017-05-05 09:38 | Discharge Summary ---
Discharge Summary Date of Service May 05, 2017. Discharge Summary Admission Date: May 02, 2017 at 12:02 Discharge Date: May 05, 2017 Discharge Disposition: Personal care Principal Diagnosis: CHF exacerbation, UTI, ZENA on CKD Procedures: CXR: Diffuse bilateral parenchymal fibrosis unchanged from the prior exam. No acute or superimposed infiltrative process. Moderate stable cardiomegaly Venous Doppler: No DVT within the right or left lower extremity. ECHO: * The left ventricle is normal in size. * There is severe concentric left ventricular hypertrophy. * There is moderate global hypokinesis of the left ventricle. * Left ventricular systolic function is moderately reduced. * Ejection Fraction = 35-40%. * The patient is status post transcatheter aortic valve replacement with CoreVAlve prosthetic valve. * There is moderate paravalvular aortic regurgitation. * There is moderate to severe mitral regurgitation. * There is moderate tricuspid regurgitation. * Right ventricular systolic pressure is elevated at >60mmHg. Consultations: Cardiology Pending Studies/Follow-Up: .Follows with Dr Haji for routine care in 1 weeks Follow up with your Alternative Energy Technician on 2017 at 11:15AM (Office may call with earlier appointment) Complete the antibiotic course as prescribed Seek immediate medical attention if your symptoms reoccur or worsen Instructions / Follow-Up Instructions / Follow-Up Call your Primary Care doctor if any of the following symptoms or problems start or get worse: * Shortness of breath or difficulty breathing * Wake up at night short of breath * Chest pain * Cough * Swelling of your hands, feet, or legs * More fatigued or tired with your normal activity * Palpitations - sudden fast heart beats WEIGHT * Weigh yourself every morning after using the bathroom. * Use the same scale. * Wear the same amount of clothing. * Write your weight down on a chart. * Call your Primary Care doctor if you gain more than 2-3 pounds in 1-2 days. MEDICATIONS * Use this discharge instruction sheet for medication instructions. * Take your medications at the time your doctor ordered. * Do not skip a dose of your medicines. * If you miss a dose of medicine, take it as soon as possible, but DO NOT DOUBLE A DOSE. * Read your medicine information when you get home. * Know all of the side effects of your medicine. If in doubt, ask your pharmacist * Call your Primary Care doctor's office if you have any side effects. * Be sure all of your doctors know what medicine and herbs you take (including cold, flu, and herbal medicine). Take the following with you to your follow-up doctor appointments: * Weight Chart * Medication List * List of questions Do not drink excessive alcohol, beer or wine. Medication Reconciliation New Medications: Cefuroxime Axetil (Ceftin) 250 Mg Tab 250 MG PO BID for 5 Days, #10 TAB Hydralazine Hcl (Apresoline) 25 Mg Tab 12.5 MG PO TID for 30 Days, #45 TAB 1 Refill Furosemide (Furosemide) 20 Mg Tab 20 MG PO QAM for 30 Days, #30 TAB 1 Refill Isosorbide Dinitrate (Isosorbide Dinitrate) 10 Mg Tab 10 MG PO BID@0700,1200 for 30 Days, #60 TAB 1 Refill Metoprolol Succinate (Metoprolol Succinate ER) 25 Mg Tabcr 12.5 MG PO QAM for 30 Days, #15 EA 1 Refill Continued Medications: Acetaminophen (Tylenol) 325 Mg Tab 650 MG PO Q4H PRN for Pain, TAB Allopurinol (Zyloprim) 100 Mg Tab 100 MG PO DAILY, TAB Aspirin Enteric Coated (Ecotrin Or Generic) 81 Mg Tab 81 MG PO DAILY, TAB Atorvastatin (Lipitor) 40 Mg Tab 40 MG PO QPM, TAB Clopidogrel (Plavix) 75 Mg Tab 75 MG PO DAILY, TAB Escitalopram Oxalate (Lexapro) 10 Mg Tab 10 MG PO DAILY, TAB Ferrous Sulfate (Kp Ferrous Sulfate) 325 Mg Tab 325 MG PO BID, TAB Home O2 Therapy (Oxygen) Gas 2 LITERS NA CONTINOUS, BTL 6L O2 prn activity Ipratropium-Albuterol (Duoneb) 3 Ml Nebu 1 TREATMENT INH Q4H PRN for SOB/Wheezing, INHA Levothyroxine Sodium (Levothyroxine Sodium) 88 Mcg Tab 88 MCG PO DAILY Nitroglycerin (Nitrostat) 0.4 Mg Tab 0.4 MG UT PRN, BTL Pantoprazole (Protonix) 40 Mg Tab 40 MG PO DAILY, TAB Prednisone (Prednisone) 5 Mg Tab 5 MG PO Q2D, TAB Sennosides-Docusate Sodium (Doc-Q-Lax) 1 Tab Tab 1 TAB PO DAILY PRN for Constipation Admission Information HPI (per Admitting provider): Pt is 87 y/o M with PMH chronic respiratory failure, pulmonary fibrosis on chronic O2, CAD s/p stent LAD 06/2016, TAVR AV in 07/2016, chronic bifascicular block, neurogenic bladder, hypothyroidism presented to ER with c/o increased SOB. Pt states past couple of months has noticed increased SOB with exertion. he follows with Dr Valdes -pulmonology. He is on Prednisone 5mg every other day currently. Pt reports using 3-4L O2 continuous. Can increase to 6L with exertion , however pt states doesn't ever increase it. Past couple of weeks has noticed LE edema which has increased over the past week. States orhtopnea this week and last night had 2 episodes of PND and this occurred two other times this week. States extremities tender when donna hose being placed, but then non-tender. Pt had u/s LLE yesterday at [facility] -obtained preliminary result no DVT. Unsure if any weight changes. Pt self caths 2-3 times a day. States for past couple months urine is darker coloration, denies any noted blood or odor. Hx Echo: 07/31: EF: 60-64%, inferior, posterior wall motion abnormality, s/p TAVR , mild paravalvular AV prosthesis regurgitation, mitral regurgitation. Hx cardiac cath: 07/01: stent x 2 to LAD, mild disease RCA, mild disease circumflex, mild disease L main. Physical Exam (per Admitting): General Appearance: WD/WN, no apparent distress Head: normocephalic, atraumatic Eyes: normal inspection, PERRL, EOMI, sclerae normal ENT: hearing grossly normal, pharynx normal, + pertinent finding (mucous membranes moist) Neck: supple, no JVD, trachea midline Respiratory/Chest: no respiratory distress, no accessory muscle use, + decreased breath sounds, + crackles (bases bilaterally) Cardiovascular: regular rate, rhythm, + systolic murmur Abdomen/GI: normal bowel sounds, non tender, soft Extremities/Musculoskelatal: no calf tenderness, normal capillary refill, + pedal edema (3+ LLE, 2+ RLE, ROM intact) Neurologic/Psych: alert, normal mood/affect, oriented x 3 Skin: normal color, warm/dry Hospital Course Acute on Chronic Systolic Heart Failure: Multivalvular Heart disease H/O Aortic valve TAVR 07/2016 ECHO as below EF:35-40%, moderate global hypokinesis of the left ventricle Venous Doppler: No DVT CXR:suggestive of possible pulmonary edema and trace b/l pleural effusions Troponin elevation could be from demand Ischemia Monitor daily weight, I/Os Weight down by about 10kg, diuresed well Diuretics per cardiology Continue Imdur, Hydralazine, Metoprolol Oxygen support Appreciate Cardiology Input Monitor electrolytes UTI: Due to Poor Catheterization technique (Reused Disposable Catheter) Admits to using unsterile catheter at home as ran out of supplies Urine culture:E.coli Continue Ceftriaxone Day # 3 Chronic respiratory failure, Oxygen and chronic steroid dependency Pulmonary fibrosis continue Oxygen support DuoNeb PRN Continue prednisone 5mg every other day H/O CAD S/P LAD stent Continue ASA, Plavix, BB, statin Cardiology following HTN stable continue to monitor CKD III Cr: 1.8 >>>2.01>>>2.16>>2.09 Cr stable monitor renal function Neurogenic Bladder: Secondary to prostatic surgery per patient Pt self cath 2-3 times a day Hypothyroidism: TSH normal continue levothyroxine Gout continue allopurinol GERD continue Protonix Depression continue Lexapro Anemia of chronic disease: monitor Hb No active bleeding monitor DVT Px SQ Heparin Code Status: DNR/DNI Disposition: Plan to discharge back to [facility] today Follows with Dr Haji for routine care in 1 weeks Follow up with your Alternative Energy Technician on 2017 at 11:15AM (Office may call with earlier appointment) Complete the antibiotic course as prescribed Seek immediate medical attention if your symptoms reoccur or worsen PROCEDURES: ECHO: * The left ventricle is normal in size. * There is severe concentric left ventricular hypertrophy. * There is moderate global hypokinesis of the left ventricle. * Left ventricular systolic function is moderately reduced. * Ejection Fraction = 35-40%. * The patient is status post transcatheter aortic valve replacement with CoreVAlve prosthetic valve. * There is moderate paravalvular aortic regurgitation. * There is moderate to severe mitral regurgitation. * There is moderate tricuspid regurgitation. * Right ventricular systolic pressure is elevated at >60mmHg. Total time spent on discharge = 35 minutes This includes examination of the patient, discharge planning, medication reconciliation, and communication with other providers. Discharge Instructions Discharge Instructions Date of Service May 05, 2017. Admission Reason for Admission: Chf, Hypoxemia Requiring Supplemental Oxygen Discharge Discharge Diagnosis / Problem: CHF exacerbation, UTI, ZENA on CKD Discharge Goals Goal(s): Decrease discomfort, Improve function Activity Recommendations Activity Limitations: per Instructions/Follow-up section Lifting Limitations: gradually increase as tolerated Exercise/Sports Limitations: gradually increase as tolerated .Follows with Dr Haji for routine care in 1 weeks Follow up with your Alternative Energy Technician on ,2017 at 11:15AM (Office may call with earlier appointment) Complete the antibiotic course as prescribed Seek immediate medical attention if your symptoms reoccur or worsen Instructions / Follow-Up Instructions / Follow-Up Call your Primary Care doctor if any of the following symptoms or problems start or get worse: * Shortness of breath or difficulty breathing * Wake up at night short of breath * Chest pain * Cough * Swelling of your hands, feet, or legs * More fatigued or tired with your normal activity * Palpitations - sudden fast heart beats WEIGHT * Weigh yourself every morning after using the bathroom. * Use the same scale. * Wear the same amount of clothing. * Write your weight down on a chart. * Call your Primary Care doctor if you gain more than 2-3 pounds in 1-2 days. MEDICATIONS * Use this discharge instruction sheet for medication instructions. * Take your medications at the time your doctor ordered. * Do not skip a dose of your medicines. * If you miss a dose of medicine, take it as soon as possible, but DO NOT DOUBLE A DOSE. * Read your medicine information when you get home. * Know all of the side effects of your medicine. If in doubt, ask your pharmacist * Call your Primary Care doctor's office if you have any side effects. * Be sure all of your doctors know what medicine and herbs you take (including cold, flu, and herbal medicine). Take the following with you to your follow-up doctor appointments: * Weight Chart * Medication List * List of questions Do not drink excessive alcohol, beer or wine. Current Hospital Diet Patient's current hospital diet: AHA Diet (Heart Healthy) Discharge Diet Recommended Diet: AHA Diet (Heart Healthy) Pending Studies Studies pending at discharge: no Medical Emergencies . Who to Call and When: Call 911 or go to the Emergency Room if: * If at any time you feel your situation is an emergency * You have tightness or pain in your chest that does not go away with rest or Nitroglycerin * You are very short of breath even with rest . Non-Emergent Contact Non-Emergency issues call your: Primary Care Provider, Alternative Energy Technician Call Non-Emergent contact if: you have a fever, your pain is not controlled, your pain is worsening, your pain is unusual for you, your pain is concerning you, you have any medication questions Seek immediate medical attention if your symptoms reoccur or worsen . . "Provider Documentation" section prepared by Melchor Puentes. . VTE Core Measure Inpt VTE Proph given/why not?: Unfractionated heparin SQ <Electronically signed by Melchor Puentes MD> Signed: 05/05/17 0937 Signed: The status of this report is Signed * If report status is Draft, the document has not been finalized by the responsible provider.
[2017-05-05 09:42] VITALS: BP 109/44; PULSE 68; TEMP 36.4; O2SAT 97
[2017-05-05] MEDS ORDERED: FUROSEMIDE 20 MG TAB PO ONE (09:45)
--- NOTE | 2017-05-05 10:48 | PROGRESS NOTE ---
DATE: 05/05/2017 The patient seen and examined. Chart, medications, telemetry reviewed. SUBJECTIVE: The patient feels improved this morning. Lower extremity edema has resolved. Notes no chest pains, dizziness or lightheadedness. Was ambulatory in room today without difficulty. Notes no fevers, chills or productive cough. OBJECTIVE: VITAL SIGNS: Heart rate is 68, blood pressure is 109/44. HEENT: Normocephalic, atraumatic. NECK: Thin. There is no distinct jugular venous distension with the patient examined upright. LUNGS: Reveal fine crackles, basilar, unchanged. No rhonchi or wheeze. CARDIOVASCULAR: Regular with atrial ectopic beats. Telemetry reveals no arrhythmias. There are no pauses. ABDOMEN: Soft, nontender. EXTREMITIES: Reveal improved peripheral edema. LABORATORY DATA: Sodium is 141, potassium is 3.7, chloride is 104, bicarb is 29, BUN is 38, creatinine is 2.09, glucose is 114. IMPRESSION: 1. An 87-year-old male with acute on chronic decompensated systolic heart failure, clinically improved. 2. Newly noted decline in overall left ventricular systolic function, likely multifactorial, acute coronary syndrome not suggested, with diffuse hypokinesis of ventricle and apex, possibly valvular or stress mediated. The patient is now on appropriate medical therapies including low-dose Toprol, afterload reduction with hydralazine and nitrates. Furosemide will be continued at 20 mg per day with planned followup with cardiology in 1-2 weeks' time, reassess renal function and electrolytes.
[2017-05-06] MEDS ORDERED: FUROSEMIDE 20 MG TAB PO SCH (09:00)
== END 2017-05-05 10:34 | disposition home or self-care (01) | DRG 698 ==
LOC: C.EDB 09:48 → C.MSICU 12:02 → ENRESERV 12:15 → C.2T 05-03 18:14
PROVIDERS: ADMIT Hospitalist; ATTEND Internal Medicine
DX: T83.518A Infection and inflammatory reaction due to other urinary catheter, initial encounter (principal); I50.23 Acute on chronic systolic (congestive) heart failure; J96.10 Chronic respiratory failure, unspecified whether with hypoxia or hypercapnia; I24.8 Other forms of acute ischemic heart disease; I13.0 Hypertensive heart and chronic kidney disease with heart failure and stage 1 through stage 4 chronic kidney disease, or unspecified chronic kidney disease; I45.2 Bifascicular block; N39.0 Urinary tract infection, site not specified; Z87.891 Personal history of nicotine dependence; Z79.82 Long term (current) use of aspirin; Z79.02 Long term (current) use of antithrombotics/antiplatelets; Z79.52 Long term (current) use of systemic steroids; J84.10 Pulmonary fibrosis, unspecified; Z99.81 Dependence on supplemental oxygen; I25.10 Atherosclerotic heart disease of native coronary artery without angina pectoris; Z95.5 Presence of coronary angioplasty implant and graft; N31.9 Neuromuscular dysfunction of bladder, unspecified; E03.9 Hypothyroidism, unspecified; N18.3 Chronic kidney disease, stage 3 (moderate); M10.9 Gout, unspecified; K21.9 Gastro-esophageal reflux disease without esophagitis; F32.9 Major depressive disorder, single episode, unspecified; D64.9 Anemia, unspecified; B96.20 Unspecified Escherichia coli [E. coli] as the cause of diseases classified elsewhere; Y84.6 Urinary catheterization as the cause of abnormal reaction of the patient, or of later complication, without mention of misadventure at the time of the procedure

== ENCOUNTER 2017-05-05 17:39 | Emergency (ER) | payer OTHER ==
[~2017-05-05 17:39] MED LIST changes: +ACET-1311 PO; -ALL300 PO; +ALLO100T PO; +APR25 PO; +CEFU250T15 PO; -DEXTSYP27 PO; +FERR1TAB13 PO; +IPRASOL4 INH; +ISR10 PO; +LSX20 PO; +OXGN; +PANT40TA PO; -PRD20 PO; +PRED-301 PO; -PRLSR20 PO; +SENN8.6T96 PO; +TPRSR25 PO
[2017-05-05 17:48] VITALS: TEMP 36.3
[2017-05-05] MEDS ORDERED: GELATIN SPONGE 12-7MM EXT STA (18:11)
--- NOTE | 2017-05-05 18:18 | EMERGENCY ROOM VISIT NOTE ---
ED Visit Note First contact with patient: 17:57 CHIEF COMPLAINT: Facial abrasions HISTORY OF PRESENT ILLNESS: This 87-year-old male patient presents to the emergency department approximately 4 hours after cutting the bridge of his nose. The patient states he was discharged from hospital this morning. As he was walking to get a shower, his right great toe got caught in the carpet, and the patient tripped, falling face first onto the carpeted floor. The bleeding has not stopped. There is no weakness or numbness of the area. He denies any loss of consciousness or amnesia to the event. The patient denies any neck pain. Tetanus shot is up-to-date. The patient rates the pain as stinging and 0 /10. He is here because he was unable to get the bleeding to stop. The patient does take aspirin and Plavix. He denies any other blood thinner use. REVIEW OF SYSTEMS: A 6 system review of systems was completed with positives and pertinent negatives listed in the HPI. ALLERGIES: None PMH: Heart failure, hypothyroidism, hypertension, GERD, urinary tract infection SOCIAL HISTORY: The patient lives at [facility]. He denies drug, alcohol, tobacco use. PHYSICAL EXAM: Vital Signs: Reviewed Nurse's notes, vital signs stable. GENERAL : This is an 87-year-old male, in no acute distress, well-developed, well- nourished. Normal Mini-Mental status exam. SKIN: There is a 2 cm abrasion on the bridge of the nose. It is superficial and the top layer of skin has been avulsed. There is no foreign material in the wound and it looks clean. There is active bleeding. No deep structures are seen in the base of the wound. Sensation to pain and light touch is intact. HEAD: Normocephalic. EYES: Pupils are equal round and reactive to light and accommodation. EOMs are full and optic discs and fundi are normal. There is no swelling or discoloration of the tissue surrounding the eyes. EARS: External auditory canals clear without blood. NOSE: Patent without tenderness. No septal hematoma. FACE: No facial tenderness. NECK: Supple. There is no cervical spine tenderness. The patient does not have tenderness with movement of the neck. RADIOLOGY: HEAD WITHOUT CONTRAST (CT) CT DOSE: 712.55 mGy.cm HISTORY: Trauma. Mental status change. fall, head injury TECHNIQUE: Multiaxial CT images of the head were performed without the use of intravenous contrast. A dose lowering technique was utilized adhering to the principles of ALARA. Comparison: 10/08/2010 Findings: The paranasal sinuses and mastoid air cells are clear. The calvarium and skull base are intact. The ventricles and sulci are within normal limits. There is no mass, hematoma, midline shift, or acute infarct. Age-related change Impression: No acute intracranial abnormality. Age-related chronic small vessel change and atrophy. The above report was generated using voice recognition software. It may contain grammatical, syntax or spelling errors. Electronically signed by: Fabio Soto M.D. 05/05/2017 7:46 PM Dictated Date/Time: 05/05/2017 7:39 PM EMERGENCY DEPARTMENT COURSE: I examined the patient. Verbal consent was obtained to perform the procedure. The nose was cleaned with saline and betadine. Gelfoam was applied to the avulsion laceration and the area was dressed with a pressure dressing. The bleeding stopped. The patient tolerated the procedure well. The patient was taken to CT. CT scan was reviewed by myself and radiologist as above. The patient was reassessed and there was no rebleeding. Discharge instructions reviewed. The patient was discharged home in stable condition. I attest that I have personally reviewed the patient's current medication list. Patient was found to have normal blood pressure on screening and does not require follow-up. Differential diagnosis includes avulsion, fracture, ICH, concussion, contusion, malignancy, and others DIAGNOSIS: Avulsion laceration of the nose, fall from standing, head injury Problem List Medical Problems: (1) AAA (abdominal aortic aneurysm) Permanent Comment: 4.6cm Status: Chronic (2) CAD (coronary artery disease) Permanent Comment: 06/2016 - FLORIN to LAD x 2 Status: Chronic (3) CKD (chronic kidney disease), stage III Status: Chronic (4) GERD (gastroesophageal reflux disease) Status: Chronic (5) Gout Status: Chronic (6) HTN (hypertension) Status: Chronic (7) Hypothyroidism Status: Chronic (8) Hypoxemia requiring supplemental oxygen Status: Chronic (9) Neurogenic bladder Status: Chronic (10) Pulmonary fibrosis Status: Chronic Surgical Problems: (1) Hx of total knee arthroplasty Status: Chronic (2) S/P TAVR (transcatheter aortic valve replacement) Permanent Comment: 07/29/16 Status: Chronic (3) S/P TURP Status: Chronic Current/Historical Medications Scheduled Allopurinol (Zyloprim), 100 MG PO DAILY Aspirin Enteric Coated (Ecotrin Or Generic), 81 MG PO DAILY Atorvastatin (Lipitor), 40 MG PO QPM Cefuroxime Axetil (Ceftin), 250 MG PO BID Clopidogrel (Plavix), 75 MG PO DAILY Escitalopram Oxalate (Lexapro), 10 MG PO DAILY Ferrous Sulfate (Kp Ferrous Sulfate), 325 MG PO BID Furosemide (Furosemide), 20 MG PO QAM Home O2 Therapy (Oxygen), 2 LITERS NA CONTINOUS Hydralazine Hcl (Apresoline), 12.5 MG PO TID Isosorbide Dinitrate (Isosorbide Dinitrate), 10 MG PO BID@0700,1200 Levothyroxine Sodium (Levothyroxine Sodium), 88 MCG PO DAILY Metoprolol Succinate (Metoprolol Succinate ER), 12.5 MG PO QAM Nitroglycerin (Nitrostat), 0.4 MG UT PRN Pantoprazole (Protonix), 40 MG PO DAILY Prednisone (Prednisone), 5 MG PO Q2D Scheduled PRN Acetaminophen (Tylenol), 650 MG PO Q4H PRN for Pain Ipratropium-Albuterol (Duoneb), 1 TREATMENT INH Q4H PRN for SOB/Wheezing Sennosides-Docusate Sodium (Doc-Q-Lax), 1 TAB PO DAILY PRN for Constipation Allergies Coded Allergies: No Known Allergies (Verified , 05/02/17) Vital Signs Date Time Temp Pulse Resp B/P (MAP) Pulse Ox O2 Delivery O2 Flow Rate FiO2 05/05/17 19:47 61 18 133/47 97 Nasal Cannula 3.0 05/05/17 17:48 36.3 62 20 110/58 95 Nasal Cannula 3.0 Laboratory Results Test 05/05/17 18:31 05/05/17 18:44 Bedside Hemoglobin 10.5 g/dl (14.0-18.0) Bedside Hematocrit 31 % (42-52) Bedside Sodium 144 mEq/L (135-144) Bedside Potassium 4.1 mEq/L (3.3-5.0) Bedside Chloride 102 mEq/L (101-112) Bedside Total CO2 31 mEq/l (24-31) Anion Gap 16.0 mmol/L (16-25) Bedside Blood Urea Nitrogen 37 mg/dl (7-18) Bedside Creatinine 2.2 mg/dl (0.6-1.3) Bedside Glucose (other) 112 mg/dl (70-99) Bedside Ionized Calcium (Shai) 1.15 mmol/l (1.12-1.32) Bedside Prothrombin Time INR 1.1 (0.9-1.1) Medications Administered Medications (Trade) Dose Ordered Sig/Shakira Route Start Time Stop Time Status Last Admin Dose Admin Gelatin (Surgifoam Sponge 12-7MM (SMALL)) 1 ea NOW STAT EXT 05/05/17 18:11 05/05/17 18:12 DC 05/05/17 18:11 1 EA Departure Information Impression Primary Impression: Abrasion of nose Additional Impressions: Fall from standing Head injury Dispostion Home / Self-Care Condition GOOD Referrals No Doctor, Assigned (PCP) Patient Instructions ED Gelfoam Dressing, [facility] IID Additional Instructions He was seen in the emergency department today for a fall with abrasion on the nose. A Gelfoam dressing was applied to stop the bleeding. A pressure bandage was then applied. Please leave the Gelfoam in place for at least 24-48 hours. You may replace the outer bandage tomorrow if you need to. CT Scan of your head/brain demonstrated no acute bleeding or other acute abnormalities. This does not completely rule out the risk for future damage to the brain. For pain control, you can use Tylenol and/or Motrin as instructed by your PCP. You should relax in a quiet, dark place for the rest of the day. Avoid any possible triggers including: cigarette smoke, caffeine, nicotine, chocolate, wine, beer, loud noises or music, or bright lights. You should schedule a follow-up appointment in 2-3 days with your Primary Care Provider for further evaluation and treatment of your Head injury. Return to the Emergency Department if your current symptoms worsen despite treatment course outlined above, or if you develop any of the following symptoms : intractable pain despite aforementioned treatment course, visual disturbances , loss of vision, unilateral weakness or facial drooping, slurring of speech, loss of coordination, or loss of consciousness. Problem Qualifiers Primary Impression: Abrasion of nose Encounter type: initial encounter Qualified Codes: S00.31XA - Abrasion of nose, initial encounter Additional Impressions: Fall from standing Encounter type: initial encounter Qualified Codes: W19.XXXA - Unspecified fall, initial encounter Head injury Encounter type: initial encounter Qualified Codes: S09.90XA - Unspecified injury of head, initial encounter
--- NOTE | 2017-05-05 18:24 | EMERGENCY ROOM VISIT NOTE ---
ED Visit Note First contact with patient: 17:57 This Patient was discussed with the physician corporate administrative assistant, Thu Mederos PA-C. The pertinent historical and physical exam findings were confirmed. I agree with the studies ordered and with the interpretations of these studies. I agree with the disposition and care plan.
[2017-05-05 18:47] LABS: ISTAT CREATININE 2.2 mg/dl (0.6-1.3); ISTAT IONIZED CALCIUM 1.15 mmol/l (1.12-1.32); ISTAT POTASSIUM 4.1 mEq/L (3.3-5.0)
[2017-05-05 19:47] VITALS: BP 133/47; PULSE 61; O2SAT 97
--- NOTE | 2017-05-05 19:47 | DIAGNOSTIC IMAGING REPORT ---
HEAD WITHOUT CONTRAST (CT) CT DOSE: 712.55 mGy.cm HISTORY: Trauma. Mental status change. fall, head injury TECHNIQUE: Multiaxial CT images of the head were performed without the use of intravenous contrast. A dose lowering technique was utilized adhering to the principles of ALARA. Comparison: 10/08/2010 Findings: The paranasal sinuses and mastoid air cells are clear. The calvarium and skull base are intact. The ventricles and sulci are within normal limits. There is no mass, hematoma, midline shift, or acute infarct. Age-related change Impression: No acute intracranial abnormality. Age-related chronic small vessel change and atrophy. The above report was generated using voice recognition software. It may contain grammatical, syntax or spelling errors. Electronically signed by: Fabio Soto M.D. 05/05/2017 7:46 PM Dictated Date/Time: 05/05/2017 7:39 PM
== END 2017-05-05 20:15 | disposition home or self-care (01) ==
LOC: C.EDB 17:41 → C.EDD 20:15
DX: S00.31XA Abrasion of nose, initial encounter (principal); S09.90XA Unspecified injury of head, initial encounter; W18.40XA Slipping, tripping and stumbling without falling, unspecified, initial encounter; I50.9 Heart failure, unspecified; E03.9 Hypothyroidism, unspecified; I10 Essential (primary) hypertension; K21.9 Gastro-esophageal reflux disease without esophagitis; I71.4 Abdominal aortic aneurysm, without rupture; I25.10 Atherosclerotic heart disease of native coronary artery without angina pectoris; N18.3 Chronic kidney disease, stage 3 (moderate); M10.9 Gout, unspecified; R09.02 Hypoxemia; J84.10 Pulmonary fibrosis, unspecified; Z79.82 Long term (current) use of aspirin

== ENCOUNTER → 2017-05-22 | Outpatient (CLI) | payer OTHER ==
[~2017-05-22] MED LIST changes: -CEFU250T15 PO
== END | disposition home or self-care (01) ==
LOC: C.LABWYN 11:29
PROVIDERS: ATTEND Internal Medicine
DX: E03.9 Hypothyroidism, unspecified (principal)

== ENCOUNTER → 2017-05-26 | Outpatient (CLI) | payer OTHER ==
[2017-05-26 08:46] LABS: BLOOD UREA NITROGEN 37 mg/dl (7-18); CALCIUM 9.2 mg/dl (8.5-10.1); CARBON DIOXIDE 30 mmol/L (21-32); CREATININE 2.07 mg/dl (0.60-1.40); GLUCOSE 88 mg/dl (70-99); POTASSIUM 4.2 mmol/L (3.5-5.1); SODIUM 142 mmol/L (136-145)
== END | disposition home or self-care (01) ==
LOC: C.LABWYN 08:11
PROVIDERS: ATTEND Physician Assistant
DX: I50.9 Heart failure, unspecified (principal); I50.23 Acute on chronic systolic (congestive) heart failure

== ENCOUNTER → 2017-06-10 | Outpatient (CLI) | payer OTHER ==
[2017-06-10 12:54] LABS: BLOOD UREA NITROGEN 41 mg/dl (7-18); CALCIUM 8.8 mg/dl (8.5-10.1); CARBON DIOXIDE 31 mmol/L (21-32); GLUCOSE 89 mg/dl (70-99); POTASSIUM 4.4 mmol/L (3.5-5.1); SODIUM 143 mmol/L (136-145)
== END | disposition home or self-care (01) ==
LOC: C.LABWYN 12:29
PROVIDERS: ATTEND Internal Medicine
DX: I50.9 Heart failure, unspecified (principal)